=== PATIENT | female | born 1930 | race African-American/Black ===

== ENCOUNTER 2016-09-23 12:24 | Emergency (ER) | payer OTHER ==
[2016-09-23 12:37] VITALS: BP 133/59; PULSE 71; TEMP 97.7; BMI 30.8
--- NOTE | 2016-09-23 13:09 | PDOC ---
History of Present Illness - General Chief Complaint: Pain Stated Complaint: LEG PAIN FOR 9 MONTHS Time Seen by Provider: 09/23/16 12:47 History Source: Patient Exam Limitations: No Limitations - History of Present Illness Initial Comments: 09/23/16 13:03 86 yr female history of DM, COPD, CHF c/o chronic left leg pain for 9 months the past 2 months having burning, pain to the lower zamora. Past History - Past Medical History Allergies/Adverse Reactions: Allergies Allergy/AdvReac Type Severity Reaction Status Date / Time cranberry Allergy Unknown Verified 09/23/16 12:37 grape Allergy Unknown Verified 09/23/16 12:37 raspberry Allergy Unknown Verified 09/23/16 12:37 strawberry Allergy Unknown Verified 09/23/16 12:37 furosemide [From Lasix] AdvReac Verified 09/23/16 12:37 corn Allergy Unknown Uncoded 09/23/16 12:37 NUTS Allergy Unknown Uncoded 09/23/16 12:37 POLLEN Allergy Unknown Uncoded 09/23/16 12:37 SHELLFISH Allergy Unknown Uncoded 09/23/16 12:37 TUNA Allergy Unknown Uncoded 09/23/16 12:37 Home Medications: Ambulatory Orders Atorvastatin Ca [Lipitor] 10 mg PO HS #30 tablet 09/16/14 Lisinopril [Prinivil] 5 mg PO DAILY #30 tablet 09/16/14 Metoprolol Tartrate [Lopressor -] 100 mg PO BID #60 tablet 09/16/14 Spironolactone [Aldactone -] 25 mg PO DAILY #30 tablet 09/16/14 Warfarin Na [Coumadin -] 7 mg PO DAILY@1800 #30 tablet 09/16/14 Ibuprofen [Motrin -] 600 mg PO TID #21 tablet 08/29/15 Gabapentin 300 mg PO TID #90 capsule 09/23/16 Anemia: No Asthma: No Cancer: Yes (breast lt) Cardiac Disorders: Yes (mi,) COPD: No CHF: Yes Diabetes: Yes (niddm) HTN: Yes Hypercholesterolemia: Yes - Surgical History Cholecystectomy: Yes Orthopedic Surgery: Yes (Total Rt knee Replacement 7 yrs ago) - Immunization History Immunization Up to Date: Yes - Psycho/Social/Smoking Cessation Hx Anxiety: No Suicidal Ideation: No Smoking Status: No Smoking History: Never smoked Have you smoked in the past 12 months: No Number of Cigarettes Smoked Daily: 0 Information on smoking cessation initiated: No Hx Alcohol Use: No Drug/Substance Use Hx: No Substance Use Type: None Hx Substance Use Treatment: No *Physical Exam - Vital Signs Last Vital Signs Temp Pulse Resp BP Pulse Ox 97.7 F 71 17 133/59 98 09/23/16 12:35 09/23/16 12:35 09/23/16 12:35 09/23/16 12:35 09/23/16 12:35 - Physical Exam General Appearance: Yes: Nourished, Appropriately Dressed HEENT: positive: EOMI, TD Neck: negative: Tender Respiratory/Chest: positive: Lungs Clear, Normal Breath Sounds Cardiovascular: positive: Regular Rhythm, Regular Rate Vascular Pulses: Dorsalis-Pedis (R): 2+, Doralis-Pedis (L): 2+ Musculoskeletal: positive: Normal Inspection Extremity: positive: Normal Capillary Refill, Normal Range of Motion, Other ( right zamora with intact skin, right foot with inflamation, no redness no warmth, bumpy rough skin , no open areas ). negative: Delayed Capillary Refill, Pedal Edema, Swelling, Calf Tenderness, Erythema Integumentary: positive: Normal Color, Dry, Warm Neurologic: positive: Fully Oriented, Alert, Normal Mood/Affect, Normal Response , Motor Strength 5/5 Medical Decision Making - Medical Decision Making 09/23/16 13:17 cc: chronic leg and foot pain worse the past month burning tingling pain to the right lower zamora and ankle. 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 pt states she has been using a cream for her skin that prescribed , not providing relief from the burning neuropathy. will prescribe gabapentin pt is to follow with vascular doctor as discussed with pt and her daughter. pt is ambulatory no acute distress. 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 Calles call to make appointment if symptoms do not improve follow with in 1-2 weeks for follow up take the medication as prescribed return to ER for any worsening symptoms
== END 2016-09-23 14:00 | disposition home or self-care (01) ==
LOC: JERFT 12:24
DX: E08.41 Diabetes mellitus due to underlying condition with diabetic mononeuropathy (principal); I50.9 Heart failure, unspecified; I10 Essential (primary) hypertension; E78.00 Pure hypercholesterolemia, unspecified; Z79.01 Long term (current) use of anticoagulants
CPT/HCPCS: 99281-25

== ENCOUNTER 2016-10-24 16:48 | Inpatient (IN) | payer OTHER ==
--- NOTE | 2016-10-24 17:25 | PDOC ---
History of Present Illness - General History Source: Patient Exam Limitations: No Limitations - History of Present Illness Initial Comments: 10/24/16 18:25 The patient is an 86 year old female with past medical history of hypertension, A-fib (on Warfarin), CHF, s/p cholecystectomy who presents to the ED with complaints of shortness of breath for the past three days. Her shortness of breath is accompanied by fever and chills. In addition to her symptoms, the patient states that at her last PCP visit, it was noted to have abnormal lab values and needed to have new lab work done. Lastly, she has also been complaining of chronic RUQ pain and relates it to gallstones. She denies any nausea, vomiting, diarrhea, chest pain, or urinary symptoms. <Danika Hernandez - Last Filed: 10/24/16 18:25> <Roberto Sheikh - Last Filed: 10/26/16 08:19> - General Chief Complaint: Shortness of Breath Stated Complaint: CHEST PAIN Past History <Danika Hernandez - Last Filed: 10/24/16 18:25> - Past Medical History Anemia: No Asthma: No Cancer: Yes (breast lt) Cardiac Disorders: Yes (mi,pulm.htn) COPD: No CHF: Yes Diabetes: Yes (niddm) HTN: Yes Hypercholesterolemia: Yes - Surgical History Cholecystectomy: Yes Orthopedic Surgery: Yes (Total Rt knee Replacement 7 yrs ago) - Immunization History Immunization Up to Date: Yes - Psycho/Social/Smoking Cessation Hx Anxiety: No Suicidal Ideation: No Smoking Status: No Smoking History: Never smoked Have you smoked in the past 12 months: No Number of Cigarettes Smoked Daily: 0 Information on smoking cessation initiated: No Hx Alcohol Use: No Drug/Substance Use Hx: No Substance Use Type: None Hx Substance Use Treatment: No <Roberto Sheikh - Last Filed: 10/26/16 08:19> - Past Medical History Allergies/Adverse Reactions: Allergies Allergy/AdvReac Type Severity Reaction Status Date / Time cranberry Allergy Unknown Verified 10/24/16 16:49 grape Allergy Unknown Verified 10/24/16 16:49 raspberry Allergy Unknown Verified 10/24/16 16:49 strawberry Allergy Unknown Verified 10/24/16 16:49 furosemide [From Lasix] AdvReac Verified 10/24/16 16:49 corn Allergy Unknown Uncoded 10/24/16 16:49 NUTS Allergy Unknown Uncoded 10/24/16 16:49 POLLEN Allergy Unknown Uncoded 10/24/16 16:49 SHELLFISH Allergy Unknown Uncoded 10/24/16 16:49 TUNA Allergy Unknown Uncoded 10/24/16 16:49 Home Medications: Ambulatory Orders Atorvastatin Ca [Lipitor] 10 mg PO HS #30 tablet 09/16/14 Lisinopril [Prinivil] 5 mg PO DAILY #30 tablet 09/16/14 Spironolactone [Aldactone -] 25 mg PO DAILY #30 tablet 09/16/14 Warfarin Na [Coumadin -] 7 mg PO DAILY@1800 #30 tablet 09/16/14 Ibuprofen [Motrin -] 600 mg PO TID #21 tablet 08/29/15 Gabapentin 300 mg PO TID #90 capsule 09/23/16 Amlodipine Besylate 5 mg PO DAILY 10/25/16 Metformin HCl 500 mg PO DAILY 10/25/16 Metoprolol Tartrate [Lopressor -] 100 mg PO BID 10/25/16 Multivit-Min/FA/Lycopen/Lutein [Centrum Silver Tablet] 1 each PO 10/25/16 Sildenafil Citrate [Sildenafil] 10 mg PO TID 10/25/16 Torsemide [Demadex] 40 mg PO ACDIN 10/25/16 Torsemide [Demadex] 60 mg PO AM 10/25/16 Review of Systems - Review of Systems Able to Perform ROS?: Yes Comments:: 10/24/16 18:25 GENERAL/CONSTITUTIONAL: No fever or chills. No weakness. HEAD, EYES, EARS, NOSE AND THROAT: No change in vision. No ear pain or discharge. No sore throat. CARDIOVASCULAR: No chest pain or shortness of breath. RESPIRATORY: Present: SOB, cough No wheezing, or hemoptysis. GASTROINTESTINAL: Present: RUQ pain No nausea, vomiting, diarrhea or constipation. GENITOURINARY: No dysuria, frequency, or change in urination. MUSCULOSKELETAL: No joint or muscle swelling or pain. No neck or back pain. SKIN: No rash NEUROLOGIC: No headache, vertigo, loss of consciousness, or change in strength/ sensation. ENDOCRINE: No increased thirst. No abnormal weight change. HEMATOLOGIC/LYMPHATIC: No anemia, easy bleeding, or history of blood clots. ALLERGIC/IMMUNOLOGIC: No hives or skin allergy. All Other Systems: Reviewed and Negative <Danika Hernandez - Last Filed: 10/24/16 18:25> *Physical Exam - Vital Signs Last Vital Signs Temp Pulse Resp BP Pulse Ox 98.2 F 73 18 144/67 95 10/24/16 16:50 10/24/16 16:50 10/24/16 16:50 10/24/16 16:50 10/24/16 16:50 - Physical Exam Comments: 10/24/16 18:27 GENERAL: Awake, alert, and fully oriented, in no acute distress HEAD: No signs of trauma EYES: PERRLA, EOMI, sclera anicteric, conjunctiva clear ENT: Auricles normal inspection, hearing grossly normal, nares patent, oropharynx clear without exudates. Moist mucosa NECK: Positive JVD,Normal ROM, supple, no lymphadenopathy, or masses LUNGS: Fine crackles bilaterally. No wheezes. HEART: Regular rate and rhythm, normal S1 and S2, no murmurs, rubs or gallops ABDOMEN: Soft, nontender, normoactive bowel sounds. No guarding, no rebound. No masses EXTREMITIES: Normal range of motion, mild bilateral edema at the ankles. No clubbing or cyanosis. No cords, erythema, or tenderness NEUROLOGICAL: Cranial nerves II through XII grossly intact. Normal speech, normal gait SKIN: Warm, Dry, normal turgor, no rashes or lesions noted. <Danika Hernandez - Last Filed: 10/24/16 18:25> - Vital Signs Last Vital Signs Temp Pulse Resp BP Pulse Ox 98.2 F 73 18 144/67 95 10/24/16 16:50 10/24/16 16:50 10/24/16 16:50 10/24/16 16:50 10/24/16 16:50 <Roberto Sheikh - Last Filed: 10/26/16 08:19> ED Treatment Course - LABORATORY CBC & Chemistry Diagram: 10/26/16 06:00 10/25/16 05:35 <Roberto Sheikh - Last Filed: 10/26/16 08:19> Medical Decision Making - Medical Decision Making 10/24/16 18:32 Patient had a negative reaction - hypersomnolence/lethargy- difficult to arrouse after Gabapentin last admission <Roberto Sheikh - Last Filed: 10/26/16 08:19> *DC/Admit/Observation/Transfer - Attestations Scribe Attestion: 10/24/16 18:29 Documentation prepared by Danika Hernandez, acting as medical laboratory manager for Roberto Sheikh DO. <Danika Hernandez - Last Filed: 10/24/16 18:25> - Attestations Physician Attestion: 10/24/16 17:25 I, Dr. Roberto Sheikh, attest that this document has been prepared under my direction and personally reviewed by me in its entirety. I further attest, that it accurately reflects all work, treatment, procedures and medical decision -making performed by me. <Roberto Sheikh - Last Filed: 10/26/16 08:19> Diagnosis at time of Disposition: CHF (congestive heart failure) Qualifiers: Congestive heart failure type: diastolic Congestive heart failure chronicity: acute on chronic Qualified Code(s): I50.33 - Acute on chronic diastolic ( congestive) heart failure - Discharge Dispostion Condition at time of disposition: Unchanged/Unknown - Referrals
[2016-10-24 19:41] LABS: BASOPHIL 0.4 % (0-2.0); EOSINOPHIL 1.7 % (0-4.5); MCH 29.9 pg (25.7-33.7); MEAN CELL VOLUME 90.5 fl (80-96); MEAN PLT VOLUME 10.1 fl (7.5-11.1); NEUTROPHILS 58.5 % (42.8-82.8); PLATELET COUNT 122 K/MM3 (134-434); RDW 14.7 % (11.6-15.6); WHITE BLOOD COUNT 6.1 K/mm3 (4.0-10.0)
[2016-10-24 20:06] LABS: INR 2.25 (0.82-1.09); PROTHROMBIN TIME (PATIENT) 25.2 SEC (9.98-11.88)
[2016-10-24 20:12] LABS: ALBUMIN 3.5 g/dl (3.4-5.0); ANION GAP 8 (8-16); BILIRUBIN,TOTAL 1.4 mg/dL (0.2-1.0); CO2 32 mmol/L (21-32); GLUCOSE,RANDOM 107 mg/dL (74-106); SGOT/AST 18 U/L (15-37); SGPT/ALT 21 U/L (12-78); TOT PROT 8.4 g/dl (6.4-8.2)
[2016-10-24 20:15] LABS: ALK PHOS 54 U/L (45-117); CPK 150 IU/L (26-192); TROPONIN I < 0.02 ng/ml (0.00-0.05)
--- NOTE | 2016-10-24 20:35 | PDOC ---
*Physical Exam - Vital Signs Last Vital Signs Temp Pulse Resp BP Pulse Ox 98.2 F 73 18 144/67 95 10/24/16 16:50 10/24/16 16:50 10/24/16 16:50 10/24/16 16:50 10/24/16 16:50 ED Treatment Course - LABORATORY CBC & Chemistry Diagram: 10/24/16 19:30 10/24/16 19:30 - ADDITIONAL ORDERS Additional order review: Laboratory Results 10/24/16 10/24/16 10/24/16 19:30 19:30 19:30 INR 2.25 H Sodium 139 Potassium 3.8 Chloride 99 Carbon Dioxide 32 Anion Gap 8 BUN 31 H D Creatinine 2.0 H D Creat Clearance w eGFR 23.74 Random Glucose 107 H Calcium 9.0 Total Bilirubin 1.4 H D AST 18 D ALT 21 D Alkaline Phosphatase 54 Creatine Kinase 150 Troponin I < 0.02 B-Natriuretic Peptide 2765.47 H Total Protein 8.4 H D Albumin 3.5 Lipase 132 10/24/16 19:30 RBC 3.86 MCV 90.5 MCHC 33.0 RDW 14.7 MPV 10.1 Neutrophils % 58.5 Lymphocytes % 27.5 D Monocytes % 11.9 H Eosinophils % 1.7 D Basophils % 0.4 *DC/Admit/Observation/Transfer Diagnosis at time of Disposition: CHF (congestive heart failure) - Discharge Dispostion Condition at time of disposition: Stable Admit: Yes - Referrals Referrals: Julio Cesar Ma MD [Primary Care Provider] - - Patient Instructions - Post Discharge Activity
--- NOTE | 2016-10-24 21:09 | HP ---
CHIEF COMPLAINT: SOB PCP: Dr. Ma Investigative Assistant: Dr Laurita Erazo ([facility]) HISTORY OF PRESENT ILLNESS: This is a 86 y/o woman with a past medical history of CHF, Afib, HTN, Pulmonary Hypertension, HLD, DM. Who reports SOB x 2 days. Patient reports having a productive cough with yellow phlegm, and was wheezing. Patient also reports having midsternal CP several days ago, then returned last night sharp, nagging in quality radiating across her L-breast. Patient denies dizziness, CP, AP, N/V/ D, constipation, dysuria ER course was notable for: (1) Chest Xray- image vascular congestion (2) BNP 2765 (3) HEMANT: BUN 31, Cr 2.0 Recent Travel: None PAST MEDICAL HISTORY: Congestive Heart Failure Atrial Fibrillation Pulmonary Hypertension Hypertension Hyperlipidemia Non-Insulin Dependent Diabetes Mellitus L- Breast Ca (s/p Chemo, remission) Arthritis PAST SURGICAL HISTORY: Mastectomy-(L- Lumpectomy) Hysterectomy Cholecystectomy Right Total Knee Replacement Tubal Ligation Childbirth Social History: Smoking: Never Alcohol: No Drugs: No Family History: Allergies cranberry Allergy (Unknown, Verified 10/24/16 16:49) grape Allergy (Unknown, Verified 10/24/16 16:49) raspberry Allergy (Unknown, Verified 10/24/16 16:49) strawberry Allergy (Unknown, Verified 10/24/16 16:49) furosemide [From Lasix] Adverse Reaction (Verified 10/24/16 16:49) dizziness corn Allergy (Unknown, Uncoded 10/24/16 16:49) NUTS Allergy (Unknown, Uncoded 10/24/16 16:49) POLLEN Allergy (Unknown, Uncoded 10/24/16 16:49) SHELLFISH Allergy (Unknown, Uncoded 10/24/16 16:49) TUNA Allergy (Unknown, Uncoded 10/24/16 16:49) HOME MEDICATIONS: Home Medications Medication Instructions Recorded Atorvastatin Ca [Lipitor] 10 mg PO HS #30 tablet 09/16/14 Lisinopril [Prinivil] 5 mg PO DAILY #30 tablet 09/16/14 Metoprolol Tartrate [Lopressor -] 100 mg PO BID #60 tablet 09/16/14 Spironolactone [Aldactone -] 25 mg PO DAILY #30 tablet 09/16/14 Warfarin Na [Coumadin -] 7 mg PO DAILY@1800 #30 tablet 09/16/14 Ibuprofen [Motrin -] 600 mg PO TID #21 tablet 08/29/15 Gabapentin 300 mg PO TID #90 capsule 09/23/16 REVIEW OF SYSTEMS CONSTITUTIONAL: Absent: fever, chills, diaphoresis, generalized weakness, malaise, loss of appetite, weight change HEENT: Absent: rhinorrhea, nasal congestion, throat pain, throat swelling, difficulty swallowing, mouth swelling, ear pain, eye pain, visual changes CARDIOVASCULAR: chest pain, peripheral edema Absent: syncope, palpitations, irregular heart rate, lightheadedness RESPIRATORY: cough, shortness of breath, dyspnea with exertion, wheezing Absent: orthopnea, stridor, hemoptysis GASTROINTESTINAL: Absent: abdominal pain, abdominal distension, nausea, vomiting, diarrhea, constipation, melena, hematochezia GENITOURINARY: Absent: dysuria, frequency, urgency, hesitancy, hematuria, flank pain, genital pain MUSCULOSKELETAL: Absent: myalgia, arthralgia, joint swelling, back pain, neck pain SKIN: Absent: rash, itching, pallor HEMATOLOGIC/IMMUNOLOGIC: Absent: easy bleeding, easy bruising, lymphadenopathy, frequent infections ENDOCRINE: Absent: unexplained weight gain, unexplained weight loss, heat intolerance, cold intolerance NEUROLOGIC: Absent: headache, focal weakness or paresthesias, dizziness, unsteady gait, seizure, mental status changes, bladder or bowel incontinence PSYCHIATRIC: Absent: anxiety, depression, suicidal or homicidal ideation, hallucinations. PHYSICAL EXAMINATION Vital Signs - 24 hr 10/24/16 16:50 Temperature 98.2 F Pulse Rate 73 Respiratory 18 Rate Blood Pressure 144/67 O2 Sat by Pulse 95 Oximetry (%) GENERAL: Awake, alert, and fully oriented, in no acute distress. HEAD: Normal with no signs of trauma. EYES: Pupils equal, round and reactive to light, extraocular movements intact, sclera anicteric, conjunctiva clear. No lid lag. EARS, NOSE, THROAT: Ears normal, nares patent, oropharynx clear without exudates. Moist mucous membranes. NECK: Normal range of motion, supple without lymphadenopathy, JVD, or masses. LUNGS: Diminished to bases, breath sounds equal. No wheezes, and no crackles. No accessory muscle use. HEART: Regular rate and rhythm, normal S1 and S2 without murmur, rub or gallop. ABDOMEN: Soft, nontender, not distended, normoactive bowel sounds, no guarding, no rebound, no masses. No hepatomegaly or splenomegaly. MUSCULOSKELETAL: Normal range of motion at all joints. No bony deformities or tenderness. No CVA tenderness. UPPER EXTREMITIES: 2+ pulses, warm, well-perfused. No cyanosis. No clubbing. No peripheral edema. LOWER EXTREMITIES:+2 pitting L > R peripheral edema. 2+ pulses, warm, well- perfused. No calf tenderness. NEUROLOGICAL: Cranial nerves II-XII intact. Normal speech. Gait not observed. PSYCHIATRIC: Cooperative. Good eye contact. Appropriate mood and affect. SKIN: Warm, dry, normal turgor, no rashes or lesions noted, normal capillary refill. Laboratory Results - last 24 hr 10/24/16 10/24/16 10/24/16 19:30 19:30 19:30 WBC 6.1 RBC 3.86 Hgb 11.5 Hct 35.0 MCV 90.5 MCH 29.9 MCHC 33.0 RDW 14.7 Plt Count 122 L MPV 10.1 Neutrophils % 58.5 Lymphocytes % 27.5 D Monocytes % 11.9 H Eosinophils % 1.7 D Basophils % 0.4 INR 2.25 H Sodium 139 Potassium 3.8 Chloride 99 Carbon Dioxide 32 Anion Gap 8 BUN 31 H D Creatinine 2.0 H D Creat Clearance w eGFR 23.74 Random Glucose 107 H Calcium 9.0 Total Bilirubin 1.4 H D AST 18 D ALT 21 D Alkaline Phosphatase 54 Creatine Kinase 150 Creatine Kinase Index 0.6 CK-MB (CK-2) < 1.000 Troponin I < 0.02 B-Natriuretic Peptide Total Protein 8.4 H D Albumin 3.5 Lipase 132 10/24/16 19:30 WBC RBC Hgb Hct MCV MCH MCHC RDW Plt Count MPV Neutrophils % Lymphocytes % Monocytes % Eosinophils % Basophils % INR Sodium Potassium Chloride Carbon Dioxide Anion Gap BUN Creatinine Creat Clearance w eGFR Random Glucose Calcium Total Bilirubin AST ALT Alkaline Phosphatase Creatine Kinase Creatine Kinase Index CK-MB (CK-2) Troponin I B-Natriuretic Peptide 2765.47 H Total Protein Albumin Lipase ASSESSMENT/PLAN: This is a 86 y/o woman with a PMHx of: Pulmonary HTN, HTN, Afib (on Coumadin), CHF, HLD, COPD, CAD, DM. Admitted for Telemetry for CHF Exacerbation for further evaluation of their emergent condition. Problem List - Problem (1) CHF exacerbation Assessment/Plan: - Likely secondary to LVSF - Continue cardiac monitoring - Chest Xray reviewed - BNP 2700, slightly improved compared to prior visit - Appreciate Cardiology Consult - Torsemide given tonight - Strict INOs - Daily weights - O2 - Continue home meds - Monitor renal function Code(s): I50.9 - HEART FAILURE, UNSPECIFIED (2) HEMANT (acute kidney injury) Assessment/Plan: - Likely secondary to HF vs Medication - Baseline Cr 1.1 - Code(s): N17.9 - ACUTE KIDNEY FAILURE, UNSPECIFIED (3) Moderate to severe pulmonary hypertension Code(s): I27.2 - OTHER SECONDARY PULMONARY HYPERTENSION (4) Lower extremity edema Code(s): R60.0 - LOCALIZED EDEMA (5) Atrial fibrillation Assessment/Plan: - EKG reviewed- NSR - Continue cardiac monitoring - [id number] Score 6 - Continue Coumadin - Series INRs Code(s): I48.91 - UNSPECIFIED ATRIAL FIBRILLATION (6) Diabetes Assessment/Plan: - Controlled - BGMs - ISS - Hold Metformin 2/2 Renal Insufficiency - Monitor renal function - HgbA1c in am Code(s): E11.9 - TYPE 2 DIABETES MELLITUS WITHOUT COMPLICATIONS (7) HTN (hypertension) Assessment/Plan: - Controlled - Monitor BP - Continue home meds with parameters Code(s): I10 - ESSENTIAL (PRIMARY) HYPERTENSION (8) Hyperlipidemia Assessment/Plan: - Lipid Panel in am - Continue home med - Monitor LFTs Code(s): E78.5 - HYPERLIPIDEMIA, UNSPECIFIED (9) DVT prophylaxis Assessment/Plan: - OOB - SCDs - Continue Coumadin Code(s): LLW9881 - Visit type - Emergency Visit Emergency Visit: Yes ED Registration Date: 10/24/16 Care time: The patient presented to the Emergency Department on the above date and was hospitalized for further evaluation of their emergent condition. - New Patient This patient is new to me today: Yes Date on this admission: 10/24/16 - Critical Care Critical Care patient: No
[2016-10-24] MEDS ORDERED: WARFARIN NA 5 MG TABLET (UD) PO ONE (23:13)
[2016-10-24] MEDS ORDERED: TORSEMIDE 20 MG TABLET (FP) PO ONE (23:25)
[2016-10-24] MEDS: ATORVASTATIN CA 10 MG TABLET (FP) PO SCH (23:50)
[2016-10-25 01:15] LABS: CPK 147 IU/L (26-192); TROPONIN I < 0.02 ng/ml (0.00-0.05)
[2016-10-25 02:25] VITALS: BMI 31.5
[2016-10-25] MEDS: INSULIN SLIDING SCALE (NOVOLOG) 1 VIAL SQ SCH ×4 (06:07→21:33)
[2016-10-25 07:20] LABS: BASOPHIL 0.5 % (0-2.0); EOSINOPHIL 2.4 % (0-4.5); MCH 29.6 pg (25.7-33.7); MCHC 32.6 g/dl (32.0-36.0); MEAN CELL VOLUME 90.7 fl (80-96); MEAN PLT VOLUME 10.2 fl (7.5-11.1); NEUTROPHILS 54.6 % (42.8-82.8); PLATELET COUNT 105 K/MM3 (134-434); RDW 14.6 % (11.6-15.6); WHITE BLOOD COUNT 5.8 K/mm3 (4.0-10.0)
[2016-10-25 07:29] LABS: ANION GAP 6 (8-16); CALCIUM 8.9 mg/dL (8.5-10.1); CO2 33 mmol/L (21-32); GLUCOSE,RANDOM 104 mg/dL (74-106); MAGNESIUM 2.6 mg/dL (1.8-2.4)
[2016-10-25 07:34] LABS: INR 2.37 (0.82-1.09); PROTHROMBIN TIME (PATIENT) 26.5 SEC (9.98-11.88)
[2016-10-25 07:35] LABS: CHOLESTEROL 169 mg/dL (50-200); CREATININE 1.6 mg/dL (0.55-1.02); LDL CHOLESTEROL (ONLY SJRH) 85 mg/dL (5-100); PHOSPHOROUS 3.7 mg/dL (2.5-4.9)
[2016-10-25 08:12] LABS: CPK 127 IU/L (26-192)
[2016-10-25 08:13] LABS: TROPONIN I < 0.02 ng/ml (0.00-0.05)
[2016-10-25] MEDS: CHOLECALCIFEROL (VITAMIN D3) 1,000 UNIT TABLET (FP) PO SCH (09:29)
[2016-10-25] MEDS: METOPROLOL TARTRATE 50 MG TABLET (FP) PO SCH ×2 (09:29→09:56)
[2016-10-25] MEDS: MULTIVITAMINS (DAILY MVI) TABLET (FP) PO SCH (09:29)
[2016-10-25] MEDS: amLODIPine BESYLATE 5 MG TABLET (FP) PO SCH (09:30)
[2016-10-25] MEDS ORDERED: METOPROLOL TARTRATE 50 MG TABLET (FP) PO ONE (10:00)
--- NOTE | 2016-10-25 10:38 | CON.CARD ---
Consult Consult Specialty:: Cardiology Referred by:: Dr. Mccann Reason for Consultation:: Cardiac evaluation - History of Present Illness Chief Complaint: Productive cough and shortness of breath History of Present Illness: Patient is an 86 year old female with underlying history of hypertension, hypercholesterolemia, type 2 diabetes mellitus, non-obstructive CAD, paroxysmal atrial fibrillation [id number] score of 7 on Warfarin with therapeutic INR who presents with productive cough with yellow sputum and shortness of breath. She denies chest pain or palpitations at this time. She denies fever or chills today, but states feverish recently. She denies paroxysmal nocturnal dyspnea or orthopnea. She denies headache or lightheadedness. Cardiology consultation was called for further evaluation. She has had syncope in the past. 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 She is on home O2 intermittently. 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 Cardio/Vascular: Yes: CAD (non-obstructive CAD), HTN, Hyperlipdemia, Pulmonary Hypertension Endocrine: Yes: Diabetes Mellitus Additional Medical History: Hyperlipidemia, recent onset afib - Past Surgical History Past Surgical History: Yes: Cholecystectomy, Hysterectomy, Joint Replacement ( right knee), Mastectomy (left lumpectomy), Tubal Ligation - Alcohol/Substance Use Hx Alcohol Use: No History of Substance Use: reports: None - Smoking History Smoking history: Never smoked Have you smoked in the past 12 months: No Aproximately how many cigarettes per day: 0 - Social History ADL: Independent Home Medications - Allergies Allergies/Adverse Reactions: Allergies Allergy/AdvReac Type Severity Reaction Status Date / Time cranberry Allergy Unknown Verified 10/24/16 16:49 grape Allergy Unknown Verified 10/24/16 16:49 raspberry Allergy Unknown Verified 10/24/16 16:49 strawberry Allergy Unknown Verified 10/24/16 16:49 furosemide [From Lasix] AdvReac Verified 10/24/16 16:49 corn Allergy Unknown Uncoded 10/24/16 16:49 NUTS Allergy Unknown Uncoded 10/24/16 16:49 POLLEN Allergy Unknown Uncoded 10/24/16 16:49 SHELLFISH Allergy Unknown Uncoded 10/24/16 16:49 TUNA Allergy Unknown Uncoded 10/24/16 16:49 - Home Medications Home Medications: Ambulatory Orders Atorvastatin Ca [Lipitor] 10 mg PO HS #30 tablet 09/16/14 Lisinopril [Prinivil] 5 mg PO DAILY #30 tablet 09/16/14 Spironolactone [Aldactone -] 25 mg PO DAILY #30 tablet 09/16/14 Warfarin Na [Coumadin -] 7 mg PO DAILY@1800 #30 tablet 09/16/14 Ibuprofen [Motrin -] 600 mg PO TID #21 tablet 08/29/15 Gabapentin 300 mg PO TID #90 capsule 09/23/16 Amlodipine Besylate 5 mg PO DAILY 10/25/16 Metformin HCl 500 mg PO DAILY 10/25/16 Metoprolol Tartrate [Lopressor -] 100 mg PO BID 10/25/16 Multivit-Min/FA/Lycopen/Lutein [Centrum Silver Tablet] 1 each PO 10/25/16 Sildenafil Citrate [Sildenafil] 10 mg PO TID 10/25/16 Torsemide [Demadex] 40 mg PO ACDIN 10/25/16 Torsemide [Demadex] 60 mg PO AM 10/25/16 Family Disease History - Family Disease History Family Disease History: Other: Daughter (HTN) Review of Systems - Review of Systems Cardiovascular: reports: Shortness of Breath. denies: Chest Pain, Palpitations Respiratory: reports: Cough, SOB. denies: Hemoptysis, Orthopnea, PND Gastrointestinal: denies: Abdominal Pain, Constipation, Diarrhea, Melena, Nausea , Rectal Bleeding, Vomiting Neurological: reports: Syncope. denies: Dizziness, Headache, Seizure, Weakness Vital Signs: Vital Signs Temperature 98.0 F 10/25/16 05:42 Pulse Rate 57 L 10/25/16 02:00 Respiratory Rate 20 10/25/16 05:42 Blood Pressure 127/72 10/25/16 05:42 O2 Sat by Pulse Oximetry (%) 95 10/25/16 00:51 Neck: Yes: Supple Respiratory: Yes: Diminished Gastrointestinal: Yes: Normal Bowel Sounds, Soft. No: Tenderness Cardiovascular: Yes: Regular Rate and Rhythm JVD: No Carotid Bruit: No PMI: Non-Displaced Heart Sounds: Yes: S1, S2. No: Gallop Edema: No - Other Data Labs, Other Data: CBC, BMP 10/25/16 05:35 10/25/16 05:35 INR, PTT INR 2.37 (0.82-1.09) H 10/25/16 05:35 Troponin, BNP 10/25/16 10/25/16 00:01 05:35 Troponin I < 0.02 < 0.02 Laboratory Results - last 24 hr 10/24/16 10/24/16 10/24/16 19:30 19:30 19:30 WBC 6.1 RBC 3.86 Hgb 11.5 Hct 35.0 MCV 90.5 MCH 29.9 MCHC 33.0 RDW 14.7 Plt Count 122 L MPV 10.1 Neutrophils % 58.5 Lymphocytes % 27.5 D Monocytes % 11.9 H Eosinophils % 1.7 D Basophils % 0.4 INR 2.25 H Sodium 139 Potassium 3.8 Chloride 99 Carbon Dioxide 32 Anion Gap 8 BUN 31 H D Creatinine 2.0 H D Creat Clearance w eGFR 23.74 POC Glucometer Random Glucose 107 H Hemoglobin A1c % Calcium 9.0 Phosphorus Magnesium Total Bilirubin 1.4 H D AST 18 D ALT 21 D Alkaline Phosphatase 54 Creatine Kinase 150 Creatine Kinase Index 0.6 CK-MB (CK-2) < 1.000 Troponin I < 0.02 B-Natriuretic Peptide Total Protein 8.4 H D Albumin 3.5 Triglycerides Cholesterol Total LDL Cholesterol HDL Cholesterol Lipase 132 10/24/16 10/24/16 10/25/16 19:30 21:27 00:01 WBC RBC Hgb Hct MCV MCH MCHC RDW Plt Count MPV Neutrophils % Lymphocytes % Monocytes % Eosinophils % Basophils % INR Sodium Potassium Chloride Carbon Dioxide Anion Gap BUN Creatinine Creat Clearance w eGFR POC Glucometer [id number] Random Glucose Hemoglobin A1c % Calcium Phosphorus Magnesium Total Bilirubin AST ALT Alkaline Phosphatase Creatine Kinase 147 Creatine Kinase Index CK-MB (CK-2) Troponin I < 0.02 B-Natriuretic Peptide 2765.47 H Total Protein Albumin Triglycerides Cholesterol Total LDL Cholesterol HDL Cholesterol Lipase 10/25/16 10/25/16 10/25/16 05:35 05:35 05:35 WBC 5.8 RBC 3.56 L Hgb 10.5 L Hct 32.3 L MCV 90.7 MCH 29.6 MCHC 32.6 RDW 14.6 Plt Count 105 L MPV 10.2 Neutrophils % 54.6 Lymphocytes % 29.6 Monocytes % 12.9 H Eosinophils % 2.4 Basophils % 0.5 INR 2.37 H Sodium 141 Potassium 3.6 Chloride 102 Carbon Dioxide 33 H Anion Gap 6 L BUN 27 H Creatinine 1.6 H Creat Clearance w eGFR POC Glucometer Random Glucose 104 Hemoglobin A1c % Calcium 8.9 Phosphorus 3.7 D Magnesium 2.6 H Total Bilirubin AST ALT Alkaline Phosphatase Creatine Kinase Creatine Kinase Index CK-MB (CK-2) Troponin I B-Natriuretic Peptide Total Protein Albumin Triglycerides 46 Cholesterol 169 D Total LDL Cholesterol 85 HDL Cholesterol 73 H D Lipase 10/25/16 10/25/16 10/25/16 05:35 05:35 05:50 WBC RBC Hgb Hct MCV MCH MCHC RDW Plt Count MPV Neutrophils % Lymphocytes % Monocytes % Eosinophils % Basophils % INR Sodium Potassium Chloride Carbon Dioxide Anion Gap BUN Creatinine Creat Clearance w eGFR POC Glucometer 106 Random Glucose Hemoglobin A1c % 6.6 H D Calcium Phosphorus Magnesium Total Bilirubin AST ALT Alkaline Phosphatase Creatine Kinase 127 Creatine Kinase Index CK-MB (CK-2) Troponin I < 0.02 B-Natriuretic Peptide Total Protein Albumin Triglycerides Cholesterol Total LDL Cholesterol HDL Cholesterol Lipase Sinus rhythm with no ST-T abnormality Imaging - Results Chest X-ray: Report Reviewed (Cardiomegaly, mild interstital marking) EKG: Report Reviewed Problem List - Problems (1) HEMANT (acute kidney injury) Code(s): N17.9 - ACUTE KIDNEY FAILURE, UNSPECIFIED (2) CHF (congestive heart failure) Code(s): I50.9 - HEART FAILURE, UNSPECIFIED Qualifiers: Congestive heart failure type: diastolic Congestive heart failure chronicity: acute on chronic Qualified Code(s): I50.33 - Acute on chronic diastolic (congestive) heart failure (3) Atrial fibrillation Code(s): I48.91 - UNSPECIFIED ATRIAL FIBRILLATION Qualifiers: Atrial fibrillation type: paroxysmal Qualified Code(s): I48.0 - Paroxysmal atrial fibrillation (4) Diabetes Code(s): E11.9 - TYPE 2 DIABETES MELLITUS WITHOUT COMPLICATIONS Qualifiers: Diabetes mellitus type: type 2 Diabetes mellitus complication status: without complication Diabetes mellitus terminal operator insulin use: without chcf use Qualified Code(s): E11.9 - Type 2 diabetes mellitus without complications (5) HTN (hypertension) Code(s): I10 - ESSENTIAL (PRIMARY) HYPERTENSION Qualifiers: Hypertension type: essential hypertension Qualified Code(s): I10 - Essential (primary) hypertension (6) Hyperlipidemia Code(s): E78.5 - HYPERLIPIDEMIA, UNSPECIFIED Qualifiers: Hyperlipidemia type: pure hypercholesterolemia Qualified Code(s): E78.00 - Pure hypercholesterolemia, unspecified; E78.0 - Pure hypercholesterolemia (7) Moderate to severe pulmonary hypertension Code(s): I27.2 - OTHER SECONDARY PULMONARY HYPERTENSION (8) Syncopal episodes Code(s): R55 - SYNCOPE AND COLLAPSE Qualifiers: Syncope type: unspecified Qualified Code(s): R55 - Syncope and collapse (9) CAD (coronary artery disease) Code(s): I25.10 - ATHSCL HEART DISEASE OF [place] CORONARY ARTERY W/O ANG PCTRS Assessment/Plan 1. Productive cough and shortness of breath suggests acute on chronic LV diastolic failure in the presence of severe pulmonary hypertension 2. Paroxysmal atrial fibrillation currently in sinus rhythm, [id number] score of 7 on Warfarin 3. Hypertension 4. Hypercholesterolemia 5. Type 2 diabetes mellitus 6. History of syncope 7. Non-obstructive CAD 8. History of breast CA s/p lumpectomy PLAN: 1. Continue Warfarin as per INR (keep btw 2-3) 2. Continue Lopressor as tolerated 3. Continue Norvasc. Consider ACEI or ARB if renal function improves. Spironolactone is also being held, but to be restarted when feasible 4. Patient was on Sildenafil for pulmonary hypertension 5. Torsemide is being held due to renal insufficiency. Restart once renal function improves 6. Obtain records from [facility] Further plans are to follow Dimitri Palm MD
--- NOTE | 2016-10-25 12:23 | PN ---
Progress Note (short form) - Note Progress Note: PULMONARY CONSULTATION DICTATED 10/25/16 IMP DECOMPENSATED CHF PULMONARY HTN ON HOME O2 URI AFIB HTN DM H/O BREAST CA S/P LEFT MASTECTOMY,RT/CHEMO OSAS NOT ON CPAP HEMANT PLAN DIURETICS O2 AC DAILY WTS MONITOR LYTES ,RRENAL FUNCTION CPAP TITRATION OUTPATIENT DR CARR Problem List - Problems (1) HEMANT (acute kidney injury) Code(s): N17.9 - ACUTE KIDNEY FAILURE, UNSPECIFIED (2) CHF (congestive heart failure) Code(s): I50.9 - HEART FAILURE, UNSPECIFIED Qualifiers: Congestive heart failure type: diastolic Congestive heart failure chronicity: acute on chronic Qualified Code(s): I50.33 - Acute on chronic diastolic (congestive) heart failure (3) CHF exacerbation Code(s): I50.9 - HEART FAILURE, UNSPECIFIED (4) Atrial fibrillation Code(s): I48.91 - UNSPECIFIED ATRIAL FIBRILLATION Qualifiers: Atrial fibrillation type: paroxysmal Qualified Code(s): I48.0 - Paroxysmal atrial fibrillation (5) Diabetes Code(s): E11.9 - TYPE 2 DIABETES MELLITUS WITHOUT COMPLICATIONS Qualifiers: Diabetes mellitus type: type 2 Diabetes mellitus complication status: without complication Diabetes mellitus terminal make up operator insulin use: without terminal make up operator use Qualified Code(s): E11.9 - Type 2 diabetes mellitus without complications (6) HTN (hypertension) Code(s): I10 - ESSENTIAL (PRIMARY) HYPERTENSION Qualifiers: Hypertension type: essential hypertension Qualified Code(s): I10 - Essential (primary) hypertension (7) Hyperlipidemia Code(s): E78.5 - HYPERLIPIDEMIA, UNSPECIFIED Qualifiers: Hyperlipidemia type: pure hypercholesterolemia Qualified Code(s): E78.00 - Pure hypercholesterolemia, unspecified; E78.0 - Pure hypercholesterolemia (8) Lower extremity edema Code(s): R60.0 - LOCALIZED EDEMA (9) Moderate to severe pulmonary hypertension Code(s): I27.2 - OTHER SECONDARY PULMONARY HYPERTENSION (10) Nephrolithiasis Code(s): N20.0 - CALCULUS OF KIDNEY (11) Sleep apnea, obstructive Code(s): G47.33 - OBSTRUCTIVE SLEEP APNEA (ADULT) (PEDIATRIC)
--- NOTE | 2016-10-25 13:06 | EKG ---
Test Reason : Blood Pressure : / mmHG Vent. Rate : 073 BPM Atrial Rate : 073 BPM P-R Int : 178 ms QRS Dur : 084 ms QT Int : 424 ms P-R-T Axes : 065 037 046 degrees QTc Int : 467 ms NORMAL SINUS RHYTHM NONSPECIFIC T WAVE ABNORMALITY WHEN COMPARED WITH ECG OF 13-SEP-2014 09:18, SINUS RHYTHM HAS REPLACED ATRIAL FIBRILLATION REPEAT EKG IF CLINICALLY INDICATED Confirmed by RENETTA FAUST MD ([id number]) on 10/25/2016 1:06:05 PM Referred By: Confirmed By:RENETTA FAUST MD
--- NOTE | 2016-10-25 13:31 | CONS ---
PULMONARY CONSULTATION DATE OF CONSULTATION: 10/25/2016 REQUESTING PHYSICIAN: Anamaria Colon MD HISTORY OF PRESENT ILLNESS: The patient is an 86-year-old black female with a past medical history of CHF; pulmonary hypertension on home O2; atrial fibrillation; hypertension; obstructive sleep apnea; hyperlipidemia; diabetes; history of breast CA status post chemotherapy and RT, currently in remission; atrial fibrillation; arthritis; history of right total knee replacement; admitted to [facility] with complaint of increasing shortness of breath and dyspnea on exertion, increasing severity over 2 days. Patient also states that for a couple days prior to admission, she felt like she had a fever with productive cough, yellow sputum. She also had some wheezing. She denied any complaints of nausea, vomiting, or diaphoresis. She also complains of mid-sternal chest discomfort. She presented to the emergency room with the above. In the ER, she was treated with diuretics with good clinical response and transferred out to the medical floor for further management. The patient states she is a nonsmoker. There is no history of occupational exposure to chemicals or fumes. She states that she sleeps on 3 pillows and develops moderate dyspnea with minimal exertion. She denies any recent travel. There is no history of DVT or PE in the past. PAST MEDICAL HISTORY: Again includes CHF; atrial fibrillation; pulmonary hypertension; hypertension; hyperlipidemia; diabetes; past history of left breast CA status post left mastectomy, status post chemotherapy, and RT; arthritis. CURRENT MEDICATIONS: Include Coumadin, Lopressor, Norvasc, Lipitor, NovoLog, vitamin C, and vitamin D3. REVIEW OF SYSTEMS: Positive for orthopnea. Positive dyspnea. Positive cough. Positive chest discomfort. No nausea. No vomiting. Questionable fever. No chills. No hemoptysis. No abdominal pain. Positive lower extremity edema. PHYSICAL EXAMINATION: General: The patient is a well-developed, well-nourished female, awake, alert, currently in no acute distress. Vital Signs: She is currently afebrile. Blood pressure is 127/72. Respiratory rate is 20. O2 saturation is 95% on room air. HEENT: Normocephalic, atraumatic. Neck: Supple. Heart: Irregular with normal S1, S2. Chest: A few bibasilar crackles. Abdomen: Soft. Bowel sounds positive. Extremities: There is trace lower extremity ankle edema. LABORATORY DATA: BUN 27, creatinine 1.6. BNP is 2765. INR is 2.37. WBC is 5.8, hemoglobin 10.5, hematocrit 32.3, with a platelet count of 105,000. Chest x-ray reveals cardiomegaly. No evidence of acute infiltrates or effusions. IMPRESSION: 1. Cough, dyspnea, most likely mild decompensated congestive heart failure. 2. Likely viral upper respiratory tract infection. 3. Severe pulmonary hypertension. 4. Atrial fibrillation. 5. [id number] diabetes mellitus. 6. Hypertension. 7. History of left breast cancer status post mastectomy, status post chemotherapy, radiation therapy, currently in remission. 8. Obstructive sleep apnea. PLAN: Continue diuretics, supplemental O2, daily weights. Monitor INR. Also, the patient would be a good candidate for outpatient pulmonary rehabilitation, pulmonary function tests as outpatient. Further cardiac workup as per Cardiology. NILES CARR M.D. [id number]
--- NOTE | 2016-10-25 13:50 | PN ---
Teaching Attending Note Name of Resident: Patty Walters ATTENDING PHYSICIAN STATEMENT I saw and evaluated the patient. I reviewed the resident's note and discussed the case with the resident. I agree with the resident's findings and plan as documented. SUBJECTIVE:states breathing has significantly improved. claims medication compliance with no recent adjustment to medications and claims she cooks all her own food and no change in diet. states that 6 days ago had subjective fevers and productive cough of yellow sputum which has resolved 1-2 days ago. states she took an OTC medication (tea?) for her symptoms. denies CP, fever, chills, orthopnea no melena or BRBPR OBJECTIVE: Last Vital Signs Temp Pulse Resp BP Pulse Ox 98.6 F 56 L 20 120/58 95 10/25/16 12:26 10/25/16 12:26 10/25/16 12:26 10/25/16 12:26 10/25/16 12:26 General NAD CV S1 S2 irregular Lungs CTA B/L no wheezing/rales/rhonchi Extremities no pedal edema ASSESSMENT AND PLAN: 86yo F wtih PMH afib, CHF, pulmonary HTN, DM presented to the ER with SOB for several days 1. Acute on chronic systolic CHF- clinically euvolemic. mild congestion seen on CXR however pt remains euvolemic at this time. received torsemide IV in the ER. echo pending. will f/u and place back on home medications. may be induced from recent viral infection which has seem to have resolved. no longer has subjective fevers or productive cough. evaluated by cardio who agrees. he has placed call with private auto locator to inform of inpatient status 2. HEMANT- likely pre-renal. improving. cont to monitor 3. afib- rate controlled. on coumadin. cont home management 4. normocytic anemia- no signs of bleeding. check iron studies. repeat to ensure stable 5. d/c planning pending results of echo. PT eval
--- NOTE | 2016-10-25 16:36 | PN ---
Physical Exam: SUBJECTIVE: Patient seen and examined at bedside. States that she is currently not feeling SOB. Attempts made to get pt's files from [place]- pt does not want to sign medical release form. OBJECTIVE: Vital Signs Period Temp Pulse Resp BP Sys/Morales Pulse Ox Last 24 Hr 97.6 F-98.6 F 56-68 18-20 120-133/58-72 94-95 GENERAL: The patient is awake, alert, and fully oriented, in no acute distress. HEAD: Normal with no signs of trauma. EYES: PERRL, extraocular movements intact, sclera anicteric, conjunctiva clear. No ptosis. ENT: Ears normal, nares patent, oropharynx clear without exudates, moist mucous membranes. NECK: Trachea midline, full range of motion, supple. LUNGS: Breath sounds equal, clear to auscultation bilaterally, no wheezes, no crackles, no accessory muscle use. HEART: Regular rate and rhythm, S1, S2 without murmur, rub or gallop. ABDOMEN: Soft, mildly tender, nondistended, normoactive bowel sounds, no guarding, no rebound, no hepatosplenomegaly, no masses. EXTREMITIES: 2+ posterior tibial pulses, warm, well-perfused, 1+ pitting edema bilaterally- upper portion of shins. NEUROLOGICAL: Cranial nerves II through XII grossly intact. Laboratory Results - last 24 hr 10/24/16 10/25/16 10/25/16 21:27 00:01 05:35 WBC 5.8 RBC 3.56 L Hgb 10.5 L Hct 32.3 L MCV 90.7 MCH 29.6 MCHC 32.6 RDW 14.6 Plt Count 105 L MPV 10.2 Neutrophils % 54.6 Lymphocytes % 29.6 Monocytes % 12.9 H Eosinophils % 2.4 Basophils % 0.5 INR Sodium Potassium Chloride Carbon Dioxide Anion Gap BUN Creatinine POC Glucometer 128.21566 Random Glucose Hemoglobin A1c % Calcium Phosphorus Magnesium Creatine Kinase 147 Troponin I < 0.02 Triglycerides Cholesterol Total LDL Cholesterol HDL Cholesterol 10/25/16 10/25/16 10/25/16 05:35 05:35 05:35 WBC RBC Hgb Hct MCV MCH MCHC RDW Plt Count MPV Neutrophils % Lymphocytes % Monocytes % Eosinophils % Basophils % INR 2.37 H Sodium 141 Potassium 3.6 Chloride 102 Carbon Dioxide 33 H Anion Gap 6 L BUN 27 H Creatinine 1.6 H POC Glucometer Random Glucose 104 Hemoglobin A1c % 6.6 H D Calcium 8.9 Phosphorus 3.7 D Magnesium 2.6 H Creatine Kinase Troponin I Triglycerides 46 Cholesterol 169 D Total LDL Cholesterol 85 HDL Cholesterol 73 H D 10/25/16 10/25/16 05:35 05:50 WBC RBC Hgb Hct MCV MCH MCHC RDW Plt Count MPV Neutrophils % Lymphocytes % Monocytes % Eosinophils % Basophils % INR Sodium Potassium Chloride Carbon Dioxide Anion Gap BUN Creatinine POC Glucometer 106 Random Glucose Hemoglobin A1c % Calcium Phosphorus Magnesium Creatine Kinase 127 Troponin I < 0.02 Triglycerides Cholesterol Total LDL Cholesterol HDL Cholesterol Active Medications Generic Name Dose Route Start Last Admin Trade Name Freq PRN Reason Stop Dose Admin Amlodipine Besylate 5 mg 10/25/16 10:00 10/25/16 09:30 Norvasc - PO 5 mg DAILY [facility] Administration Atorvastatin Calcium 10 mg 10/24/16 22:00 10/24/16 23:50 Lipitor - PO 10 mg HS [facility] Administration Cholecalciferol 1,000 unit 10/25/16 10:00 10/25/16 09:29 Vitamin D3 - PO 1,000 unit DAILY [facility] Administration Insulin Aspart 1 vial 10/25/16 07:00 10/25/16 12:10 Novolog Vial Sliding Scale - SQ Not Given ACHS [facility] Protocol Metoprolol Tartrate 100 mg 10/25/16 10:00 10/25/16 09:56 Lopressor - PO Not Given DAILY [facility] Metoprolol Tartrate 50 mg 10/25/16 22:00 Lopressor - PO HS [facility] Multivitamins/Minerals/Vitamin C 1 tab 10/25/16 10:00 10/25/16 09:29 Tab-A-Vit - PO 1 tab DAILY [facility] Administration Warfarin Sodium 7.5 mg 10/25/16 18:00 Coumadin - PO Q2D@1800 [facility] Warfarin Sodium 5 mg 10/26/16 18:00 Coumadin - PO Q2D@1800 [facility] ASSESSMENT/PLAN: 86 y/o F with PMH CHF, afib, breast CA, HTN, pulm HTN, HLD, DM, SOB x 3 days. Pt admitted for acute CHF exacerbation. # CHF exacerbation -secondary to LV systolic dysfunction -CXR: mild congestion noted -BNP 2700 -Received 2 doses of Torsemide IV 40mg in ED -F/u ECHO, if WNL can d/c tomorrow -F/u records from [facility] #HEMANT -Baseline Cr: 1.1 -BUN/Cr 27/1.6 today -Most likely secondary to CHF, inability to perfuse kidneys appropriately -Will f/u BMP tomorrow #Afib -[id number]: 6 -On home coumadin levels, 7.5 mg PO q2days, 5mg PO q2days -F/u INR #Anemia -H&H 10.5/32.3 -Will f/u CBC tomorrow -No signs of active bleeding -F/u iron panel tomorrow # Pulmonary HTN -need to determine etiology, if 1' or 2' -Pt on sildenafil, but not offered by hospital pharmacy F/E/N -Sodium controlled diet -Strict I's and O's Dispo -Home after seen by PT, and pending ECHO report Visit type - Emergency Visit Emergency Visit: No - New Patient This patient is new to me today: Yes Date on this admission: 10/25/16 - Critical Care Critical Care patient: No
[2016-10-25] MEDS ORDERED: INSULIN (NOVOLOG) ASPART 100 UNITS/ML 10ML VIAL ONE (17:31)
[2016-10-25] MEDS ORDERED: METOPROLOL TARTRATE 50 MG TABLET (FP) PO SCH ×2 (18:00→22:00)
[2016-10-25] MEDS ORDERED: WARFARIN NA 7.5 MG TABLET (FP) PO SCH (18:00)
[2016-10-25] MEDS: ATORVASTATIN CA 10 MG TABLET (FP) PO SCH (21:32)
[2016-10-25] MEDS ORDERED: TORSEMIDE 20 MG TABLET (FP) PO ONE (23:25)
[2016-10-26] MEDS: INSULIN SLIDING SCALE (NOVOLOG) 1 VIAL SQ SCH ×3 (07:26→17:09)
[2016-10-26 07:31] LABS: MCH 29.7 pg (25.7-33.7); MCHC 32.6 g/dl (32.0-36.0); MEAN PLT VOLUME 9.8 fl (7.5-11.1); PLATELET COUNT 121 K/MM3 (134-434); RDW 14.5 % (11.6-15.6); WHITE BLOOD COUNT 6.4 K/mm3 (4.0-10.0)
[2016-10-26 08:10] LABS: INR 2.31 (0.82-1.09); PROTHROMBIN TIME (PATIENT) 25.8 SEC (9.98-11.88)
[2016-10-26 08:13] LABS: ANION GAP 10 (8-16); CALCIUM 8.9 mg/dL (8.5-10.1); CO2 30 mmol/L (21-32); GLUCOSE,RANDOM 106 mg/dL (74-106)
[2016-10-26 08:14] LABS: CREATININE 1.6 mg/dL (0.55-1.02)
[2016-10-26] MEDS: SILDENAFIL CITRATE 20 MG TAB PO SCH ×2 (10:12→10:13)
[2016-10-26] MEDS: amLODIPine BESYLATE 5 MG TABLET (FP) PO SCH (10:13)
[2016-10-26] MEDS: MULTIVITAMINS (DAILY MVI) TABLET (FP) PO SCH (10:13)
[2016-10-26] MEDS: METOPROLOL TARTRATE 50 MG TABLET (FP) PO SCH (10:13)
[2016-10-26] MEDS: CHOLECALCIFEROL (VITAMIN D3) 1,000 UNIT TABLET (FP) PO SCH (10:13)
[2016-10-26 10:17] VITALS: TEMP 98.1
--- NOTE | 2016-10-26 11:57 | PN ---
Teaching Attending Note Name of Resident: Patty Walters ATTENDING PHYSICIAN STATEMENT I saw and evaluated the patient. I reviewed the resident's note and discussed the case with the resident. I agree with the resident's findings and plan as documented. SUBJECTIVE:asymptomatic. denies SOB, cough, orthopnea or cp. pt seen ambulating the vargas without difficulty OBJECTIVE: Last Vital Signs Temp Pulse Resp BP Pulse Ox 98.1 F 62 20 111/43 100 10/26/16 09:00 10/26/16 09:00 10/26/16 09:00 10/26/16 09:00 10/25/16 20:26 Intake & Output 10/23/16 10/24/16 10/25/16 10/26/16 23:59 23:59 23:59 23:59 Intake Total 300 Balance 300 Weight 167 lb 165 lb 12.8 oz General NAD CV S1 S2 irregular Lungs CTA B/L no wheezing/rales/rhonchi Extremities no pedal edema ASSESSMENT AND PLAN: 86yo F wtih PMH afib, CHF, pulmonary HTN, DM presented to the ER with SOB for several days 1. Acute on chronic systolic CHF- clinically euvolemic. appears improved. awaiting echo results. will need to compare with old echo report. awaiting information to be sent from [place]. private office assistance notified by cardiology of hospitalization. on home medications. 2. HEMANT- likely pre-renal. improving. cont to monitor 3. afib- rate controlled. on coumadin. cont home management 4. normocytic anemia- no signs of bleeding. Hgb stable. iron studies pending 5. d/c planning pending results of echo.
--- NOTE | 2016-10-26 12:02 | PN ---
Progress Note, Physician History of Present Illness: Dyspnea and cough resolved. - Current Medication List Current Medications: Active Medications Amlodipine Besylate (Norvasc -) 5 mg PO DAILY [facility] Last Admin: 10/26/16 10:13 Dose: 5 mg Atorvastatin Calcium (Lipitor -) 10 mg PO HS [facility] Last Admin: 10/25/16 21:32 Dose: 10 mg Cholecalciferol (Vitamin D3 -) 1,000 unit PO DAILY [facility] Last Admin: 10/26/16 10:13 Dose: 1,000 unit Insulin Aspart (Novolog Vial Sliding Scale -) 1 vial SQ ACHS [facility] PRN Reason: Protocol Last Admin: 10/26/16 11:41 Dose: Not Given Metoprolol Tartrate (Lopressor -) 100 mg PO DAILY [facility] Last Admin: 10/26/16 10:13 Dose: 100 mg Metoprolol Tartrate (Lopressor -) 50 mg PO HS [facility] Last Admin: 10/25/16 21:32 Dose: 50 mg Multivitamins/Minerals/Vitamin C (Tab-A-Vit -) 1 tab PO DAILY [facility] Last Admin: 10/26/16 10:13 Dose: 1 tab Sildenafil Citrate (Revatio -) 20 mg PO DAILY [facility] Last Admin: 10/26/16 10:13 Dose: Not Given Warfarin Sodium (Coumadin -) 7.5 mg PO Q2D@1800 [facility] Last Admin: 10/25/16 17:34 Dose: 7.5 mg Warfarin Sodium (Coumadin -) 5 mg PO Q2D@1800 [facility] - Objective Vital Signs: Vital Signs Temperature 98.1 F 10/26/16 09:00 Pulse Rate 62 10/26/16 09:00 Respiratory Rate 20 10/26/16 09:00 Blood Pressure 111/43 10/26/16 09:00 O2 Sat by Pulse Oximetry (%) 100 10/25/16 20:26 Constitutional: Yes: No Distress, Calm Neck: Yes: Supple Cardiovascular: Yes: Regular Rate and Rhythm Respiratory: Yes: Regular, Diminished Gastrointestinal: Yes: Normal Bowel Sounds, Soft Edema: No Labs: CBC, BMP 10/26/16 06:00 10/26/16 05:35 INR, PTT INR 2.31 (0.82-1.09) H 10/26/16 07:00 - ....Imaging EKG: Report Reviewed (Tele: SR, PAC, PVC) Problem List - Problems (1) HEMANT (acute kidney injury) Code(s): N17.9 - ACUTE KIDNEY FAILURE, UNSPECIFIED (2) CAD (coronary artery disease) Code(s): I25.10 - ATHSCL HEART DISEASE OF [place] CORONARY ARTERY W/O ANG PCTRS Qualifiers: Coronary Disease-Associated Artery/Lesion type: [place] artery [place] vs. 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 hypertension Code(s): I27.2 - OTHER SECONDARY PULMONARY HYPERTENSION (6) Acute on chronic diastolic (congestive) heart failure Code(s): I50.33 - ACUTE ON CHRONIC DIASTOLIC (CONGESTIVE) HEART FAILURE (7) Sleep apnea, obstructive Code(s): G47.33 - OBSTRUCTIVE SLEEP APNEA (ADULT) (PEDIATRIC) (8) Hyperlipidemia Code(s): E78.5 - HYPERLIPIDEMIA, UNSPECIFIED Qualifiers: Hyperlipidemia type: pure hypercholesterolemia Qualified Code(s): E78.00 - Pure hypercholesterolemia, unspecified; E78.0 - Pure hypercholesterolemia Assessment/Plan 10/26/2016 Echo: Normal LV size and fxn, mild BSH, mild MV prolapse, mild MR, mild-mod TR, RVSP 47 mmHg, mild LAE 1. Productive cough and shortness of breath referable to acute on chronic LV diastolic failure in the presence of severe pulmonary hypertension improved 2. Paroxysmal atrial fibrillation currently in sinus rhythm, [id number] score of 7 on Warfarin 3. Hypertension 4. Hypercholesterolemia 5. Type 2 diabetes mellitus 6. History of syncope 7. Non-obstructive CAD 8. History of breast CA s/p lumpectomy 9. Acute on CKD improving PLAN: 1. Continue Warfarin as per INR (keep btw 2-3) 2. Continue Lopressor 100/50 qd as tolerated 3. Continue Norvasc 5 qd and Lipitor 10 qhs. Resume lisinopril 5 qd and spironolactone 25 qd once renal function stable 4. Patient was on Sildenafil 10 tid for pulmonary hypertension 5. Torsemide is being held due to renal insufficiency. Restart once renal function improves 6. Obtain records from [facility] 7. Ambulate patient and if asymptomatic, may be discharged home and follow up with Dr. Erazo at [facility] as outpatient.
[2016-10-26 14:02] VITALS: BP 114/64; PULSE 58
--- NOTE | 2016-10-26 14:14 | PN ---
Progress Note (short form) - Note Progress Note: PULMONARY AWAKE/ALERT WANTS TO GO HOME VSS/ ANICTERIC CHEST DISTANT BUT CLEAR RSR BS+ SOFT MINIMAL LOWER EXT EDEMA LABS/MEDS/NOTES/IMAGING REVIEWED IMP DECOMPENSATED CHF PULMONARY HTN ON HOME O2 URI AFIB HTN DM H/O BREAST CA S/P LEFT MASTECTOMY,RT/CHEMO OSAS NOT ON CPAP HEMANT PLAN DIURETICS O2 AC DAILY WTS MONITOR LYTES ,RRENAL FUNCTION CPAP TITRATION OUTPATIENT DISCHARGE PLANNING Dmitry KELLEY MD
[2016-10-26] MEDS ORDERED: WARFARIN NA 5 MG TABLET (UD) PO SCH (18:00)
--- NOTE | 2016-10-26 19:27 | DS ---
Physical Exam: SUBJECTIVE: Patient seen and examined at bedside today. Pt no longer feeling SOB. Denies chest pain, lower extremity pain. OBJECTIVE: Vital Signs Period Temp Pulse Resp BP Sys/Morales Pulse Ox Last 24 Hr 97.4 F-98.1 F 58-79 20-20 111-141/43-64 100-100 PHYSICAL EXAM GENERAL: The patient is awake, alert, and fully oriented, in no acute distress. HEAD: Normal with no signs of trauma. EYES: PERRL, extraocular movements intact, sclera anicteric, conjunctiva clear. ENT: Ears normal, nares patent, oropharynx clear without exudates, moist mucous membranes. NECK: Trachea midline, supple. LUNGS: Breath sounds equal, clear to auscultation bilaterally, no wheezes, no crackles, no accessory muscle use. HEART: Regular rate and rhythm, S1, S2 without murmur, rub or gallop. ABDOMEN: Soft, nontender, nondistended, normoactive bowel sounds, no guarding, no rebound, no hepatosplenomegaly, no masses. EXTREMITIES: 2+ posterior tibial pulses, warm, well-perfused, no edema. NEUROLOGICAL: Cranial nerves II through XII grossly intact. LABS 10/24/16 10/24/16 10/24/16 19:30 19:30 19:30 WBC 6.1 RBC 3.86 Hgb 11.5 Hct 35.0 MCV 90.5 MCH 29.9 MCHC 33.0 RDW 14.7 Plt Count 122 L INR 2.25 H Sodium 139 Potassium 3.8 Chloride 99 Carbon Dioxide 32 BUN 31 H D Creatinine 2.0 H D Creat Clearance w eGFR 23.74 Random Glucose 107 H Hemoglobin A1c % Magnesium Total Bilirubin 1.4 H D AST 18 D ALT 21 D Creatine Kinase 150 Troponin I < 0.02 B-Natriuretic Peptide Total Protein 8.4 H D Triglycerides Cholesterol Total LDL Cholesterol HDL Cholesterol Lipase 132 10/24/16 10/25/16 10/25/16 19:30 00:01 05:35 WBC 5.8 RBC 3.56 L Hgb 10.5 L Hct 32.3 L MCV 90.7 MCH 29.6 MCHC 32.6 RDW 14.6 Plt Count 105 L INR Sodium Potassium Chloride Carbon Dioxide BUN Creatinine Creat Clearance w eGFR Random Glucose Hemoglobin A1c % Magnesium Total Bilirubin AST ALT Creatine Kinase 147 Troponin I < 0.02 B-Natriuretic Peptide 2765.47 H Total Protein Triglycerides Cholesterol Total LDL Cholesterol HDL Cholesterol Lipase 10/25/16 10/25/16 10/25/16 05:35 05:35 05:35 WBC RBC Hgb Hct MCV MCH MCHC RDW Plt Count INR 2.37 H Sodium 141 Potassium 3.6 Chloride 102 Carbon Dioxide 33 H BUN 27 H Creatinine 1.6 H Creat Clearance w eGFR Random Glucose 104 Hemoglobin A1c % 6.6 H D Magnesium 2.6 H Total Bilirubin AST ALT Creatine Kinase Troponin I B-Natriuretic Peptide Total Protein Triglycerides 46 Cholesterol 169 D Total LDL Cholesterol 85 HDL Cholesterol 73 H D Lipase 10/25/16 05:35 WBC RBC Hgb Hct MCV MCH MCHC RDW Plt Count INR Sodium Potassium Chloride Carbon Dioxide BUN Creatinine Creat Clearance w eGFR Random Glucose Hemoglobin A1c % Magnesium Total Bilirubin AST ALT Creatine Kinase 127 Troponin I < 0.02 B-Natriuretic Peptide Total Protein Triglycerides Cholesterol Total LDL Cholesterol HDL Cholesterol Lipase Microbiology 10/24/16 19:30 Blood - Peripheral Venous Blood Culture - Preliminary NO GROWTH OBTAINED AFTER 24 HOURS, INCUBATION TO CONTINUE FOR 4 DAYS. 10/24/16 19:30 Blood - Peripheral Venous Blood Culture - Preliminary NO GROWTH OBTAINED AFTER 24 HOURS, INCUBATION TO CONTINUE FOR 4 DAYS. Imaging 10/24/16: CXR: moderate cardiomegaly, mild congestion 10/26/16: ECHO: LV wall motion normal, AV leaflets are calcified and noncoronary cusp motion is restricted, aortic root sclerosis and calcification HOSPITAL COURSE: Date of Admission:10/24/16 Date of Discharge: 10/26/16 Admit diagnosis: CHF exacerbation secondary to viral URI Pre-admission course This is a 86 y/o woman with a past medical history of CHF, Afib, HTN, Pulmonary Hypertension, HLD, DM. Who reports SOB x 2 days. Patient reports having a productive cough with yellow phlegm, and was wheezing. Patient also reports having midsternal CP several days ago, then returned last night sharp, nagging in quality radiating across her L-breast. Patient denies dizziness, CP, AP, N/V/ D, constipation, dysuria ER course was notable for: (1) Chest Xray- image vascular congestion (2) BNP 2765 (3) HEMANT: BUN 31, Cr 2.0 Hospital course Pt received 2 doses of Torsemide IV 40mg in ED to manage her CHF exacerbation, which was noted on CXR as mild congestion. Pt also had ECHO done that showed no significant changes from past ECHO done 4 months prior, at [facility]. During hospitalization, pt also had HEMANT, most likely secondary to CHF. However, upon d/c, pt's BUN/Cr trended down. She was also maintained on her home coumadin levels and her INR remained in therapeutic range. Minutes to complete discharge: 32 Discharge Summary Reason For Visit: CONGESTIVE HEART FAILURE Condition: Stable - Instructions Diet, Activity, Other Instructions: You were recently in the hospital because your CHF worsened and you were short of breath. You had an ECHO done at the hospital that did not show significant changes from your past test. You may resume activity as tolerated. Please continue your home medications, and please continue to have your INR checked frequently since you are on a blood thinner, coumadin. We would like you to follow-up with your primary care doctor, Dr. Erazo at [facility] within 1 week of discharge. We would also like you to follow-up with a diet technician registered, Dr. Ma within a week. If you develop shortness of breath, chest pain, or any new symptoms, please go to the hospital. We hope you feel better soon! Referrals: Julio Cesar Ma MD [Primary Care Provider] - Disposition: HOME - Home Medications Comprehensive Discharge Medication List: Ambulatory Orders Atorvastatin Ca [Lipitor] 10 mg PO HS #30 tablet 09/16/14 Lisinopril [Prinivil] 5 mg PO DAILY #30 tablet 09/16/14 Spironolactone [Aldactone -] 25 mg PO DAILY #30 tablet 09/16/14 Warfarin Na [Coumadin -] 7 mg PO DAILY@1800 #30 tablet 09/16/14 Ibuprofen [Motrin -] 600 mg PO TID #21 tablet 08/29/15 Gabapentin 300 mg PO TID #90 capsule 09/23/16 Amlodipine Besylate 5 mg PO DAILY 10/25/16 Metformin HCl 500 mg PO DAILY 10/25/16 Metoprolol Tartrate [Lopressor -] 100 mg PO BID 10/25/16 Multivit-Min/FA/Lycopen/Lutein [Centrum Silver Tablet] 1 each PO 10/25/16 Sildenafil Citrate [Sildenafil] 10 mg PO TID 10/25/16 Torsemide [Demadex -] 40 mg PO ACDIN 10/25/16 Torsemide [Demadex -] 60 mg PO AM 10/25/16 This patient is new to me today: No Emergency Visit: No Critical Care patient: No - Discharge Referral Referred to [facility] No
[2016-10-27 06:18] LABS: SERUM IRON 50 ug/dL (27-139); TOTAL IRON BINDING CAPACITY 243 ug/dL (250-450); UIBC 193 ug/dL (118-369)
== END 2016-10-26 18:48 | disposition home or self-care (01) | DRG 292 ==
LOC: JER 16:48 → JERBED 20:35 → J4W 23:24
PROVIDERS: ADMIT Internal Medicine; ATTEND Internal Medicine
DX: I11.0 Hypertensive heart disease with heart failure (principal); N17.9 Acute kidney failure, unspecified; I50.33 Acute on chronic diastolic (congestive) heart failure; I48.91 Unspecified atrial fibrillation; Z79.01 Long term (current) use of anticoagulants; Z85.3 Personal history of malignant neoplasm of breast; I25.2 Old myocardial infarction; I27.2 Other secondary pulmonary hypertension; E11.9 Type 2 diabetes mellitus without complications; E78.00 Pure hypercholesterolemia, unspecified; Z96.651 Presence of right artificial knee joint; Z90.12 Acquired absence of left breast and nipple; Z79.84 Long term (current) use of oral hypoglycemic drugs; I25.10 Atherosclerotic heart disease of native coronary artery without angina pectoris; G47.33 Obstructive sleep apnea (adult) (pediatric); J06.9 Acute upper respiratory infection, unspecified; D64.9 Anemia, unspecified
CPT/HCPCS: 36415; 71010-TC; 80048; 80053; 80061; 82553; 83036; 83540; 83550; 83690; 83721; 83735; 83880; 84100; 84484; 85025; 85027; 85610; 87040; 93005; 93010; 93306-TC; 97116-GP; 97161-GP; 99285-25

== ENCOUNTER 2016-11-10 17:15 | Inpatient (IN) | payer OTHER ==
[2016-11-10 17:34] VITALS: BMI 31.4
--- NOTE | 2016-11-10 17:56 | PDOC ---
History of Present Illness - General Chief Complaint: Pain, Acute Stated Complaint: STOMACH PAIN Time Seen by Provider: 11/10/16 17:49 - History of Present Illness Initial Comments: 11/10/16 18:12 Ms. Ruiz is an 86 year old female with a significant past medical history of HTN, CHF, afib on warfarin, and cholecystectomy who presents to the emergency department with abdominal pain that she reports started in her stomach before moving to her back and now residing in her chest. She says that she feels like she has "pepper inside" with a burning sensation. Endorses recent constipation. The patient denies shortness of breath, headache and dizziness. Denies fever, chills, nausea, vomit, and diarrhea. Denies dysuria, frequency, urgency and hematuria. Allergies: Lasix Past surgical history: cholecystectomy, hysterectomy, knee replacement, lumpectomy Social history: denies PMD - Anil Past History - Past Medical History Allergies/Adverse Reactions: Allergies Allergy/AdvReac Type Severity Reaction Status Date / Time cranberry Allergy Unknown Verified 11/10/16 17:31 grape Allergy Unknown Verified 11/10/16 17:31 raspberry Allergy Unknown Verified 11/10/16 17:31 strawberry Allergy Unknown Verified 11/10/16 17:31 furosemide [From Lasix] AdvReac Verified 11/10/16 17:31 corn Allergy Unknown Uncoded 11/10/16 17:31 NUTS Allergy Unknown Uncoded 11/10/16 17:31 POLLEN Allergy Unknown Uncoded 11/10/16 17:31 SHELLFISH Allergy Unknown Uncoded 11/10/16 17:31 TUNA Allergy Unknown Uncoded 11/10/16 17:31 Home Medications: Ambulatory Orders Atorvastatin Ca [Lipitor] 10 mg PO HS #30 tablet 09/16/14 Spironolactone [Aldactone -] 25 mg PO DAILY #30 tablet 09/16/14 Amlodipine Besylate 5 mg PO DAILY 10/25/16 Metformin HCl 500 mg PO DAILY 10/25/16 Metoprolol Tartrate [Lopressor -] 150 mg PO BID 10/25/16 Multivit-Min/FA/Lycopen/Lutein [Centrum Silver Tablet] 1 each PO DAILY 10/25/16 Sildenafil Citrate [Sildenafil] 10 mg PO TID 10/25/16 Torsemide [Demadex -] 40 mg PO ACDIN 10/25/16 Torsemide [Demadex -] 60 mg PO AM 10/25/16 Warfarin Na [Coumadin -] 7.5 mg PO DAILY@1800 11/10/16 Warfarin Na [Coumadin] 5 mg PO ASDIR 11/10/16 Anemia: No Asthma: No Cancer: Yes (breast lt) Cardiac Disorders: Yes (mi,pulm.htn) COPD: No CHF: Yes Diabetes: Yes (niddm) HTN: Yes Hypercholesterolemia: Yes - Surgical History Cholecystectomy: Yes Orthopedic Surgery: Yes (Total Rt knee Replacement 7 yrs ago) - Immunization History Immunization Up to Date: Yes - Psycho/Social/Smoking Cessation Hx Anxiety: No Suicidal Ideation: No Smoking Status: No Smoking History: Never smoked Have you smoked in the past 12 months: No Number of Cigarettes Smoked Daily: 0 Hx Alcohol Use: No Drug/Substance Use Hx: No Substance Use Type: None Hx Substance Use Treatment: No Review of Systems - Review of Systems Comments:: 11/10/16 18:12 GENERAL/CONSTITUTIONAL: No fever or chills. No weakness. HEAD, EYES, EARS, NOSE AND THROAT: No change in vision. No ear pain or discharge. No sore throat. CARDIOVASCULAR: +Midline chest pain. No shortness of breath RESPIRATORY: No cough, wheezing, or hemoptysis. GASTROINTESTINAL: +Recent constipation. No nausea, vomiting, or diarrhea. GENITOURINARY: No dysuria, frequency, or change in urination. MUSCULOSKELETAL: No joint or muscle swelling or pain. No neck or back pain. SKIN: No rash NEUROLOGIC: No headache, vertigo, loss of consciousness, or change in strength/ sensation. ENDOCRINE: No increased thirst. No abnormal weight change HEMATOLOGIC/LYMPHATIC: No anemia, easy bleeding, or history of blood clots. ALLERGIC/IMMUNOLOGIC: No hives or skin allergy. *Physical Exam - Vital Signs Last Vital Signs Temp Pulse Resp BP Pulse Ox 98 F 62 17 131/54 97 11/10/16 17:31 11/10/16 17:31 11/10/16 17:31 11/10/16 17:31 11/10/16 17:31 - Physical Exam Comments: 11/10/16 18:12 GENERAL: Awake, alert, and fully oriented, in no acute distress HEAD: No signs of trauma, normocephalic, atraumatic EYES: PERRLA, EOMI, sclera anicteric, conjunctiva clear ENT: Auricles normal inspection, hearing grossly normal, nares patent, oropharynx clear without exudates. Moist mucosa NECK: Normal ROM, supple, no lymphadenopathy, JVD, or masses LUNGS: No distress, speaks full sentences, clear to auscultation bilaterally HEART: Regular rate and rhythm, normal S1 and S2, no murmurs, rubs or gallops, peripheral pulses normal and equal bilaterally. ABDOMEN: +Midline upper abdominal tenderness to palpation. Soft, normoactive bowel sounds. No guarding, no rebound. EXTREMITIES: Normal inspection, Normal range of motion, no edema. No clubbing or cyanosis. NEUROLOGICAL: Cranial nerves II through XII grossly intact. Normal speech, normal gait, no focal sensorimotor deficits SKIN: Warm, Dry, normal turgor, no rashes or lesions noted. ED Treatment Course - LABORATORY CBC & Chemistry Diagram: 11/11/16 06:00 11/11/16 06:00 Medical Decision Making - Medical Decision Making 11/10/16 18:56 Ms. Ruiz presents with new onset chest pain with upper abdominal midline pain. Workup begun for cardiac causes. 11/10/16 19:08 Patient signed out to Dr. Franco for follow-up care. *DC/Admit/Observation/Transfer Diagnosis at time of Disposition: CHF (congestive heart failure) - Discharge Dispostion Condition at time of disposition: Guarded
[2016-11-10 18:41] LABS: URINE APPEARANCE CLEAR; URINE BILIRUBIN NEGATIVE (NEGATIVE); URINE BLOOD NEGATIVE (NEGATIVE); URINE COLOR STRAW; URINE GLUCOSE (UA) NEGATIVE (NEGATIVE); URINE KETONE NEGATIVE (NEGATIVE); URINE LEUK ESTERASE NEGATIVE (NEGATIVE); URINE NITRITE NEGATIVE (NEGATIVE); URINE PROTEIN NEGATIVE (NEGATIVE); URINE UROBILINOGEN NEGATIVE mg/dL (0.2-1.0)
[2016-11-10 18:43] LABS: BASOPHIL 0.5 % (0-2.0); EOSINOPHIL 1.5 % (0-4.5); MCH 29.9 pg (25.7-33.7); MCHC 33.1 g/dl (32.0-36.0); MEAN CELL VOLUME 90.3 fl (80-96); MEAN PLT VOLUME 9.7 fl (7.5-11.1); PLATELET COUNT 157 K/MM3 (134-434); RDW 14.7 % (11.6-15.6)
[2016-11-10 19:17] LABS: INR 3.97 (0.82-1.09); PROTHROMBIN TIME (PATIENT) 44.9 SEC (9.98-11.88)
[2016-11-10 19:20] LABS: ACTIVATED PTT 47.6 SECONDS (26.9-34.4)
[2016-11-10] MEDS ORDERED: FAMOTIDINE 20 MG/50 ML IVPB 50 ML IVPB ONE ×2 (19:44→19:46)
--- NOTE | 2016-11-10 19:58 | PDOC ---
Attending Attestation - Resident Resident Name: [email or web address]io - ED Attending Attestation I have performed the following: I have examined & evaluated the patient, The case was reviewed & discussed with the resident, I agree w/resident's findings & plan, Exceptions are as noted - HPI HPI: 11/10/16 19:52 86y/o F with extensive cardiac history p/w epigastric pain radiating to chest, associated with exertion and SOB/worsening orthopnea. Feels sxs similar to past chest pain and CHF exacerbations. no other GI complaints. - Physicial Exam PE: 11/10/16 19:53 VSS bibasilar crackles abd benign + lower extr edema b/l - Medical Decision Making 11/10/16 19:53 86y/o F with extensive cardiac hx p/w worsening congestion/SOB and epigastric/ chest pain concerning for recurrence of cardiac illness/CHF. labs ekg, cxr diuresis admission Heart Score/ECG Review #1 General ECG Interpretation: Sinus Rhythm, Normal Rate, Normal Intervals (LVH), No acute ischemic changes
[2016-11-10 20:00] LABS: ALBUMIN 3.7 g/dl (3.4-5.0); ANION GAP 8 (8-16); BILIRUBIN,TOTAL 0.6 mg/dL (0.2-1.0); CALCIUM 9.5 mg/dL (8.5-10.1); CO2 32 mmol/L (21-32); CREATININE 1.9 mg/dL (0.55-1.02); GLUCOSE,RANDOM 109 mg/dL (74-106); SGOT/AST 23 U/L (15-37); SGPT/ALT 20 U/L (12-78); TOT PROT 8.7 g/dl (6.4-8.2)
[2016-11-10 20:03] LABS: ALK PHOS 56 U/L (45-117); CPK 188 IU/L (26-192); TROPONIN I < 0.02 ng/ml (0.00-0.05)
[2016-11-10] MEDS ORDERED: MAG HYDROX/AL HYDROX/SIMETH 30 ML UNIT-DOSE CUP PO ONE (21:29)
[2016-11-10] MEDS ORDERED: LIDOCAINE VISCOUS 2% ORAL/TOP 20 ML UNIT-DOSE CUP MM ONE (21:29)
--- NOTE | 2016-11-10 21:55 | PDOC ---
*Physical Exam - Vital Signs Last Vital Signs Temp Pulse Resp BP Pulse Ox 98 F 78 20 140/66 96 11/10/16 17:31 11/10/16 21:11 11/10/16 21:11 11/10/16 21:11 11/10/16 21:11 - Physical Exam Comments: 11/10/16 22:18 General Appearance: Nourished. No Apparent Distress HEENT: No Pharyngeal Erythema, Tonsillar Exudate, Tonsillar Erythema Respiratory/Chest: Lungs Clear, Normal Breath Sounds. No Crackles, Rales, Rhonchi, Wheezing Cardiovascular: Regular Rhythm, Regular Rate. No Murmur, Gallop/S3, Gallop/S4 Gastrointestinal/Abdominal: Normal Bowel Sounds, Soft, Epigastric tenderness to palpation on exam. No Guarding, Rebound Extremity: Normal Capillary Refill Integumentary: Normal Color, Dry, Warm Neurologic: Fully Oriented, Alert, Normal Mood/Affect, Normal Response Heart Score/ECG Review #1 ECG reviewed & interpreted by me at: 22:24 General ECG Interpretation: Sinus Rhythm, Normal Rate (72), Normal Intervals, No acute ischemic changes Compared to previous ECG there are: No significant change (10/24/16) ED Treatment Course - LABORATORY CBC & Chemistry Diagram: 11/10/16 18:24 11/10/16 19:11 - ADDITIONAL ORDERS Additional order review: Laboratory Results 11/10/16 11/10/16 11/10/16 19:14 19:11 18:31 WBC RBC Hgb Hct MCV MCH MCHC RDW Plt Count MPV Neutrophils % Lymphocytes % Monocytes % Eosinophils % Basophils % INR 3.97 H D PTT (Actin FS) 47.6 H D Sodium 137 Potassium 3.8 Chloride 97 L Carbon Dioxide 32 Anion Gap 8 BUN 36 H Creatinine 1.9 H Creat Clearance w eGFR 25.18 Random Glucose 109 H Lactic Acid Calcium 9.5 Total Bilirubin 0.6 D AST 23 D ALT 20 Alkaline Phosphatase 56 Creatine Kinase 188 Creatine Kinase Index 0.7 CK-MB (CK-2) 1.413 Troponin I < 0.02 B-Natriuretic Peptide 890.10 H Total Protein 8.7 H Albumin 3.7 Lipase 210 Urine Color Urine Appearance Urine pH Urine Protein Urine Glucose (UA) Urine Ketones Urine Blood Urine Nitrite Urine Bilirubin Urine Urobilinogen Ur Leukocyte Esterase 11/10/16 11/10/16 11/10/16 18:24 18:24 18:24 WBC 9.0 D RBC 4.17 Hgb 12.5 D Hct 37.7 MCV 90.3 MCH 29.9 MCHC 33.1 RDW 14.7 Plt Count 157 D MPV 9.7 Neutrophils % 58.0 Lymphocytes % 26.2 Monocytes % 13.8 H Eosinophils % 1.5 Basophils % 0.5 INR PTT (Actin FS) Sodium Cancelled Potassium Cancelled Chloride Cancelled Carbon Dioxide Cancelled Anion Gap Cancelled BUN Cancelled Creatinine Cancelled Creat Clearance w eGFR Cancelled Random Glucose Cancelled Lactic Acid 1.4 Calcium Cancelled Total Bilirubin Cancelled AST Cancelled ALT Cancelled Alkaline Phosphatase Cancelled Creatine Kinase Cancelled Creatine Kinase Index CK-MB (CK-2) Troponin I Cancelled B-Natriuretic Peptide Total Protein Cancelled Albumin Cancelled Lipase Cancelled Urine Color Urine Appearance Urine pH Urine Protein Urine Glucose (UA) Urine Ketones Urine Blood Urine Nitrite Urine Bilirubin Urine Urobilinogen Ur Leukocyte Esterase 11/10/16 18:23 WBC RBC Hgb Hct MCV MCH MCHC RDW Plt Count MPV Neutrophils % Lymphocytes % Monocytes % Eosinophils % Basophils % INR PTT (Actin FS) Sodium Potassium Chloride Carbon Dioxide Anion Gap BUN Creatinine Creat Clearance w eGFR Random Glucose Lactic Acid Calcium Total Bilirubin AST ALT Alkaline Phosphatase Creatine Kinase Creatine Kinase Index CK-MB (CK-2) Troponin I B-Natriuretic Peptide Total Protein Albumin Lipase Urine Color Straw Urine Appearance Clear Urine pH 7.0 Urine Protein Negative Urine Glucose (UA) Negative Urine Ketones Negative Urine Blood Negative Urine Nitrite Negative Urine Bilirubin Negative Urine Urobilinogen Negative Ur Leukocyte Esterase Negative 11/10/16 18:24 RBC 4.17 MCV 90.3 MCHC 33.1 RDW 14.7 MPV 9.7 Neutrophils % 58.0 Lymphocytes % 26.2 Monocytes % 13.8 H Eosinophils % 1.5 Basophils % 0.5 - Medications Given in the ED: ED Medications Discontinued Medications Generic Name Dose Route Start Last Admin Trade Name Freq PRN Reason Stop Dose Admin Famotidine/Sodium Chloride 50 mls @ 100 mls/hr 11/10/16 19:44 11/10/16 19:51 Pepcid 20 Mg Premixed Ivpb - IVPB 11/10/16 20:13 100 mls/hr ONCE ONE Administration Progress Note - Progress Note Progress Note: Received sign out from Dr. Fink. Patient is a 86 year old female with a history of HTN, CHF, afib on warfarin, and cholecystectomy who presents to the emergency department with severe burning epigastric abdominal pain with radiation to her back and now located in her chest. CBC and UA are unremarkable. Pending CMP, troponin, BNP. Likely admission for observation given her significant cardiac history of CHF and a recent admission for CHF exacerbation in 10/2016 Medical Decision Making - Medical Decision Making 11/10/16 22:19 Patient is a 86 year old female with a history of HTN, CHF, afib on warfarin, and cholecystectomy who presents to the emergency department with severe burning epigastric abdominal pain with radiation to her back and now located in her chest. CMP is notable for a mild elevation in CR to 1.9 as well as a BNP to 890. Negative Troponin. We will contact Dr. Ma regarding admission. We discussed the results with the patient and the plan for admission and she voiced understanding and is agreeable with the plan. 11/10/16 21:53 Discussed the Case with Dr. Holloway who is covering for Dr. Ma and requested that we admit through the hospitalist service. 11/10/16 21:54 Discussed the Case with the Hospitalist service who agreed to accept the patient for observation under. Dr. Parada. *DC/Admit/Observation/Transfer Diagnosis at time of Disposition: CHF (congestive heart failure) Qualifiers: Congestive heart failure type: unspecified congestive heart failure type Congestive heart failure chronicity: unspecified congestive heart failure chronicity Qualified Code(s): I50.9 - Heart failure, unspecified - Discharge Dispostion Condition at time of disposition: Guarded Admit: Yes - Referrals Referrals: Julio Cesar Ma MD [Primary Care Provider] -
[2016-11-10] MEDS ORDERED: ONDANSETRON 4 MG/2 ML VIAL IVPB PRN (22:30)
[2016-11-10] MEDS ORDERED: MAG HYDROX/AL HYDROX/SIMETH 30 ML UNIT-DOSE CUP ONE (23:15)
--- NOTE | 2016-11-10 23:25 | HP ---
CHIEF COMPLAINT: Abdominal pain PCP: Dr Ma HISTORY OF PRESENT ILLNESS: 86 year old F with pmh of HTN, CHF, afib on warfarin, and cholecystectomy presented to the ED with abdominal pain x 4 days. Patient states her pain is a burning, 10/10 pain that radiates to her chest and back. Patient states it is constant and worse while laying flat. Patient endorses mild nausea, recent constipation. Denies any constant nsaid usage. Patient has hx of GERD. Per patient, she has a hx of a prior endoscopy, which showed mild ulceration. Patient denies any fever, chills, SOB, RIVERA, Dizziness, Vomiting, diarrhea, dysuria, hematuria. ER course was notable for: (1) INR-3.97 (2) BUN-36, Cr-1.6, BNP-890 (3) CXR- appears unremarkable Recent Travel: denies PAST MEDICAL HISTORY: as per hpi PAST SURGICAL HISTORY: cholecystecomy, hysterectomy, knee replacement, and lumpectomy Social History: Smoking: denies Alcohol: denies Drugs: denies Family History: Allergies cranberry Allergy (Unknown, Verified 11/10/16 17:31) grape Allergy (Unknown, Verified 11/10/16 17:31) raspberry Allergy (Unknown, Verified 11/10/16 17:31) strawberry Allergy (Unknown, Verified 11/10/16 17:31) furosemide [From Lasix] Adverse Reaction (Verified 11/10/16 17:31) dizziness corn Allergy (Unknown, Uncoded 11/10/16 17:31) NUTS Allergy (Unknown, Uncoded 11/10/16 17:31) POLLEN Allergy (Unknown, Uncoded 11/10/16 17:31) SHELLFISH Allergy (Unknown, Uncoded 11/10/16 17:31) TUNA Allergy (Unknown, Uncoded 11/10/16 17:31) HOME MEDICATIONS: Home Medications Medication Instructions Recorded Atorvastatin Ca [Lipitor] 10 mg PO HS #30 tablet 09/16/14 Spironolactone [Aldactone -] 25 mg PO DAILY #30 tablet 09/16/14 Amlodipine Besylate 5 mg PO DAILY 10/25/16 Metformin HCl 500 mg PO DAILY 10/25/16 Metoprolol Tartrate [Lopressor -] 150 mg PO BID 10/25/16 Multivit-Min/FA/Lycopen/Lutein 1 each PO DAILY 10/25/16 [Centrum Silver Tablet] Sildenafil Citrate [Sildenafil] 10 mg PO TID 10/25/16 Torsemide [Demadex -] 40 mg PO ACDIN 10/25/16 Torsemide [Demadex -] 60 mg PO AM 10/25/16 Warfarin Na [Coumadin -] 7.5 mg PO DAILY@1800 11/10/16 Warfarin Na [Coumadin] 5 mg PO ASDIR 11/10/16 REVIEW OF SYSTEMS CONSTITUTIONAL: Absent: fever, chills, diaphoresis, generalized weakness, malaise, loss of appetite, weight change HEENT: Absent: rhinorrhea, nasal congestion, throat pain, throat swelling, difficulty swallowing, mouth swelling, ear pain, eye pain, visual changes CARDIOVASCULAR: Absent: chest pain, syncope, palpitations, irregular heart rate, lightheadedness , peripheral edema RESPIRATORY: Absent: cough, shortness of breath, dyspnea with exertion, orthopnea, wheezing, stridor, hemoptysis GASTROINTESTINAL: Absent: abdominal pain, abdominal distension, nausea, vomiting, diarrhea, constipation, melena, hematochezia GENITOURINARY: Absent: dysuria, frequency, urgency, hesitancy, hematuria, flank pain, genital pain MUSCULOSKELETAL: Absent: myalgia, arthralgia, joint swelling, back pain, neck pain SKIN: Absent: rash, itching, pallor HEMATOLOGIC/IMMUNOLOGIC: Absent: easy bleeding, easy bruising, lymphadenopathy, frequent infections ENDOCRINE: Absent: unexplained weight gain, unexplained weight loss, heat intolerance, cold intolerance NEUROLOGIC: Absent: headache, focal weakness or paresthesias, dizziness, unsteady gait, seizure, mental status changes, bladder or bowel incontinence PSYCHIATRIC: Absent: anxiety, depression, suicidal or homicidal ideation, hallucinations. PHYSICAL EXAMINATION GENERAL: Awake, alert, and fully oriented, in no acute distress. HEAD: Normal with no signs of trauma. EYES: Extraocular movements intact, sclera anicteric, conjunctiva clear. No lid lag. EARS, NOSE, THROAT: Ears normal, nares patent, oropharynx clear without exudates. Moist mucous membranes. NECK: Normal range of motion, supple without lymphadenopathy, JVD, or masses. LUNGS: Poor air exchange, Breath sounds equal, clear to auscultation bilaterally. No wheezes, and no crackles. No accessory muscle use. HEART: Irregular rate and rhythm, normal S1 and S2 without murmur, rub or gallop. ABDOMEN: Soft, + tenderness to epigastrum, not distended, normoactive bowel sounds, no guarding, no rebound, no masses. No hepatomegaly or splenomegaly. MUSCULOSKELETAL: Normal range of motion at all joints. No bony deformities or tenderness. No CVA tenderness. UPPER EXTREMITIES: 2+ pulses, warm, well-perfused. No cyanosis. No clubbing. No peripheral edema. LOWER EXTREMITIES: 2+ pulses, warm, well-perfused. No calf tenderness. No peripheral edema. NEUROLOGICAL: Cranial nerves II-XII intact. Normal speech. Normal gait. PSYCHIATRIC: Cooperative. Good eye contact. Appropriate mood and affect. SKIN: Warm, dry, normal turgor, no rashes or lesions noted, normal capillary refill. ASSESSMENT/PLAN: #Epigastric pain 2/2 GERD vs. Acute Gastritis -IV protonix -Mylanta prn -IVF @ 75 cc/hr -Trops negative x1, Trend troponins x2 #Supratheraputic INR, patient with A fib -Hold Coumadin -Repeat INR in the AM -Once INR <3, restart coumadin #HEMANT -Gentle hydration IVF @ 75 cc/hr #CHF -Continue home medications #DM -BGM achs -ISS achs -Hold home medications #HTN -Continue home meds #HLD -Continue lipitor 10 mg po hs #Pulmonary HTN -Continue sildenafil #FEN/GI -IVF @ 75 cc/hr -wnl -sodium/diabetic diet #PPX -DVT- Supratheraputic INR -GI- IV protonix 40 mg daily #Dispo: -Admit to tele-obs Visit type - Emergency Visit Emergency Visit: Yes ED Registration Date: 11/10/16 Care time: The patient presented to the Emergency Department on the above date and was hospitalized for further evaluation of their emergent condition. - New Patient This patient is new to me today: Yes Date on this admission: 11/11/16 - Critical Care Critical Care patient: No
--- NOTE | 2016-11-11 01:27 | PN ---
Teaching Attending Note Name of Resident: Jean Claude Tesfaye ATTENDING PHYSICIAN STATEMENT I saw and evaluated the patient. I reviewed the resident's note and discussed the case with the resident. I agree with the resident's findings and plan as documented. SUBJECTIVE: 86 year old female brought by family due to 4 day history of epigastric abdominal pain associated with nausea. Pain is 2/10 and progressed to 7/10 over the course of time . It radiated to the back. She admits having severe acid reflux PMH CHF, Afib, HTN, Pulmonary Hypertension, HLD, DM OBJECTIVE: Vital Signs Temperature 99 F 11/11/16 00:44 Pulse Rate 86 11/11/16 00:44 Respiratory Rate 20 11/11/16 00:57 Blood Pressure 148/79 11/11/16 00:44 O2 Sat by Pulse Oximetry (%) 96 11/11/16 00:57 General Appearance: Nourished. No Apparent Distress HEENT: No Pharyngeal Erythema, Tonsillar Exudate, Tonsillar Erythema Respiratory/Chest: Lungs Clear, Normal Breath Sounds. No Crackles, Rales, Rhonchi, Wheezing Cardiovascular: Regular Rhythm, Regular Rate. No Murmur, Gallop/S3, Gallop/S4 Gastrointestinal/Abdominal: Normal Bowel Sounds, Soft, Epigastric tenderness to palpation on exam. No Guarding, Rebound Extremity: Normal Capillary Refill Integumentary: Normal Color, Dry, Warm Neurologic: Fully Oriented, Alert, Normal Mood/Affect, Normal Response CBC, BMP 11/10/16 18:24 INR, PTT INR 3.97 (0.82-1.09) H D 11/10/16 18:31 ECG reviewed & interpreted General ECG Interpretation: Sinus Rhythm, Normal Rate (72), Normal Intervals, No acute ischemic changes ASSESSMENT AND PLAN: 1. Epigastric pain - likely secondary to acute gastritis. Considering cardiac risk factors can not exclude cardiogenic cause - PPI - Mylanta prn -GERD diet - IVF .- troponin x 3 2. Elevated INR - history of A Fib / rate controlled - hold coumadin - repeat INR - reinstate coumadin when INR is less then 3 3. HTN - controlled 4. DM - stable observation
[2016-11-11] MEDS ORDERED: MAG HYDROX/AL HYDROX/SIMETH 30 ML UNIT-DOSE CUP PO PRN (03:16)
[2016-11-11] MEDS: SODIUM CHLORIDE 1,000 ML IV SCH (06:57)
[2016-11-11] MEDS ORDERED: TORSEMIDE 20 MG TABLET (FP) PO SCH ×2 (07:00→16:30)
[2016-11-11 07:58] LABS: BASOPHIL 0.5 % (0-2.0); EOSINOPHIL 1.5 % (0-4.5); MCH 29.8 pg (25.7-33.7); MEAN CELL VOLUME 90.3 fl (80-96); MEAN PLT VOLUME 9.8 fl (7.5-11.1); PLATELET COUNT 135 K/MM3 (134-434); RDW 14.7 % (11.6-15.6); WHITE BLOOD COUNT 7.6 K/mm3 (4.0-10.0)
[2016-11-11 08:19] LABS: INR 3.28 (0.82-1.09)
[2016-11-11 08:23] LABS: ALBUMIN 3.5 g/dl (3.4-5.0); ALK PHOS 52 U/L (45-117); ANION GAP 11 (8-16); BILIRUBIN,TOTAL 0.7 mg/dL (0.2-1.0); CALCIUM 9.3 mg/dL (8.5-10.1); CO2 29 mmol/L (21-32); CREATININE 1.8 mg/dL (0.55-1.02); GLUCOSE,RANDOM 123 mg/dL (74-106); MAGNESIUM 2.9 mg/dL (1.8-2.4); SGOT/AST 24 U/L (15-37); SGPT/ALT 18 U/L (12-78); TOT PROT 8.2 g/dl (6.4-8.2)
[2016-11-11] MEDS ORDERED: PT OWN MED DRAWER 7, Y5N ONE ×2 (08:40→14:04)
[2016-11-11] MEDS: SILDENAFIL CITRATE 20 MG TAB PO SCH ×4 (08:42→22:39)
--- NOTE | 2016-11-11 09:01 | EKG ---
Test Reason : Blood Pressure : / mmHG Vent. Rate : 072 BPM Atrial Rate : 072 BPM P-R Int : 190 ms QRS Dur : 090 ms QT Int : 402 ms P-R-T Axes : 075 031 055 degrees QTc Int : 440 ms NORMAL SINUS RHYTHM MODERATE VOLTAGE CRITERIA FOR LVH, MAY BE NORMAL VARIANT WHEN COMPARED WITH ECG OF 24-OCT-2016 17:01, NO SIGNIFICANT CHANGE WAS FOUND Confirmed by CHANTELLE ALTAMIRANO MD ([id number]) on 11/11/2016 9:00:39 AM Referred By: Confirmed By:CHANTELLE ALTAMIRANO MD
[2016-11-11 09:30] LABS: TROPONIN I < 0.02 ng/ml (0.00-0.05)
[2016-11-11] MEDS ORDERED: SODIUM CHLORIDE 100 ML IVPB ONE (09:54)
[2016-11-11] MEDS ORDERED: PANTOPRAZOLE SODIUM 40 MG VIAL ONE (09:54)
--- NOTE | 2016-11-11 09:57 | PN ---
Physical Exam: SUBJECTIVE: Patient seen and examined at the bedside. States she feels week and short of breath. Denies any other discomfort. States she has a rash under her right breast that extends to her back since Monday. OBJECTIVE: Has scattered small intact blisters under right breast that extends to the right side of her back ID consult for possible shingles Low grade fever HEMANT > hold toresemide Magnesium 2.9 Trops negative x 2, trend one more INR 3.28, continue to hold Coumadin Vital Signs Period Temp Pulse Resp BP Sys/Morales Pulse Ox Last 24 Hr 99 F-99.5 F 71-86 20-20 126-148/60-79 96 GENERAL: The patient is awake, alert, and fully oriented, in no acute distress. HEAD: Normal with no signs of trauma. EYES: PERRL, extraocular movements intact, sclera anicteric, conjunctiva clear. No ptosis. ENT: Ears normal, nares patent, oropharynx clear without exudates, moist mucous membranes. NECK: Trachea midline, full range of motion, supple. ABDOMEN: Soft, nontender, nondistended, normoactive bowel sounds, no guarding, no rebound, no hepatosplenomegaly, no masses. EXTREMITIES: trace edema bilateral lower extremities NEUROLOGICAL: Cranial nerves II through XII grossly intact. Normal speech, gait not observed. PSYCH: Normal mood, normal affect. SKIN: scattered small intact blisters under right breast that extends to the right side of her back Laboratory Results - last 24 hr 11/11/16 11/11/16 11/11/16 06:00 06:00 06:00 WBC 7.6 RBC 3.90 Hgb 11.6 Hct 35.2 MCV 90.3 MCH 29.8 MCHC 33.0 RDW 14.7 Plt Count 135 MPV 9.8 Neutrophils % 68.0 Lymphocytes % 17.5 D Monocytes % 12.5 H Eosinophils % 1.5 Basophils % 0.5 INR 3.28 H Sodium 139 Potassium 3.6 Chloride 99 Carbon Dioxide 29 Anion Gap 11 BUN 33 H Creatinine 1.8 H Creat Clearance w eGFR 26.81 Random Glucose 123 H Calcium 9.3 Phosphorus 3.0 Magnesium 2.9 H Total Bilirubin 0.7 AST 24 ALT 18 Alkaline Phosphatase 52 Troponin I < 0.02 Total Protein 8.2 Albumin 3.5 11/11/16 06:00 WBC RBC Hgb Hct MCV MCH MCHC RDW Plt Count MPV Neutrophils % Lymphocytes % Monocytes % Eosinophils % Basophils % INR Sodium Potassium Chloride Carbon Dioxide Anion Gap BUN Creatinine Creat Clearance w eGFR Random Glucose Calcium Phosphorus Magnesium Total Bilirubin AST ALT Alkaline Phosphatase Troponin I Cancelled Total Protein Albumin Active Medications Generic Name Dose Route Start Last Admin Trade Name Freq PRN Reason Stop Dose Admin Al Hydroxide/Mg Hydroxide 30 ml 11/11/16 03:16 11/11/16 04:10 Mylanta Oral Suspension - PO 30 ml Q6H PRN Administration DYSPEPSIA Amlodipine Besylate 5 mg 11/11/16 10:00 Norvasc - PO DAILY SAIDA Atorvastatin Calcium 10 mg 11/11/16 22:00 Lipitor - PO HS SAIDA Pantoprazole Sodium 40 mg/ 100 mls @ 200 mls/hr 11/11/16 10:00 Sodium Chloride IVPB DAILY SAIDA Sodium Chloride 1,000 mls @ 75 mls/hr 11/11/16 01:15 11/11/16 06:57 Normal Saline - IV 75 mls/hr ASDIR SAIDA Administration Metoprolol Tartrate 150 mg 11/11/16 10:00 Lopressor - PO BID SAIDA Ondansetron HCl 4 mg 11/10/16 22:30 Zofran Injection IVPB Q6H PRN NAUSEA Sildenafil Citrate 10 mg 11/11/16 06:00 11/11/16 08:42 Revatio - PO Not Given TID SAIDA Spironolactone 25 mg 11/11/16 10:00 Aldactone - PO DAILY SAIDA Torsemide 60 mg 11/11/16 07:00 11/11/16 06:58 Demadex - PO 60 mg AM SAIDA Administration Torsemide 40 mg 11/11/16 16:30 Demadex - PO ACDIN [facility] ASSESSMENT/PLAN: Patient is an 86 year old female with a significant past medial history of HTN, CHF, afib on warfarin, GERD and cholecystectomy. She presented to the ED on 11/10 with abdominal pain x 4 days. Patient states her pain is a burning, 10/10 pain that radiates to her chest and back. Patient states it is constant and worse while laying flat. Patient endorses mild nausea, recent constipation. Per patient, she has a hx of a prior endoscopy, which showed mild ulceration. Patient denies any fever, chills, chest pain, vomiting, diarrhea, dysuria or hematuria. GI: Abdominal Pain/Epigastric pain/GERD vs. gastritis - improving A/P: On IV protonix, mylanta PRN IVF @ 75cc/hr, Troponins negative x 3 Cardiology: Supratheraputic INR, patient with A fib A/P: INR 3.28, continue to hold Coumadin Repeat INR in the AM Once INR <3, restart Coumadin CHF - chronic Hold diuretics secondary to HEMANT Continue home cardiac medications Hypertension - chronic A/P: Continue home meds of Metoprolol 150mg BID ID: Shingles - acute A/P: One dermatone, starts under right breasts and extends to right back Started on Valtrex by ID She is having pain in this area, started on Oxycodone, Tylenol and Neurontin Monitor for improvement of shingles Contact precautions Renal: HEMANT A/P: Likely secondary to acute vomiting On IVF @ 75 cc/hr hold diuretics F.E.N. Fluids: NS @ 75cc/hr Electrolytes: Monitor BMP Nutrition: tolerating low sodium diet Disposition: Full Code. Monitor on tele. Visit type - Emergency Visit Emergency Visit: Yes ED Registration Date: 11/10/16 Care time: The patient presented to the Emergency Department on the above date and was hospitalized for further evaluation of their emergent condition. - New Patient This patient is new to me today: Yes Date on this admission: 11/11/16 - Critical Care Critical Care patient: No - Discharge Referral Referred to [facility] Med P.C.: No
[2016-11-11] MEDS: amLODIPine BESYLATE 5 MG TABLET (FP) PO SCH (10:00)
[2016-11-11] MEDS: PANTOPRAZOLE SODIUM 40 MG in SODIUM CHLORIDE 100 ML IVPB SCH (10:00)
[2016-11-11] MEDS ORDERED: PANTOPRAZOLE 40 MG TABLET (FP) PO SCH (10:00)
[2016-11-11] MEDS: METOPROLOL TARTRATE 50 MG TABLET (FP) PO SCH ×2 (10:00→22:27)
[2016-11-11] MEDS: SPIRONOLACTONE 25 MG TABLET (FP) PO SCH (10:01)
--- NOTE | 2016-11-11 10:54 | PN ---
Progress Note (short form) - Note Progress Note: ID consult dictated imp/reccd herpes zoster- one dermatome started on Monday would treat with valtrex adjusted for renal insufficiency she is in considerable pain would start neurontin and analgesics as well Problem List - Problems (1) Zoster Code(s): B02.9 - ZOSTER WITHOUT COMPLICATIONS (2) HEMANT (acute kidney injury) Code(s): N17.9 - ACUTE KIDNEY FAILURE, UNSPECIFIED
[2016-11-11] MEDS ORDERED: valACYclovir HCL 1000 MG TABLET PO SCH (11:00)
--- NOTE | 2016-11-11 13:39 | CONS ---
DATE OF CONSULTATION: 11/11/2016 INFECTIOUS DISEASE CONSULTATION REQUESTING PHYSICIAN: Hospitalist service. HISTORY OF PRESENT ILLNESS: This is an 86-year-old woman who was recently in the hospital from October 24 to the for shortness of breath. She was felt to have worsening of her congestive heart failure and she was discharged home. She is now readmitted on November 10 with complaints of abdominal pain. I am asked to see her because she is noted to have a rash that extends from her mid sternum on the right, goes underneath her breast and radiates to her back again ending at the midline. She reports that she noted the rash on Monday and it has persisted since then. She describes a pain that starts in her mid sternum and radiates around the same side as the rash. She does not recall having had chicken pox as a child. She denies fever or chills. She has no nausea or vomiting. PAST MEDICAL HISTORY: Is notable for history of hypertension, congestive heart failure, atrial fibrillation. PAST SURGICAL HISTORY: Notable for a cholecystectomy, hysterectomy, right knee replacement and lumpectomy. She has a history of breast cancer diagnosed 20 years ago and that has been treated. ALLERGIES: FUROSEMIDE, SHELLFISH, NUTS AND MULTIPLE FOODS. MEDICATIONS: At home include atorvastatin, spironolactone, amlodipine, metformin, metoprolol, multivitamin, , torsemide, warfarin. SOCIAL HISTORY: There is no history of any cigarette or substance use. 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 REVIEW OF SYSTEMS: She notes this pain that radiates from her side and this rash that she has had for a week. She notes that she only has shortness of breath with exertion. She has had a rare cough that is notable for yellow sputum. PHYSICAL EXAMINATION: Vital Signs: Current temperature 99.1, T-max 99.5, pules 75, blood pressure 147/83, respiratory rate 20, weight 164 pounds. HEENT: Normocephalic. Eyes are anicteric. Neck: Supple. Lungs: Clear to auscultation. Heart: Regular rate and rhythm. Abdomen: Soft, nontender. Extremities: Without edema. Skin: She has a vesicular rash radiating of her right breast from the midline to the back to the midline as well. This has been persistent apparently since Monday. She has no other evidence of rash on her kin. She has no sores in her mouth and no trouble swallowing. LABORATORY DATA: Notable for a white count of 7.6, hemoglobin 11.6, platelets 155. INR is 3.2, BUN 33, creatinine 1.8. Chest x-ray done on admission shows no evidence of active pulmonary disease. IMPRESSION AND RECOMMENDATIONS: In summary this is an 86-year-old woman with herpes zoster of 1 dermatome. This started on Monday. I would treat her with oral Valtrex suggested for renal insufficiency. She is in considerable pain. Would start Neurontin and analgesics as well. Further recommendations to follow. PIEDAD COTE M.D. [id number]
[2016-11-11] MEDS: oxyCODONE HCL 5 MG TABLET PO PRN (14:39)
[2016-11-11] MEDS: INSULIN SLIDING SCALE (NOVOLOG) 1 VIAL SQ SCH ×2 (17:45→22:26)
[2016-11-11] MEDS: ATORVASTATIN CA 10 MG TABLET (FP) PO SCH (22:27)
[2016-11-11] MEDS: GABAPENTIN 100 MG CAPSULE (FP) PO SCH (22:27)
[2016-11-11] MEDS: valACYclovir HCL 500 MG TABLET (FP) PO SCH (22:39)
[2016-11-12] MEDS: ACETAMINOPHEN 325 MG TABLET (FP) PO PRN ×2 (01:14→19:41)
[2016-11-12] MEDS: SODIUM CHLORIDE 1,000 ML IV SCH ×3 (01:15→21:21)
[2016-11-12] MEDS: SILDENAFIL CITRATE 20 MG TAB PO SCH ×3 (06:30→21:18)
[2016-11-12] MEDS: oxyCODONE HCL 5 MG TABLET PO PRN (06:30)
[2016-11-12] MEDS: INSULIN SLIDING SCALE (NOVOLOG) 1 VIAL SQ SCH ×3 (06:30→16:30)
[2016-11-12 07:54] LABS: INR 2.1 (0.82-1.09); PROTHROMBIN TIME (PATIENT) 23.5 SEC (9.98-11.88)
[2016-11-12 07:55] LABS: BASOPHIL 0.4 % (0-2.0); EOSINOPHIL 2.2 % (0-4.5); MCH 29.7 pg (25.7-33.7); MCHC 32.9 g/dl (32.0-36.0); MEAN CELL VOLUME 90.4 fl (80-96); MEAN PLT VOLUME 9.6 fl (7.5-11.1); NEUTROPHILS 65.1 % (42.8-82.8); PLATELET COUNT 110 K/MM3 (134-434); RDW 14.6 % (11.6-15.6); WHITE BLOOD COUNT 6.5 K/mm3 (4.0-10.0)
[2016-11-12 08:10] LABS: ALBUMIN 3.1 g/dl (3.4-5.0); ALK PHOS 51 U/L (45-117); ANION GAP 7 (8-16); BILIRUBIN,TOTAL 0.8 mg/dL (0.2-1.0); CALCIUM 8.4 mg/dL (8.5-10.1); CO2 29 mmol/L (21-32); CREATININE 1.6 mg/dL (0.55-1.02); GLUCOSE,RANDOM 108 mg/dL (74-106); SGOT/AST 21 U/L (15-37); SGPT/ALT 17 U/L (12-78); TOT PROT 7.6 g/dl (6.4-8.2)
[2016-11-12] MEDS ORDERED: PANTOPRAZOLE SODIUM 40 MG VIAL ONE (09:09)
[2016-11-12] MEDS ORDERED: SODIUM CHLORIDE 100 ML IVPB ONE (09:10)
[2016-11-12] MEDS: valACYclovir HCL 500 MG TABLET (FP) PO SCH ×2 (10:25→21:17)
[2016-11-12] MEDS: PANTOPRAZOLE SODIUM 40 MG in SODIUM CHLORIDE 100 ML IVPB SCH (10:25)
[2016-11-12] MEDS: METOPROLOL TARTRATE 50 MG TABLET (FP) PO SCH ×2 (10:25→21:18)
[2016-11-12] MEDS: GABAPENTIN 100 MG CAPSULE (FP) PO SCH ×2 (10:26→21:18)
[2016-11-12] MEDS: amLODIPine BESYLATE 5 MG TABLET (FP) PO SCH (10:26)
[2016-11-12] MEDS: SPIRONOLACTONE 25 MG TABLET (FP) PO SCH (10:26)
[2016-11-12 12:03] LABS: CPK 231 IU/L (26-192)
[2016-11-12 12:04] LABS: TROPONIN I < 0.02 ng/ml (0.00-0.05)
--- NOTE | 2016-11-12 12:42 | PN ---
Progress Note (short form) - Note Progress Note: Chief Complaint: Events noted, notes reviewed, reporting abdominal discomfort with radiation to the back (acute shingles), patient denies any chest pain or dyspnea History of Present Illness: Seen and examined on telemetry. Full consult dictated - Current Medication List Current Medications Acetaminophen (Tylenol -) 650 mg PO Q6H PRN PRN Reason: FEVER OR PAIN Last Admin: 11/12/16 01:14 Dose: 650 mg Al Hydroxide/Mg Hydroxide (Mylanta Oral Suspension -) 30 ml PO Q6H PRN PRN Reason: DYSPEPSIA Last Admin: 11/11/16 04:10 Dose: 30 ml Amlodipine Besylate (Norvasc -) 5 mg PO DAILY [facility] Last Admin: 11/12/16 10:26 Dose: 5 mg Atorvastatin Calcium (Lipitor -) 10 mg PO HS [facility] Last Admin: 11/11/16 22:27 Dose: 10 mg Gabapentin (Neurontin -) 100 mg PO BID [facility] Last Admin: 11/12/16 10:26 Dose: 100 mg Pantoprazole Sodium 40 mg/ (Sodium Chloride) 100 mls @ 200 mls/hr IVPB DAILY [facility] Last Admin: 11/12/16 10:25 Dose: 200 mls/hr Sodium Chloride (Normal Saline -) 1,000 mls @ 75 mls/hr IV ASDIR [facility] Last Admin: 11/12/16 10:26 Dose: 75 mls/hr Insulin Aspart (Novolog Vial Sliding Scale -) 1 vial SQ ACHS [facility] PRN Reason: Protocol Last Admin: 11/12/16 11:29 Dose: Not Given Metoprolol Tartrate (Lopressor -) 150 mg PO BID [facility] Last Admin: 11/12/16 10:25 Dose: 150 mg Ondansetron HCl (Zofran Injection) 4 mg IVPB Q6H PRN PRN Reason: NAUSEA Oxycodone HCl (Roxicodone -) 5 mg PO Q6H PRN PRN Reason: PAIN Last Admin: 11/12/16 06:30 Dose: 5 mg Sildenafil Citrate (Revatio -) 10 mg PO TID [facility] Last Admin: 11/12/16 06:30 Dose: 10 mg Spironolactone (Aldactone -) 25 mg PO DAILY [facility] Last Admin: 11/12/16 10:26 Dose: 25 mg Valacyclovir HCl (Valtrex -) 1,000 mg PO BID [facility] Last Admin: 11/12/16 10:25 Dose: 1,000 mg Review of Systems Constitutional: denies Chills or Fever Respiratory: denies Cough or Dyspnea Cardiovascular: As noted above Gastrointestinal: denies Nausea, Vomiting, Diarrhea or Constipation Genitourinary: No Symptoms Reported Musculoskeletal: No Symptoms Reported - Objective Vital Signs: Last Vital Signs Temp Pulse Resp BP Pulse Ox 98.9 F 73 20 134/63 96 11/12/16 10:00 11/12/16 10:00 11/12/16 10:00 11/12/16 10:00 11/12/16 09:00 Intake & Output 11/09/16 11/10/16 11/11/16 11/12/16 23:59 23:59 23:59 23:59 Intake Total 1525 1000 Balance 1525 1000 Weight 166 lb 164 lb 3.2 oz 163 lb 6.4 oz Constitutional: No Distress, Calm Neck: Supple Negative JVD No bruit Respiratory: Clear to A&P Bilaterally Cardiovascular: S1 S2 Regular Rate and Rhythm Gastrointestinal: Soft Benign Normal Bowel Sounds Ext: No Edema Labs: Troponin, BNP 11/11/16 11/11/16 11/12/16 11:45 14:45 06:00 Troponin I < 0.02 < 0.02 < 0.02 CBC, BMP 11/12/16 06:00 11/12/16 06:00 Assessment/Plan ASSESSMENT: 1. 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 Diastolic LV dysfunction with chronic class I-II NYHA classification congestive heart failure, compensated/euvolemic 4. Paroxysmal atrial fibrillation [id number] score of 9 on Coumadin therapy 5. Severe pulmonary HTN 6. HTN 7. NIDDM 8. Hypercholesterolemia 9. CKD PLAN: 1. Continue Lopressor 2. Continue Norvasc 3. Ideally should be on ACEI or ARBS unless it is absolutely contraindicated 4. Continue A/C with Coumadin maintaining INR 2-3 5. Continue Sildenafil Citrate (Revatio) for the above noted pulmonary HTN 6. Continue Aldactone 7. Continue Lipitor Adityat Jakob Rose
--- NOTE | 2016-11-12 15:30 | CONS ---
DATE OF CONSULTATION: 11/12/2016 REQUESTING PHYSICIAN: Hospitalist. CHIEF COMPLAINT: Abdominal discomfort, cardiovascular evaluation. HISTORY OF PRESENT ILLNESS: An 86-year-old female of [place] descent of ancestry with known history of coronary artery disease, non-obstructive coronary artery disease on coronary angiography, angina pectoris, diastolic left ventricular dysfunction, with class I to II [place] Heart Association classification left ventricular failure, paroxysmal atrial fibrillation on chronic anticoagulation therapy with Coumadin, hypertensive cardiovascular disease, diabetes mellitus, hypercholesterolemia, chronic kidney disease, who was recently admitted to [facility] October 2016 with increasing dyspnea and cough productive of sputum at which point patient was noted to have evidence of acute exacerbation of the above-noted diastolic left ventricular dysfunction. Patient subsequently was discharged home to present to [facility] emergency room with abdominal discomfort and subsequently she was noted to have a rash consistent with shingles herpes zoster infection. Patient currently is complaining of discomfort at the site of the rash. Patient reported dyspnea with [id number] physical exertion. Patient denies any orthopnea or paroxysmal nocturnal dyspnea. Patient reports intermittent bilateral lower extremity edema that worsens in the latter part of the day. Patient denies any palpitations, dizziness, lightheadedness or syncope. Patient in addition has history of advanced pulmonary hypertension for which she is currently sildenafil therapy. PAST MEDICAL HISTORY: Coronary artery disease, non-obstructive coronary artery disease on prior coronary angiography, angina pectoris, diastolic left ventricular dysfunction with chronic class I to II [place] Heart Association classification left ventricular failure, paroxysmal atrial fibrillation post cardioversion, CHADS VASc score of 9 on Coumadin therapy, advanced pulmonary hypertension on sildenafil therapy, hypertensive cardiovascular disease, diabetes mellitus, hypercholesterolemia, chronic kidney disease, cholecystectomy, hysterectomy, right knee replacement surgery. SOCIAL HISTORY: Nonsmoker. FAMILY HISTORY: Positive coronary artery disease. ALLERGIES: Multiple including CRANBERRY, GRAPE, RASBERRIES, STRAWBERRIES, CORN, NUTS, POLLEN, SHELLFISH, TUNA and patient reports intolerance to LASIK therapy administration. MEDICATIONS: Medical therapy currently includes: 1. Acetaminophen 650 mg every 6 hours as needed. 2. Norvasc 5 mg once a day. 4. Lipitor 10 mg once a day. 5. Neurontin 100 mcg twice a day initiated during the current hospitalization. 6. Protonix 40 mg IV once a day. 7. Lopressor 150 mg twice a day. 8. Zofran 4 mg every 6 hours as needed. 9. Roxicodone 5 mg every 6 hours as needed. 10. Sildenafil 10 mg 3 times a day. 11. Spironolactone 25 mg once a day. 12. Valtrex 1000 mg twice a day. REVIEW OF SYSTEMS: Head and Neck: Denies headache, photophobia, blurring of vision. Respiratory: No cough or sputum production. Cardiovascular: As noted above. Gastrointestinal: Abdominal discomfort as noted above. Denies nausea, vomiting, diarrhea. Genitourinary: No symptoms reported. PHYSICAL EXAMINATION: Vital Signs: Blood pressure is 134/63 mmHg, pulse rate is 73 beats per minute. Head and Neck: Pupils equal, reactive to light and accommodation. Extraocular muscles are intact. Anicteric sclera. Negative JVD. No bruit appreciated. Chest: Clear to auscultation and percussion. Cardiovascular: S1, S2 regular. No murmurs appreciated. Abdomen: Soft, benign, normoactive bowel sound. Extremity: No edema. EKG revealed sinus rhythm with nonspecific T wave abnormality. Troponin I levels were noted. CBC revealed white blood cell count 6.5, hemoglobin 11.7, platelet count 110. Basic metabolic profile revealed sodium 140, potassium 3.7, BUN 25, creatinine 1.6, glucose 108. ASSESSMENT: 1. Acute shingles herpes zoster infection with persistent discomfort. 2. Non-obstructive coronary artery disease, angina pectoris, stable. 3. Diastolic left ventricular dysfunction with chronic class I to II [place] Heart Association classification congestive heart failure compensated/euvolemic. 4. Paroxysmal atrial fibrillation CHADS VASc score of 9 on Coumadin therapy. 5. Severe pulmonary hypertension. 6. Hypertensive cardiovascular disease. 7. [id number] diabetes mellitus. 8. Hypercholesterolemia. 9. Chronic kidney disease. RECOMMENDATIONS: 1. Continuation of Lopressor. 2. Continuation of Norvasc. 3. Ideally, patient should be on MARY JANE inhibitor or angiotensin receptor skye therapy unless it is absolutely contraindicated. 4. Continue anticoagulation therapy with Coumadin maintaining INR 2-3. 5. Continue sildenafil for the above-noted pulmonary hypertension. 6. Continue Aldactone. 7. Continue Lipitor. Thank you for the kind referral. RIVAS HI M.D. [id number]
--- NOTE | 2016-11-12 15:59 | PN ---
Physical Exam: SUBJECTIVE: Patient seen and examined. Denies any further abdominal pain, nausea or vomiting. Pain improving with the oxycodone OBJECTIVE: Singles under right breast that extends to the right side of her back - improving HEMANT > hold toresemide Trops negative Will restart Coumadin Vital Signs Period Temp Pulse Resp BP Sys/Morales Pulse Ox Last 24 Hr 98.7 F-100.3 F 64-79 18-20 119-144/63-84 94-96 GENERAL: The patient is awake, alert, and fully oriented, in no acute distress. HEAD: Normal with no signs of trauma. EYES: PERRL, extraocular movements intact, sclera anicteric, conjunctiva clear. No ptosis. ENT: Ears normal, nares patent, oropharynx clear without exudates, moist mucous membranes. NECK: Trachea midline, full range of motion, supple. ABDOMEN: Soft, nontender, nondistended, normoactive bowel sounds, no guarding, no rebound, no hepatosplenomegaly, no masses. EXTREMITIES: trace edema bilateral lower extremities NEUROLOGICAL: Cranial nerves II through XII grossly intact. Normal speech, gait not observed. PSYCH: Normal mood, normal affect. SKIN: scattered small intact blisters under right breast that extends to the right side of her back Laboratory Results - last 24 hr 11/11/16 11/11/16 11/11/16 14:45 18:14 22:25 WBC RBC Hgb Hct MCV MCH MCHC RDW Plt Count MPV Neutrophils % Lymphocytes % Monocytes % Eosinophils % Basophils % INR Sodium Potassium Chloride Carbon Dioxide Anion Gap BUN Creatinine Creat Clearance w eGFR POC Glucometer [phone] Random Glucose Calcium Total Bilirubin AST ALT Alkaline Phosphatase Creatine Kinase Creatine Kinase Index CK-MB (CK-2) Troponin I < 0.02 Total Protein Albumin 11/12/16 11/12/16 11/12/16 06:00 06:00 06:00 WBC 6.5 RBC 3.94 Hgb 11.7 Hct 35.6 MCV 90.4 MCH 29.7 MCHC 32.9 RDW 14.6 Plt Count 110 L MPV 9.6 Neutrophils % 65.1 Lymphocytes % 16.6 Monocytes % 15.7 H Eosinophils % 2.2 Basophils % 0.4 INR 2.10 H D Sodium 140 Potassium 3.7 Chloride 104 Carbon Dioxide 29 Anion Gap 7 L BUN 25 H D Creatinine 1.6 H Creat Clearance w eGFR 30.71 POC Glucometer Random Glucose 108 H Calcium 8.4 L Total Bilirubin 0.8 AST 21 ALT 17 Alkaline Phosphatase 51 Creatine Kinase 231 H Creatine Kinase Index 0.7 CK-MB (CK-2) 1.7 Troponin I < 0.02 Total Protein 7.6 Albumin 3.1 L 11/12/16 11/12/16 06:29 11:25 WBC RBC Hgb Hct MCV MCH MCHC RDW Plt Count MPV Neutrophils % Lymphocytes % Monocytes % Eosinophils % Basophils % INR Sodium Potassium Chloride Carbon Dioxide Anion Gap BUN Creatinine Creat Clearance w eGFR POC Glucometer 111 119 Random Glucose Calcium Total Bilirubin AST ALT Alkaline Phosphatase Creatine Kinase Creatine Kinase Index CK-MB (CK-2) Troponin I Total Protein Albumin Active Medications Generic Name Dose Route Start Last Admin Trade Name Freq PRN Reason Stop Dose Admin Acetaminophen 650 mg 11/11/16 13:58 11/12/16 01:14 Tylenol - PO 650 mg Q6H PRN Administration FEVER OR PAIN Al Hydroxide/Mg Hydroxide 30 ml 11/11/16 03:16 11/11/16 04:10 Mylanta Oral Suspension - PO 30 ml Q6H PRN Administration DYSPEPSIA Amlodipine Besylate 5 mg 11/11/16 10:00 11/12/16 10:26 Norvasc - PO 5 mg DAILY [facility] Administration Atorvastatin Calcium 10 mg 11/11/16 22:00 11/11/16 22:27 Lipitor - PO 10 mg HS [facility] Administration Gabapentin 100 mg 11/11/16 22:00 11/12/16 10:26 Neurontin - PO 100 mg BID [facility] Administration Pantoprazole Sodium 40 mg/ 100 mls @ 200 mls/hr 11/11/16 10:00 11/12/16 10:25 Sodium Chloride IVPB 200 mls/hr DAILY [facility] Administration Sodium Chloride 1,000 mls @ 75 mls/hr 11/11/16 01:15 11/12/16 10:26 Normal Saline - IV 75 mls/hr ASDIR [facility] Administration Insulin Aspart 1 vial 11/11/16 16:30 11/12/16 11:29 Novolog Vial Sliding Scale - SQ Not Given ACHS [facility] Protocol Metoprolol Tartrate 150 mg 11/11/16 10:00 11/12/16 10:25 Lopressor - PO 150 mg BID [facility] Administration Ondansetron HCl 4 mg 11/10/16 22:30 Zofran Injection IVPB Q6H PRN NAUSEA Oxycodone HCl 5 mg 11/11/16 13:58 11/12/16 06:30 Roxicodone - PO 5 mg Q6H PRN Administration PAIN Sildenafil Citrate 10 mg 11/11/16 06:00 11/12/16 14:10 Revatio - PO 10 mg TID [facility] Administration Spironolactone 25 mg 11/11/16 10:00 11/12/16 10:26 Aldactone - PO 25 mg DAILY [facility] Administration Valacyclovir HCl 1,000 mg 11/11/16 11:03 11/12/16 10:25 Valtrex - PO 1,000 mg BID [facility] Administration ASSESSMENT/PLAN: Patient is an 86 year old female with a significant past medial history of HTN, CHF, afib on warfarin, GERD and cholecystectomy. She presented to the ED on 11/10 with abdominal pain x 4 days. Patient states her pain is a burning, 10/10 pain that radiates to her chest and back. Patient states it is constant and worse while laying flat. Patient endorses mild nausea, recent constipation. Per patient, she has a hx of a prior endoscopy, which showed mild ulceration. Patient denies any fever, chills, chest pain, vomiting, diarrhea, dysuria or hematuria. GI: Abdominal Pain/Epigastric pain/GERD vs. gastritis - resolved A/P: On protonix, mylanta PRN IVF @ 75cc/hr, Troponins negative x 3 Cardiology: Supratheraputic INR, patient with A fib - resolved A/P: INR 2.10 continue Coumadin Repeat INR in the AM CHF - chronic Hold diuretics secondary to HEMANT - improving Continue home cardiac medications Hypertension - chronic A/P: Continue home meds of Metoprolol 150mg BID ID: Shingles - improving A/P: One dermatone, starts under right breasts and extends to right back Started on Valtrex by ID., renal dosed She is having pain in this area, started on Oxycodone, Tylenol and Neurontin Monitor for improvement of shingles Contact precautions Renal: HEMANT - improving A/P: On IVF @ 75 cc/hr hold diuretics F.E.N. Fluids: NS @ 75cc/hr Electrolytes: Monitor BMP Nutrition: tolerating low sodium diet Disposition: Full Code. Monitor on tele. Visit type - Emergency Visit Emergency Visit: Yes ED Registration Date: 11/10/16 Care time: The patient presented to the Emergency Department on the above date and was hospitalized for further evaluation of their emergent condition. - New Patient This patient is new to me today: No - Critical Care Critical Care patient: No - Discharge Referral Referred to [facility] Med P.C.: No
[2016-11-12] MEDS ORDERED: PIPERACILLIN/TAZOB 2.25 GM 2.25 GM in DEXTROSE 5%-WATER - 50 ML IVPB ONE (17:11)
[2016-11-12] MEDS ORDERED: PIPERACILLIN/TAZOBACTAM 2.25 GM VIAL IVPB ONE (17:51)
[2016-11-12] MEDS ORDERED: DEXTROSE 5%-WATER - 50 ML IVPB ONE (17:51)
[2016-11-12] MEDS: WARFARIN NA 5 MG TABLET (UD) PO SCH (17:57)
--- NOTE | 2016-11-12 18:15 | PN ---
Progress Note, Physician History of Present Illness: C/O burning pain R chest and back - Current Medication List Current Medications: Active Medications Acetaminophen (Tylenol -) 650 mg PO Q6H PRN PRN Reason: FEVER OR PAIN Last Admin: 11/12/16 01:14 Dose: 650 mg Al Hydroxide/Mg Hydroxide (Mylanta Oral Suspension -) 30 ml PO Q6H PRN PRN Reason: DYSPEPSIA Last Admin: 11/11/16 04:10 Dose: 30 ml Amlodipine Besylate (Norvasc -) 5 mg PO DAILY [facility] Last Admin: 11/12/16 10:26 Dose: 5 mg Atorvastatin Calcium (Lipitor -) 10 mg PO HS [facility] Last Admin: 11/11/16 22:27 Dose: 10 mg Gabapentin (Neurontin -) 100 mg PO BID [facility] Last Admin: 11/12/16 10:26 Dose: 100 mg Sodium Chloride (Normal Saline -) 1,000 mls @ 75 mls/hr IV ASDIR [facility] Last Admin: 11/12/16 10:26 Dose: 75 mls/hr Insulin Aspart (Novolog Vial Sliding Scale -) 1 vial SQ ACHS [facility] PRN Reason: Protocol Last Admin: 11/12/16 11:29 Dose: Not Given Metoprolol Tartrate (Lopressor -) 150 mg PO BID [facility] Last Admin: 11/12/16 10:25 Dose: 150 mg Ondansetron HCl (Zofran Injection) 4 mg IVPB Q6H PRN PRN Reason: NAUSEA Oxycodone HCl (Roxicodone -) 5 mg PO Q6H PRN PRN Reason: PAIN Last Admin: 11/12/16 06:30 Dose: 5 mg Pantoprazole Sodium (Protonix -) 40 mg PO DAILY [facility] Sildenafil Citrate (Revatio -) 10 mg PO TID [facility] Last Admin: 11/12/16 14:10 Dose: 10 mg Spironolactone (Aldactone -) 25 mg PO DAILY [facility] Last Admin: 11/12/16 10:26 Dose: 25 mg Valacyclovir HCl (Valtrex -) 1,000 mg PO BID [facility] Last Admin: 11/12/16 10:25 Dose: 1,000 mg Warfarin Sodium (Coumadin -) 5 mg PO DAILY@1800 [facility] Last Admin: 11/12/16 17:57 Dose: 5 mg - Objective Vital Signs: Vital Signs Temperature 98.7 F 11/12/16 14:00 Pulse Rate 74 11/12/16 14:00 Respiratory Rate 18 11/12/16 14:00 Blood Pressure 122/63 11/12/16 14:00 O2 Sat by Pulse Oximetry (%) 96 11/12/16 09:00 Constitutional: Yes: No Distress Eyes: Yes: Conjunctiva Clear Cardiovascular: Yes: Regular Rate and Rhythm, S1, S2 Respiratory: Yes: CTA Bilaterally Gastrointestinal: Yes: Normal Bowel Sounds, Soft. No: Tenderness Edema: No Integumentary: Yes: Other (+ vesicular rash R posterior thorax/ beneath R breast ) Labs: CBC, BMP 11/12/16 06:00 11/12/16 06:00 INR, PTT INR 2.10 (0.82-1.09) H D 11/12/16 06:00 Assessment/Plan VZV R thorax Azotemia Continue valtrex, adjusted for azotemia Analgesics
[2016-11-12] MEDS ORDERED: PT OWN MED DRAWER 7, Y5N ONE ×2 (21:07→21:50)
[2016-11-12] MEDS: ATORVASTATIN CA 10 MG TABLET (FP) PO SCH (21:22)
[2016-11-13] MEDS: INSULIN SLIDING SCALE (NOVOLOG) 1 VIAL SQ SCH ×4 (05:45→16:39)
[2016-11-13] MEDS: SODIUM CHLORIDE 1,000 ML IV SCH ×2 (06:29→10:12)
[2016-11-13] MEDS: SILDENAFIL CITRATE 20 MG TAB PO SCH ×3 (06:35→21:49)
[2016-11-13] MEDS: ACETAMINOPHEN 325 MG TABLET (FP) PO PRN ×2 (06:40→17:01)
[2016-11-13 07:58] LABS: BASOPHIL 0.3 % (0-2.0); MCH 29.7 pg (25.7-33.7); MCHC 32.8 g/dl (32.0-36.0); MEAN CELL VOLUME 90.4 fl (80-96); MEAN PLT VOLUME 9.7 fl (7.5-11.1); NEUTROPHILS 71.8 % (42.8-82.8); PLATELET COUNT 93 K/MM3 (134-434); RDW 14.5 % (11.6-15.6)
[2016-11-13 08:08] LABS: INR 1.64 (0.82-1.09); PROTHROMBIN TIME (PATIENT) 18.2 SEC (9.98-11.88)
[2016-11-13 08:27] LABS: ALBUMIN 2.8 g/dl (3.4-5.0); ANION GAP 10 (8-16); BILIRUBIN,TOTAL 0.8 mg/dL (0.2-1.0); CALCIUM 8.1 mg/dL (8.5-10.1); CO2 24 mmol/L (21-32); CREATININE 1.4 mg/dL (0.55-1.02); GLUCOSE,RANDOM 106 mg/dL (74-106); SGOT/AST 25 U/L (15-37); SGPT/ALT 22 U/L (12-78); TOT PROT 7.3 g/dl (6.4-8.2)
[2016-11-13 08:28] LABS: ALK PHOS 48 U/L (45-117)
[2016-11-13] MEDS: GABAPENTIN 100 MG CAPSULE (FP) PO SCH ×2 (10:07→21:49)
[2016-11-13] MEDS: METOPROLOL TARTRATE 50 MG TABLET (FP) PO SCH ×2 (10:07→21:48)
[2016-11-13] MEDS: PANTOPRAZOLE 40 MG TABLET (FP) PO SCH (10:07)
[2016-11-13] MEDS: amLODIPine BESYLATE 5 MG TABLET (FP) PO SCH (10:07)
[2016-11-13] MEDS: SPIRONOLACTONE 25 MG TABLET (FP) PO SCH (10:07)
[2016-11-13] MEDS ORDERED: PT OWN MED DRAWER 7, Y5N ONE (10:09)
[2016-11-13] MEDS: valACYclovir HCL 500 MG TABLET (FP) PO SCH ×2 (10:53→21:49)
--- NOTE | 2016-11-13 11:16 | PN ---
Progress Note (short form) - Note Progress Note: Chief Complaint: Events noted, notes reviewed, reports persistent (dermatomal discomfort) abdominal discomfort with radiation to the back severity of which varies, patient denies any chest pain or dyspnea History of Present Illness: Seen and examined on telemetry. Events noted, notes reviewed, reports persistent (dermatomal discomfort) abdominal discomfort with radiation to the back severity of which varies, patient denies any chest pain or dyspnea - Current Medication List Current Medications Acetaminophen (Tylenol -) 650 mg PO Q6H PRN PRN Reason: FEVER OR PAIN Last Admin: 11/13/16 06:40 Dose: 650 mg Al Hydroxide/Mg Hydroxide (Mylanta Oral Suspension -) 30 ml PO Q6H PRN PRN Reason: DYSPEPSIA Last Admin: 11/11/16 04:10 Dose: 30 ml Amlodipine Besylate (Norvasc -) 5 mg PO DAILY [facility] Last Admin: 11/13/16 10:07 Dose: 5 mg Atorvastatin Calcium (Lipitor -) 10 mg PO HS [facility] Last Admin: 11/12/16 21:22 Dose: 10 mg Gabapentin (Neurontin -) 100 mg PO BID [facility] Last Admin: 11/13/16 10:07 Dose: 100 mg Sodium Chloride (Normal Saline -) 1,000 mls @ 75 mls/hr IV ASDIR [facility] Last Admin: 11/13/16 10:12 Dose: 75 mls/hr Insulin Aspart (Novolog Vial Sliding Scale -) 1 vial SQ ACHS [facility] PRN Reason: Protocol Last Admin: 11/13/16 07:04 Dose: Not Given Metoprolol Tartrate (Lopressor -) 150 mg PO BID [facility] Last Admin: 11/13/16 10:07 Dose: 150 mg Ondansetron HCl (Zofran Injection) 4 mg IVPB Q6H PRN PRN Reason: NAUSEA Oxycodone HCl (Roxicodone -) 5 mg PO Q6H PRN PRN Reason: PAIN Last Admin: 11/12/16 06:30 Dose: 5 mg Pantoprazole Sodium (Protonix -) 40 mg PO DAILY [facility] Last Admin: 11/13/16 10:07 Dose: 40 mg Sildenafil Citrate (Revatio -) 10 mg PO TID [facility] Last Admin: 11/13/16 06:35 Dose: 10 mg Spironolactone (Aldactone -) 25 mg PO DAILY [facility] Last Admin: 11/13/16 10:07 Dose: 25 mg Valacyclovir HCl (Valtrex -) 1,000 mg PO BID [facility] Last Admin: 11/13/16 10:53 Dose: 1,000 mg Warfarin Sodium (Coumadin -) 5 mg PO DAILY@1800 [facility] Last Admin: 11/12/16 17:57 Dose: 5 mg Review of Systems Constitutional: denies Chills or Fever Respiratory: denies Cough or Dyspnea Cardiovascular: As noted above Gastrointestinal: denies Nausea, Vomiting, Diarrhea or Constipation Genitourinary: No Symptoms Reported Musculoskeletal: No Symptoms Reported - Objective Vital Signs: Last Vital Signs Temp Pulse Resp BP Pulse Ox 98.3 F 60 18 130/89 97 11/13/16 10:00 11/13/16 10:00 11/13/16 10:00 11/13/16 10:00 11/13/16 09:00 Intake & Output 11/10/16 11/11/16 11/12/16 11/13/16 23:59 23:59 23:59 23:59 Intake Total 1525 2450 300 Balance 1525 2450 300 Weight 166 lb 164 lb 3.2 oz 163 lb 6.4 oz 165 lb 3.2 oz Constitutional: No Distress, Calm Neck: Supple Negative JVD No bruit Respiratory: Clear to A&P Bilaterally Cardiovascular: S1 S2 Regular Rate and Rhythm Gastrointestinal: Soft Benign Normal Bowel Sounds Ext: No Edema Labs: CBC, BMP 11/13/16 06:00 11/13/16 06:00 INR, PTT INR 1.64 (0.82-1.09) H 11/13/16 06:00 Assessment/Plan ASSESSMENT: 1. 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 Diastolic LV dysfunction with chronic class I-II NYHA classification congestive heart failure, compensated/euvolemic 4. Paroxysmal atrial fibrillation [id number] score of 9 on Coumadin therapy 5. Severe pulmonary HTN 6. HTN 7. NIDDM 8. Hypercholesterolemia 9. CKD PLAN: 1. Continue Lopressor 2. Continue Norvasc 3. As outlined ideally should be on ACEI or ARBS unless it is absolutely contraindicated 4. Continue A/C with Coumadin maintaining INR 2-3 5. Continue Sildenafil Citrate (Revatio) for the above noted pulmonary HTN 6. Continue Aldactone 7. Continue Lipitor Saulat Jakob M.D.
--- NOTE | 2016-11-13 13:35 | PN ---
Progress Note, Physician History of Present Illness: Spiked high grade temp yesterday evening 103 Complains of burning R back and chest pain (VZV) No c/o chills Denies cough/ sputum No N/V/D No dysuria - Current Medication List Current Medications: Active Medications Acetaminophen (Tylenol -) 650 mg PO Q6H PRN PRN Reason: FEVER OR PAIN Last Admin: 11/13/16 06:40 Dose: 650 mg Al Hydroxide/Mg Hydroxide (Mylanta Oral Suspension -) 30 ml PO Q6H PRN PRN Reason: DYSPEPSIA Last Admin: 11/11/16 04:10 Dose: 30 ml Amlodipine Besylate (Norvasc -) 5 mg PO DAILY [facility] Last Admin: 11/13/16 10:07 Dose: 5 mg Atorvastatin Calcium (Lipitor -) 10 mg PO HS [facility] Last Admin: 11/12/16 21:22 Dose: 10 mg Gabapentin (Neurontin -) 100 mg PO BID [facility] Last Admin: 11/13/16 10:07 Dose: 100 mg Sodium Chloride (Normal Saline -) 1,000 mls @ 75 mls/hr IV ASDIR [facility] Last Admin: 11/13/16 10:12 Dose: 75 mls/hr Insulin Aspart (Novolog Vial Sliding Scale -) 1 vial SQ ACHS [facility] PRN Reason: Protocol Last Admin: 11/13/16 12:22 Dose: Not Given Metoprolol Tartrate (Lopressor -) 150 mg PO BID [facility] Last Admin: 11/13/16 10:07 Dose: 150 mg Ondansetron HCl (Zofran Injection) 4 mg IVPB Q6H PRN PRN Reason: NAUSEA Oxycodone HCl (Roxicodone -) 5 mg PO Q6H PRN PRN Reason: PAIN Last Admin: 11/12/16 06:30 Dose: 5 mg Pantoprazole Sodium (Protonix -) 40 mg PO DAILY [facility] Last Admin: 11/13/16 10:07 Dose: 40 mg Sildenafil Citrate (Revatio -) 10 mg PO TID [facility] Last Admin: 11/13/16 06:35 Dose: 10 mg Spironolactone (Aldactone -) 25 mg PO DAILY [facility] Last Admin: 11/13/16 10:07 Dose: 25 mg Valacyclovir HCl (Valtrex -) 1,000 mg PO BID [facility] Last Admin: 11/13/16 10:53 Dose: 1,000 mg Warfarin Sodium (Coumadin -) 5 mg PO DAILY@1800 [facility] Last Admin: 11/12/16 17:57 Dose: 5 mg - Objective Vital Signs: Vital Signs Temperature 98.3 F 11/13/16 10:00 Pulse Rate 60 11/13/16 10:00 Respiratory Rate 18 11/13/16 10:00 Blood Pressure 130/89 11/13/16 10:00 O2 Sat by Pulse Oximetry (%) 97 11/13/16 09:00 Constitutional: Yes: No Distress Eyes: Yes: Conjunctiva Clear Cardiovascular: Yes: Regular Rate and Rhythm, S1 Respiratory: Yes: Other (+crepitations at bases bilaterally) Gastrointestinal: Yes: Normal Bowel Sounds, Soft. No: Tenderness Extremities: Yes: Other (no phlebitis) Edema: No Integumentary: Yes: Other (+ vesicular rash, R chest and back) Labs: CBC, BMP 11/13/16 06:00 11/13/16 06:00 INR, PTT INR 1.64 (0.82-1.09) H 11/13/16 06:00 Assessment/Plan VZV R thorax Fever ? source ? infectious ? atelectasis secondary to pain Azotemia Continue valtrex, adjusted for azotemia Reculture CXR Empiric ceftriaxone Analgesics
[2016-11-13] MEDS ORDERED: DEXTROSE 5%-WATER 100 ML IVPB ONE (15:33)
[2016-11-13] MEDS: CEFTRIAXONE 2 GM in DEXTROSE 5%-WATER 100 ML IVPB SCH (15:35)
--- NOTE | 2016-11-13 16:55 | PN ---
Physical Exam: SUBJECTIVE: Patient seen and examined at the bedside. She states she has home oxygen and uses it prn. She denies any chest pain or shortness of breath on exam. Verbalizes pain where shingles is located. OBJECTIVE: fevers 103F yesterday Given 1 time dose of Zosyn for fever yesterday, now on Ceftriaxone as per ID Blood cultures ordered ID aware Vital Signs Period Temp Pulse Resp BP Sys/Morales Pulse Ox Last 24 Hr 97.8 F-103.3 F 59-86 18-20 130-172/70-89 90-97 GENERAL: The patient is awake, alert, and fully oriented, in no acute distress. HEAD: Normal with no signs of trauma. EYES: PERRL, extraocular movements intact, sclera anicteric, conjunctiva clear. No ptosis. ENT: Ears normal, nares patent, oropharynx clear without exudates, moist mucous membranes. NECK: Trachea midline, full range of motion, supple. ABDOMEN: Soft, nontender, nondistended, normoactive bowel sounds, no guarding, no rebound, no hepatosplenomegaly, no masses. EXTREMITIES: trace edema bilateral lower extremities NEUROLOGICAL: Cranial nerves II through XII grossly intact. Normal speech, gait not observed. PSYCH: Normal mood, normal affect. SKIN: scattered small intact blisters under sternum > under right breast that extends to the right side of her back Laboratory Results - last 24 hr 11/12/16 11/13/16 11/13/16 21:15 06:00 06:00 WBC 7.0 RBC 3.95 Hgb 11.7 Hct 35.7 MCV 90.4 MCH 29.7 MCHC 32.8 RDW 14.5 Plt Count 93 L MPV 9.7 Neutrophils % 71.8 Lymphocytes % 14.8 Monocytes % 11.1 H Eosinophils % 2.0 Basophils % 0.3 INR 1.64 H Sodium Potassium Chloride Carbon Dioxide Anion Gap BUN Creatinine Creat Clearance w eGFR POC Glucometer 141 Random Glucose Calcium Total Bilirubin AST ALT Alkaline Phosphatase Total Protein Albumin 11/13/16 11/13/16 11/13/16 06:00 06:37 16:23 WBC RBC Hgb Hct MCV MCH MCHC RDW Plt Count MPV Neutrophils % Lymphocytes % Monocytes % Eosinophils % Basophils % INR Sodium 140 Potassium 3.9 Chloride 106 Carbon Dioxide 24 Anion Gap 10 BUN 22 H Creatinine 1.4 H Creat Clearance w eGFR 35.82 POC Glucometer 124 123 Random Glucose 106 Calcium 8.1 L Total Bilirubin 0.8 AST 25 ALT 22 D Alkaline Phosphatase 48 Total Protein 7.3 Albumin 2.8 L Active Medications Generic Name Dose Route Start Last Admin Trade Name Freq PRN Reason Stop Dose Admin Acetaminophen 650 mg 11/11/16 13:58 11/13/16 06:40 Tylenol - PO 650 mg Q6H PRN Administration FEVER OR PAIN Al Hydroxide/Mg Hydroxide 30 ml 11/11/16 03:16 11/11/16 04:10 Mylanta Oral Suspension - PO 30 ml Q6H PRN Administration DYSPEPSIA Amlodipine Besylate 5 mg 11/11/16 10:00 11/13/16 10:07 Norvasc - PO 5 mg DAILY SAIDA Administration Atorvastatin Calcium 10 mg 11/11/16 22:00 11/12/16 21:22 Lipitor - PO 10 mg HS SAIDA Administration Gabapentin 100 mg 11/11/16 22:00 11/13/16 10:07 Neurontin - PO 100 mg BID SAIDA Administration Sodium Chloride 1,000 mls @ 75 mls/hr 11/11/16 01:15 11/13/16 10:12 Normal Saline - IV 75 mls/hr ASDIR SAIDA Administration Ceftriaxone Sodium 2 gm/ 100 mls @ 200 mls/hr 11/13/16 13:45 11/13/16 15:35 Dextrose IVPB 200 mls/hr DAILY SAIDA Administration Insulin Aspart 1 vial 11/11/16 16:30 11/13/16 16:39 Novolog Vial Sliding Scale - SQ Not Given ACHS [facility] Protocol Metoprolol Tartrate 150 mg 11/11/16 10:00 11/13/16 10:07 Lopressor - PO 150 mg BID SAIDA Administration Ondansetron HCl 4 mg 11/10/16 22:30 Zofran Injection IVPB Q6H PRN NAUSEA Oxycodone HCl 5 mg 11/11/16 13:58 11/12/16 06:30 Roxicodone - PO 5 mg Q6H PRN Administration PAIN Pantoprazole Sodium 40 mg 11/13/16 10:00 11/13/16 10:07 Protonix - PO 40 mg DAILY SAIDA Administration Sildenafil Citrate 10 mg 11/11/16 06:00 11/13/16 14:03 Revatio - PO 10 mg TID SAIDA Administration Spironolactone 25 mg 11/11/16 10:00 11/13/16 10:07 Aldactone - PO 25 mg DAILY SAIDA Administration Valacyclovir HCl 1,000 mg 11/11/16 11:03 11/13/16 10:53 Valtrex - PO 1,000 mg BID SAIDA Administration Warfarin Sodium 5 mg 11/12/16 18:00 11/12/16 17:57 Coumadin - PO 5 mg DAILY@1800 SAIDA Administration ASSESSMENT/PLAN: Patient is an 86 year old female with a significant past medial history of HTN, CHF, afib on warfarin, GERD and cholecystectomy. She presented to the ED on 11/10 with chest pain, abdominal pain x 4 days. Patient states her abdominal pain is a burning, 10/10 pain that radiates from epigastric area to her right side of her back. Patient states that the pain is constant and worse while laying flat. Patient endorses mild nausea, recent constipation. Per patient, she has a hx of a prior endoscopy, which showed mild ulceration. Patient denies any fever, chills, chest pain, vomiting, diarrhea, dysuria or hematuria. GI: Abdominal Pain/Epigastric pain/GERD vs. gastritis - resolved A/P: On protonix, mylanta PRN No nausea, no vomiting, abdomen soft, non distended + bowel sounds IVF @ 75cc/hr, Troponins negative x 3 ID: Shingles - acute A/P: Incidental findings of shingles on area where she reported pain One dermatone, starts under sternum>right breasts and extends to right back Started on Valtrex by ID., renal dosed She continues to have pain in this area, started on Oxycodone, Tylenol and Neurontin Monitor for improvement of shingles Contact precautions Fever of Unknown origin - acute A/P: Had high grade temp yesterday of 103F She denied chills Blood cultures ordered, urine ordered Given one time dose of Zosyn ID started her on Ceftriaxone today Awaiting cultures, monitor fur further fevers Her WBC remained wnl Chest xray unchanged Abdomen CT for acute fever/rule out abscess HIV panel ordered Lactic acid ordered Cardiology: Supratheraputic INR, patient with A fib A/P: INR 1.69 continue Coumadin 5mg Repeat INR in the AM Chest Pain - now resolved Troponins negative x 3 EKG 11/10/2016 NSR, unchanged since EKG of 10/2016 Chest pain/burning pain likely secondary to shingles (below sternum > under right breasts and extends to right back) CHF - chronic Hold diuretics secondary to HEMANT - improving Continue home cardiac medications Cardiology following Hypertension - chronic A/P: Continue home meds of Metoprolol 150mg BID Renal: HEMANT - improving, baseline creatine 1.1, now at 1.4 A/P: On IVF @ 75 cc/hr hold diuretics F.E.N. Fluids: NS @ 75cc/hr Electrolytes: Monitor BMP Nutrition: tolerating low sodium diet Disposition: Full Code. Monitor on tele. Visit type - Emergency Visit Emergency Visit: Yes ED Registration Date: 11/10/16 Care time: The patient presented to the Emergency Department on the above date and was hospitalized for further evaluation of their emergent condition. - New Patient This patient is new to me today: No - Critical Care Critical Care patient: No - Discharge Referral Referred to [facility] Med P.C.: No
[2016-11-13] MEDS: WARFARIN NA 5 MG TABLET (UD) PO SCH (17:01)
[2016-11-13] MEDS: ATORVASTATIN CA 10 MG TABLET (FP) PO SCH (21:48)
[2016-11-14] MEDS: SODIUM CHLORIDE 1,000 ML IV SCH ×2 (01:30→16:53)
[2016-11-14] MEDS: ACETAMINOPHEN 325 MG TABLET (FP) PO PRN ×2 (02:01→17:31)
[2016-11-14] MEDS: SILDENAFIL CITRATE 20 MG TAB PO SCH ×3 (06:14→22:06)
[2016-11-14 07:13] LABS: BASOPHIL 0.2 % (0-2.0); EOSINOPHIL 0.9 % (0-4.5); MCH 29.5 pg (25.7-33.7); MCHC 32.6 g/dl (32.0-36.0); MEAN CELL VOLUME 90.2 fl (80-96); MEAN PLT VOLUME 10.1 fl (7.5-11.1); NEUTROPHILS 57.1 % (42.8-82.8); PLATELET COUNT 87 K/MM3 (134-434); RDW 14.7 % (11.6-15.6)
[2016-11-14 07:34] LABS: INR 1.61 (0.82-1.09); PROTHROMBIN TIME (PATIENT) 17.9 SEC (9.98-11.88)
[2016-11-14 07:36] LABS: ALBUMIN 2.8 g/dl (3.4-5.0); ANION GAP 10 (8-16); BILIRUBIN,TOTAL 0.6 mg/dL (0.2-1.0); CALCIUM 7.9 mg/dL (8.5-10.1); CO2 22 mmol/L (21-32); GLUCOSE,RANDOM 113 mg/dL (74-106); SGOT/AST 29 U/L (15-37); SGPT/ALT 26 U/L (12-78)
[2016-11-14 07:38] LABS: ALK PHOS 44 U/L (45-117); CREATININE 1.4 mg/dL (0.55-1.02); TOT PROT 6.8 g/dl (6.4-8.2)
[2016-11-14] MEDS ORDERED: DEXTROSE 5%-WATER 100 ML IVPB ONE (09:22)
[2016-11-14] MEDS ORDERED: PT OWN MED DRAWER 7, Y5N ONE (09:22)
[2016-11-14] MEDS: CEFTRIAXONE 2 GM in DEXTROSE 5%-WATER 100 ML IVPB SCH (09:23)
[2016-11-14] MEDS: SPIRONOLACTONE 25 MG TABLET (FP) PO SCH (09:24)
[2016-11-14] MEDS: METOPROLOL TARTRATE 50 MG TABLET (FP) PO SCH ×2 (09:24→22:07)
[2016-11-14] MEDS: amLODIPine BESYLATE 5 MG TABLET (FP) PO SCH (09:24)
[2016-11-14] MEDS: valACYclovir HCL 500 MG TABLET (FP) PO SCH ×2 (09:24→22:07)
[2016-11-14] MEDS: GABAPENTIN 100 MG CAPSULE (FP) PO SCH ×2 (09:24→22:07)
[2016-11-14] MEDS: PANTOPRAZOLE 40 MG TABLET (FP) PO SCH (09:26)
--- NOTE | 2016-11-14 10:05 | PN ---
Progress Note (short form) - Note Progress Note: feels a bit better today weak not eating much oob in chair Vital Signs Period Temp Pulse Resp BP Sys/Morales Pulse Ox Last 24 Hr 97.8 F-102.5 F 68-77 18-18 121-155/57-83 98 no oral lesions cor rrr lungs clear abd soft,nt ext no edema lesions on chest unchanged- remains dermatomal, no new lesions noted CBC, BMP 11/14/16 05:35 11/14/16 05:35 Microbiology 11/12/16 18:30 Blood - Peripheral Venous Blood Culture - Preliminary NO GROWTH OBTAINED AFTER 24 HOURS, INCUBATION TO CONTINUE FOR 4 DAYS. 11/12/16 17:45 Blood - Peripheral Venous Blood Culture - Preliminary NO GROWTH OBTAINED AFTER 24 HOURS, INCUBATION TO CONTINUE FOR [address] scan abd/pelvis- small right effusion with atelectasis, nephrollithiasis a/p fevers zoster (dermatomal) continue valtrex, day #3 continue rocephin, f/u cultures-urine culture is pending Problem List - Problems (1) Zoster Code(s): B02.9 - ZOSTER WITHOUT COMPLICATIONS (2) HEMANT (acute kidney injury) Code(s): N17.9 - ACUTE KIDNEY FAILURE, UNSPECIFIED
--- NOTE | 2016-11-14 10:10 | PN ---
Physical Exam: SUBJECTIVE: Patient seen and examined. She denies any shortness of breath, chest pain or discomfort. States she feels better today, some weakness. Does not want to participate in physical therapy. OBJECTIVE: Abd Ct scan w/o contrast reviewed, possible small pericardial effusion seen on ct scan - echo ordered Tmax 102.5 GENERAL: The patient is awake, alert, and fully oriented, in no acute distress. HEAD: Normal with no signs of trauma. EYES: PERRL, extraocular movements intact, sclera anicteric, conjunctiva clear. No ptosis. ENT: Ears normal, nares patent, oropharynx clear without exudates, moist mucous membranes. NECK: Trachea midline, full range of motion, supple. LUNGS: right lung diminished at the base, left lung clear, tolerating room air, 2 liter of nasal cannula prn, home oxygen dependent ABDOMEN: Soft, nontender, nondistended, normoactive bowel sounds, no guarding, no rebound, no hepatosplenomegaly, no masses. EXTREMITIES: trace edema bilateral lower extremities NEUROLOGICAL: Cranial nerves II through XII grossly intact. Normal speech, gait not observed. PSYCH: Normal mood, normal affect. SKIN: scattered small intact blisters under sternum > under right breast that extends to the right side of her back Active Medications Generic Name Dose Route Start Last Admin Trade Name Freq PRN Reason Stop Dose Admin Acetaminophen 650 mg 11/11/16 13:58 11/14/16 02:01 Tylenol - PO 650 mg Q6H PRN Administration FEVER OR PAIN Al Hydroxide/Mg Hydroxide 30 ml 11/11/16 03:16 11/11/16 04:10 Mylanta Oral Suspension - PO 30 ml Q6H PRN Administration DYSPEPSIA Amlodipine Besylate 5 mg 11/11/16 10:00 11/14/16 09:24 Norvasc - PO 5 mg DAILY SAIDA Administration Atorvastatin Calcium 10 mg 11/11/16 22:00 11/13/16 21:48 Lipitor - PO 10 mg HS SAIDA Administration Gabapentin 100 mg 11/11/16 22:00 11/14/16 09:24 Neurontin - PO 100 mg BID SAIDA Administration Sodium Chloride 1,000 mls @ 75 mls/hr 11/11/16 01:15 11/14/16 01:30 Normal Saline - IV 75 mls/hr ASDIR SAIDA Administration Ceftriaxone Sodium 2 gm/ 100 mls @ 200 mls/hr 11/13/16 13:45 11/14/16 09:23 Dextrose IVPB 200 mls/hr DAILY SAIDA Administration Metoprolol Tartrate 150 mg 11/11/16 10:00 11/14/16 09:24 Lopressor - PO 150 mg BID SAIDA Administration Ondansetron HCl 4 mg 11/10/16 22:30 Zofran Injection IVPB Q6H PRN NAUSEA Oxycodone HCl 5 mg 11/11/16 13:58 11/12/16 06:30 Roxicodone - PO 5 mg Q6H PRN Administration PAIN Pantoprazole Sodium 40 mg 11/13/16 10:00 11/14/16 09:26 Protonix - PO 40 mg DAILY SAIDA Administration Sildenafil Citrate 10 mg 11/11/16 06:00 11/14/16 06:14 Revatio - PO Not Given TID SAIDA Spironolactone 25 mg 11/11/16 10:00 11/14/16 09:24 Aldactone - PO 25 mg DAILY SAIDA Administration Valacyclovir HCl 1,000 mg 11/11/16 11:03 11/14/16 09:24 Valtrex - PO 1,000 mg BID SAIDA Administration Warfarin Sodium 5 mg 11/12/16 18:00 11/13/16 17:01 Coumadin - PO 5 mg DAILY@1800 SAIDA Administration ASSESSMENT/PLAN: Patient is an 86 year old female with a significant past medial history of HTN, CHF, afib on warfarin, GERD and cholecystectomy. She presented to the ED on 11/10 with chest pain, abdominal pain x 4 days. Patient states her abdominal pain is a burning, 10/10 pain that radiates from epigastric area to her right side of her back. Patient states that the pain is constant and worse while laying flat. Patient endorses mild nausea, recent constipation. Per patient, she has a hx of a prior endoscopy, which showed mild ulceration. Patient denies any fever, chills, chest pain, vomiting, diarrhea, dysuria or hematuria. Imaging: CT scan of abdomen/pelvis w/o contrast 11/14: (1) no drainable collection or free fluid identified (2) apparent circumferential rectosigmoid wall thickening likely due to underdistention (3) cluster of calculi lower in pole of left kidney - slightly increased, no hydro. (4) small right lung pleural and trace left pleural with bi-basilar subsegmental atelectesis (5) small volume of pericardial fluid may be psysiologic or small pericardial effusion GI: Abdominal Pain/Epigastric pain/GERD vs. gastritis - resolved A/P: On protonix, mylanta PRN No nausea, no vomiting, abdomen soft, non distended + bowel sounds IVF @ 75cc/hr, Troponins negative x [address] scan reviewed ID: Shingles - acute A/P: Incidental findings of shingles on area where she reported pain One dermatone, starts under sternum>right breasts and extends to right back Started on Valtrex on 11/11 by ID., renal dosed She continues to have pain in this area, started on Oxycodone, Tylenol and Neurontin Monitor for improvement of shingles Contact precautions Fever of Unknown origin - acute A/P: Tmax 102.5 Blood cultures ngtd, urine culture pending ID started her on Ceftriaxone (day 2) Awaiting cultures, monitor fur further fevers, lactic acid pending Her WBC remains wnl chest xray unchanged Abdomen CT scan noted above HIV panel ordered Lactic acid ordered Cardiology: Supratheraputic INR, patient with A fib A/P: INR 1.61 goal between 2-3 Increase Coumadin to 7mg Repeat INR in the AM Chest Pain - now resolved Troponins negative x 3 EKG 11/10/2016 NSR, unchanged since EKG of 10/2016 Chest pain/burning pain likely secondary to shingles (below sternum > under right breasts and extends to right back) CHF - chronic Hold diuretics secondary to HEMANT - improving Continue home cardiac medications Cardiology following Hypertension - chronic A/P: Continue home meds of Metoprolol 150mg BID *Echo ordered for possible pericardial fluid or small pericardial effusion seen on abdomen CT Renal: HEMANT - improving, baseline creatine 1.1, now at 1.4 A/P: On IVF @ 75 cc/hr hold diuretics F.E.N. Fluids: NS @ 75cc/hr Electrolytes: Monitor BMP Nutrition: tolerating low sodium diet Disposition: Full Code. Monitor on tele. Visit type - Emergency Visit Emergency Visit: Yes ED Registration Date: 11/14/16 Care time: The patient presented to the Emergency Department on the above date and was hospitalized for further evaluation of their emergent condition. - New Patient This patient is new to me today: No - Critical Care Critical Care patient: No - Discharge Referral Referred to [facility] Med P.C.: No
[2016-11-14] MEDS ORDERED: WARFARIN NA 5 MG TABLET (UD) PO SCH (10:29)
--- NOTE | 2016-11-14 10:38 | PN ---
Progress Note, Physician Chief Complaint: Events noted Complains of right side torso (dermatomal) pain History of Present Illness: Patient was seen and examined. Awake and alert. Chart was reviewed Denies chest pain, shortness of breath or palpitations febrile - Current Medication List Current Medications: Active Medications Acetaminophen (Tylenol -) 650 mg PO Q6H PRN PRN Reason: FEVER OR PAIN Last Admin: 11/14/16 02:01 Dose: 650 mg Al Hydroxide/Mg Hydroxide (Mylanta Oral Suspension -) 30 ml PO Q6H PRN PRN Reason: DYSPEPSIA Last Admin: 11/11/16 04:10 Dose: 30 ml Amlodipine Besylate (Norvasc -) 5 mg PO DAILY [facility] Last Admin: 11/14/16 09:24 Dose: 5 mg Atorvastatin Calcium (Lipitor -) 10 mg PO HS [facility] Last Admin: 11/13/16 21:48 Dose: 10 mg Gabapentin (Neurontin -) 100 mg PO BID [facility] Last Admin: 11/14/16 09:24 Dose: 100 mg Sodium Chloride (Normal Saline -) 1,000 mls @ 75 mls/hr IV ASDIR [facility] Last Admin: 11/14/16 01:30 Dose: 75 mls/hr Ceftriaxone Sodium 2 gm/ (Dextrose) 100 mls @ 200 mls/hr IVPB DAILY [facility] Last Admin: 11/14/16 09:23 Dose: 200 mls/hr Metoprolol Tartrate (Lopressor -) 150 mg PO BID [facility] Last Admin: 11/14/16 09:24 Dose: 150 mg Ondansetron HCl (Zofran Injection) 4 mg IVPB Q6H PRN PRN Reason: NAUSEA Oxycodone HCl (Roxicodone -) 5 mg PO Q6H PRN PRN Reason: PAIN Last Admin: 11/12/16 06:30 Dose: 5 mg Pantoprazole Sodium (Protonix -) 40 mg PO DAILY [facility] Last Admin: 11/14/16 09:26 Dose: 40 mg Sildenafil Citrate (Revatio -) 10 mg PO TID [facility] Last Admin: 11/14/16 06:14 Dose: Not Given Spironolactone (Aldactone -) 25 mg PO DAILY [facility] Last Admin: 11/14/16 09:24 Dose: 25 mg Valacyclovir HCl (Valtrex -) 1,000 mg PO BID [facility] Last Admin: 11/14/16 09:24 Dose: 1,000 mg Warfarin Sodium (Coumadin -) 7 mg PO DAILY@1800 [facility] - Objective Vital Signs: Vital Signs Temperature 101.5 F H 11/14/16 10:00 Pulse Rate 69 11/14/16 10:00 Respiratory Rate 18 11/14/16 10:00 Blood Pressure 152/76 11/14/16 10:00 O2 Sat by Pulse Oximetry (%) 99 11/14/16 09:00 Neck: Yes: Supple Cardiovascular: Yes: Regular Rate and Rhythm, S1, S2. No: Murmur Respiratory: Yes: CTA Bilaterally Gastrointestinal: Yes: Normal Bowel Sounds, Soft. No: Tenderness Edema: No Additional Findings/Remarks: Review of Systems Constitutional: denies Chills or Fever Respiratory: denies Cough or Dyspnea Cardiovascular: As noted above Gastrointestinal: denies Nausea, Vomiting, Diarrhea or Constipation Genitourinary: No Symptoms Reported Musculoskeletal: No Symptoms Reported Labs: INR, PTT INR 1.61 (0.82-1.09) H 11/14/16 05:35 Assessment/Plan 1. Acute shingles/herpes zoster infection with persistent pain 2. CAD non obstructive disease, angina pectoris 3. Diastolic LV dysfunction with chronic class I-II NYHA classification congestive heart failure, compensated 4. Paroxysmal atrial fibrillation [id number] score of 9 on Coumadin therapy 5. Severe pulmonary HTN 6. HTN 7. NIDDM 8. Hypercholesterolemia 9. CKD PLAN: 1. Continue Lopressor and Norvasc 2. As outlined ideally should be on ACEI or ARBS unless it is absolutely contraindicated 3. Continue A/C with Coumadin maintaining INR 2-3 4. Continue Sildenafil Citrate (Revatio) for the above noted pulmonary HTN 5. Continue Aldactone as tolerated 6. Continue Lipitor 7. Continue Valacyclovir and empiric antibiotic coverage Further plans are to follow Dimitri Palm MD
[2016-11-14] MEDS ORDERED: WARFARIN NA 2 MG TABLET (UD) ONE (17:25)
[2016-11-14] MEDS ORDERED: WARFARIN NA 5 MG TABLET (UD) ONE (17:25)
[2016-11-14] MEDS ORDERED: WARFARIN NA 5 MG, WARFARIN NA 2 MG PO SCH (18:00)
[2016-11-14] MEDS: ATORVASTATIN CA 10 MG TABLET (FP) PO SCH (22:08)
[2016-11-15] MEDS: SODIUM CHLORIDE 1,000 ML IV SCH ×4 (01:30→23:30)
[2016-11-15] MEDS: SILDENAFIL CITRATE 20 MG TAB PO SCH ×3 (06:15→21:55)
--- NOTE | 2016-11-15 07:56 | PN ---
Progress Note (short form) - Note Progress Note: Chief Complaint: Events noted, notes reviewed, reports persistent (dermatomal discomfort) abdominal discomfort with radiation to the back severity of which varies, patient denies any chest pain or dyspnea History of Present Illness: Seen and examined on telemetry. Events noted, notes reviewed, reports persistent (dermatomal discomfort) abdominal discomfort with radiation to the back severity of which varies, patient denies any chest pain or dyspnea - Current Medication List Current Medications Acetaminophen (Tylenol -) 650 mg PO Q6H PRN PRN Reason: FEVER OR PAIN Last Admin: 11/13/16 06:40 Dose: 650 mg Al Hydroxide/Mg Hydroxide (Mylanta Oral Suspension -) 30 ml PO Q6H PRN PRN Reason: DYSPEPSIA Last Admin: 11/11/16 04:10 Dose: 30 ml Amlodipine Besylate (Norvasc -) 5 mg PO DAILY [facility] Last Admin: 11/13/16 10:07 Dose: 5 mg Atorvastatin Calcium (Lipitor -) 10 mg PO HS [facility] Last Admin: 11/12/16 21:22 Dose: 10 mg Gabapentin (Neurontin -) 100 mg PO BID [facility] Last Admin: 11/13/16 10:07 Dose: 100 mg Sodium Chloride (Normal Saline -) 1,000 mls @ 75 mls/hr IV ASDIR [facility] Last Admin: 11/13/16 10:12 Dose: 75 mls/hr Insulin Aspart (Novolog Vial Sliding Scale -) 1 vial SQ ACHS [facility] PRN Reason: Protocol Last Admin: 11/13/16 07:04 Dose: Not Given Metoprolol Tartrate (Lopressor -) 150 mg PO BID [facility] Last Admin: 11/13/16 10:07 Dose: 150 mg Ondansetron HCl (Zofran Injection) 4 mg IVPB Q6H PRN PRN Reason: NAUSEA Oxycodone HCl (Roxicodone -) 5 mg PO Q6H PRN PRN Reason: PAIN Last Admin: 11/12/16 06:30 Dose: 5 mg Pantoprazole Sodium (Protonix -) 40 mg PO DAILY [facility] Last Admin: 11/13/16 10:07 Dose: 40 mg Sildenafil Citrate (Revatio -) 10 mg PO TID [facility] Last Admin: 11/13/16 06:35 Dose: 10 mg Spironolactone (Aldactone -) 25 mg PO DAILY [facility] Last Admin: 11/13/16 10:07 Dose: 25 mg Valacyclovir HCl (Valtrex -) 1,000 mg PO BID [facility] Last Admin: 11/13/16 10:53 Dose: 1,000 mg Warfarin Sodium (Coumadin -) 5 mg PO DAILY@1800 [facility] Last Admin: 11/12/16 17:57 Dose: 5 mg Review of Systems Constitutional: denies Chills or Fever Respiratory: denies Cough or Dyspnea Cardiovascular: As noted above Gastrointestinal: denies Nausea, Vomiting, Diarrhea or Constipation Genitourinary: No Symptoms Reported Musculoskeletal: No Symptoms Reported - Objective Vital Signs: Last Vital Signs Temp Pulse Resp BP Pulse Ox 98.3 F 60 18 130/89 97 11/13/16 10:00 11/13/16 10:00 11/13/16 10:00 11/13/16 10:00 11/13/16 09:00 Intake & Output 11/10/16 11/11/16 11/12/16 11/13/16 23:59 23:59 23:59 23:59 Intake Total 1525 2450 300 Balance 1525 2450 300 Weight 166 lb 164 lb 3.2 oz 163 lb 6.4 oz 165 lb 3.2 oz Constitutional: No Distress, Calm Neck: Supple Negative JVD No bruit Respiratory: Clear to A&P Bilaterally Cardiovascular: S1 S2 Regular Rate and Rhythm Gastrointestinal: Soft Benign Normal Bowel Sounds Ext: No Edema Labs: CBC, BMP 11/13/16 06:00 11/13/16 06:00 INR, PTT INR 1.64 (0.82-1.09) H 11/13/16 06:00 Assessment/Plan ASSESSMENT: 1. 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 Diastolic LV dysfunction with chronic class I-II NYHA classification congestive heart failure, compensated/euvolemic 4. Paroxysmal atrial fibrillation [id number] score of 9 on Coumadin therapy 5. Severe pulmonary HTN 6. HTN 7. NIDDM 8. Hypercholesterolemia 9. CKD PLAN: 1. Continue Lopressor 2. Continue Norvasc 3. As outlined ideally should be on ACEI or ARBS unless it is absolutely contraindicated 4. Continue A/C with Coumadin maintaining INR 2-3 5. Continue Sildenafil Citrate (Revatio) for the above noted pulmonary HTN 6. Continue Aldactone 7. Continue Lipitor Saulat Jakob M.D.
--- NOTE | 2016-11-15 08:34 | PN ---
Physical Exam: SUBJECTIVE: Patient seen and examined at bedside. Feels fatigued. Has had headache x 3 days ("my whole head"), 09/12, comes and goes. Denies neck pain. Denies photophobia, visual changes. Denies neck pain or stiffness. OBJECTIVE: Vital Signs Period Temp Pulse Resp BP Sys/Morales Pulse Ox Last 24 Hr 98.9 F-101.5 F 65-76 18-20 111-157/56-76 96-99 GENERAL: The patient is awake, alert, and fully oriented, in no acute distress. HEAD: Normal with no signs of trauma. NECK: Trachea midline, full range of motion, supple. Full ROM, no tenderness. No meningeal signs. LUNGS: Breath sounds equal, clear to auscultation bilaterally, no wheezes, no crackles, no accessory muscle use. HEART: Regular rate and rhythm, S1, S2 without murmur, rub or gallop. ABDOMEN: Soft, nontender, nondistended, normoactive bowel sounds, no guarding, no rebound, no hepatosplenomegaly, no masses. EXTREMITIES: 2+ pulses, warm, well-perfused, trace bilateral lower extremity edema. NEUROLOGICAL: Cranial nerves II through XII grossly intact. Normal speech, gait not observed. Laboratory Results - last 24 hr 11/14/16 10:40 Lactic Acid 1.3 CBCD WBC 8.0 K/mm3 (4.0-10.0) 11/15/16 07:00 RBC 3.56 M/mm3 (3.60-5.2) L 11/15/16 07:00 Hgb 10.6 GM/dL (10.7-15.3) L 11/15/16 07:00 Hct 32.2 % (32.4-45.2) L 11/15/16 07:00 MCV 90.5 fl (80-96) 11/15/16 07:00 MCHC 33.0 g/dl (32.0-36.0) 11/15/16 07:00 RDW 14.6 % (11.6-15.6) 11/15/16 07:00 Plt Count 82 K/MM3 (134-434) L 11/15/16 07:00 MPV 9.7 fl (7.5-11.1) 11/15/16 07:00 CMP Sodium 140 mmol/L (136-145) 11/15/16 07:00 Potassium 4.1 mmol/L (3.5-5.1) 11/15/16 07:00 Chloride 108 mmol/L (98-107) H 11/15/16 07:00 Carbon Dioxide 22 mmol/L (21-32) 11/15/16 07:00 Anion Gap 10 (8-16) 11/15/16 07:00 BUN 15 mg/dL (7-18) D 11/15/16 07:00 Creatinine 1.2 mg/dL (0.55-1.02) H 11/15/16 07:00 Creat Clearance w eGFR 42.80 (>60) 11/15/16 07:00 Calcium 8.3 mg/dL (8.5-10.1) L 11/15/16 07:00 Total Bilirubin 0.7 mg/dL (0.2-1.0) 11/15/16 07:00 AST 30 U/L (15-37) 11/15/16 07:00 ALT 28 U/L (12-78) 11/15/16 07:00 Alkaline Phosphatase 47 U/L (45-117) 11/15/16 07:00 Total Protein 6.9 g/dl (6.4-8.2) 11/15/16 07:00 Albumin 2.8 g/dl (3.4-5.0) L 11/15/16 07:00 Active Medications Generic Name Dose Route Start Last Admin Trade Name Freq PRN Reason Stop Dose Admin Acetaminophen 650 mg 11/11/16 13:58 11/14/16 17:31 Tylenol - PO 650 mg Q6H PRN Administration FEVER OR PAIN Al Hydroxide/Mg Hydroxide 30 ml 11/11/16 03:16 11/11/16 04:10 Mylanta Oral Suspension - PO 30 ml Q6H PRN Administration DYSPEPSIA Amlodipine Besylate 5 mg 11/11/16 10:00 11/14/16 09:24 Norvasc - PO 5 mg DAILY SAIDA Administration Atorvastatin Calcium 10 mg 11/11/16 22:00 11/14/16 22:08 Lipitor - PO 10 mg HS SAIDA Administration Gabapentin 100 mg 11/11/16 22:00 11/14/16 22:07 Neurontin - PO 100 mg BID SAIDA Administration Sodium Chloride 1,000 mls @ 75 mls/hr 11/11/16 01:15 11/15/16 06:19 Normal Saline - IV 75 mls/hr ASDIR SAIDA Administration Ceftriaxone Sodium 2 gm/ 100 mls @ 200 mls/hr 11/13/16 13:45 11/14/16 09:23 Dextrose IVPB 200 mls/hr DAILY SAIDA Administration Metoprolol Tartrate 150 mg 11/11/16 10:00 11/14/16 22:07 Lopressor - PO 150 mg BID SAIDA Administration Ondansetron HCl 4 mg 11/10/16 22:30 Zofran Injection IVPB Q6H PRN NAUSEA Oxycodone HCl 5 mg 11/11/16 13:58 11/12/16 06:30 Roxicodone - PO 5 mg Q6H PRN Administration PAIN Pantoprazole Sodium 40 mg 11/13/16 10:00 11/14/16 09:26 Protonix - PO 40 mg DAILY SAIDA Administration Sildenafil Citrate 10 mg 11/11/16 06:00 11/15/16 06:15 Revatio - PO 10 mg TID SAIDA Administration Spironolactone 25 mg 11/11/16 10:00 11/14/16 09:24 Aldactone - PO 25 mg DAILY SAIDA Administration Valacyclovir HCl 1,000 mg 11/11/16 11:03 11/14/16 22:07 Valtrex - PO 1,000 mg BID SAIDA Administration Warfarin Sodium 5 mg/ Warfarin 7 mg 11/14/16 18:00 11/14/16 17:29 Sodium 2 mg PO 7 mg DAILY@1800 SAIDA Administration ASSESSMENT & PLAN 86 year-old female with a PMH significant for HTN, diastolic HF, and afib on coumadin. Admitted for herpes zoster with persistent fever. Acute shingles/herpes zoster with persistent fever --Tm 101.4, no leukocytosis; intermittent headache x 3 days --no meningeal signs, nothing to suggest encephalitis --cultures negative so far, serial CXRs unremarkable, stop ceftriaxone (x 3 doses) --switch to IV Acyclovir and continue IV fluids --f/u esr and crp --stop gabapentin as possible contributing to fever --discussed with Dr. Berg Thrombocytopenia --likely secondary to infection --has not been on heparin Paroxysmal Atrial fibrillation --presently in sinus rhythm --rate controlled, continue metoprolol, amlodipine --INR was supratherapeutic on admission 3.97, now subtherapeutic 1.59 --dose coumdadin 7.5mg tonight Coronary artery disease Hypertension --continue metoprolol, aldactone Diastolic heart failure --10/26/16 Echo: LV normal; RV normal; LAE; mild MR; mild to moderate --diuretics presently on hold because of HEMANT Pericardial effusion ruled out --11/14/16 Echo: negative for pericardial or pleural effusions Hyperlipidemia --continue Lipitor Severe pulmonary HTN --continue sildenafil HEMANT --Cr 1.9 on admission, 1.2 today; baseline 0.9 --hold diuretics, ACEI/ARB, nephrotoxic agents Fluids: NS @ 75mL/hr while on acyclovir; very close monitoring for signs of CHF Electrolytes: replete as indicated Nutrition: low sodium DVT prophylaxis: continue coumadin to goal INR 2-3 PT eval Daily PT Dispo: continues to require inpatient care. Visit type - Emergency Visit Emergency Visit: Yes ED Registration Date: 11/14/16 Care time: The patient presented to the Emergency Department on the above date and was hospitalized for further evaluation of their emergent condition. - New Patient This patient is new to me today: Yes Date on this admission: 11/15/16 - Critical Care Critical Care patient: No
[2016-11-15 08:40] LABS: BASOPHIL 0.3 % (0-2.0); EOSINOPHIL 1.1 % (0-4.5); MCH 29.8 pg (25.7-33.7); MEAN CELL VOLUME 90.5 fl (80-96); MEAN PLT VOLUME 9.7 fl (7.5-11.1); NEUTROPHILS 57.9 % (42.8-82.8); PLATELET COUNT 82 K/MM3 (134-434); RDW 14.6 % (11.6-15.6)
[2016-11-15 09:11] LABS: ALBUMIN 2.8 g/dl (3.4-5.0); ANION GAP 10 (8-16); CALCIUM 8.3 mg/dL (8.5-10.1); CO2 22 mmol/L (21-32); GLUCOSE,RANDOM 96 mg/dL (74-106); SGPT/ALT 28 U/L (12-78)
[2016-11-15 09:14] LABS: ALK PHOS 47 U/L (45-117); BILIRUBIN,TOTAL 0.7 mg/dL (0.2-1.0); CREATININE 1.2 mg/dL (0.55-1.02); SGOT/AST 30 U/L (15-37); TOT PROT 6.9 g/dl (6.4-8.2)
[2016-11-15] MEDS ORDERED: PT OWN MED DRAWER 7, Y5N ONE (09:34)
[2016-11-15] MEDS: ACETAMINOPHEN 325 MG TABLET (FP) PO PRN (10:05)
[2016-11-15] MEDS: PANTOPRAZOLE 40 MG TABLET (FP) PO SCH (10:05)
[2016-11-15] MEDS: METOPROLOL TARTRATE 50 MG TABLET (FP) PO SCH ×2 (10:05→21:54)
[2016-11-15] MEDS: valACYclovir HCL 500 MG TABLET (FP) PO SCH ×2 (10:05→21:56)
[2016-11-15] MEDS: GABAPENTIN 100 MG CAPSULE (FP) PO SCH (10:06)
[2016-11-15] MEDS: amLODIPine BESYLATE 5 MG TABLET (FP) PO SCH (10:06)
[2016-11-15] MEDS: SPIRONOLACTONE 25 MG TABLET (FP) PO SCH (10:06)
[2016-11-15 10:16] LABS: INR 1.59 (0.82-1.09); PROTHROMBIN TIME (PATIENT) 17.6 SEC (9.98-11.88)
--- NOTE | 2016-11-15 10:44 | PN ---
Progress Note (short form) - Note Progress Note: Chief Complaint: Events noted, notes reviewed, continues to report report persistent (dermatomal discomfort) abdominal discomfort with radiation to the back severity of which varies, patient denies any chest pain or dyspnea History of Present Illness: Seen and examined on telemetry. Events noted, notes reviewed, continues to report persistent (dermatomal discomfort) abdominal discomfort with radiation to the back severity of which varies, patient denies any chest pain or dyspnea - Current Medication List Current Medications Acetaminophen (Tylenol -) 650 mg PO Q6H PRN PRN Reason: FEVER OR PAIN Last Admin: 11/15/16 10:05 Dose: 650 mg Al Hydroxide/Mg Hydroxide (Mylanta Oral Suspension -) 30 ml PO Q6H PRN PRN Reason: DYSPEPSIA Last Admin: 11/11/16 04:10 Dose: 30 ml Amlodipine Besylate (Norvasc -) 5 mg PO DAILY [facility] Last Admin: 11/15/16 10:06 Dose: 5 mg Atorvastatin Calcium (Lipitor -) 10 mg PO HS [facility] Last Admin: 11/14/16 22:08 Dose: 10 mg Gabapentin (Neurontin -) 100 mg PO BID [facility] Last Admin: 11/15/16 10:06 Dose: 100 mg Sodium Chloride (Normal Saline -) 1,000 mls @ 75 mls/hr IV ASDIR [facility] Last Admin: 11/15/16 06:19 Dose: 75 mls/hr Ceftriaxone Sodium 2 gm/ (Dextrose) 100 mls @ 200 mls/hr IVPB DAILY [facility] Last Admin: 11/14/16 09:23 Dose: 200 mls/hr Metoprolol Tartrate (Lopressor -) 150 mg PO BID [facility] Last Admin: 11/15/16 10:05 Dose: 150 mg Ondansetron HCl (Zofran Injection) 4 mg IVPB Q6H PRN PRN Reason: NAUSEA Oxycodone HCl (Roxicodone -) 5 mg PO Q6H PRN PRN Reason: PAIN Last Admin: 11/12/16 06:30 Dose: 5 mg Pantoprazole Sodium (Protonix -) 40 mg PO DAILY [facility] Last Admin: 11/15/16 10:05 Dose: 40 mg Sildenafil Citrate (Revatio -) 10 mg PO TID [facility] Last Admin: 11/15/16 06:15 Dose: 10 mg Spironolactone (Aldactone -) 25 mg PO DAILY [facility] Last Admin: 11/15/16 10:06 Dose: 25 mg Valacyclovir HCl (Valtrex -) 1,000 mg PO BID [facility] Last Admin: 11/15/16 10:05 Dose: 1,000 mg Warfarin Sodium 5 mg/ Warfarin (Sodium 2 mg) 7 mg PO DAILY@1800 [facility] Last Admin: 11/14/16 17:29 Dose: 7 mg Review of Systems Constitutional: denies Chills or Fever Respiratory: denies Cough or Dyspnea Cardiovascular: As noted above Gastrointestinal: denies Nausea, Vomiting, Diarrhea or Constipation Genitourinary: No Symptoms Reported Musculoskeletal: No Symptoms Reported - Objective Vital Signs: Last Vital Signs Temp Pulse Resp BP Pulse Ox 99.7 F H 76 20 143/68 96 11/15/16 05:25 11/15/16 05:25 11/15/16 05:25 11/15/16 05:25 11/14/16 21:00 Intake & Output 11/12/16 11/13/16 11/14/16 11/15/16 23:59 23:59 23:59 23:59 Intake Total 2450 2125 2390 1020 Balance 2450 2125 2390 1020 Weight 163 lb 6.4 oz 165 lb 3.2 oz 170 lb 170 lb 0.1 oz Constitutional: No Distress, Calm Neck: Supple Negative JVD No bruit Respiratory: Clear to A&P Bilaterally Cardiovascular: S1 S2 Regular Rate and Rhythm Gastrointestinal: Soft Benign Normal Bowel Sounds Ext: No Edema Labs: CBC, BMP 11/15/16 07:00 11/15/16 07:00 Assessment/Plan ASSESSMENT: 1. 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 Diastolic LV dysfunction with chronic class I-II NYHA classification congestive heart failure, compensated/euvolemic 4. Paroxysmal atrial fibrillation [id number] score of 9 on Coumadin therapy, currently in sinus rhythm 5. Severe pulmonary HTN 6. HTN 7. NIDDM 8. Hypercholesterolemia 9. CKD PLAN: 1. Continue Lopressor 2. Continue Norvasc 3. As outlined ideally should be on ACEI or ARBS unless it is absolutely contraindicated 4. Continue A/C with Coumadin maintaining INR 2-3 5. Continue Sildenafil Citrate (Revatio) for the above noted pulmonary HTN 6. Continue Aldactone 7. Continue Lipitor 8. Pain management as per the primary team Fiona Robert M.D.
[2016-11-15] MEDS ORDERED: DEXTROSE 5%-WATER 100 ML IVPB ONE (11:07)
[2016-11-15] MEDS: CEFTRIAXONE 2 GM in DEXTROSE 5%-WATER 100 ML IVPB SCH (11:08)
[2016-11-15] MEDS ORDERED: WARFARIN NA 5 MG TABLET (UD) PO SCH (11:22)
[2016-11-15] MEDS ORDERED: ENOXAPARIN NA (PORCINE) 80 MG/0.8 ML DISP.SYRIN SQ SCH (11:30)
[2016-11-15] MEDS ORDERED: HEPARIN NA (PORCINE) 5,000 UNITS/ML 1ML VIAL IVPUSH PRN ×4 (12:03→22:37)
[2016-11-15] MEDS ORDERED: SODIUM CHLORIDE 1,000 ML IV SCH (12:15)
[2016-11-15 12:37] LABS: HIV 1 & 2 AB NEGATIVE; HIV 1 AGp24 NEGATIVE
--- NOTE | 2016-11-15 13:29 | PN ---
Progress Note (short form) - Note Progress Note: feels a bit better today alert complains of less flank (dermatomal) pain alert no oral lesions ready to eat lunch notes intermittent headaches with fever no nausea or vomiting Vital Signs Period Temp Pulse Resp BP Sys/Morales Pulse Ox Last 24 Hr 98.9 F-101.7 F 65-76 18-20 111-157/56-72 96-97 neck supple no oral lesions cor rrr lungs clear abd soft,nt ext no edema lesions on chest unchanged- remains dermatomal, no new lesions noted CBC, BMP 11/15/16 07:00 11/15/16 07:00 ct scan abd/pelvis- small right effusion with atelectasis, nephrollithiasis cxray no infiltrate Microbiology 11/13/16 18:49 Urine - Urine Clean Catch Urine Culture - Final NO GROWTH OBTAINED 11/12/16 18:30 Blood - Peripheral Venous Blood Culture - Preliminary NO GROWTH OBTAINED AFTER 48 HOURS, INCUBATION TO CONTINUE FOR 3 DAYS. 11/12/16 17:45 Blood - Peripheral Venous Blood Culture - Preliminary NO GROWTH OBTAINED AFTER 48 HOURS, INCUBATION TO CONTINUE FOR 3 DAYS. a/p fevers-?drug fevers, nothing to suggest encephalitis, meningitis- she is alert and laughing with me! will d/c neurontin- new drug, and switch valtrex to acyclovir can d/c rocephin as cultures are negative check esr/crp zoster (dermatomal)-switch to acyclovir hemant resolving- continue IVF while on acyclovir thrombocytopenia- will monitor d/w hospitalist Problem List - Problems (1) Zoster Code(s): B02.9 - ZOSTER WITHOUT COMPLICATIONS (2) HEMANT (acute kidney injury) Code(s): N17.9 - ACUTE KIDNEY FAILURE, UNSPECIFIED
[2016-11-15] MEDS ORDERED: GABAPENTIN 100 MG CAPSULE (FP) PO SCH (14:00)
[2016-11-15] MEDS: HEPARIN INFUSION - 500 ML IVPB SCH ×2 (16:45→23:11)
[2016-11-15] MEDS: ACYCLOVIR INJECTION 500 MG in DEXTROSE 5%-WATER - 100 ML IVPB SCH ×2 (16:48→17:39)
[2016-11-15] MEDS: ATORVASTATIN CA 10 MG TABLET (FP) PO SCH (21:55)
[2016-11-16] MEDS: ACETAMINOPHEN 325 MG TABLET (FP) PO PRN (00:58)
[2016-11-16 02:03] LABS: URINE APPEARANCE CLEAR; URINE BILIRUBIN NEGATIVE (NEGATIVE); URINE BLOOD 1+ (NEGATIVE); URINE COLOR STRAW; URINE GLUCOSE (UA) 1+ (NEGATIVE); URINE KETONE NEGATIVE (NEGATIVE); URINE LEUK ESTERASE NEGATIVE (NEGATIVE); URINE NITRITE NEGATIVE (NEGATIVE); URINE PROTEIN NEGATIVE (NEGATIVE); URINE UROBILINOGEN NEGATIVE mg/dL (0.2-1.0)
[2016-11-16 02:07] LABS: URINE HYALINE CAST 1 /lpf; URINE MUCUS RARE; URINE RBC 2 /hpf (0-3); URINE WBC 1 /hpf (3-5)
[2016-11-16] MEDS: SILDENAFIL CITRATE 20 MG TAB PO SCH ×3 (06:08→22:34)
[2016-11-16 07:36] LABS: BASOPHIL 0.7 % (0-2.0); EOSINOPHIL 2.6 % (0-4.5); MCH 29.8 pg (25.7-33.7); MCHC 33.2 g/dl (32.0-36.0); MEAN CELL VOLUME 89.8 fl (80-96); MEAN PLT VOLUME 10.8 fl (7.5-11.1); NEUTROPHILS 60.1 % (42.8-82.8); PLATELET COUNT 93 K/MM3 (134-434); RDW 14.5 % (11.6-15.6); WHITE BLOOD COUNT 10.4 K/mm3 (4.0-10.0)
[2016-11-16 07:45] LABS: INR 1.69 (0.82-1.09); PROTHROMBIN TIME (PATIENT) 18.8 SEC (9.98-11.88)
[2016-11-16 08:21] LABS: ALBUMIN 2.7 g/dl (3.4-5.0); ALK PHOS 46 U/L (45-117); ANION GAP 11 (8-16); BILIRUBIN,TOTAL 0.6 mg/dL (0.2-1.0); C-REACTIVE PROTEIN 8.7 MG/DL (0.00-0.3); CALCIUM 8.4 mg/dL (8.5-10.1); CO2 21 mmol/L (21-32); CREATININE 1.2 mg/dL (0.55-1.02); GLUCOSE,RANDOM 115 mg/dL (74-106); MAGNESIUM 2.4 mg/dL (1.8-2.4); PHOSPHOROUS 2.5 mg/dL (2.5-4.9); SGOT/AST 26 U/L (15-37); SGPT/ALT 26 U/L (12-78); TOT PROT 7.5 g/dl (6.4-8.2)
[2016-11-16] MEDS ORDERED: PT OWN MED DRAWER 7, Y5N ONE ×3 (09:44→22:28)
[2016-11-16] MEDS: METOPROLOL TARTRATE 50 MG TABLET (FP) PO SCH ×2 (09:50→22:34)
[2016-11-16] MEDS: amLODIPine BESYLATE 5 MG TABLET (FP) PO SCH (09:50)
[2016-11-16] MEDS: ACYCLOVIR INJECTION 500 MG in DEXTROSE 5%-WATER - 100 ML IVPB SCH ×2 (09:50→22:34)
[2016-11-16] MEDS: SPIRONOLACTONE 25 MG TABLET (FP) PO SCH (09:50)
[2016-11-16] MEDS: PANTOPRAZOLE 40 MG TABLET (FP) PO SCH (09:50)
[2016-11-16] MEDS ORDERED: amLODIPine BESYLATE 10 MG TABLET (FP) PO SCH (10:12)
--- NOTE | 2016-11-16 10:32 | PN ---
Physical Exam: SUBJECTIVE: Patient seen and examined at bedside. Has had bloody nasal discharge overnight. OBJECTIVE: Vital Signs Period Temp Pulse Resp BP Sys/Morales Pulse Ox Last 24 Hr 98.6 F-100.2 F 65-84 20-20 130-160/53-87 97-98 GENERAL: The patient is awake, alert, and fully oriented, in no acute distress. HEAD: Normal with no signs of trauma. NECK: Trachea midline, full range of motion, supple. Full ROM, no tenderness. No meningeal signs. LUNGS: Breath sounds equal, clear to auscultation bilaterally, no wheezes, no crackles, no accessory muscle use. HEART: Regular rate and rhythm, S1, S2 without murmur, rub or gallop. ABDOMEN: Fluid-filled blisters from mid-sternal area, under right breast and around right flank to posterior midline EXTREMITIES: 2+ pulses, warm, well-perfused, trace bilateral lower extremity edema. NEUROLOGICAL: Cranial nerves II through XII grossly intact. Normal speech, gait not observed. Laboratory Results - last 24 hr 11/15/16 11/15/16 11/15/16 07:00 22:05 23:30 WBC RBC Hgb Hct MCV MCH MCHC RDW Plt Count MPV Neutrophils % Lymphocytes % Monocytes % Eosinophils % Basophils % INR 1.59 H PTT (Actin FS) 45.1 H Sodium Potassium Chloride Carbon Dioxide Anion Gap BUN Creatinine Creat Clearance w eGFR Random Glucose Calcium Phosphorus Magnesium Total Bilirubin AST ALT Alkaline Phosphatase C-Reactive Protein Total Protein Albumin Urine Color Straw Urine Appearance Clear Urine pH 5.0 D Ur Specific [place] 1.020 Urine Protein Negative Urine Glucose (UA) 1+ H Urine Ketones Negative Urine Blood 1+ H Urine Nitrite Negative Urine Bilirubin Negative Urine Urobilinogen Negative Urine RBC 2 Urine WBC 1 Ur Epithelial Cells Rare Hyaline Casts 1 Urine Mucus Rare 11/16/16 11/16/16 11/16/16 05:35 05:35 05:35 WBC 10.4 H RBC 3.56 L Hgb 10.6 L Hct 31.9 L MCV 89.8 MCH 29.8 MCHC 33.2 RDW 14.5 Plt Count 93 L MPV 10.8 D Neutrophils % 60.1 Lymphocytes % 25.1 Monocytes % 11.5 H Eosinophils % 2.6 D Basophils % 0.7 INR 1.69 H PTT (Actin FS) Sodium 140 Potassium 3.9 Chloride 108 H Carbon Dioxide 21 Anion Gap 11 BUN 12 Creatinine 1.2 H Creat Clearance w eGFR 42.80 Random Glucose 115 H Calcium 8.4 L Phosphorus 2.5 Magnesium 2.4 Total Bilirubin 0.6 AST 26 ALT 26 Alkaline Phosphatase 46 C-Reactive Protein 8.7 H Total Protein 7.5 Albumin 2.7 L Urine Color Urine Appearance Urine pH Ur Specific [place] Urine Protein Urine Glucose (UA) Urine Ketones Urine Blood Urine Nitrite Urine Bilirubin Urine Urobilinogen Urine RBC Urine WBC Ur Epithelial Cells Hyaline Casts Urine Mucus 11/16/16 05:35 WBC RBC Hgb Hct MCV MCH MCHC RDW Plt Count MPV Neutrophils % Lymphocytes % Monocytes % Eosinophils % Basophils % INR PTT (Actin FS) 113.5 H D Sodium Potassium Chloride Carbon Dioxide Anion Gap BUN Creatinine Creat Clearance w eGFR Random Glucose Calcium Phosphorus Magnesium Total Bilirubin AST ALT Alkaline Phosphatase C-Reactive Protein Total Protein Albumin Urine Color Urine Appearance Urine pH Ur Specific [place] Urine Protein Urine Glucose (UA) Urine Ketones Urine Blood Urine Nitrite Urine Bilirubin Urine Urobilinogen Urine RBC Urine WBC Ur Epithelial Cells Hyaline Casts Urine Mucus Active Medications Generic Name Dose Route Start Last Admin Trade Name Freq PRN Reason Stop Dose Admin Acetaminophen 650 mg 11/11/16 13:58 11/16/16 00:58 Tylenol - PO 650 mg Q6H PRN Administration FEVER OR PAIN Al Hydroxide/Mg Hydroxide 30 ml 11/11/16 03:16 11/11/16 04:10 Mylanta Oral Suspension - PO 30 ml Q6H PRN Administration DYSPEPSIA Amlodipine Besylate 5 mg 11/11/16 10:00 11/16/16 09:50 Norvasc - PO 5 mg DAILY SAIDA Administration Atorvastatin Calcium 10 mg 11/11/16 22:00 11/15/16 21:55 Lipitor - PO 10 mg HS SAIDA Administration Acyclovir 500 mg/ Dextrose 110 mls @ 100 mls/hr 11/15/16 18:00 11/16/16 09:50 IVPB 100 mls/hr BID SAIDA Administration Sodium Chloride 1,000 mls @ 75 mls/hr 11/15/16 14:02 11/15/16 23:30 Normal Saline - IV 11/16/16 12:08 75 mls/hr ASDIR SAIDA Administration Metoprolol Tartrate 150 mg 11/11/16 10:00 11/16/16 09:50 Lopressor - PO 150 mg BID SAIDA Administration Ondansetron HCl 4 mg 11/10/16 22:30 Zofran Injection IVPB Q6H PRN NAUSEA Oxycodone HCl 5 mg 11/11/16 13:58 11/12/16 06:30 Roxicodone - PO 5 mg Q6H PRN Administration PAIN Pantoprazole Sodium 40 mg 11/13/16 10:00 11/16/16 09:50 Protonix - PO 40 mg DAILY SAIDA Administration Sildenafil Citrate 10 mg 11/11/16 06:00 11/16/16 06:08 Revatio - PO 10 mg TID SAIDA Administration Spironolactone 25 mg 11/11/16 10:00 11/16/16 09:50 Aldactone - PO 25 mg DAILY SAIDA Administration ASSESSMENT & PLAN 86 year-old female with a PMH significant for HTN, diastolic HF, and afib on coumadin. Admitted for herpes zoster with persistent fever. Acute shingles/herpes zoster with persistent fever --Tm 100.2, no leukocytosis; intermittent headache --no meningeal signs, nothing to suggest encephalitis --cultures negative so far, serial CXRs unremarkable, d/c'd ceftriaxone 11/15 (x 3 doses) --continue IV Acyclovir (day #2) and continue IV fluids --esr pending; crp 8.7 --d/c'd gabapentin on 11/15 as possibly contributing to fever --discussed with Dr. Berg Thrombocytopenia --likely secondary to infection --starting to trend up Paroxysmal Atrial fibrillation --presently in sinus rhythm --rate controlled, continue metoprolol, amlodipine --INR was supratherapeutic on admission 3.97, now subtherapeutic 1.69 --dose coumdadin 7.5 mg tonight Coronary artery disease Hypertension --BP has been mildly elevated, but off home torsemisde due to HEMANT --continue metoprolol, aldactone; increase amlodipine to 10mg Diastolic heart failure --10/26/16 Echo: LV normal; RV normal; LAE; mild MR; mild to moderate --diuretics presently on hold because of HEMANT Pericardial effusion ruled out --11/14/16 Echo: negative for pericardial or pleural effusions Hyperlipidemia --continue Lipitor Severe pulmonary HTN --continue sildenafil HEMANT --Cr 1.9 on admission, 1.2 today; baseline 0.9 --home torsemide on hold; hold ACEI/ARB, nephrotoxic agents Fluids: NS @ 75mL/hr while on acyclovir Electrolytes: replete as indicated Nutrition: low sodium DVT prophylaxis: continue coumadin to goal INR 2-3 PT eval Daily PT Dispo: continues to require inpatient care. Visit type - Emergency Visit Emergency Visit: Yes ED Registration Date: 11/14/16 Care time: The patient presented to the Emergency Department on the above date and was hospitalized for further evaluation of their emergent condition. - New Patient This patient is new to me today: No - Critical Care Critical Care patient: No
[2016-11-16] MEDS ORDERED: amLODIPine BESYLATE 5 MG TABLET (FP) PO STA (11:06)
--- NOTE | 2016-11-16 14:37 | PN ---
Progress Note (short form) - Note Progress Note: feels a bit better today alert she had a nose bleed this am, now resolved dermatomal pain unchanged Vital Signs Period Temp Pulse Resp BP Sys/Morales Pulse Ox Last 24 Hr 97.6 F-100.2 F 67-84 20-22 130-160/53-87 95-98 cor-rrr lungs clear abd soft,nt ext no edema rash unchanged CBC, BMP 11/16/16 05:35 11/16/16 05:35 Microbiology 11/15/16 10:34 Blood - Peripheral Venous Blood Culture - Preliminary NO GROWTH OBTAINED AFTER 24 HOURS, INCUBATION TO CONTINUE FOR 4 DAYS. 11/15/16 09:25 Blood - Peripheral Venous Blood Culture - Preliminary NO GROWTH OBTAINED AFTER 24 HOURS, INCUBATION TO CONTINUE FOR 4 DAYS. 11/12/16 18:30 Blood - Peripheral Venous Blood Culture - Preliminary NO GROWTH OBTAINED AFTER 72 HOURS, INCUBATION TO CONTINUE FOR 2 DAYS. 11/12/16 17:45 Blood - Peripheral Venous Blood Culture - Preliminary NO GROWTH OBTAINED AFTER 72 HOURS, INCUBATION TO CONTINUE FOR 2 DAYS. 11/13/16 18:49 Urine - Urine Clean Catch Urine Culture - Final NO GROWTH OBTAINED a/p fevers-?drug fevers, nothing to suggest encephalitis, meningitis- fevers trending down off neurontins check esr/crp zoster (dermatomal)-switch to acyclovir HEMANT resolving- continue IVF while on acyclovir thrombocytopenia- improved Problem List - Problems (1) Zoster Code(s): B02.9 - ZOSTER WITHOUT COMPLICATIONS (2) HEMANT (acute kidney injury) Code(s): N17.9 - ACUTE KIDNEY FAILURE, UNSPECIFIED
--- NOTE | 2016-11-16 15:51 | CON.PULM ---
Consult Consult Specialty:: PULMONARY Referred by:: PMD Reason for Consultation:: PULMONARY HTN - History of Present Illness Chief Complaint: SOB/HERPETIC NEURALGIA History of Present Illness: 86 year old F with PMH of HTN, CHF, afib on warfarin, pulmonary htn followed by pulmonary htn specialist in [facility],on sildenafil,untreated osas, chronic O2 rx with noncompliance at times. Presented to the ED with abdominal pain x 4 days. Patient states her pain is a burning, 10/10 pain that radiates to her chest and back. Patient states she developed a rash on her right anterior chest wall and it was determined she had acute zoster. Her hospital course has been complicated by fevers. 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 No: Alzheimer's Cardio/Vascular: Yes: AFIB, CAD (non-obstructive CAD), CHF, HTN, Hyperlipdemia, Pulmonary Hypertension. No: Deep Vein Thrombosis, CT Pulmonary: Yes: COPD, O2 Dependent. No: Pulmonary Embolus Gastrointestinal: No: Ascites Hepatobiliary: No: Cirrhosis Renal/: No: Renal Failure Reproductive: Yes: Postmenopausal ...: No Heme/Onc: Yes: Anemia, Other (breast cancer) Infectious Disease: No: AIDS Psych: No: Addictions Musculoskeletal: No: Bursitis Rheumatology: No: Fibromyalgia ENT: No: Allergic Rhinitis Endocrine: Yes: Diabetes Mellitus. No: Radford's Disease Additional Medical History: Hyperlipidemia, recent onset afib - Past Surgical History Past Surgical History: Yes: Cholecystectomy, Hysterectomy, Joint Replacement ( right knee), Mastectomy (left lumpectomy), Tubal Ligation - Alcohol/Substance Use Hx Alcohol Use: No History of Substance Use: reports: None - Smoking History Smoking history: Never smoked Have you smoked in the past 12 months: No Aproximately how many cigarettes per day: 0 - Social History Usual Living Arrangement: With Child ADL: Independent Place of : Other History of Recent Travel: No Home Medications - Allergies Allergies/Adverse Reactions: Allergies Allergy/AdvReac Type Severity Reaction Status Date / Time cranberry Allergy Unknown Verified 11/10/16 17:31 grape Allergy Unknown Verified 11/10/16 17:31 raspberry Allergy Unknown Verified 11/10/16 17:31 strawberry Allergy Unknown Verified 11/10/16 17:31 furosemide [From Lasix] AdvReac Verified 11/10/16 17:31 corn Allergy Unknown Uncoded 11/10/16 17:31 NUTS Allergy Unknown Uncoded 11/10/16 17:31 POLLEN Allergy Unknown Uncoded 11/10/16 17:31 SHELLFISH Allergy Unknown Uncoded 11/10/16 17:31 TUNA Allergy Unknown Uncoded 11/10/16 17:31 - Home Medications Home Medications: Ambulatory Orders Atorvastatin Ca [Lipitor] 10 mg PO HS #30 tablet 09/16/14 Spironolactone [Aldactone -] 25 mg PO DAILY #30 tablet 09/16/14 Amlodipine Besylate 5 mg PO DAILY 10/25/16 Metformin HCl 500 mg PO DAILY 10/25/16 Metoprolol Tartrate [Lopressor -] 150 mg PO BID 10/25/16 Multivit-Min/FA/Lycopen/Lutein [Centrum Silver Tablet] 1 each PO DAILY 10/25/16 Sildenafil Citrate [Sildenafil] 10 mg PO TID 10/25/16 Torsemide [Demadex -] 40 mg PO ACDIN 10/25/16 Torsemide [Demadex -] 60 mg PO AM 10/25/16 Warfarin Na [Coumadin -] 7.5 mg PO DAILY@1800 11/10/16 Warfarin Na [Coumadin] 5 mg PO ASDIR 11/10/16 Family Disease History - Family Disease History Family History: Unremarkable Family Disease History: Other: Daughter (HTN) Review of Systems - Review of Systems Constitutional: reports: Fever, Night Sweats Eyes: denies: Blind Spots HENT: denies: Difficult Swallowing Neck: denies: Decreased ROM Cardiovascular: reports: Chest Pain, Shortness of Breath, Other (right anterior chest wall pain) Respiratory: reports: Exercise Intolerance, SOB, SOB on Exertion. denies: Hemoptysis, Wheezing Gastrointestinal: reports: Abdominal Pain Genitourinary: reports: No Symptoms Breasts: reports: No Symptoms Reported Hematology/Lymphatic: reports: No Symptoms Psychiatric: reports: No Symptoms Physical Exam Vital Sings: Vital Signs Temperature 99.8 F H 11/16/16 14:00 Pulse Rate 86 11/16/16 14:00 Respiratory Rate 22 11/16/16 10:00 Blood Pressure 122/57 11/16/16 14:00 O2 Sat by Pulse Oximetry (%) 95 11/16/16 09:00 Constitutional: Yes: Anxious Eyes: Yes: EOM Intact HENT: Yes: Normocephalic Neck: Yes: Trachea Midline Cardiovascular: Yes: Pulse Irregular, S1, S2 Respiratory: Yes: Diminished Gastrointestinal: Yes: Normal Bowel Sounds, Soft Edema: No Integumentary: Yes: Other (h zoster lesions right anterior chest wall) Labs: CBC, BMP 11/16/16 05:35 11/16/16 05:35 Imaging - Results Chest X-ray: Image Reviewed Cat Scan: Report Reviewed Assessment/Plan CONTINUE TO TREAT FOR ZOSTER AND HERPETIC NEURALGIA FEVER ETIOLOGY? CRP 8/ESR 76 AGREE WITH HEPARIN UNTIL INR IS THERAPEUTIC DIURETICS/O2/SILDENAFIL TO CONTINUE CHECK DAILY WEIGHT ID FOLLOW UP Dmitry KELLEY MD
[2016-11-16] MEDS ORDERED: WARFARIN NA 7.5 MG TABLET (FP) PO SCH (18:00)
--- NOTE | 2016-11-16 18:00 | PN ---
Progress Note, Physician History of Present Illness: Zoster improving, low grade fevers, remains in SR. Epistaxis in context of supratherapeutic PTT. - Current Medication List Current Medications: Active Medications Acetaminophen (Tylenol -) 650 mg PO Q6H PRN PRN Reason: FEVER OR PAIN Last Admin: 11/16/16 00:58 Dose: 650 mg Al Hydroxide/Mg Hydroxide (Mylanta Oral Suspension -) 30 ml PO Q6H PRN PRN Reason: DYSPEPSIA Last Admin: 11/11/16 04:10 Dose: 30 ml Amlodipine Besylate (Norvasc -) 10 mg PO DAILY [facility] Atorvastatin Calcium (Lipitor -) 10 mg PO HS [facility] Last Admin: 11/15/16 21:55 Dose: 10 mg Acyclovir 500 mg/ Dextrose 110 mls @ 100 mls/hr IVPB BID [facility] Last Admin: 11/16/16 09:50 Dose: 100 mls/hr Metoprolol Tartrate (Lopressor -) 150 mg PO BID [facility] Last Admin: 11/16/16 09:50 Dose: 150 mg Ondansetron HCl (Zofran Injection) 4 mg IVPB Q6H PRN PRN Reason: NAUSEA Oxycodone HCl (Roxicodone -) 5 mg PO Q6H PRN PRN Reason: PAIN Last Admin: 11/12/16 06:30 Dose: 5 mg Pantoprazole Sodium (Protonix -) 40 mg PO DAILY [facility] Last Admin: 11/16/16 09:50 Dose: 40 mg Sildenafil Citrate (Revatio -) 10 mg PO TID [facility] Last Admin: 11/16/16 13:38 Dose: 10 mg Spironolactone (Aldactone -) 25 mg PO DAILY [facility] Last Admin: 11/16/16 09:50 Dose: 25 mg Warfarin Sodium (Coumadin -) 7.5 mg PO DAILY@1800 [facility] Last Admin: 11/16/16 17:56 Dose: 7.5 mg - Objective Vital Signs: Vital Signs Temperature 99.8 F H 11/16/16 14:00 Pulse Rate 86 11/16/16 14:00 Respiratory Rate 22 11/16/16 10:00 Blood Pressure 122/57 11/16/16 14:00 O2 Sat by Pulse Oximetry (%) 95 11/16/16 09:00 Constitutional: Yes: No Distress, Calm Neck: Yes: Supple Cardiovascular: Yes: Regular Rate and Rhythm Respiratory: Yes: Regular, Diminished Gastrointestinal: Yes: Normal Bowel Sounds, Soft Edema: No Labs: CBC, BMP 11/16/16 05:35 11/16/16 05:35 INR, PTT INR 1.69 (0.82-1.09) H 11/16/16 05:35 Assessment/Plan 1. 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 Diastolic LV dysfunction with chronic class I-II NYHA classification congestive heart failure, compensated/euvolemic 4. Paroxysmal atrial fibrillation [id number] score of 9 on Coumadin therapy, currently in sinus rhythm 5. Severe pulmonary HTN 6. HTN 7. NIDDM 8. Hypercholesterolemia 9. CKD PLAN: 1. Continue Lopressor 150 bid 2. Continue Norvasc 10 qd 3. As outlined ideally should be on ACEI or ARBS unless it is absolutely contraindicated 4. Continue A/C with Coumadin maintaining INR 2-3, d/c heparin gtt 5. Continue Sildenafil Citrate (Revatio) for the above noted pulmonary HTN 6. Continue Aldactone 25 qd 7. Continue Lipitor 10 qhs 8. Pain management and antivirals as per the primary team 9. GI prophylaxis
[2016-11-16] MEDS: ATORVASTATIN CA 10 MG TABLET (FP) PO SCH (22:34)
[2016-11-17] MEDS: ACETAMINOPHEN 325 MG TABLET (FP) PO PRN (03:23)
[2016-11-17] MEDS: SILDENAFIL CITRATE 20 MG TAB PO SCH ×3 (05:32→21:58)
[2016-11-17] MEDS ORDERED: MAG HYDROX/AL HYDROX/SIMETH 30 ML UNIT-DOSE CUP PO PRN ×2 (07:52→12:08)
[2016-11-17] MEDS ORDERED: ONDANSETRON 4 MG/2 ML VIAL IVPB PRN ×2 (07:52→12:08)
[2016-11-17 08:19] LABS: ALBUMIN 2.4 g/dl (3.4-5.0); ALK PHOS 45 U/L (45-117); ANION GAP 6 (8-16); BILIRUBIN,TOTAL 0.8 mg/dL (0.2-1.0); CALCIUM 8.3 mg/dL (8.5-10.1); CO2 25 mmol/L (21-32); CREATININE 1.1 mg/dL (0.55-1.02); GLUCOSE,RANDOM 101 mg/dL (74-106); MAGNESIUM 2.3 mg/dL (1.8-2.4); PHOSPHOROUS 2.9 mg/dL (2.5-4.9); SGOT/AST 24 U/L (15-37); SGPT/ALT 27 U/L (12-78); TOT PROT 6.7 g/dl (6.4-8.2)
--- NOTE | 2016-11-17 08:47 | PN ---
Progress Note, Physician Chief Complaint: ID Acyclovir IV Complains of pain - Current Medication List Current Medications: Active Medications Acetaminophen (Tylenol -) 650 mg PO Q6H PRN PRN Reason: FEVER OR PAIN Last Admin: 11/17/16 03:23 Dose: 650 mg Al Hydroxide/Mg Hydroxide (Mylanta Oral Suspension -) 30 ml PO Q6H PRN PRN Reason: DYSPEPSIA Amlodipine Besylate (Norvasc -) 10 mg PO DAILY [facility] Atorvastatin Calcium (Lipitor -) 10 mg PO HS [facility] Acyclovir 500 mg/ Dextrose 110 mls @ 100 mls/hr IVPB BID [facility] Last Admin: 11/16/16 22:34 Dose: 100 mls/hr Metoprolol Tartrate (Lopressor -) 150 mg PO BID [facility] Ondansetron HCl (Zofran Injection) 4 mg IVPB Q6H PRN PRN Reason: NAUSEA Oxycodone HCl (Roxicodone -) 5 mg PO Q6H PRN PRN Reason: PAIN Last Admin: 11/12/16 06:30 Dose: 5 mg Pantoprazole Sodium (Protonix -) 40 mg PO DAILY [facility] Last Admin: 11/16/16 09:50 Dose: 40 mg Sildenafil Citrate (Revatio -) 10 mg PO TID [facility] Spironolactone (Aldactone -) 25 mg PO DAILY [facility] Warfarin Sodium (Coumadin -) 7.5 mg PO DAILY@1800 [facility] Last Admin: 11/16/16 17:56 Dose: 7.5 mg - Objective Vital Signs: Vital Signs Temperature 98.7 F 11/17/16 06:00 Pulse Rate 73 11/17/16 06:00 Respiratory Rate 19 11/17/16 06:00 Blood Pressure 138/58 11/17/16 06:00 O2 Sat by Pulse Oximetry (%) 95 11/17/16 06:00 Constitutional: Yes: Well Nourished, No Distress Neck: Yes: WNL, Supple Cardiovascular: Yes: Regular Rate and Rhythm, S1, S2. No: Murmur Respiratory: Yes: WNL, Regular, CTA Bilaterally Gastrointestinal: Yes: WNL, Normal Bowel Sounds, Soft. No: Tenderness, Tenderness, Epigastrium Edema: No Labs: CBC, BMP 11/17/16 05:35 INR, PTT INR 1.69 (0.82-1.09) H 11/16/16 05:35 Assessment/Plan Microbiology 11/13/16 18:49 Urine - Urine Clean Catch Urine Culture - Final NO GROWTH OBTAINED 11/15/16 10:34 Blood - Peripheral Venous Blood Culture - Preliminary NO GROWTH OBTAINED AFTER 24 HOURS, INCUBATION TO CONTINUE FOR 4 DAYS. 11/15/16 09:25 Blood - Peripheral Venous Blood Culture - Preliminary NO GROWTH OBTAINED AFTER 24 HOURS, INCUBATION TO CONTINUE FOR 4 DAYS. 11/12/16 18:30 Blood - Peripheral Venous Blood Culture - Preliminary NO GROWTH OBTAINED AFTER 96 HOURS, INCUBATION TO CONTINUE FOR 1 DAYS. 11/12/16 17:45 Blood - Peripheral Venous Blood Culture - Preliminary NO GROWTH OBTAINED AFTER 96 HOURS, INCUBATION TO CONTINUE FOR 1 DAYS. 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
[2016-11-17] MEDS ORDERED: SPIRONOLACTONE 25 MG TABLET (FP) PO SCH (10:00)
[2016-11-17] MEDS ORDERED: METOPROLOL TARTRATE 50 MG TABLET (FP) PO SCH (10:00)
--- NOTE | 2016-11-17 10:13 | PN ---
Progress Note, Physician Chief Complaint: Events noted Complains of right side torso (dermatomal) pain due to Herpes Zoster Currently isolated History of Present Illness: Patient was seen and examined. Awake and alert. Chart was reviewed Denies shortness of breath or palpitations Complains of right side pain and weakness - Current Medication List Current Medications: Active Medications Acetaminophen (Tylenol -) 650 mg PO Q6H PRN PRN Reason: FEVER OR PAIN Last Admin: 11/17/16 03:23 Dose: 650 mg Al Hydroxide/Mg Hydroxide (Mylanta Oral Suspension -) 30 ml PO Q6H PRN PRN Reason: DYSPEPSIA Amlodipine Besylate (Norvasc -) 10 mg PO DAILY [facility] Atorvastatin Calcium (Lipitor -) 10 mg PO HS [facility] Acyclovir 500 mg/ Dextrose 110 mls @ 100 mls/hr IVPB BID [facility] Last Admin: 11/16/16 22:34 Dose: 100 mls/hr Metoprolol Tartrate (Lopressor -) 150 mg PO BID [facility] Ondansetron HCl (Zofran Injection) 4 mg IVPB Q6H PRN PRN Reason: NAUSEA Oxycodone HCl (Roxicodone -) 5 mg PO Q6H PRN PRN Reason: PAIN Last Admin: 11/12/16 06:30 Dose: 5 mg Pantoprazole Sodium (Protonix -) 40 mg PO DAILY [facility] Last Admin: 11/16/16 09:50 Dose: 40 mg Sildenafil Citrate (Revatio -) 10 mg PO TID [facility] Spironolactone (Aldactone -) 25 mg PO DAILY [facility] Warfarin Sodium (Coumadin -) 7.5 mg PO DAILY@1800 [facility] Last Admin: 11/16/16 17:56 Dose: 7.5 mg - Objective Vital Signs: Vital Signs Temperature 98.7 F 11/17/16 06:00 Pulse Rate 73 11/17/16 06:00 Respiratory Rate 19 11/17/16 06:00 Blood Pressure 138/58 11/17/16 06:00 O2 Sat by Pulse Oximetry (%) 95 11/17/16 06:00 Neck: Yes: Supple Cardiovascular: Yes: Regular Rate and Rhythm, S1, S2 Respiratory: Yes: CTA Bilaterally Gastrointestinal: Yes: Normal Bowel Sounds, Soft. No: Tenderness Edema: No Additional Findings/Remarks: Review of Systems Constitutional: denies Chills or Fever Respiratory: denies Cough or Dyspnea Cardiovascular: As noted above Gastrointestinal: denies Nausea, Vomiting, Diarrhea or Constipation Genitourinary: No Symptoms Reported Musculoskeletal: No Symptoms Reported Labs: CBC, BMP 11/17/16 05:35 INR, PTT INR 1.69 (0.82-1.09) H 11/16/16 05:35 Assessment/Plan 1. Acute shingles/herpes zoster infection with persistent pain 2. CAD non obstructive disease, angina pectoris 3. Diastolic LV dysfunction with chronic class I-II NYHA classification congestive heart failure, compensated 4. Paroxysmal atrial fibrillation [id number] score of 9 on Coumadin therapy 5. Severe pulmonary HTN 6. HTN 7. NIDDM 8. Hypercholesterolemia 9. CKD PLAN: 1. Continue Lopressor and Norvasc 2. As outlined ideally should be on ACEI or ARBS unless it is absolutely contraindicated 3. Continue A/C with Coumadin maintaining INR 2-3 4. Continue Sildenafil Citrate (Revatio) for the above noted pulmonary HTN 5. Continue Aldactone as tolerated 6. Continue Lipitor 7. Continue acyclovir Further plans are to follow. May transfer to floor care Dimitri Palm MD
[2016-11-17] MEDS: oxyCODONE HCL 5 MG TABLET PO PRN (10:21)
[2016-11-17] MEDS: PANTOPRAZOLE 40 MG TABLET (FP) PO SCH (10:22)
[2016-11-17 10:48] LABS: BASOPHIL 0.7 % (0-2.0); EOSINOPHIL 2.6 % (0-4.5); MCH 29.4 pg (25.7-33.7); MCHC 32.7 g/dl (32.0-36.0); MEAN PLT VOLUME 10.2 fl (7.5-11.1); NEUTROPHILS 60.2 % (42.8-82.8); PLATELET COUNT 103 K/MM3 (134-434); RDW 14.8 % (11.6-15.6); WHITE BLOOD COUNT 7.2 K/mm3 (4.0-10.0)
[2016-11-17 11:02] LABS: INR 1.33 (0.82-1.09); PROTHROMBIN TIME (PATIENT) 14.7 SEC (9.98-11.88)
[2016-11-17] MEDS: ACYCLOVIR INJECTION 500 MG in DEXTROSE 5%-WATER - 100 ML IVPB SCH ×2 (11:48→21:59)
--- NOTE | 2016-11-17 12:25 | PN ---
Progress Note (short form) - Note Progress Note: Discomfort/pain in the distribution of Zoster. No SOB. Intake & Output 11/14/16 11/15/16 11/16/16 11/17/16 23:59 23:59 23:59 23:59 Intake Total 2389 1974 1795 81 Balance 2389 Weight 170 lb 170 lb 0.1 oz 172 lb 171 lb Last Vital Signs Temp Pulse Resp BP Pulse Ox 98.4 F 74 16 156/75 95 11/17/16 10:00 11/17/16 10:00 11/17/16 10:00 11/17/16 10:00 11/17/16 06:00 Active Medications Acetaminophen (Tylenol -) 650 mg PO Q6H PRN PRN Reason: FEVER OR PAIN Al Hydroxide/Mg Hydroxide (Mylanta Oral Suspension -) 30 ml PO Q6H PRN PRN Reason: DYSPEPSIA Amlodipine Besylate (Norvasc -) 10 mg PO DAILY [facility] Atorvastatin Calcium (Lipitor -) 10 mg PO HS [facility] Acyclovir 500 mg/ Dextrose 110 mls @ 100 mls/hr IVPB BID [facility] Metoprolol Tartrate (Lopressor -) 150 mg PO BID [facility] Ondansetron HCl (Zofran Injection) 4 mg IVPB Q6H PRN PRN Reason: NAUSEA Oxycodone HCl (Roxicodone -) 5 mg PO Q6H PRN PRN Reason: PAIN Pantoprazole Sodium (Protonix -) 40 mg PO DAILY [facility] Sildenafil Citrate (Revatio -) 10 mg PO TID [facility] Spironolactone (Aldactone -) 25 mg PO DAILY [facility] Warfarin Sodium (Coumadin -) 7.5 mg PO DAILY@1800 [place] Constitutional: Yes: NAD Eyes: Yes: EOM Intact HENT: Yes: Normocephalic Neck: Yes: Trachea Midline Cardiovascular: Yes: Pulse Irregular, S1, S2 Respiratory: Yes: Diminished Gastrointestinal: Yes: Normal Bowel Sounds, Soft Edema: No Integumentary: Yes: (+) zoster lesions right anterior chest wall Labs: Laboratory Results - last 24 hr 11/16/16 11/16/16 11/17/16 17:28 22:32 05:35 WBC 7.2 D RBC 3.34 L Hgb 9.8 L Hct 30.1 L MCV 90.0 MCH 29.4 MCHC 32.7 RDW 14.8 Plt Count 103 L MPV 10.2 Neutrophils % 60.2 Lymphocytes % 23.6 Monocytes % 12.9 H Eosinophils % 2.6 Basophils % 0.7 INR Sodium Potassium Chloride Carbon Dioxide Anion Gap BUN Creatinine Creat Clearance w eGFR POC Glucometer 134 125 Random Glucose Calcium Phosphorus Magnesium Total Bilirubin AST ALT Alkaline Phosphatase Total Protein Albumin 11/17/16 11/17/16 05:35 10:00 WBC RBC Hgb Hct MCV MCH MCHC RDW Plt Count MPV Neutrophils % Lymphocytes % Monocytes % Eosinophils % Basophils % INR 1.33 H Sodium 140 Potassium 3.9 Chloride 109 H Carbon Dioxide 25 Anion Gap 6 L BUN 10 Creatinine 1.1 H Creat Clearance w eGFR 47.32 POC Glucometer Random Glucose 101 Calcium 8.3 L Phosphorus 2.9 Magnesium 2.3 Total Bilirubin 0.8 D AST 24 ALT 27 Alkaline Phosphatase 45 Total Protein 6.7 Albumin 2.4 L Assessment/Plan Acute shingles/zoster RACW CAD Angina pectoris Diastolic LV dysfunction CHF by Hx Paroxysmal atrial fibrillation on Coumadin therapy Severe pulmonary HTN HTN NIDDM Hypercholesterolemia CKD Acyclovir as ordered Pain control O2 as needed only Revatio AC Dr Schulte
[2016-11-17] MEDS ORDERED: SILDENAFIL CITRATE 20 MG TAB PO SCH (14:00)
--- NOTE | 2016-11-17 17:10 | PN ---
Physical Exam: SUBJECTIVE: Patient seen and examined. OBJECTIVE: Vital Signs Period Temp Pulse Resp BP Sys/Morales Pulse Ox Last 24 Hr 97.5 F-99.5 F 72-80 16-20 124-156/54-82 95-97 GENERAL: The patient is awake, alert, and fully oriented, in no acute distress. HEAD: Normal with no signs of trauma. NECK: Trachea midline, full range of motion, supple. Full ROM, no tenderness. No meningeal signs. LUNGS: Breath sounds equal, clear to auscultation bilaterally, no wheezes, no crackles, no accessory muscle use. HEART: Regular rate and rhythm, S1, S2 without murmur, rub or gallop. ABDOMEN: Fluid-filled blisters from mid-sternal area, under right breast and around right flank to posterior midline EXTREMITIES: 2+ pulses, warm, well-perfused, trace bilateral lower extremity edema. NEUROLOGICAL: Cranial nerves II through XII grossly intact. Normal speech, gait not observed. Laboratory Results - last 24 hr 11/16/16 11/16/16 11/17/16 17:28 22:32 05:35 WBC 7.2 D RBC 3.34 L Hgb 9.8 L Hct 30.1 L MCV 90.0 MCH 29.4 MCHC 32.7 RDW 14.8 Plt Count 103 L MPV 10.2 Neutrophils % 60.2 Lymphocytes % 23.6 Monocytes % 12.9 H Eosinophils % 2.6 Basophils % 0.7 INR Sodium Potassium Chloride Carbon Dioxide Anion Gap BUN Creatinine Creat Clearance w eGFR POC Glucometer 134 125 Random Glucose Calcium Phosphorus Magnesium Total Bilirubin AST ALT Alkaline Phosphatase Total Protein Albumin 11/17/16 11/17/16 05:35 10:00 WBC RBC Hgb Hct MCV MCH MCHC RDW Plt Count MPV Neutrophils % Lymphocytes % Monocytes % Eosinophils % Basophils % INR 1.33 H Sodium 140 Potassium 3.9 Chloride 109 H Carbon Dioxide 25 Anion Gap 6 L BUN 10 Creatinine 1.1 H Creat Clearance w eGFR 47.32 POC Glucometer Random Glucose 101 Calcium 8.3 L Phosphorus 2.9 Magnesium 2.3 Total Bilirubin 0.8 D AST 24 ALT 27 Alkaline Phosphatase 45 Total Protein 6.7 Albumin 2.4 L Active Medications Generic Name Dose Route Start Last Admin Trade Name Freq PRN Reason Stop Dose Admin Acetaminophen 650 mg 11/17/16 12:08 Tylenol - PO Q6H PRN FEVER OR PAIN Al Hydroxide/Mg Hydroxide 30 ml 11/17/16 12:08 Mylanta Oral Suspension - PO Q6H PRN DYSPEPSIA Amlodipine Besylate 10 mg 11/18/16 10:00 Norvasc - PO DAILY [facility] Atorvastatin Calcium 10 mg 11/17/16 22:00 Lipitor - PO HS [facility] Acyclovir 500 mg/ Dextrose 110 mls @ 100 mls/hr 11/17/16 22:00 IVPB BID [facility] Metoprolol Tartrate 150 mg 11/17/16 22:00 Lopressor - PO BID [facility] Ondansetron HCl 4 mg 11/17/16 12:08 Zofran Injection IVPB Q6H PRN NAUSEA Oxycodone HCl 5 mg 11/17/16 12:08 Roxicodone - PO Q6H PRN PAIN Pantoprazole Sodium 40 mg 11/18/16 10:00 Protonix - PO DAILY [facility] Sildenafil Citrate 10 mg 11/17/16 14:00 11/17/16 13:31 Revatio - PO 10 mg TID [facility] Administration Spironolactone 25 mg 11/18/16 10:00 Aldactone - PO DAILY [facility] Warfarin Sodium 7.5 mg 11/17/16 18:00 Coumadin - PO DAILY@1800 [facility] ASSESSMENT/PLAN 86 year-old female with a PMH significant for HTN, diastolic HF, and afib on coumadin. Admitted for herpes zoster with persistent fever. Acute shingles/herpes zoster with persistent fever, improved --afebrile 24 hours; no leukocytosis --cultures negative; serial CXRs unremarkable, d/c'd ceftriaxone 12 (x 3 doses) --continue IV Acyclovir (day #3) and continue IV fluids Thrombocytopenia, improved --platelets trending up Paroxysmal Atrial fibrillation --presently in sinus rhythm --rate controlled, continue metoprolol, amlodipine --INR was supratherapeutic on admission 3.97 and has been steadily dropping despite increasing doses of coumadin; INR today 1.33 --start lovenox 80mg BID --increase dose coumdadin to 10mg tonight Coronary artery disease Hypertension --continue metoprolol, aldactone; increased amlodipine to 10mg Diastolic heart failure --10/26/16 Echo: LV normal; RV normal; LAE; mild MR; mild to moderate --continue to hold torsemide; monitor closely for s/s HF; f/u cxr in am Pericardial effusion ruled out --11/14/16 Echo: negative for pericardial or pleural effusions Hyperlipidemia --continue Lipitor Severe pulmonary HTN --continue sildenafil --dose coumadin HEMANT --Cr 1.9 on admission, 1.1 today --holding diuretics Fluids: NS @ 75mL/hr while on acyclovir Electrolytes: replete as indicated Nutrition: low sodium DVT prophylaxis: start treatment dose lovenox; continue to dose coumadin to goal INR 2-3 PT eval Daily PT Dispo: continues to require inpatient care. Daughter Gina Ruiz . Full code. Visit type - Emergency Visit Emergency Visit: Yes ED Registration Date: 11/14/16 Care time: The patient presented to the Emergency Department on the above date and was hospitalized for further evaluation of their emergent condition. - New Patient This patient is new to me today: No - Critical Care Critical Care patient: No
[2016-11-17] MEDS: WARFARIN NA 7.5 MG TABLET (FP) PO SCH (17:16)
[2016-11-17] MEDS: TORSEMIDE 20 MG TABLET (FP) PO ONE ×2 (17:16→17:26)
[2016-11-17] MEDS ORDERED: PT OWN MED DRAWER 7, Y5N ONE (20:55)
[2016-11-17] MEDS: METOPROLOL TARTRATE 50 MG TABLET (FP) PO SCH (21:45)
[2016-11-17] MEDS: ATORVASTATIN CA 10 MG TABLET (FP) PO SCH (21:46)
[2016-11-17] MEDS: ENOXAPARIN NA (PORCINE) 80 MG/0.8 ML DISP.SYRIN SQ SCH (21:46)
[2016-11-17] MEDS ORDERED: ATORVASTATIN CA 10 MG TABLET (FP) PO SCH (22:00)
[2016-11-18] MEDS ORDERED: PT OWN MED DRAWER 7, Y5N ONE ×3 (01:10→21:57)
[2016-11-18] MEDS: ACETAMINOPHEN 325 MG TABLET (FP) PO PRN ×2 (05:47→22:09)
[2016-11-18] MEDS: oxyCODONE HCL 5 MG TABLET PO PRN (05:47)
[2016-11-18] MEDS: SILDENAFIL CITRATE 20 MG TAB PO SCH ×3 (05:48→22:03)
[2016-11-18 08:44] LABS: BASOPHIL 0.6 % (0-2.0); EOSINOPHIL 1.7 % (0-4.5); MCH 29.7 pg (25.7-33.7); MCHC 33.1 g/dl (32.0-36.0); MEAN CELL VOLUME 89.6 fl (80-96); MEAN PLT VOLUME 9.5 fl (7.5-11.1); NEUTROPHILS 59.7 % (42.8-82.8); PLATELET COUNT 124 K/MM3 (134-434); RDW 14.7 % (11.6-15.6); WHITE BLOOD COUNT 7.4 K/mm3 (4.0-10.0)
[2016-11-18 08:58] LABS: INR 1.55 (0.82-1.09); PROTHROMBIN TIME (PATIENT) 17.2 SEC (9.98-11.88)
[2016-11-18 09:01] LABS: ALBUMIN 2.6 g/dl (3.4-5.0); ANION GAP 9 (8-16); CALCIUM 8.3 mg/dL (8.5-10.1); CO2 24 mmol/L (21-32); CREATININE 1.2 mg/dL (0.55-1.02); GLUCOSE,RANDOM 122 mg/dL (74-106); SGOT/AST 23 U/L (15-37); SGPT/ALT 28 U/L (12-78)
[2016-11-18 09:03] LABS: ALK PHOS 45 U/L (45-117); BILIRUBIN,TOTAL 0.8 mg/dL (0.2-1.0); TOT PROT 6.9 g/dl (6.4-8.2)
[2016-11-18] MEDS: ACYCLOVIR INJECTION 500 MG in DEXTROSE 5%-WATER - 100 ML IVPB SCH ×2 (09:51→22:07)
[2016-11-18] MEDS: PANTOPRAZOLE 40 MG TABLET (FP) PO SCH (09:52)
[2016-11-18] MEDS: SPIRONOLACTONE 25 MG TABLET (FP) PO SCH (09:52)
[2016-11-18] MEDS: ENOXAPARIN NA (PORCINE) 80 MG/0.8 ML DISP.SYRIN SQ SCH ×2 (09:52→22:07)
[2016-11-18] MEDS: amLODIPine BESYLATE 10 MG TABLET (FP) PO SCH (09:52)
[2016-11-18] MEDS: METOPROLOL TARTRATE 50 MG TABLET (FP) PO SCH ×2 (09:52→22:07)
--- NOTE | 2016-11-18 13:04 | PN ---
Progress Note, Physician History of Present Illness: Zoster improving, low grade fevers, remains in SR. - Current Medication List Current Medications: Active Medications Acetaminophen (Tylenol -) 650 mg PO Q6H PRN PRN Reason: FEVER OR PAIN Last Admin: 11/18/16 05:47 Dose: 650 mg Al Hydroxide/Mg Hydroxide (Mylanta Oral Suspension -) 30 ml PO Q6H PRN PRN Reason: DYSPEPSIA Amlodipine Besylate (Norvasc -) 10 mg PO DAILY [facility] Last Admin: 11/18/16 09:52 Dose: 10 mg Atorvastatin Calcium (Lipitor -) 10 mg PO HS [facility] Last Admin: 11/17/16 21:46 Dose: 10 mg Enoxaparin Sodium (Lovenox -) 80 mg SQ BID [facility] Last Admin: 11/18/16 09:52 Dose: 80 mg Acyclovir 500 mg/ Dextrose 110 mls @ 100 mls/hr IVPB BID [facility] Last Admin: 11/18/16 09:51 Dose: 100 mls/hr Metoprolol Tartrate (Lopressor -) 150 mg PO BID [facility] Last Admin: 11/18/16 09:52 Dose: 150 mg Ondansetron HCl (Zofran Injection) 4 mg IVPB Q6H PRN PRN Reason: NAUSEA Oxycodone HCl (Roxicodone -) 5 mg PO Q6H PRN PRN Reason: PAIN Last Admin: 11/18/16 05:47 Dose: 5 mg Pantoprazole Sodium (Protonix -) 40 mg PO DAILY [facility] Last Admin: 11/18/16 09:52 Dose: 40 mg Sildenafil Citrate (Revatio -) 10 mg PO TID [facility] Last Admin: 11/18/16 05:48 Dose: 10 mg Spironolactone (Aldactone -) 25 mg PO DAILY [facility] Last Admin: 11/18/16 09:52 Dose: 25 mg Warfarin Sodium (Coumadin -) 7.5 mg PO DAILY@1800 [facility] Last Admin: 11/17/16 17:16 Dose: 7.5 mg - Objective Vital Signs: Vital Signs Temperature 98.9 F 11/18/16 09:00 Pulse Rate 73 11/18/16 09:00 Respiratory Rate 20 11/18/16 09:00 Blood Pressure 151/82 11/18/16 09:00 O2 Sat by Pulse Oximetry (%) 96 11/18/16 09:00 Constitutional: Yes: No Distress, Calm Neck: Yes: Supple Cardiovascular: Yes: Regular Rate and Rhythm Respiratory: Yes: Regular Gastrointestinal: Yes: Normal Bowel Sounds, Soft Edema: No Labs: CBC, BMP 11/18/16 08:25 11/18/16 08:25 INR, PTT INR 1.55 (0.82-1.09) H 11/18/16 08:25 Assessment/Plan 1. 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 Diastolic LV dysfunction with chronic class I-II NYHA classification congestive heart failure, compensated/euvolemic 4. Paroxysmal atrial fibrillation [id number] score of 9 on Coumadin therapy with subtherapeutic INR, currently in sinus rhythm 5. Severe pulmonary HTN 6. HTN 7. NIDDM 8. Hypercholesterolemia 9. CKD PLAN: 1. Continue Lopressor 150 bid 2. Continue Norvasc 10 qd 3. As outlined ideally should be on ACEI or ARBS unless it is absolutely contraindicated 4. Continue A/C with Lovenox->Coumadin maintaining INR 2-3 5. Continue Sildenafil Citrate (Revatio) for the above noted pulmonary HTN 6. Continue Aldactone 25 qd 7. Continue Lipitor 10 qhs 8. Pain management and antivirals as per the primary team 9. GI prophylaxis
--- NOTE | 2016-11-18 13:14 | PN ---
Progress Note (short form) - Note Progress Note: PULMONARY VSS/AFEBRILE ANICTERIC DISTANT BUT CLEAR S1S2 OBESE SOFT NO EDEMA CRUSTED HERPETIC LESIONS RIGHT INFRA-MAMMARY LABS/NOTES/MEDS/CHART REVIEWED Acute shingles/zoster RACW CAD Angina pectoris Diastolic LV dysfunction CHF by Hx Paroxysmal atrial fibrillation on Coumadin therapy Severe pulmonary HTN HTN NIDDM Hypercholesterolemia CKD Acyclovir as ordered Pain control O2 as needed only Revatiangela KELLEY MD
--- NOTE | 2016-11-18 13:45 | PN ---
Progress Note (short form) - Note Progress Note: doing well on acyclovir still has pain Vital Signs Period Temp Pulse Resp BP Sys/Morales Pulse Ox Last 24 Hr 97.5 F-100.5 F 73-93 16-20 133-160/69-82 96-97 cor-rrr lungs clear abd soft,nt ext no edema rash is starting to crust CBC, BMP 11/18/16 08:25 11/18/16 08:25 Microbiology 11/15/16 10:34 Blood - Peripheral Venous Blood Culture - Preliminary NO GROWTH OBTAINED AFTER 72 HOURS, INCUBATION TO CONTINUE FOR 2 DAYS. 11/15/16 09:25 Blood - Peripheral Venous Blood Culture - Preliminary NO GROWTH OBTAINED AFTER 72 HOURS, INCUBATION TO CONTINUE FOR 2 DAYS. 11/12/16 18:30 Blood - Peripheral Venous Blood Culture - Final NO GROWTH AFTER 5 DAYS INCUBATION 11/12/16 17:45 Blood - Peripheral Venous Blood Culture - Final NO GROWTH AFTER 5 DAYS INCUBATION 11/15/16 23:00 Urine - Urine Clean Catch Urine Culture - Final NO GROWTH OBTAINED 11/13/16 18:49 Urine - Urine Clean Catch Urine Culture - Final NO GROWTH OBTAINED cxray no infiltrate Current Medications Acetaminophen (Tylenol -) 650 mg PO Q6H PRN PRN Reason: FEVER OR PAIN Last Admin: 11/18/16 05:47 Dose: 650 mg Al Hydroxide/Mg Hydroxide (Mylanta Oral Suspension -) 30 ml PO Q6H PRN PRN Reason: DYSPEPSIA Amlodipine Besylate (Norvasc -) 10 mg PO DAILY [facility] Last Admin: 11/18/16 09:52 Dose: 10 mg Atorvastatin Calcium (Lipitor -) 10 mg PO HS [facility] Last Admin: 11/17/16 21:46 Dose: 10 mg Enoxaparin Sodium (Lovenox -) 80 mg SQ BID [facility] Last Admin: 11/18/16 09:52 Dose: 80 mg Acyclovir 500 mg/ Dextrose 110 mls @ 100 mls/hr IVPB BID [facility] Last Admin: 11/18/16 09:51 Dose: 100 mls/hr Metoprolol Tartrate (Lopressor -) 150 mg PO BID [facility] Last Admin: 11/18/16 09:52 Dose: 150 mg Ondansetron HCl (Zofran Injection) 4 mg IVPB Q6H PRN PRN Reason: NAUSEA Oxycodone HCl (Roxicodone -) 5 mg PO Q6H PRN PRN Reason: PAIN Last Admin: 11/18/16 05:47 Dose: 5 mg Pantoprazole Sodium (Protonix -) 40 mg PO DAILY [facility] Last Admin: 11/18/16 09:52 Dose: 40 mg Sildenafil Citrate (Revatio -) 10 mg PO TID [facility] Last Admin: 11/18/16 05:48 Dose: 10 mg Spironolactone (Aldactone -) 25 mg PO DAILY [facility] Last Admin: 11/18/16 09:52 Dose: 25 mg Warfarin Sodium (Coumadin -) 7.5 mg PO DAILY@1800 [facility] Last Admin: 11/17/16 17:16 Dose: 7.5 mg a/p fevers-?drug fevers, nothing to suggest encephalitis, meningitis- fevers trending down off neurontin zoster (dermatomal)-day #7 antivirals, hopefully switch to po valtrex in am for another 72 hours analgesics for pain HEMANT resolving- continue IVF while on acyclovir thrombocytopenia- improved anticoagulation per primary service Problem List - Problems (1) Zoster Code(s): B02.9 - ZOSTER WITHOUT COMPLICATIONS (2) HEMANT (acute kidney injury) Code(s): N17.9 - ACUTE KIDNEY FAILURE, UNSPECIFIED
[2016-11-18] MEDS: WARFARIN NA 7.5 MG TABLET (FP) PO SCH (17:26)
--- NOTE | 2016-11-18 17:45 | PN ---
Progress Note (short form) - Note Progress Note: Subjective: The patient was seen and examined at the bedside, she has complaints of pain under her right breast that radiates around to her back, along the herpes dermatom Current Medications Generic Name Dose Route Start Last Admin Trade Name Freq PRN Reason Stop Dose Admin Acetaminophen 650 mg 11/17/16 12:08 11/18/16 05:47 Tylenol - PO 650 mg Q6H PRN Administration FEVER OR PAIN Al Hydroxide/Mg Hydroxide 30 ml 11/17/16 12:08 Mylanta Oral Suspension - PO Q6H PRN DYSPEPSIA Amlodipine Besylate 10 mg 11/18/16 10:00 11/18/16 09:52 Norvasc - PO 10 mg DAILY [facility] Administration Atorvastatin Calcium 10 mg 11/17/16 22:00 11/17/16 21:46 Lipitor - PO 10 mg HS [facility] Administration Enoxaparin Sodium 80 mg 11/17/16 22:00 11/18/16 09:52 Lovenox - SQ 80 mg BID [facility] Administration Acyclovir 500 mg/ Dextrose 110 mls @ 100 mls/hr 11/17/16 22:00 11/18/16 09:51 IVPB 100 mls/hr BID [facility] Administration Metoprolol Tartrate 150 mg 11/17/16 22:00 11/18/16 09:52 Lopressor - PO 150 mg BID [facility] Administration Ondansetron HCl 4 mg 11/17/16 12:08 Zofran Injection IVPB Q6H PRN NAUSEA Oxycodone HCl 5 mg 11/17/16 12:08 11/18/16 05:47 Roxicodone - PO 5 mg Q6H PRN Administration PAIN Pantoprazole Sodium 40 mg 11/18/16 10:00 11/18/16 09:52 Protonix - PO 40 mg DAILY [facility] Administration Sildenafil Citrate 10 mg 11/17/16 14:00 11/18/16 13:43 Revatio - PO 10 mg TID [facility] Administration Spironolactone 25 mg 11/18/16 10:00 11/18/16 09:52 Aldactone - PO 25 mg DAILY [facility] Administration Warfarin Sodium 7.5 mg 11/17/16 18:00 11/18/16 17:26 Coumadin - PO 7.5 mg DAILY@1800 [facility] Administration Objective: Vital Signs Period Temp Pulse Resp BP Sys/Morales Pulse Ox Last 24 Hr 97.5 F-100.5 F 69-93 20-20 133-160/69-82 96-97 Physical Exam: General: NAD, A&Ox3 Lungs: CTA bilaterally Heart: RRR, S1S2 Abd: Soft. Fluid filled blisters with some crusting under right breast around to back. Ext: Warm, well-perfused. Trace bilateral lower extremity edema CBCD WBC 7.4 K/mm3 (4.0-10.0) 11/18/16 08:25 RBC 3.29 M/mm3 (3.60-5.2) L 11/18/16 08:25 Hgb 9.8 GM/dL (10.7-15.3) L 11/18/16 08:25 Hct 29.5 % (32.4-45.2) L 11/18/16 08:25 MCV 89.6 fl (80-96) 11/18/16 08:25 MCHC 33.1 g/dl (32.0-36.0) 11/18/16 08:25 RDW 14.7 % (11.6-15.6) 11/18/16 08:25 Plt Count 124 K/MM3 (134-434) L D 11/18/16 08:25 MPV 9.5 fl (7.5-11.1) 11/18/16 08:25 CMP Sodium 141 mmol/L (136-145) 11/18/16 08:25 Potassium 4.3 mmol/L (3.5-5.1) 11/18/16 08:25 Chloride 108 mmol/L (98-107) H 11/18/16 08:25 Carbon Dioxide 24 mmol/L (21-32) 11/18/16 08:25 Anion Gap 9 (8-16) 11/18/16 08:25 BUN 12 mg/dL (7-18) 11/18/16 08:25 Creatinine 1.2 mg/dL (0.55-1.02) H 11/18/16 08:25 Creat Clearance w eGFR 42.80 (>60) 11/18/16 08:25 Random Glucose 122 mg/dL (74-106) H D 11/18/16 08:25 Calcium 8.3 mg/dL (8.5-10.1) L 11/18/16 08:25 Total Bilirubin 0.8 mg/dL (0.2-1.0) 11/18/16 08:25 AST 23 U/L (15-37) 11/18/16 08:25 ALT 28 U/L (12-78) 11/18/16 08:25 Alkaline Phosphatase 45 U/L (45-117) 11/18/16 08:25 Total Protein 6.9 g/dl (6.4-8.2) 11/18/16 08:25 Albumin 2.6 g/dl (3.4-5.0) L 11/18/16 08:25 CARDIAC ENZYMES Creatine Kinase 231 IU/L (26-192) H 11/12/16 06:00 Troponin I < 0.02 ng/ml (0.00-0.05) 11/12/16 06:00 Microbiology 11/15/16 10:34 Blood - Peripheral Venous Blood Culture - Preliminary NO GROWTH OBTAINED AFTER 72 HOURS, INCUBATION TO CONTINUE FOR 2 DAYS. 11/15/16 09:25 Blood - Peripheral Venous Blood Culture - Preliminary NO GROWTH OBTAINED AFTER 72 HOURS, INCUBATION TO CONTINUE FOR 2 DAYS. 11/12/16 18:30 Blood - Peripheral Venous Blood Culture - Final NO GROWTH AFTER 5 DAYS INCUBATION 11/12/16 17:45 Blood - Peripheral Venous Blood Culture - Final NO GROWTH AFTER 5 DAYS INCUBATION 11/15/16 23:00 Urine - Urine Clean Catch Urine Culture - Final NO GROWTH OBTAINED 11/13/16 18:49 Urine - Urine Clean Catch Urine Culture - Final NO GROWTH OBTAINED Assessment: This is an 86 year old female with PMHx of HTN, diastolic heart failure, paroxysmal a.fib (on Coumadin) who presented to the ED with abdominal pain x4 days and was found to have herpes zoster. Plan: 1) ID: Herpes Zoster with persistent fevers - Tmax 100.5 - WBC wnl - Continue Acyclovir (11/15- ), continue IV fluids - Chest x-ray with no evidence of pulmonary infiltrates - Appreciate ID consult 2) Cardiology: HTN - Continue Norvasc - Continue Lopressor - Should ideally be on ACEi/ARB, defer starting to cards Paroxysmal a.fib - Continue Lovenox bridge to Coumadin - Rate controlled Pulmonary HTN - Continue Sildenafil Hyperlipidemia - Continue Lipitor Diastolic hear failure - ECHO 10/26/16: LV normal; RV normal; LAE; mild MR; mild to moderate - Hold torsemide - Appreciate cardiology consult 3) : HEMANT - Stable, Cr 1.2 today - Continue IV fluids while on IV acylovir Visit type - Emergency Visit Emergency Visit: Yes ED Registration Date: 11/14/16 Care time: The patient presented to the Emergency Department on the above date and was hospitalized for further evaluation of their emergent condition. - New Patient This patient is new to me today: No - Critical Care Critical Care patient: No
[2016-11-18] MEDS: ATORVASTATIN CA 10 MG TABLET (FP) PO SCH (22:07)
[2016-11-19] MEDS: SILDENAFIL CITRATE 20 MG TAB PO SCH ×3 (06:43→22:51)
[2016-11-19] MEDS ORDERED: PT OWN MED DRAWER 7, Y5N ONE (10:11)
[2016-11-19] MEDS: METOPROLOL TARTRATE 50 MG TABLET (FP) PO SCH ×2 (10:17→22:49)
[2016-11-19] MEDS: SPIRONOLACTONE 25 MG TABLET (FP) PO SCH (10:18)
[2016-11-19] MEDS: PANTOPRAZOLE 40 MG TABLET (FP) PO SCH (10:18)
[2016-11-19] MEDS: amLODIPine BESYLATE 10 MG TABLET (FP) PO SCH (10:18)
[2016-11-19] MEDS: ENOXAPARIN NA (PORCINE) 80 MG/0.8 ML DISP.SYRIN SQ SCH ×2 (10:18→22:50)
--- NOTE | 2016-11-19 10:20 | PN ---
Progress Note (short form) - Note Progress Note: continues with pain fever to 102 last night- sweats no rigors or chills now notes she has been hiving diarrhea Vital Signs Period Temp Pulse Resp BP Sys/Morales Pulse Ox Last 24 Hr 97.5 F-102 F 62-88 18-20 124-150/56-75 96 cor-rrr llungs decreased bs at bases abd soft,nt ext no edema +zoster drying on back, still blisters on front CBC, BMP 11/18/16 08:25 11/18/16 08:25 a/p FUO fevers-?source stool cdiff blood cultures chest ct zoster (dermatomal)-day #7 antivirals, switch to po valtrex to complete 10 days HEMANT resolving- thrombocytopenia- resolved afib-anticoagulation per primary service d/w hospitalist Problem List - Problems (1) Zoster Code(s): B02.9 - ZOSTER WITHOUT COMPLICATIONS (2) HEMANT (acute kidney injury) Code(s): N17.9 - ACUTE KIDNEY FAILURE, UNSPECIFIED
[2016-11-19] MEDS ORDERED: valACYclovir HCL 1000 MG TABLET PO SCH (10:30)
[2016-11-19] MEDS: ACYCLOVIR INJECTION 500 MG in DEXTROSE 5%-WATER - 100 ML IVPB SCH (10:31)
[2016-11-19 11:07] LABS: MCH 29.9 pg (25.7-33.7); MCHC 33.2 g/dl (32.0-36.0); MEAN CELL VOLUME 89.9 fl (80-96); MEAN PLT VOLUME 9.3 fl (7.5-11.1); PLATELET COUNT 156 K/MM3 (134-434); RDW 14.4 % (11.6-15.6); WHITE BLOOD COUNT 8.4 K/mm3 (4.0-10.0)
[2016-11-19] MEDS ORDERED: valACYclovir HCL 500 MG TABLET (FP) PO SCH (11:20)
--- NOTE | 2016-11-19 11:21 | PN ---
Progress Note (short form) - Note Progress Note: Noted fever of 102 overnight, but afebrile since. Seen by ID. Some discomfort in the distribution of Zoster. No SOB. Intake & Output 11/16/16 11/17/16 11/18/16 11/19/16 23:59 23:59 23:59 23:59 Intake Total 1796 810 500 110 Balance 1796 810 500 110 Weight 172 lb 171 lb 173 lb 172 lb Last Vital Signs Temp Pulse Resp BP Pulse Ox 98.7 F 75 18 150/70 96 11/19/16 08:16 11/19/16 08:16 11/19/16 08:16 11/19/16 08:16 11/18/16 21:00 Active Medications Acetaminophen (Tylenol -) 650 mg PO Q6H PRN PRN Reason: FEVER OR PAIN Last Admin: 11/18/16 22:09 Dose: 650 mg Al Hydroxide/Mg Hydroxide (Mylanta Oral Suspension -) 30 ml PO Q6H PRN PRN Reason: DYSPEPSIA Amlodipine Besylate (Norvasc -) 10 mg PO DAILY [facility] Last Admin: 11/19/16 10:18 Dose: 10 mg Atorvastatin Calcium (Lipitor -) 10 mg PO HS [facility] Last Admin: 11/18/16 22:07 Dose: 10 mg Enoxaparin Sodium (Lovenox -) 80 mg SQ BID [facility] Last Admin: 11/19/16 10:18 Dose: 80 mg Gabapentin (Neurontin -) 100 mg PO TID [facility] Metoprolol Tartrate (Lopressor -) 150 mg PO BID [facility] Last Admin: 11/19/16 10:17 Dose: 150 mg Ondansetron HCl (Zofran Injection) 4 mg IVPB Q6H PRN PRN Reason: NAUSEA Oxycodone HCl (Roxicodone -) 5 mg PO Q6H PRN PRN Reason: PAIN Last Admin: 11/18/16 05:47 Dose: 5 mg Pantoprazole Sodium (Protonix -) 40 mg PO DAILY [facility] Last Admin: 11/19/16 10:18 Dose: 40 mg Sildenafil Citrate (Revatio -) 10 mg PO TID [facility] Last Admin: 11/19/16 06:43 Dose: 10 mg Spironolactone (Aldactone -) 25 mg PO DAILY [facility] Last Admin: 11/19/16 10:18 Dose: 25 mg Valacyclovir HCl (Valtrex -) 1,000 mg PO BID [facility] Warfarin Sodium (Coumadin -) 7.5 mg PO DAILY@1800 [facility] Last Admin: 11/18/16 17:26 Dose: 7.5 mg Constitutional: Yes: NAD Eyes: Yes: EOM Intact HENT: Yes: Normocephalic Neck: Yes: Trachea Midline Cardiovascular: Yes: Pulse Irregular, S1, S2 Respiratory: Yes: Diminished Gastrointestinal: Yes: Normal Bowel Sounds, Soft Edema: No Integumentary: Yes: (+) zoster lesions right anterior chest wall Labs: Laboratory Results - last 24 hr 11/19/16 10:45 WBC 8.4 RBC 3.55 L Hgb 10.6 L Hct 31.9 L MCV 89.9 MCH 29.9 MCHC 33.2 RDW 14.4 Plt Count 156 D MPV 9.3 Assessment/Plan Acute shingles/zoster RACW CAD Angina pectoris Diastolic LV dysfunction CHF by Hx Paroxysmal atrial fibrillation on Coumadin therapy Severe pulmonary HTN HTN NIDDM Hypercholesterolemia CKD Acyclovir as ordered Pain control O2 as needed Revatio AC Dr Schulte
[2016-11-19 11:29] LABS: INR 1.84 (0.82-1.09); PROTHROMBIN TIME (PATIENT) 20.5 SEC (9.98-11.88)
--- NOTE | 2016-11-19 12:00 | PN ---
Progress Note (short form) - Note Progress Note: Subjective: The patient was seen and examined at the bedside, she has complaints of pain to the site of her herpes zoster Tmax 102. Discussed with Dr. Berg, will order CT chest, blood cultures Patient reports diarrhea, f/u c.diff Current Medications Generic Name Dose Route Start Last Admin Trade Name Freq PRN Reason Stop Dose Admin Acetaminophen 650 mg 11/17/16 12:08 11/18/16 22:09 Tylenol - PO 650 mg Q6H PRN Administration FEVER OR PAIN Al Hydroxide/Mg Hydroxide 30 ml 11/17/16 12:08 Mylanta Oral Suspension - PO Q6H PRN DYSPEPSIA Amlodipine Besylate 10 mg 11/18/16 10:00 11/19/16 10:18 Norvasc - PO 10 mg DAILY [facility] Administration Atorvastatin Calcium 10 mg 11/17/16 22:00 11/18/16 22:07 Lipitor - PO 10 mg HS [facility] Administration Enoxaparin Sodium 80 mg 11/17/16 22:00 11/19/16 10:18 Lovenox - SQ 80 mg BID [facility] Administration Gabapentin 100 mg 11/19/16 14:00 Neurontin - PO TID [facility] Metoprolol Tartrate 150 mg 11/17/16 22:00 11/19/16 10:17 Lopressor - PO 150 mg BID [facility] Administration Ondansetron HCl 4 mg 11/17/16 12:08 Zofran Injection IVPB Q6H PRN NAUSEA Oxycodone HCl 5 mg 11/17/16 12:08 11/18/16 05:47 Roxicodone - PO 5 mg Q6H PRN Administration PAIN Pantoprazole Sodium 40 mg 11/18/16 10:00 11/19/16 10:18 Protonix - PO 40 mg DAILY [facility] Administration Sildenafil Citrate 10 mg 11/17/16 14:00 11/19/16 06:43 Revatio - PO 10 mg TID [facility] Administration Spironolactone 25 mg 11/18/16 10:00 11/19/16 10:18 Aldactone - PO 25 mg DAILY [facility] Administration Valacyclovir HCl 1,000 mg 11/19/16 11:20 Valtrex - PO BID [facility] Warfarin Sodium 7.5 mg 11/17/16 18:00 11/18/16 17:26 Coumadin - PO 7.5 mg DAILY@1800 [facility] Administration Objective: Vital Signs Period Temp Pulse Resp BP Sys/Morales Pulse Ox Last 24 Hr 97.5 F-102 F 62-88 18-20 124-150/56-75 96 Physical Exam: General: NAD, A&Ox3 Lungs: CTA bilaterally Heart: RRR, S1S2 Abd: Soft. Fluid filled blisters under right breast with some crusting around to back. Ext: Warm, well-perfused. Trace bilateral lower extremity edema CBCD WBC 8.4 K/mm3 (4.0-10.0) 11/19/16 10:45 RBC 3.55 M/mm3 (3.60-5.2) L 11/19/16 10:45 Hgb 10.6 GM/dL (10.7-15.3) L 11/19/16 10:45 Hct 31.9 % (32.4-45.2) L 11/19/16 10:45 MCV 89.9 fl (80-96) 11/19/16 10:45 MCHC 33.2 g/dl (32.0-36.0) 11/19/16 10:45 RDW 14.4 % (11.6-15.6) 11/19/16 10:45 Plt Count 156 K/MM3 (134-434) D 11/19/16 10:45 MPV 9.3 fl (7.5-11.1) 11/19/16 10:45 CMP Sodium 141 mmol/L (136-145) 11/18/16 08:25 Potassium 4.3 mmol/L (3.5-5.1) 11/18/16 08:25 Chloride 108 mmol/L (98-107) H 11/18/16 08:25 Carbon Dioxide 24 mmol/L (21-32) 11/18/16 08:25 Anion Gap 9 (8-16) 11/18/16 08:25 BUN 12 mg/dL (7-18) 11/18/16 08:25 Creatinine 1.2 mg/dL (0.55-1.02) H 11/18/16 08:25 Creat Clearance w eGFR 42.80 (>60) 11/18/16 08:25 Random Glucose 122 mg/dL (74-106) H D 11/18/16 08:25 Calcium 8.3 mg/dL (8.5-10.1) L 11/18/16 08:25 Total Bilirubin 0.8 mg/dL (0.2-1.0) 11/18/16 08:25 AST 23 U/L (15-37) 11/18/16 08:25 ALT 28 U/L (12-78) 11/18/16 08:25 Alkaline Phosphatase 45 U/L (45-117) 11/18/16 08:25 Total Protein 6.9 g/dl (6.4-8.2) 11/18/16 08:25 Albumin 2.6 g/dl (3.4-5.0) L 11/18/16 08:25 CARDIAC ENZYMES Creatine Kinase 231 IU/L (26-192) H 11/12/16 06:00 Troponin I < 0.02 ng/ml (0.00-0.05) 11/12/16 06:00 Microbiology 11/15/16 10:34 Blood - Peripheral Venous Blood Culture - Preliminary NO GROWTH OBTAINED AFTER 96 HOURS, INCUBATION TO CONTINUE FOR 1 DAYS. 11/15/16 09:25 Blood - Peripheral Venous Blood Culture - Preliminary NO GROWTH OBTAINED AFTER 96 HOURS, INCUBATION TO CONTINUE FOR 1 DAYS. 11/12/16 18:30 Blood - Peripheral Venous Blood Culture - Final NO GROWTH AFTER 5 DAYS INCUBATION 11/12/16 17:45 Blood - Peripheral Venous Blood Culture - Final NO GROWTH AFTER 5 DAYS INCUBATION 11/15/16 23:00 Urine - Urine Clean Catch Urine Culture - Final NO GROWTH OBTAINED 11/13/16 18:49 Urine - Urine Clean Catch Urine Culture - Final NO GROWTH OBTAINED Assessment: This is an 86 year old female with PMHx of HTN, diastolic heart failure, paroxysmal a.fib (on Coumadin) who presented to the ED with abdominal pain x4 days and was found to have herpes zoster. Plan: 1) ID: Herpes Zoster - Tmax 102 - WBC wnl - Discontinue Acyclovir (11/15-11/19), day 7 of antivirals today, switched to po valtrex today, will need total of 10 days of antivirals - Appreciate ID consult Persistent fevers - F/u CT chest Diarrhea - F/u c.diff 2) Cardiology: HTN - Continue Norvasc - Continue Lopressor - Should ideally be on ACEi/ARB, defer starting to cards Paroxysmal a.fib - Continue Lovenox bridge to Coumadin - INR 1.84 today - Rate controlled Pulmonary HTN - Continue Sildenafil Hyperlipidemia - Continue Lipitor Diastolic hear failure - ECHO 10/26/16: LV normal; RV normal; LAE; mild MR; mild to moderate - Hold torsemide - Appreciate cardiology consult 3) : HEMANT - Stable, Cr 1.2 today - Continue IV fluids while on IV acylovir 4) GI: Abd pain - Now with diarrhea - CTAP reviewed and discussed with Dr. Berg - Patient received 3 days of Ceftriaxone on admission - Will send stool studies - Continue to hold off on abx at this time. Will treat pending cultures 5) F/E/N: - Low sodium diet - Monitor electrolytes 6) Prophylaxis: - Lovenox bridge to coumadin - OOB ambulating 7) Dispo: - Requires continued inpatient care CODE STATUS: FULL CODE Visit type - Emergency Visit Emergency Visit: Yes ED Registration Date: 11/14/16 Care time: The patient presented to the Emergency Department on the above date and was hospitalized for further evaluation of their emergent condition. - New Patient This patient is new to me today: No - Critical Care Critical Care patient: No
[2016-11-19 12:06] LABS: ANION GAP 6 (8-16); CO2 27 mmol/L (21-32); CREATININE 1.3 mg/dL (0.55-1.02); GLUCOSE,RANDOM 109 mg/dL (74-106); SGOT/AST 27 U/L (15-37); SGPT/ALT 35 U/L (12-78)
[2016-11-19 12:08] LABS: ALK PHOS 56 U/L (45-117); BILIRUBIN,TOTAL 0.8 mg/dL (0.2-1.0); TOT PROT 8.1 g/dl (6.4-8.2)
[2016-11-19] MEDS ORDERED: SODIUM CHLORIDE 1,000 ML IV SCH (12:15)
[2016-11-19] MEDS: GABAPENTIN 100 MG CAPSULE (FP) PO SCH ×2 (13:16→22:50)
[2016-11-19] MEDS: valACYclovir HCL 500 MG TABLET (FP) PO SCH ×2 (13:58→22:52)
[2016-11-19] MEDS ORDERED: PIPERACILLIN/TAZOB 3.375 GM/50 ML PRE-DOCKED IVPB SCH (18:00)
[2016-11-19] MEDS ORDERED: PIPERACILLIN/TAZOBACTAM 3.375 GM VIAL IVPB ONE (18:13)
[2016-11-19] MEDS ORDERED: DEXTROSE 5%-WATER - 50 ML IVPB ONE (18:14)
[2016-11-19] MEDS: PIPERACILLIN/TAZOB 3.375 GM 3.375 GM in DEXTROSE 5%-WATER - 50 ML IVPB SCH (18:17)
[2016-11-19] MEDS: WARFARIN NA 7.5 MG TABLET (FP) PO SCH (18:17)
[2016-11-19] MEDS: ATORVASTATIN CA 10 MG TABLET (FP) PO SCH (22:50)
[2016-11-19] MEDS: oxyCODONE HCL 5 MG TABLET PO PRN (23:04)
[2016-11-20] MEDS ORDERED: PIPERACILLIN/TAZOBACTAM 3.375 GM VIAL IVPB ONE ×3 (01:10→17:38)
[2016-11-20] MEDS ORDERED: DEXTROSE 5%-WATER - 50 ML IVPB ONE ×3 (01:10→17:38)
[2016-11-20] MEDS: PIPERACILLIN/TAZOB 3.375 GM 3.375 GM in DEXTROSE 5%-WATER - 50 ML IVPB SCH ×3 (01:22→17:56)
[2016-11-20] MEDS: ACETAMINOPHEN 325 MG TABLET (FP) PO PRN ×2 (01:23→21:44)
[2016-11-20] MEDS: oxyCODONE HCL 5 MG TABLET PO PRN (06:14)
[2016-11-20] MEDS: GABAPENTIN 100 MG CAPSULE (FP) PO SCH ×3 (06:14→21:45)
[2016-11-20] MEDS: SILDENAFIL CITRATE 20 MG TAB PO SCH ×3 (06:15→22:35)
[2016-11-20] MEDS ORDERED: PT OWN MED DRAWER 7, Y5N ONE (10:38)
[2016-11-20] MEDS: amLODIPine BESYLATE 10 MG TABLET (FP) PO SCH (10:43)
[2016-11-20] MEDS: METOPROLOL TARTRATE 50 MG TABLET (FP) PO SCH ×2 (10:43→21:45)
[2016-11-20] MEDS: valACYclovir HCL 500 MG TABLET (FP) PO SCH ×2 (10:43→21:44)
[2016-11-20] MEDS: SPIRONOLACTONE 25 MG TABLET (FP) PO SCH (10:43)
[2016-11-20] MEDS: PANTOPRAZOLE 40 MG TABLET (FP) PO SCH (10:43)
[2016-11-20] MEDS: ENOXAPARIN NA (PORCINE) 80 MG/0.8 ML DISP.SYRIN SQ SCH ×2 (10:44→21:45)
--- NOTE | 2016-11-20 11:08 | PN ---
Progress Note (short form) - Note Progress Note: No fever since temperature spike the previous night. Still with discomfort in the distribution of Zoster. No SOB. CT : Lymphadenopathy on the right/effusions with associated atelectasis/right breast swelling Intake & Output 11/17/16 11/18/16 11/19/16 11/20/16 23:59 23:59 23:59 23:59 Intake Total 728 579 9498 1125 Balance 606 558 3268 1125 Weight 171 lb 173 lb 172 lb 172 lb 2 oz Last Vital Signs Temp Pulse Resp BP Pulse Ox 98.2 F 72 18 139/78 96 11/20/16 08:00 11/20/16 08:00 11/20/16 08:00 11/20/16 08:00 11/19/16 21:00 Active Medications Acetaminophen (Tylenol -) 650 mg PO Q6H PRN PRN Reason: FEVER OR PAIN Last Admin: 11/20/16 01:23 Dose: 650 mg Al Hydroxide/Mg Hydroxide (Mylanta Oral Suspension -) 30 ml PO Q6H PRN PRN Reason: DYSPEPSIA Amlodipine Besylate (Norvasc -) 10 mg PO DAILY [facility] Last Admin: 11/20/16 10:43 Dose: 10 mg Atorvastatin Calcium (Lipitor -) 10 mg PO HS [facility] Last Admin: 11/19/16 22:50 Dose: 10 mg Benzocaine/Menthol (Cepacol Lozenge -) 1 each MM Q2H PRN PRN Reason: COUGH Enoxaparin Sodium (Lovenox -) 80 mg SQ BID [facility] Last Admin: 11/20/16 10:44 Dose: 80 mg Gabapentin (Neurontin -) 100 mg PO TID [facility] Last Admin: 11/20/16 06:14 Dose: 100 mg Piperacillin Sod/Tazobactam (Sod 3.375 gm/ Dextrose) 50 mls @ 100 mls/hr IVPB Q8H-IV [facility] Metoprolol Tartrate (Lopressor -) 150 mg PO BID [facility] Last Admin: 11/20/16 10:43 Dose: 150 mg Ondansetron HCl (Zofran Injection) 4 mg IVPB Q6H PRN PRN Reason: NAUSEA Oxycodone HCl (Roxicodone -) 5 mg PO Q6H PRN PRN Reason: PAIN Last Admin: 11/20/16 06:14 Dose: 5 mg Pantoprazole Sodium (Protonix -) 40 mg PO DAILY [facility] Last Admin: 11/20/16 10:43 Dose: 40 mg Sildenafil Citrate (Revatio -) 10 mg PO TID [facility] Last Admin: 11/20/16 06:15 Dose: 10 mg Spironolactone (Aldactone -) 25 mg PO DAILY [facility] Last Admin: 11/20/16 10:43 Dose: 25 mg Valacyclovir HCl (Valtrex -) 1,000 mg PO BID [facility] Last Admin: 11/20/16 10:43 Dose: 1,000 mg Warfarin Sodium (Coumadin -) 7.5 mg PO DAILY@1800 [facility] Last Admin: 11/19/16 18:17 Dose: 7.5 mg Constitutional: Yes: NAD Eyes: Yes: EOM Intact HENT: Yes: Normocephalic Neck: Yes: Trachea Midline Cardiovascular: Yes: Pulse Irregular, S1, S2 Respiratory: Yes: Diminished Gastrointestinal: Yes: Normal Bowel Sounds, Soft Edema: No Integumentary: Yes: (+) zoster lesions right anterior chest wall Labs: Laboratory Results - last 24 hr 11/19/16 11/19/16 10:45 10:45 PT with INR 20.50 H INR 1.84 H Sodium 140 Potassium 3.9 Chloride 107 Carbon Dioxide 27 Anion Gap 6 L BUN 12 Creatinine 1.3 H Creat Clearance w eGFR 39.02 Random Glucose 109 H Calcium 9.0 Total Bilirubin 0.8 AST 27 ALT 35 D Alkaline Phosphatase 56 D Total Protein 8.1 Albumin 3.0 L Assessment/Plan Acute shingles/zoster RACW CAD Angina pectoris Diastolic LV dysfunction CHF by Hx Paroxysmal atrial fibrillation on Coumadin therapy Severe pulmonary HTN HTN NIDDM Hypercholesterolemia CKD Acyclovir as ordered Pain control O2 as needed Constanza Schulte
--- NOTE | 2016-11-20 11:29 | PN ---
Progress Note, Physician History of Present Illness: Zoster improving, afebrile, remains in SR. - Current Medication List Current Medications: Active Medications Acetaminophen (Tylenol -) 650 mg PO Q6H PRN PRN Reason: FEVER OR PAIN Last Admin: 11/20/16 01:23 Dose: 650 mg Al Hydroxide/Mg Hydroxide (Mylanta Oral Suspension -) 30 ml PO Q6H PRN PRN Reason: DYSPEPSIA Amlodipine Besylate (Norvasc -) 10 mg PO DAILY [facility] Last Admin: 11/20/16 10:43 Dose: 10 mg Atorvastatin Calcium (Lipitor -) 10 mg PO HS [facility] Last Admin: 11/19/16 22:50 Dose: 10 mg Benzocaine/Menthol (Cepacol Lozenge -) 1 each MM Q2H PRN PRN Reason: COUGH Enoxaparin Sodium (Lovenox -) 80 mg SQ BID [facility] Last Admin: 11/20/16 10:44 Dose: 80 mg Gabapentin (Neurontin -) 100 mg PO TID [facility] Last Admin: 11/20/16 06:14 Dose: 100 mg Piperacillin Sod/Tazobactam (Sod 3.375 gm/ Dextrose) 50 mls @ 100 mls/hr IVPB Q8H-IV [facility] Metoprolol Tartrate (Lopressor -) 150 mg PO BID [facility] Last Admin: 11/20/16 10:43 Dose: 150 mg Ondansetron HCl (Zofran Injection) 4 mg IVPB Q6H PRN PRN Reason: NAUSEA Oxycodone HCl (Roxicodone -) 5 mg PO Q6H PRN PRN Reason: PAIN Last Admin: 11/20/16 06:14 Dose: 5 mg Pantoprazole Sodium (Protonix -) 40 mg PO DAILY [facility] Last Admin: 11/20/16 10:43 Dose: 40 mg Sildenafil Citrate (Revatio -) 10 mg PO TID [facility] Last Admin: 11/20/16 06:15 Dose: 10 mg Spironolactone (Aldactone -) 25 mg PO DAILY [facility] Last Admin: 11/20/16 10:43 Dose: 25 mg Valacyclovir HCl (Valtrex -) 1,000 mg PO BID [facility] Last Admin: 11/20/16 10:43 Dose: 1,000 mg Warfarin Sodium (Coumadin -) 7.5 mg PO DAILY@1800 [facility] Last Admin: 11/19/16 18:17 Dose: 7.5 mg - Objective Vital Signs: Vital Signs Temperature 98.2 F 11/20/16 08:00 Pulse Rate 72 11/20/16 08:00 Respiratory Rate 18 11/20/16 08:00 Blood Pressure 139/78 11/20/16 08:00 O2 Sat by Pulse Oximetry (%) 96 11/19/16 21:00 Constitutional: Yes: No Distress, Calm HENT: Yes: Nasal Congestion Neck: Yes: Supple Cardiovascular: Yes: Regular Rate and Rhythm Respiratory: Yes: Regular, Diminished Gastrointestinal: Yes: Normal Bowel Sounds, Soft Edema: No Labs: CBC, BMP 11/19/16 10:45 11/19/16 10:45 INR, PTT INR 1.84 (0.82-1.09) H 11/19/16 10:45 - ....Imaging Cat Scan: Report Reviewed (Bilateral effusions and ATX R>L) Assessment/Plan 1. 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 Diastolic LV dysfunction with chronic class I-II NYHA classification congestive heart failure, compensated/euvolemic 4. Paroxysmal atrial fibrillation [id number] score of 9 on Coumadin therapy with subtherapeutic INR, currently in sinus rhythm 5. Severe pulmonary HTN 6. HTN 7. NIDDM 8. Hypercholesterolemia 9. CKD PLAN: 1. Continue Lopressor 150 bid 2. Continue Norvasc 10 qd 3. Recommend ACEI or ARBS once renal fxn stable 4. Continue A/C with Lovenox->Coumadin maintaining INR 2-3 5. Continue Sildenafil Citrate (Revatio) for the above noted pulmonary HTN 6. Continue Aldactone 25 qd 7. Continue Lipitor 10 qhs 8. Pain management and antivirals as per the primary team 9. GI prophylaxis
--- NOTE | 2016-11-20 13:13 | PN ---
Progress Note (short form) - Note Progress Note: continues with pain zosyn started yesterday for possible pneumonia Vital Signs Period Temp Pulse Resp BP Sys/Morales Pulse Ox Last 24 Hr 98.2 F-98.4 F 66-72 16-20 115-139/58-78 96 cor-rrr llungs decreased bs at bases abd soft,nt ext no edema zoster drying, some drainage from lesions on the abdomen CBC, BMP 11/19/16 10:45 11/19/16 10:45 Microbiology 11/19/16 10:50 Blood - Peripheral Venous Blood Culture - Preliminary NO GROWTH OBTAINED AFTER 24 HOURS, INCUBATION TO CONTINUE FOR 4 DAYS. 11/19/16 10:45 Blood - Peripheral Venous Blood Culture - Preliminary NO GROWTH OBTAINED AFTER 24 HOURS, INCUBATION TO CONTINUE FOR 4 DAYS. 11/15/16 10:34 Blood - Peripheral Venous Blood Culture - Final NO GROWTH AFTER 5 DAYS INCUBATION 11/15/16 09:25 Blood - Peripheral Venous Blood Culture - Final NO GROWTH AFTER 5 DAYS INCUBATION 11/12/16 18:30 Blood - Peripheral Venous Blood Culture - Final NO GROWTH AFTER 5 DAYS INCUBATION 11/12/16 17:45 Blood - Peripheral Venous Blood Culture - Final NO GROWTH AFTER 5 DAYS INCUBATION 11/15/16 23:00 Urine - Urine Clean Catch Urine Culture - Final NO GROWTH OBTAINED 11/13/16 18:49 Urine - Urine Clean Catch Urine Culture - Final NO GROWTH OBTAINED chest ct with bilateral effusions right greater then left, ?consolidation on Right a/p FUO fevers-?source- possible pneumonia?, will review ct scan stool cdiff blood cultures zosyn incentive spirometry zoster (dermatomal)-po valtrex, resume neurontin HEMANT resolving- thrombocytopenia- resolved afib-anticoagulation per primary service Problem List - Problems (1) Zoster Code(s): B02.9 - ZOSTER WITHOUT COMPLICATIONS (2) HEMANT (acute kidney injury) Code(s): N17.9 - ACUTE KIDNEY FAILURE, UNSPECIFIED
--- NOTE | 2016-11-20 14:18 | PN ---
Progress Note (short form) - Note Progress Note: Subjective: The patient was seen and examined at the bedside, she has complaints of pain to the site of her herpes zoster Afebrile overnight started on Zosyn yesterday for possible pneumonia Current Medications Generic Name Dose Route Start Last Admin Trade Name Freq PRN Reason Stop Dose Admin Acetaminophen 650 mg 11/17/16 12:08 11/20/16 01:23 Tylenol - PO 650 mg Q6H PRN Administration FEVER OR PAIN Al Hydroxide/Mg Hydroxide 30 ml 11/17/16 12:08 Mylanta Oral Suspension - PO Q6H PRN DYSPEPSIA Amlodipine Besylate 10 mg 11/18/16 10:00 11/20/16 10:43 Norvasc - PO 10 mg DAILY [facility] Administration Atorvastatin Calcium 10 mg 11/17/16 22:00 11/19/16 22:50 Lipitor - PO 10 mg HS [facility] Administration Benzocaine/Menthol 1 each 11/20/16 06:57 Cepacol Lozenge - MM Q2H PRN COUGH Enoxaparin Sodium 80 mg 11/17/16 22:00 11/20/16 10:44 Lovenox - SQ 80 mg BID [facility] Administration Gabapentin 100 mg 11/19/16 14:00 11/20/16 13:12 Neurontin - PO 100 mg TID [facility] Administration Piperacillin Sod/Tazobactam 50 mls @ 100 mls/hr 11/20/16 13:15 11/20/16 13:13 Sod 3.375 gm/ Dextrose IVPB 100 mls/hr Q8H-IV [facility] Administration Metoprolol Tartrate 150 mg 11/17/16 22:00 11/20/16 10:43 Lopressor - PO 150 mg BID [facility] Administration Ondansetron HCl 4 mg 11/17/16 12:08 Zofran Injection IVPB Q6H PRN NAUSEA Pantoprazole Sodium 40 mg 11/18/16 10:00 11/20/16 10:43 Protonix - PO 40 mg DAILY [facility] Administration Sildenafil Citrate 10 mg 11/17/16 14:00 11/20/16 13:12 Revatio - PO 10 mg TID [facility] Administration Spironolactone 25 mg 11/18/16 10:00 11/20/16 10:43 Aldactone - PO 25 mg DAILY [facility] Administration Valacyclovir HCl 1,000 mg 11/19/16 14:00 11/20/16 10:43 Valtrex - PO 1,000 mg BID [facility] Administration Warfarin Sodium 7.5 mg 11/17/16 18:00 11/19/16 18:17 Coumadin - PO 7.5 mg DAILY@1800 [facility] Administration Objective: Vital Signs Period Temp Pulse Resp BP Sys/Morales Pulse Ox Last 24 Hr 98 F-98.4 F 64-72 16-20 115-140/58-78 96-98 Physical Exam: General: NAD, A&Ox3 Lungs: CTA bilaterally Heart: RRR, S1S2 Abd: Soft. Fluid filled blisters under right breast with some crusting around to back. Ext: Warm, well-perfused. Trace bilateral lower extremity edema CBCD WBC 7.2 K/mm3 (4.0-10.0) 11/20/16 14:35 RBC 3.39 M/mm3 (3.60-5.2) L 11/20/16 14:35 Hgb 10.2 GM/dL (10.7-15.3) L 11/20/16 14:35 Hct 30.9 % (32.4-45.2) L 11/20/16 14:35 MCV 91.0 fl (80-96) 11/20/16 14:35 MCHC 32.9 g/dl (32.0-36.0) 11/20/16 14:35 RDW 15.4 % (11.6-15.6) 11/20/16 14:35 Plt Count 165 K/MM3 (134-434) 11/20/16 14:35 MPV 9.5 fl (7.5-11.1) 11/20/16 14:35 CMP Sodium 138 mmol/L (136-145) 11/20/16 14:35 Potassium 4.3 mmol/L (3.5-5.1) 11/20/16 14:35 Chloride 107 mmol/L (98-107) 11/20/16 14:35 Carbon Dioxide 26 mmol/L (21-32) 11/20/16 14:35 Anion Gap 5 (8-16) L 11/20/16 14:35 BUN 10 mg/dL (7-18) 11/20/16 14:35 Creatinine 1.3 mg/dL (0.55-1.02) H 11/20/16 14:35 Creat Clearance w eGFR 39.02 (>60) 11/20/16 14:35 Random Glucose 148 mg/dL (74-106) H D 11/20/16 14:35 Calcium 8.8 mg/dL (8.5-10.1) 11/20/16 14:35 Total Bilirubin 0.6 mg/dL (0.2-1.0) D 11/20/16 14:35 AST 31 U/L (15-37) 11/20/16 14:35 ALT 35 U/L (12-78) 11/20/16 14:35 Alkaline Phosphatase 54 U/L (45-117) 11/20/16 14:35 Total Protein 8.0 g/dl (6.4-8.2) 11/20/16 14:35 Albumin 2.9 g/dl (3.4-5.0) L 11/20/16 14:35 CARDIAC ENZYMES Creatine Kinase 231 IU/L (26-192) H 11/12/16 06:00 Troponin I < 0.02 ng/ml (0.00-0.05) 11/12/16 06:00 Microbiology 11/19/16 10:50 Blood - Peripheral Venous Blood Culture - Preliminary NO GROWTH OBTAINED AFTER 24 HOURS, INCUBATION TO CONTINUE FOR 4 DAYS. 11/19/16 10:45 Blood - Peripheral Venous Blood Culture - Preliminary NO GROWTH OBTAINED AFTER 24 HOURS, INCUBATION TO CONTINUE FOR 4 DAYS. 11/15/16 10:34 Blood - Peripheral Venous Blood Culture - Final NO GROWTH AFTER 5 DAYS INCUBATION 11/15/16 09:25 Blood - Peripheral Venous Blood Culture - Final NO GROWTH AFTER 5 DAYS INCUBATION 11/12/16 18:30 Blood - Peripheral Venous Blood Culture - Final NO GROWTH AFTER 5 DAYS INCUBATION 11/12/16 17:45 Blood - Peripheral Venous Blood Culture - Final NO GROWTH AFTER 5 DAYS INCUBATION 11/15/16 23:00 Urine - Urine Clean Catch Urine Culture - Final NO GROWTH OBTAINED 11/13/16 18:49 Urine - Urine Clean Catch Urine Culture - Final NO GROWTH OBTAINED Assessment: This is an 86 year old female with PMHx of HTN, diastolic heart failure, paroxysmal a.fib (on Coumadin) who presented to the ED with abdominal pain x4 days and was found to have herpes zoster. Plan: 1) ID: Herpes Zoster - Afebrile - WBC wnl - Discontinue Acyclovir (11/15-11/19), day 8 of antivirals today, switched to po valtrex yesterday, will need total of 10 days of antivirals - Appreciate ID consult Persistent fevers - Chest CT with mild to moderate mediastinal and right axillary lymphadenopathy. B/l pleural effusions and lower lobe consolidation/ atelectasis. Edematous changes within the visualized portions of the right breast - Started on Zosyn yesterday evening Diarrhea - F/u c.diff 2) Cardiology: HTN - Continue Norvasc - Continue Lopressor - Should ideally be on ACEi/ARB, defer starting to cards Paroxysmal a.fib - INR therapeutic today. Will continue Lovenox for 24 hours and f/u INR tomorrow. If still therapeutic, will d/c Lovenox - Rate controlled Pulmonary HTN - Continue Sildenafil Hyperlipidemia - Continue Lipitor Diastolic hear failure - ECHO 10/26/16: LV normal; RV normal; LAE; mild MR; mild to moderate - Hold torsemide - Appreciate cardiology consult 3) : HEMANT - Stable Cr 1.3 4) GI: Abd pain - Now with diarrhea - CTAP reviewed and discussed with Dr. Berg - Patient received 3 days of Ceftriaxone on admission - Stool studies pending - F/u c.diff (uncollected) 5) F/E/N: - Low sodium diet - Monitor electrolytes 6) Prophylaxis: - Lovenox bridge to coumadin - OOB ambulating 7) Dispo: - Requires continued inpatient care CODE STATUS: FULL CODE Visit type - Emergency Visit Emergency Visit: Yes ED Registration Date: 11/14/16 Care time: The patient presented to the Emergency Department on the above date and was hospitalized for further evaluation of their emergent condition. - New Patient This patient is new to me today: No - Critical Care Critical Care patient: No
[2016-11-20 15:10] LABS: BASOPHIL 0.6 % (0-2.0); EOSINOPHIL 2.7 % (0-4.5); MCH 29.9 pg (25.7-33.7); MCHC 32.9 g/dl (32.0-36.0); MEAN PLT VOLUME 9.5 fl (7.5-11.1); NEUTROPHILS 59.1 % (42.8-82.8); PLATELET COUNT 165 K/MM3 (134-434); RDW 15.4 % (11.6-15.6); WHITE BLOOD COUNT 7.2 K/mm3 (4.0-10.0)
[2016-11-20 15:23] LABS: INR 2.03 (0.82-1.09); PROTHROMBIN TIME (PATIENT) 22.7 SEC (9.98-11.88)
--- NOTE | 2016-11-20 15:26 | PN ---
Progress Note (short form) - Note Progress Note: Subjective: The patient was seen and examined at the bedside, she reports feeling better today Start on Zosyn yesterday for possible pneumonia Current Medications Generic Name Dose Route Start Last Admin Trade Name Freq PRN Reason Stop Dose Admin Acetaminophen 650 mg 11/17/16 12:08 11/20/16 01:23 Tylenol - PO 650 mg Q6H PRN Administration FEVER OR PAIN Al Hydroxide/Mg Hydroxide 30 ml 11/17/16 12:08 Mylanta Oral Suspension - PO Q6H PRN DYSPEPSIA Amlodipine Besylate 10 mg 11/18/16 10:00 11/20/16 10:43 Norvasc - PO 10 mg DAILY [facility] Administration Atorvastatin Calcium 10 mg 11/17/16 22:00 11/19/16 22:50 Lipitor - PO 10 mg HS [facility] Administration Benzocaine/Menthol 1 each 11/20/16 06:57 Cepacol Lozenge - MM Q2H PRN COUGH Enoxaparin Sodium 80 mg 11/17/16 22:00 11/20/16 10:44 Lovenox - SQ 80 mg BID [facility] Administration Gabapentin 100 mg 11/19/16 14:00 11/20/16 13:12 Neurontin - PO 100 mg TID [facility] Administration Piperacillin Sod/Tazobactam 50 mls @ 100 mls/hr 11/20/16 13:15 11/20/16 13:13 Sod 3.375 gm/ Dextrose IVPB 100 mls/hr Q8H-IV [facility] Administration Metoprolol Tartrate 150 mg 11/17/16 22:00 11/20/16 10:43 Lopressor - PO 150 mg BID [facility] Administration Ondansetron HCl 4 mg 11/17/16 12:08 Zofran Injection IVPB Q6H PRN NAUSEA Pantoprazole Sodium 40 mg 11/18/16 10:00 11/20/16 10:43 Protonix - PO 40 mg DAILY [facility] Administration Sildenafil Citrate 10 mg 11/17/16 14:00 11/20/16 13:12 Revatio - PO 10 mg TID [facility] Administration Spironolactone 25 mg 11/18/16 10:00 11/20/16 10:43 Aldactone - PO 25 mg DAILY [facility] Administration Valacyclovir HCl 1,000 mg 11/19/16 14:00 11/20/16 10:43 Valtrex - PO 1,000 mg BID [facility] Administration Warfarin Sodium 7.5 mg 11/17/16 18:00 11/19/16 18:17 Coumadin - PO 7.5 mg DAILY@1800 [facility] Administration Objective: Vital Signs Period Temp Pulse Resp BP Sys/Morales Pulse Ox Last 24 Hr 98 F-98.4 F 64-72 16-20 115-140/58-78 96-98 Physical Exam: General: NAD, A&Ox3 Lungs: CTA bilaterally Heart: RRR, S1S2 Abd: Soft. Fluid filled blisters with some crusting under right breast around to back. Ext: Warm, well-perfused. Trace bilateral lower extremity edema CBCD WBC 7.2 K/mm3 (4.0-10.0) 11/20/16 14:35 RBC 3.39 M/mm3 (3.60-5.2) L 11/20/16 14:35 Hgb 10.2 GM/dL (10.7-15.3) L 11/20/16 14:35 Hct 30.9 % (32.4-45.2) L 11/20/16 14:35 MCV 91.0 fl (80-96) 11/20/16 14:35 MCHC 32.9 g/dl (32.0-36.0) 11/20/16 14:35 RDW 15.4 % (11.6-15.6) 11/20/16 14:35 Plt Count 165 K/MM3 (134-434) 11/20/16 14:35 MPV 9.5 fl (7.5-11.1) 11/20/16 14:35 CMP Sodium 140 mmol/L (136-145) 11/19/16 10:45 Potassium 3.9 mmol/L (3.5-5.1) 11/19/16 10:45 Chloride 107 mmol/L (98-107) 11/19/16 10:45 Carbon Dioxide 27 mmol/L (21-32) 11/19/16 10:45 Anion Gap 6 (8-16) L 11/19/16 10:45 BUN 12 mg/dL (7-18) 11/19/16 10:45 Creatinine 1.3 mg/dL (0.55-1.02) H 11/19/16 10:45 Creat Clearance w eGFR 39.02 (>60) 11/19/16 10:45 Random Glucose 109 mg/dL (74-106) H 11/19/16 10:45 Calcium 9.0 mg/dL (8.5-10.1) 11/19/16 10:45 Total Bilirubin 0.8 mg/dL (0.2-1.0) 11/19/16 10:45 AST 27 U/L (15-37) 11/19/16 10:45 ALT 35 U/L (12-78) D 11/19/16 10:45 Alkaline Phosphatase 56 U/L (45-117) D 11/19/16 10:45 Total Protein 8.1 g/dl (6.4-8.2) 11/19/16 10:45 Albumin 3.0 g/dl (3.4-5.0) L 11/19/16 10:45 CARDIAC ENZYMES Creatine Kinase 231 IU/L (26-192) H 11/12/16 06:00 Troponin I < 0.02 ng/ml (0.00-0.05) 11/12/16 06:00 Microbiology 11/19/16 10:50 Blood - Peripheral Venous Blood Culture - Preliminary NO GROWTH OBTAINED AFTER 24 HOURS, INCUBATION TO CONTINUE FOR 4 DAYS. 11/19/16 10:45 Blood - Peripheral Venous Blood Culture - Preliminary NO GROWTH OBTAINED AFTER 24 HOURS, INCUBATION TO CONTINUE FOR 4 DAYS. 11/15/16 10:34 Blood - Peripheral Venous Blood Culture - Final NO GROWTH AFTER 5 DAYS INCUBATION 11/15/16 09:25 Blood - Peripheral Venous Blood Culture - Final NO GROWTH AFTER 5 DAYS INCUBATION 11/12/16 18:30 Blood - Peripheral Venous Blood Culture - Final NO GROWTH AFTER 5 DAYS INCUBATION 11/12/16 17:45 Blood - Peripheral Venous Blood Culture - Final NO GROWTH AFTER 5 DAYS INCUBATION 11/15/16 23:00 Urine - Urine Clean Catch Urine Culture - Final NO GROWTH OBTAINED 11/13/16 18:49 Urine - Urine Clean Catch Urine Culture - Final NO GROWTH OBTAINED Assessment: This is an 86 year old female with PMHx of HTN, diastolic heart failure, paroxysmal a.fib (on Coumadin) who presented to the ED with abdominal pain x4 days and was found to have herpes zoster. Plan: 1) ID: Herpes Zoster with persistent fevers - WBC wnl - Continue Acyclovir (11/15- ), continue IV fluids - Chest x-ray with no evidence of pulmonary infiltrates - Appreciate ID consult 2) Cardiology: HTN - Continue Norvasc - Continue Lopressor - Should ideally be on ACEi/ARB, defer starting to cards Paroxysmal a.fib - INR therapeutic today. Will continue Lovenox for 24 hours and d/c tomorrow if remains therapeutic - Rate controlled Pulmonary HTN - Continue Sildenafil Hyperlipidemia - Continue Lipitor Diastolic hear failure - ECHO 10/26/16: LV normal; RV normal; LAE; mild MR; mild to moderate - Hold torsemide - Appreciate cardiology consult 3) : HEMANT - Stable, Cr 1.2 today - Continue IV fluids while on IV acylovir
[2016-11-20 15:43] LABS: ALBUMIN 2.9 g/dl (3.4-5.0); ALK PHOS 54 U/L (45-117); ANION GAP 5 (8-16); BILIRUBIN,TOTAL 0.6 mg/dL (0.2-1.0); CALCIUM 8.8 mg/dL (8.5-10.1); CO2 26 mmol/L (21-32); CREATININE 1.3 mg/dL (0.55-1.02); GLUCOSE,RANDOM 148 mg/dL (74-106); SGOT/AST 31 U/L (15-37); SGPT/ALT 35 U/L (12-78)
[2016-11-20] MEDS: WARFARIN NA 7.5 MG TABLET (FP) PO SCH (17:55)
[2016-11-20] MEDS: BENZOCAINE/MENTH/CETYLPYRD CL 1 EACH LOZENGE MM PRN (21:45)
[2016-11-20] MEDS: ATORVASTATIN CA 10 MG TABLET (FP) PO SCH (21:45)
[2016-11-21] MEDS ORDERED: PIPERACILLIN/TAZOBACTAM 3.375 GM VIAL IVPB ONE ×3 (02:21→17:28)
[2016-11-21] MEDS ORDERED: DEXTROSE 5%-WATER - 50 ML IVPB ONE ×3 (02:21→17:28)
[2016-11-21] MEDS: PIPERACILLIN/TAZOB 3.375 GM 3.375 GM in DEXTROSE 5%-WATER - 50 ML IVPB SCH ×3 (02:36→17:33)
[2016-11-21] MEDS: GABAPENTIN 100 MG CAPSULE (FP) PO SCH ×3 (06:00→21:14)
[2016-11-21] MEDS: SILDENAFIL CITRATE 20 MG TAB PO SCH ×3 (06:00→21:13)
[2016-11-21] MEDS: ACETAMINOPHEN 325 MG TABLET (FP) PO PRN ×2 (06:04→21:15)
[2016-11-21 08:43] LABS: INR 2.17 (0.82-1.09); PROTHROMBIN TIME (PATIENT) 24.3 SEC (9.98-11.88)
[2016-11-21 08:53] LABS: MCH 29.9 pg (25.7-33.7); MEAN CELL VOLUME 90.8 fl (80-96); MEAN PLT VOLUME 9.7 fl (7.5-11.1); PLATELET COUNT 167 K/MM3 (134-434); RDW 14.8 % (11.6-15.6); WHITE BLOOD COUNT 7.1 K/mm3 (4.0-10.0)
[2016-11-21 09:20] LABS: ALBUMIN 2.7 g/dl (3.4-5.0); ALK PHOS 53 U/L (45-117); ANION GAP 9 (8-16); BILIRUBIN,TOTAL 0.8 mg/dL (0.2-1.0); CALCIUM 8.6 mg/dL (8.5-10.1); CO2 25 mmol/L (21-32); CREATININE 1.3 mg/dL (0.55-1.02); GLUCOSE,RANDOM 103 mg/dL (74-106); SGOT/AST 32 U/L (15-37); SGPT/ALT 37 U/L (12-78); TOT PROT 7.5 g/dl (6.4-8.2)
[2016-11-21] MEDS: amLODIPine BESYLATE 10 MG TABLET (FP) PO SCH (10:42)
[2016-11-21] MEDS ORDERED: PT OWN MED DRAWER 7, Y5N ONE ×2 (10:47→11:26)
[2016-11-21] MEDS: METOPROLOL TARTRATE 50 MG TABLET (FP) PO SCH ×2 (10:57→21:16)
[2016-11-21] MEDS: PANTOPRAZOLE 40 MG TABLET (FP) PO SCH (10:58)
[2016-11-21] MEDS: SPIRONOLACTONE 25 MG TABLET (FP) PO SCH (10:58)
--- NOTE | 2016-11-21 11:17 | PN ---
Progress Note, Physician History of Present Illness: Zoster improving, afebrile, remains in SR. - Current Medication List Current Medications: Active Medications Acetaminophen (Tylenol -) 650 mg PO Q6H PRN PRN Reason: FEVER OR PAIN Last Admin: 11/21/16 06:04 Dose: 650 mg Al Hydroxide/Mg Hydroxide (Mylanta Oral Suspension -) 30 ml PO Q6H PRN PRN Reason: DYSPEPSIA Amlodipine Besylate (Norvasc -) 10 mg PO DAILY [facility] Last Admin: 11/21/16 10:42 Dose: 10 mg Atorvastatin Calcium (Lipitor -) 10 mg PO HS [facility] Last Admin: 11/20/16 21:45 Dose: 10 mg Benzocaine/Menthol (Cepacol Lozenge -) 1 each MM Q2H PRN PRN Reason: COUGH Last Admin: 11/20/16 21:45 Dose: 1 each Gabapentin (Neurontin -) 100 mg PO TID [facility] Last Admin: 11/21/16 06:00 Dose: 100 mg Piperacillin Sod/Tazobactam (Sod 3.375 gm/ Dextrose) 50 mls @ 100 mls/hr IVPB Q8H-IV [facility] Last Admin: 11/21/16 10:42 Dose: 100 mls/hr Metoprolol Tartrate (Lopressor -) 150 mg PO BID [facility] Last Admin: 11/21/16 10:57 Dose: 150 mg Ondansetron HCl (Zofran Injection) 4 mg IVPB Q6H PRN PRN Reason: NAUSEA Pantoprazole Sodium (Protonix -) 40 mg PO DAILY [facility] Last Admin: 11/21/16 10:58 Dose: 40 mg Sildenafil Citrate (Revatio -) 10 mg PO TID [facility] Last Admin: 11/21/16 06:00 Dose: 10 mg Spironolactone (Aldactone -) 25 mg PO DAILY [facility] Last Admin: 11/21/16 10:58 Dose: 25 mg Valacyclovir HCl (Valtrex -) 1,000 mg PO BID [facility] Last Admin: 11/20/16 21:44 Dose: 1,000 mg Warfarin Sodium (Coumadin -) 7.5 mg PO DAILY@1800 [facility] Last Admin: 11/20/16 17:55 Dose: 7.5 mg - Objective Vital Signs: Vital Signs Temperature 98.2 F 11/21/16 09:00 Pulse Rate 78 11/21/16 09:00 Respiratory Rate 18 11/21/16 09:00 Blood Pressure 148/74 11/21/16 09:00 O2 Sat by Pulse Oximetry (%) 99 11/20/16 21:00 Constitutional: Yes: No Distress, Calm Neck: Yes: Supple Cardiovascular: Yes: Regular Rate and Rhythm Respiratory: Yes: Regular, Diminished Gastrointestinal: Yes: Normal Bowel Sounds, Soft Edema: Yes Edema: LLE: Trace, RLE: Trace Labs: CBC, BMP 11/21/16 08:00 11/21/16 08:00 INR, PTT INR 2.17 (0.82-1.09) H 11/21/16 08:00 Assessment/Plan 1. 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 Diastolic LV dysfunction with chronic class I-II NYHA classification congestive heart failure, compensated/euvolemic 4. Paroxysmal atrial fibrillation [id number] score of 9 on Coumadin therapy with therapeutic INR, currently in sinus rhythm 5. Severe pulmonary HTN 6. HTN 7. NIDDM 8. Hypercholesterolemia 9. CKD PLAN: 1. Continue Lopressor 150 bid, Norvasc 10 qd, Aldactone 25 qd and Lipitor 10 qhs 2. Start Diovan 80 qd as renal fxn stable 3. Continue Coumadin maintaining INR 2-3 4. Continue Sildenafil Citrate (Revatio) for the above noted pulmonary HTN 5. Continue abx course per ID 6. Pain management and antivirals as per the primary team 7. GI prophylaxis
[2016-11-21] MEDS: valACYclovir HCL 500 MG TABLET (FP) PO SCH ×2 (11:29→21:12)
--- NOTE | 2016-11-21 12:23 | PN ---
Progress Note (short form) - Note Progress Note: PULMONARY Pain improving. Denies shortness of breath, reports mild nonproductive cough. Last Vital Signs Temp Pulse Resp BP Pulse Ox 98.2 F 78 18 148/74 99 11/21/16 09:00 11/21/16 09:00 11/21/16 09:00 11/21/16 09:00 11/20/16 21:00 Gen: NAD in chair Heart: RRR Lung: decreased breath sounds at the bases Back: crusted lesions Abd: soft, nontender Ext: trace edema CBC, BMP 11/21/16 08:00 11/21/16 08:00 Active Medications Acetaminophen (Tylenol -) 650 mg PO Q6H PRN PRN Reason: FEVER OR PAIN Last Admin: 11/21/16 06:04 Dose: 650 mg Al Hydroxide/Mg Hydroxide (Mylanta Oral Suspension -) 30 ml PO Q6H PRN PRN Reason: DYSPEPSIA Amlodipine Besylate (Norvasc -) 10 mg PO DAILY [facility] Last Admin: 11/21/16 10:42 Dose: 10 mg Atorvastatin Calcium (Lipitor -) 10 mg PO HS [facility] Last Admin: 11/20/16 21:45 Dose: 10 mg Benzocaine/Menthol (Cepacol Lozenge -) 1 each MM Q2H PRN PRN Reason: COUGH Last Admin: 11/20/16 21:45 Dose: 1 each Gabapentin (Neurontin -) 100 mg PO TID [facility] Last Admin: 11/21/16 06:00 Dose: 100 mg Piperacillin Sod/Tazobactam (Sod 3.375 gm/ Dextrose) 50 mls @ 100 mls/hr IVPB Q8H-IV [facility] Last Admin: 11/21/16 10:42 Dose: 100 mls/hr Metoprolol Tartrate (Lopressor -) 150 mg PO BID [facility] Last Admin: 11/21/16 10:57 Dose: 150 mg Ondansetron HCl (Zofran Injection) 4 mg IVPB Q6H PRN PRN Reason: NAUSEA Pantoprazole Sodium (Protonix -) 40 mg PO DAILY [facility] Last Admin: 11/21/16 10:58 Dose: 40 mg Sildenafil Citrate (Revatio -) 10 mg PO TID [facility] Last Admin: 11/21/16 06:00 Dose: 10 mg Spironolactone (Aldactone -) 25 mg PO DAILY [facility] Last Admin: 11/21/16 10:58 Dose: 25 mg Valacyclovir HCl (Valtrex -) 1,000 mg PO BID [facility] Last Admin: 11/21/16 11:29 Dose: 1,000 mg Valsartan (Diovan -) 80 mg PO DAILY [facility] Warfarin Sodium (Coumadin -) 7.5 mg PO DAILY@1800 [facility] Last Admin: 11/20/16 17:55 Dose: 7.5 mg A/P Herpes Zoster CAD LV Diastolic Dysfunction Paroxysmal Atrial Fibrillation Pulmonary HTN HTN DM CKD Hypercholesterolemia - antibiotics per ID - do not suspect pneumonia at this time - rate controlled - continue anticoagulation - continue sildenafil - pain control with neurontin
[2016-11-21] MEDS: VALSARTAN 80 MG TABLET (UD) PO SCH (13:13)
--- NOTE | 2016-11-21 13:22 | PN ---
Progress Note (short form) - Note Progress Note: continues with some burning pain day #2 zosyn afebrile Vital Signs Period Temp Pulse Resp BP Sys/Morales Pulse Ox Last 24 Hr 97.9 F-98.9 F 64-78 18-20 138-148/69-76 99 cor-rrr llungs decreased bs at bases abd soft,nt ext no edema zoster - lesions drying CBC, BMP 11/21/16 08:00 11/21/16 08:00 a/p fevers resolved- Possible RLL pneumonia versus atelectasis with effusion afebrile on zosyn suggest switch to po ceftin in am for another 5 days zoster (dermatomal)-continue neurontin, can d/c valtrex in am HEMANT resolving- thrombocytopenia- resolved afib-anticoagulation per primary service abnl chest ct- will need f/u as outpt Problem List - Problems (1) Zoster Code(s): B02.9 - ZOSTER WITHOUT COMPLICATIONS (2) HEMANT (acute kidney injury) Code(s): N17.9 - ACUTE KIDNEY FAILURE, UNSPECIFIED
--- NOTE | 2016-11-21 15:57 | PN ---
Progress Note (short form) - Note Progress Note: Subjective: The patient was seen and examined at the bedside, she has complaints of pain to the site of her herpes zoster Remains afebrile Day #2 Zosyn Current Medications Generic Name Dose Route Start Last Admin Trade Name Freq PRN Reason Stop Dose Admin Acetaminophen 650 mg 11/17/16 12:08 11/21/16 06:04 Tylenol - PO 650 mg Q6H PRN Administration FEVER OR PAIN Al Hydroxide/Mg Hydroxide 30 ml 11/17/16 12:08 Mylanta Oral Suspension - PO Q6H PRN DYSPEPSIA Amlodipine Besylate 10 mg 11/18/16 10:00 11/21/16 10:42 Norvasc - PO 10 mg DAILY [facility] Administration Atorvastatin Calcium 10 mg 11/17/16 22:00 11/20/16 21:45 Lipitor - PO 10 mg HS [facility] Administration Benzocaine/Menthol 1 each 11/20/16 06:57 11/20/16 21:45 Cepacol Lozenge - MM 1 each Q2H PRN Administration COUGH Gabapentin 100 mg 11/19/16 14:00 11/21/16 14:20 Neurontin - PO 100 mg TID [facility] Administration Piperacillin Sod/Tazobactam 50 mls @ 100 mls/hr 11/20/16 13:15 11/21/16 10:42 Sod 3.375 gm/ Dextrose IVPB 100 mls/hr Q8H-IV [facility] Administration Metoprolol Tartrate 150 mg 11/17/16 22:00 11/21/16 10:57 Lopressor - PO 150 mg BID [facility] Administration Ondansetron HCl 4 mg 11/17/16 12:08 Zofran Injection IVPB Q6H PRN NAUSEA Pantoprazole Sodium 40 mg 11/18/16 10:00 11/21/16 10:58 Protonix - PO 40 mg DAILY [facility] Administration Sildenafil Citrate 10 mg 11/17/16 14:00 11/21/16 14:19 Revatio - PO 10 mg TID [facility] Administration Spironolactone 25 mg 11/18/16 10:00 11/21/16 10:58 Aldactone - PO 25 mg DAILY [facility] Administration Valacyclovir HCl 1,000 mg 11/19/16 14:00 11/21/16 11:29 Valtrex - PO 1,000 mg BID [facility] Administration Valsartan 80 mg 11/21/16 11:30 11/21/16 13:13 Diovan - PO 80 mg DAILY [facility] Administration Warfarin Sodium 7.5 mg 11/17/16 18:00 11/20/16 17:55 Coumadin - PO 7.5 mg DAILY@1800 [facility] Administration Objective: Vital Signs Period Temp Pulse Resp BP Sys/Morales Pulse Ox Last 24 Hr 97.9 F-98.9 F 69-78 18-20 138-148/70-76 95-99 Physical Exam: General: NAD, A&Ox3 Lungs: CTA bilaterally Heart: RRR, S1S2 Abd: Soft. Fluid filled blisters under right breast with some crusting around to back. Ext: Warm, well-perfused. Trace bilateral lower extremity edema CBCD WBC 7.1 K/mm3 (4.0-10.0) 11/21/16 08:00 RBC 3.21 M/mm3 (3.60-5.2) L 11/21/16 08:00 Hgb 9.6 GM/dL (10.7-15.3) L 11/21/16 08:00 Hct 29.1 % (32.4-45.2) L 11/21/16 08:00 MCV 90.8 fl (80-96) 11/21/16 08:00 MCHC 33.0 g/dl (32.0-36.0) 11/21/16 08:00 RDW 14.8 % (11.6-15.6) 11/21/16 08:00 Plt Count 167 K/MM3 (134-434) 11/21/16 08:00 MPV 9.7 fl (7.5-11.1) 11/21/16 08:00 CMP Sodium 141 mmol/L (136-145) 11/21/16 08:00 Potassium 4.3 mmol/L (3.5-5.1) 11/21/16 08:00 Chloride 107 mmol/L (98-107) 11/21/16 08:00 Carbon Dioxide 25 mmol/L (21-32) 11/21/16 08:00 Anion Gap 9 (8-16) 11/21/16 08:00 BUN 10 mg/dL (7-18) 11/21/16 08:00 Creatinine 1.3 mg/dL (0.55-1.02) H 11/21/16 08:00 Creat Clearance w eGFR 39.02 (>60) 11/21/16 08:00 Random Glucose 103 mg/dL (74-106) D 11/21/16 08:00 Calcium 8.6 mg/dL (8.5-10.1) 11/21/16 08:00 Total Bilirubin 0.8 mg/dL (0.2-1.0) D 11/21/16 08:00 AST 32 U/L (15-37) 11/21/16 08:00 ALT 37 U/L (12-78) 11/21/16 08:00 Alkaline Phosphatase 53 U/L (45-117) 11/21/16 08:00 Total Protein 7.5 g/dl (6.4-8.2) 11/21/16 08:00 Albumin 2.7 g/dl (3.4-5.0) L 11/21/16 08:00 CARDIAC ENZYMES Creatine Kinase 231 IU/L (26-192) H 11/12/16 06:00 Troponin I < 0.02 ng/ml (0.00-0.05) 11/12/16 06:00 Microbiology 11/19/16 13:33 Stool Gram Stain - Final 11/19/16 13:33 Stool Salmonella/Shigella Culture - Preliminary Yeast Like Organism 11/19/16 13:33 Stool Yersinia Culture - Preliminary NO ENTERIC PATHOGENS, 24 HOURS, ON PRIMARY PLATES 11/19/16 13:33 Stool Vibrio Culture - Final NO GROWTH OF VIBRIO SPECIES OBTAINED 11/19/16 13:33 Stool Escherichia coli 0157 Culture - Final NO GROWTH OF E COLI 0157 OBTAINED 11/21/16 09:55 Stool Clostridium difficile Antigen (SHARYN) - Final 11/21/16 09:55 Stool Clostridium difficile Toxin Assay - Final 11/19/16 10:50 Blood - Peripheral Venous Blood Culture - Preliminary NO GROWTH OBTAINED AFTER 48 HOURS, INCUBATION TO CONTINUE FOR 3 DAYS. 11/19/16 10:45 Blood - Peripheral Venous Blood Culture - Preliminary NO GROWTH OBTAINED AFTER 48 HOURS, INCUBATION TO CONTINUE FOR 3 DAYS. 11/15/16 10:34 Blood - Peripheral Venous Blood Culture - Final NO GROWTH AFTER 5 DAYS INCUBATION 11/15/16 09:25 Blood - Peripheral Venous Blood Culture - Final NO GROWTH AFTER 5 DAYS INCUBATION 11/12/16 18:30 Blood - Peripheral Venous Blood Culture - Final NO GROWTH AFTER 5 DAYS INCUBATION 11/12/16 17:45 Blood - Peripheral Venous Blood Culture - Final NO GROWTH AFTER 5 DAYS INCUBATION 11/15/16 23:00 Urine - Urine Clean Catch Urine Culture - Final NO GROWTH OBTAINED 11/13/16 18:49 Urine - Urine Clean Catch Urine Culture - Final NO GROWTH OBTAINED Assessment: This is an 86 year old female with PMHx of HTN, diastolic heart failure, paroxysmal a.fib (on Coumadin) who presented to the ED with abdominal pain x4 days and was found to have herpes zoster. Plan: 1) ID: Herpes Zoster - Afebrile - WBC wnl - Discontinue Acyclovir (11/15-11/19), day 9 of antivirals today, on po Valtrex, will need total of 10 days of antivirals - Appreciate ID consult Persistent fevers - Chest CT with mild to moderate mediastinal and right axillary lymphadenopathy. B/l pleural effusions and lower lobe consolidation/ atelectasis. Edematous changes within the visualized portions of the right breast - Continue Zosyn (11/19- ) 2) Cardiology: HTN - Continue Norvasc - Continue Lopressor - Should ideally be on ACEi/ARB, defer starting to cards Paroxysmal a.fib - INR therapeutic today, will discontinue Lovenox and continue current Coumadin dose - Rate controlled Pulmonary HTN - Continue Sildenafil Hyperlipidemia - Continue Lipitor Diastolic hear failure - ECHO 10/26/16: LV normal; RV normal; LAE; mild MR; mild to moderate - Hold torsemide - Appreciate cardiology consult 3) : HEMANT - Stable Cr 1.3 4) GI: Abd pain - Now with diarrhea - CTAP reviewed and discussed with Dr. Berg - Patient received 3 days of Ceftriaxone on admission - Stool studies pending - C.diff negative 5) F/E/N: - Low sodium diet - Monitor electrolytes 6) Prophylaxis: - Lovenox bridge to coumadin - OOB ambulating 7) Dispo: - Requires continued inpatient care - Outpatient follow-up with pcp for repeat CT scan chest to evaluate lymphadenopathy within 4-6 weeks CODE STATUS: FULL CODE Visit type - Emergency Visit Emergency Visit: Yes ED Registration Date: 11/14/16 Care time: The patient presented to the Emergency Department on the above date and was hospitalized for further evaluation of their emergent condition. - New Patient This patient is new to me today: No - Critical Care Critical Care patient: No
[2016-11-21] MEDS: WARFARIN NA 7.5 MG TABLET (FP) PO SCH (17:37)
[2016-11-21] MEDS: BENZOCAINE/MENTH/CETYLPYRD CL 1 EACH LOZENGE MM PRN (21:12)
[2016-11-21] MEDS: ATORVASTATIN CA 10 MG TABLET (FP) PO SCH (21:14)
[2016-11-22] MEDS ORDERED: DEXTROSE 5%-WATER - 50 ML IVPB ONE (00:27)
[2016-11-22] MEDS ORDERED: PIPERACILLIN/TAZOBACTAM 3.375 GM VIAL IVPB ONE (00:27)
[2016-11-22] MEDS: PIPERACILLIN/TAZOB 3.375 GM 3.375 GM in DEXTROSE 5%-WATER - 50 ML IVPB SCH ×2 (01:07→12:05)
[2016-11-22] MEDS: GABAPENTIN 100 MG CAPSULE (FP) PO SCH (05:47)
[2016-11-22] MEDS: ACETAMINOPHEN 325 MG TABLET (FP) PO PRN (05:47)
[2016-11-22] MEDS: SILDENAFIL CITRATE 20 MG TAB PO SCH (05:49)
[2016-11-22 08:34] LABS: MCH 30.5 pg (25.7-33.7); MCHC 33.6 g/dl (32.0-36.0); MEAN CELL VOLUME 90.8 fl (80-96); PLATELET COUNT 183 K/MM3 (134-434); RDW 14.9 % (11.6-15.6); WHITE BLOOD COUNT 7.6 K/mm3 (4.0-10.0)
[2016-11-22 08:40] LABS: ALBUMIN 2.7 g/dl (3.4-5.0); ALK PHOS 54 U/L (45-117); ANION GAP 10 (8-16); BILIRUBIN,TOTAL 0.6 mg/dL (0.2-1.0); CALCIUM 8.8 mg/dL (8.5-10.1); CO2 24 mmol/L (21-32); CREATININE 1.5 mg/dL (0.55-1.02); GLUCOSE,RANDOM 102 mg/dL (74-106); SGOT/AST 37 U/L (15-37); SGPT/ALT 44 U/L (12-78); TOT PROT 7.5 g/dl (6.4-8.2)
[2016-11-22 09:19] LABS: INR 2.27 (0.82-1.09); PROTHROMBIN TIME (PATIENT) 25.4 SEC (9.98-11.88)
[2016-11-22] MEDS ORDERED: PT OWN MED DRAWER 7, Y5N ONE (09:28)
[2016-11-22] MEDS: METOPROLOL TARTRATE 50 MG TABLET (FP) PO SCH (09:31)
[2016-11-22] MEDS: VALSARTAN 80 MG TABLET (UD) PO SCH (09:31)
[2016-11-22] MEDS: SPIRONOLACTONE 25 MG TABLET (FP) PO SCH (09:31)
[2016-11-22] MEDS: valACYclovir HCL 500 MG TABLET (FP) PO SCH (09:32)
[2016-11-22] MEDS: PANTOPRAZOLE 40 MG TABLET (FP) PO SCH (09:32)
[2016-11-22] MEDS: amLODIPine BESYLATE 10 MG TABLET (FP) PO SCH (09:32)
[2016-11-22 10:52] VITALS: TEMP 98.2
--- NOTE | 2016-11-22 11:18 | DS ---
Physical Examination Vital Signs: Vital Signs Temperature 98.2 F 11/22/16 10:00 Pulse Rate 75 11/22/16 10:00 Respiratory Rate 22 11/22/16 10:00 Blood Pressure 152/75 11/22/16 10:00 O2 Sat by Pulse Oximetry (%) 94 L 11/21/16 21:00 Labs: CBC, BMP 11/22/16 08:15 11/22/16 06:00 Discharge Summary Reason For Visit: CONGESTIVE HEART FAILURE Current Active Problems Zoster (Acute) CHF (congestive heart failure) (Chronic) Condition: Improved - Instructions Diet, Activity, Other Instructions: Please return to the ED with new, persistent, or worsening symptoms. Please follow-up with providers as indicated. Referrals: Julio Cesar Ma MD [Primary Care Provider] - (Please follow-up with your primary care provider within 2-3 days for outpatient monitoring and to have your creatinine rechecked. ) Oswaldo Pederson MD [Staff Physician] - 1 Week Disposition: VNS/HOME HEALTH CARE - Home Medications Comprehensive Discharge Medication List: Ambulatory Orders Atorvastatin Ca [Lipitor] 10 mg PO HS #30 tablet 09/16/14 Spironolactone [Aldactone -] 25 mg PO DAILY #30 tablet 09/16/14 Metoprolol Tartrate [Lopressor -] 150 mg PO BID 10/25/16 Multivit-Min/FA/Lycopen/Lutein [Centrum Silver Tablet] 1 each PO DAILY 10/25/16 Sildenafil Citrate [Sildenafil] 10 mg PO TID 10/25/16 Acetaminophen [Tylenol .Regular Strength -] 650 mg PO Q6H PRN #0 tablet Amlodipine Besylate [Norvasc -] 10 mg PO DAILY #30 tablet 11/22/16 Cefuroxime Axetil [Ceftin -] 500 mg PO Q12H #20 tablet 11/22/16 Gabapentin [Neurontin -] 100 mg PO TID #60 tab 11/22/16 Mag Hydrox/Al Hydrox/Simeth [Mylanta Oral Suspension -] 30 ml PO Q6H PRN #0 ml 11/22/16 Valsartan [Diovan] 80 mg PO DAILY #30 tablet 11/22/16 Warfarin Na [Coumadin -] 7.5 mg PO DAILY@1800 #30 tablet 11/22/16 - Discharge Referral Referred to [facility] No
--- NOTE | 2016-11-22 12:32 | PN ---
Progress Note (short form) - Note Progress Note: PULMONARY Pain improving. Denies shortness of breath, cough or wheezing. Last Vital Signs Temp Pulse Resp BP Pulse Ox 98.2 F 75 22 152/75 94 L 11/22/16 10:00 11/22/16 10:00 11/22/16 10:00 11/22/16 10:00 11/21/16 21:00 Gen: NAD in chair Heart: RRR Lung: decreased breath sounds at the bases Back: crusted lesions Abd: soft, nontender Ext: trace edema CBC, BMP 11/22/16 08:15 11/22/16 06:00 Active Medications Acetaminophen (Tylenol -) 650 mg PO Q6H PRN PRN Reason: FEVER OR PAIN Last Admin: 11/22/16 05:47 Dose: 650 mg Al Hydroxide/Mg Hydroxide (Mylanta Oral Suspension -) 30 ml PO Q6H PRN PRN Reason: DYSPEPSIA Amlodipine Besylate (Norvasc -) 10 mg PO DAILY [facility] Last Admin: 11/22/16 09:32 Dose: 10 mg Atorvastatin Calcium (Lipitor -) 10 mg PO HS [facility] Last Admin: 11/21/16 21:14 Dose: 10 mg Benzocaine/Menthol (Cepacol Lozenge -) 1 each MM Q2H PRN PRN Reason: COUGH Last Admin: 11/21/16 21:12 Dose: 1 each Gabapentin (Neurontin -) 100 mg PO TID [facility] Last Admin: 11/22/16 05:47 Dose: 100 mg Piperacillin Sod/Tazobactam (Sod 3.375 gm/ Dextrose) 50 mls @ 100 mls/hr IVPB Q8H-IV [facility] Last Admin: 11/22/16 12:05 Dose: 100 mls/hr Metoprolol Tartrate (Lopressor -) 150 mg PO BID [facility] Last Admin: 11/22/16 09:31 Dose: 150 mg Ondansetron HCl (Zofran Injection) 4 mg IVPB Q6H PRN PRN Reason: NAUSEA Pantoprazole Sodium (Protonix -) 40 mg PO DAILY [facility] Last Admin: 11/22/16 09:32 Dose: 40 mg Sildenafil Citrate (Revatio -) 10 mg PO TID [facility] Last Admin: 11/22/16 05:49 Dose: 10 mg Spironolactone (Aldactone -) 25 mg PO DAILY [facility] Last Admin: 11/22/16 09:31 Dose: 25 mg Valacyclovir HCl (Valtrex -) 1,000 mg PO BID [facility] Last Admin: 11/22/16 09:32 Dose: 1,000 mg Valsartan (Diovan -) 80 mg PO DAILY [facility] Last Admin: 11/22/16 09:31 Dose: 80 mg Warfarin Sodium (Coumadin -) 7.5 mg PO DAILY@1800 [facility] Last Admin: 11/21/16 17:37 Dose: 7.5 mg A/P Herpes Zoster CAD LV Diastolic Dysfunction Paroxysmal Atrial Fibrillation Pulmonary HTN HTN DM CKD Hypercholesterolemia - antibiotics per ID - do not suspect pneumonia at this time - rate controlled - continue anticoagulation - continue sildenafil - pain control with neurontin - d/c planning
[2016-11-22 15:24] VITALS: BP 149/63; PULSE 74
--- NOTE | 2016-11-22 16:15 | PN ---
Progress Note, Physician Chief Complaint: Feels better History of Present Illness: Patient was seen and examined. Awake and alert. Chart was reviewed Denies shortness of breath or palpitations - Current Medication List Current Medications: Active Medications Acetaminophen (Tylenol -) 650 mg PO Q6H PRN PRN Reason: FEVER OR PAIN Last Admin: 11/22/16 05:47 Dose: 650 mg Al Hydroxide/Mg Hydroxide (Mylanta Oral Suspension -) 30 ml PO Q6H PRN PRN Reason: DYSPEPSIA Amlodipine Besylate (Norvasc -) 10 mg PO DAILY [facility] Last Admin: 11/22/16 09:32 Dose: 10 mg Atorvastatin Calcium (Lipitor -) 10 mg PO HS [facility] Last Admin: 11/21/16 21:14 Dose: 10 mg Benzocaine/Menthol (Cepacol Lozenge -) 1 each MM Q2H PRN PRN Reason: COUGH Last Admin: 11/21/16 21:12 Dose: 1 each Gabapentin (Neurontin -) 100 mg PO TID [facility] Last Admin: 11/22/16 05:47 Dose: 100 mg Piperacillin Sod/Tazobactam (Sod 3.375 gm/ Dextrose) 50 mls @ 100 mls/hr IVPB Q8H-IV [facility] Last Admin: 11/22/16 12:05 Dose: 100 mls/hr Metoprolol Tartrate (Lopressor -) 150 mg PO BID [facility] Last Admin: 11/22/16 09:31 Dose: 150 mg Ondansetron HCl (Zofran Injection) 4 mg IVPB Q6H PRN PRN Reason: NAUSEA Pantoprazole Sodium (Protonix -) 40 mg PO DAILY [facility] Last Admin: 11/22/16 09:32 Dose: 40 mg Sildenafil Citrate (Revatio -) 10 mg PO TID [facility] Last Admin: 11/22/16 05:49 Dose: 10 mg Spironolactone (Aldactone -) 25 mg PO DAILY [facility] Last Admin: 11/22/16 09:31 Dose: 25 mg Valsartan (Diovan -) 80 mg PO DAILY [facility] Last Admin: 11/22/16 09:31 Dose: 80 mg Warfarin Sodium (Coumadin -) 7.5 mg PO DAILY@1800 [facility] Last Admin: 11/21/16 17:37 Dose: 7.5 mg - Objective Vital Signs: Vital Signs Temperature 98.2 F 11/22/16 14:00 Pulse Rate 74 11/22/16 14:00 Respiratory Rate 20 11/22/16 14:00 Blood Pressure 149/63 11/22/16 14:00 O2 Sat by Pulse Oximetry (%) 92 L 11/22/16 09:00 Neck: Yes: Supple Cardiovascular: Yes: Regular Rate and Rhythm, S1, S2 Respiratory: Yes: CTA Bilaterally Gastrointestinal: Yes: Normal Bowel Sounds, Soft. No: Tenderness Edema: No Labs: CBC, BMP 11/22/16 08:15 11/22/16 06:00 INR, PTT INR 2.27 (0.82-1.09) H 11/22/16 08:15 Assessment/Plan 1. Acute shingles/herpes zoster infection with persistent pain - improving 2. CAD non-obstructive disease, angina pectoris 3. Diastolic LV dysfunction with chronic class I-II NYHA classification congestive heart failure, compensated 4. Paroxysmal atrial fibrillation [id number] score of 9 on Coumadin therapy 5. Severe pulmonary HTN 6. HTN 7. NIDDM 8. Hypercholesterolemia 9. CKD PLAN: 1. Continue Lopressor and Norvasc 2. Continue Diovan 3. Continue A/C with Coumadin maintaining INR 2-3 4. Continue Sildenafil Citrate (Revatio) for the above noted pulmonary HTN 5. Continue Aldactone as tolerated 6. Continue Lipitor 7. Continue acyclovir Further plans are to follow. Discharge planning Dimitri Palm MD
== END 2016-11-22 16:58 | disposition home health service (06) | DRG 596 ==
LOC: JER 17:15 → JERBED 21:55 → J8W 11-11 00:24 → J2W 11-11 11:26 → J4W 11-11 20:12 → OBSVTOIN 11-14 08:48 → J6S 11-17 13:48
PROVIDERS: ADMIT Internal Medicine; ATTEND Registered Nurse
DX: B02.9 Zoster without complications (principal); N17.9 Acute kidney failure, unspecified; I13.0 Hypertensive heart and chronic kidney disease with heart failure and stage 1 through stage 4 chronic kidney disease, or unspecified chronic kidney disease; I50.32 Chronic diastolic (congestive) heart failure; J98.11 Atelectasis; I48.0 Paroxysmal atrial fibrillation; Z79.01 Long term (current) use of anticoagulants; Z91.018 Allergy to other foods; Z91.013 Allergy to seafood; I27.2 Other secondary pulmonary hypertension; E78.5 Hyperlipidemia, unspecified; K29.00 Acute gastritis without bleeding; I25.10 Atherosclerotic heart disease of native coronary artery without angina pectoris; E11.22 Type 2 diabetes mellitus with diabetic chronic kidney disease; N18.9 Chronic kidney disease, unspecified; D69.6 Thrombocytopenia, unspecified; R04.0 Epistaxis; G47.33 Obstructive sleep apnea (adult) (pediatric); Z99.81 Dependence on supplemental oxygen; R19.7 Diarrhea, unspecified; R59.0 Localized enlarged lymph nodes
CPT/HCPCS: 36415; 71010-TC; 71020-TC; 71250-TC; 74176-TC; 80053; 81003; 81015; 82553; 83605; 83690; 83735; 83880; 84100; 84484; 85025; 85027; 85610; 85651; 85730; 86140; 87040; 87045; 87046; 87086; 87177; 87205; 87209; 87324; 87389; 87449; 93005; 93010; 93306-TC; 94010; 97116-GP; 97161-GP; 99284-25; G0378; J1644; Q9967

== ENCOUNTER 2017-05-09 16:33 | Inpatient (IN) | payer OTHER ==
[2017-05-09 17:31] LABS: BASO % 0.9 % (0-2.0); HEMATOCRIT 31.7 % (32.4-45.2); HEMOGLOBIN 10.7 GM/dL (10.7-15.3); LYMPH % 14.4 % (8-40); MCH 31.3 pg (25.7-33.7); MCHC 33.6 g/dl (32.0-36.0); MEAN CELL VOLUME 93.3 fl (80-96); MEAN PLT VOLUME 10.6 fl (7.5-11.1); MONO % 12.9 % (3.8-10.2); NEUT % 71.8 % (42.8-82.8); PLATELET COUNT 103 K/MM3 (134-434); RDW 15.4 % (11.6-15.6); WHITE BLOOD COUNT 10.5 K/mm3 (4.0-10.0)
--- NOTE | 2017-05-09 18:06 | PDOC ---
History of Present Illness - General Chief Complaint: Weakness Stated Complaint: SICK Time Seen by Provider: 05/09/17 16:51 History Source: Patient, Other (daughter) Exam Limitations: No Limitations - History of Present Illness Initial Comments: 05/09/17 18:04 87-year-old female presents to the ED for evaluation of low oxygen sat noted in the urgent care clinic. Patient was referred to the urgent care clinic secondary to concern for influenza since patient was complaining of chills along with a mild dry cough for the past 2 days. Patient also told by the home care nurse that her INR was elevated to 5.5. Patient initially went to [facility] where they stated that they did not have the testing agent for the flu and referred her to an urgent care clinic which at that time she had an O2 sat of 88% and was again referred to be evaluated at an emergency dept. Patient states has had no , productive cough, hemoptysis, change in weight , chest pain, dizziness, change in appetite, nausea, or urinary complaints. Patient did have the influenza testing done at urgent care clinic which was negative. Pt states in on home oxygen (2lnc)and is awaiting a portable o2 tank since she becomes short of breath frequently without it. Timing/Duration: intermittent Severity: mild Associated Symptoms: reports: cough, fever/chills (chills) Past History - Travel Traveled outside of the country in the last 30 days: No - Past Medical History Allergies/Adverse Reactions: Allergies Allergy/AdvReac Type Severity Reaction Status Date / Time cranberry Allergy Unknown Verified 05/09/17 16:51 grape Allergy Unknown Verified 05/09/17 16:51 raspberry Allergy Unknown Verified 05/09/17 16:51 strawberry Allergy Unknown Verified 05/09/17 16:51 furosemide [From Lasix] AdvReac Verified 05/09/17 16:51 corn Allergy Unknown Uncoded 05/09/17 16:51 NUTS Allergy Unknown Uncoded 05/09/17 16:51 POLLEN Allergy Unknown Uncoded 05/09/17 16:51 SHELLFISH Allergy Unknown Uncoded 05/09/17 16:51 TUNA Allergy Unknown Uncoded 05/09/17 16:51 Home Medications: Ambulatory Orders Spironolactone [Aldactone -] 25 mg PO DAILY #30 tablet 09/16/14 Metoprolol Tartrate [Lopressor -] 25 mg PO BID 10/25/16 Sildenafil Citrate [Sildenafil] 10 mg PO TID 10/25/16 Acetaminophen [Tylenol .Regular Strength -] 650 mg PO Q6H PRN #0 tablet Amiodarone HCl 200 mg PO DAILY 05/09/17 Amlodipine Besylate [Norvasc -] 5 mg PO DAILY 05/09/17 Atorvastatin Ca [Lipitor] 10 mg PO HS 05/09/17 Metformin HCl 500 mg PO DAILY 05/09/17 Torsemide [Demadex -] 20 mg PO 5XD 05/09/17 Warfarin Na [Coumadin -] 5 mg PO DAILY@1800 05/09/17 Anemia: No Asthma: No Cancer: Yes (breast lt) Cardiac Disorders: Yes (mi,pulm.htn) COPD: No CHF: Yes Diabetes: Yes (niddm) HTN: Yes Hypercholesterolemia: Yes - Surgical History Cholecystectomy: Yes Orthopedic Surgery: Yes (Total Rt knee Replacement 7 yrs ago) - Immunization History Immunization Up to Date: Yes - Suicide/Smoking/Psychosocial Hx Smoking Status: No Smoking History: Never smoked Have you smoked in the past 12 months: No Number of Cigarettes Smoked Daily: 0 Hx Alcohol Use: No Drug/Substance Use Hx: No Substance Use Type: None Hx Substance Use Treatment: No Patient Lives Alone: No Lives with/in: daughter Review of Systems - Review of Systems Able to Perform ROS?: Yes Constitutional: No: Symptoms Reported HEENTM: No: Symptoms Reported Respiratory: No: Symptoms reported ABD/GI: No: Symptoms Reported Musculoskeletal: No: Symptoms Reported Integumentary: No: Symptoms Reported Neurological: No: Symptoms reported Hematologic/Lymphatic: No: Symptoms Reported *Physical Exam - Vital Signs Last Vital Signs Temp Pulse Resp BP Pulse Ox 98.4 F 58 L 16 126/62 97 05/09/17 16:35 05/09/17 16:35 05/09/17 16:40 05/09/17 16:35 05/09/17 17:23 - Physical Exam General Appearance: Yes: Nourished, Appropriately Dressed. No: Apparent Distress HEENT: positive: EOMI, TD. negative: Pale Conjunctivae Neck: positive: Supple Respiratory/Chest: positive: Lungs Clear, Normal Breath Sounds. negative: Respiratory Distress, Accessory Muscle Use Cardiovascular: positive: Regular Rhythm, Bradycardia. negative: Murmur Gastrointestinal/Abdominal: positive: Soft. negative: Tenderness Extremity: positive: Normal Capillary Refill, Pedal Edema (trace nonpitting) Integumentary: positive: Normal Color, Cyanotic, Moist. negative: Swelling Neurologic: positive: Normal Mood/Affect, Motor Strength 5/5 Heart Score/ECG Review - ECG Intrepretation Rhythm: Regular Rhythm (rate 85. No st elevation or depression) ED Treatment Course - LABORATORY CBC & Chemistry Diagram: 05/11/17 06:35 05/10/17 05:05 - RADIOLOGY Radiology Studies Ordered: Category Date Time Status CHEST X-RAY PORTABLE* [RAD] Stat Radiology 05/09/17 16:52 Ordered Medical Decision Making - Medical Decision Making 05/09/17 18:29 Patient for evaluation of low 02 saturation noted in urgent care clinic. Patient arrives with an O2 sat of 95% on room air. Patient is on home oxygen but is pending a portable oxygen tank stating when she goes on trips she often feels fatigued as if she requires oxygen. Pt also on coumadin for Afib. Pt was told by her home care nurse to go the ED and have inr checked and to be tested for influenza, which was - in the urgent care clinic. Pt arrives asymptomatic, lungs clear to auscultation, with a respiration rate of 20. Patient was ordered for chest x-ray, EKG, BNP secondary to CHF, lactic acid, blood culture coags and urinalysis. Patient also given 2 L of oxygen and is maintaining her oxygen saturation 100%. 05/09/17 18:30 Chest x-ray with mild diffuse pulmonary congestion (?chf) unchanged from previous x-ray done 6 months ago. 05/09/17 18:54 Laboratory Tests 11/15/16 11/16/16 05/09/17 07:00 05:35 17:00 WBC 10.5 H D Hgb 10.7 D Hct 31.7 L Plt Count 82 L 93 L 103 L D INR Sodium Potassium Chloride Anion Gap BUN Creatinine Lactic Acid AST ALT Troponin I B-Natriuretic Peptide 05/09/17 05/09/17 05/09/17 17:00 17:00 18:03 WBC Hgb Hct Plt Count INR Pending Sodium Pending Potassium Pending Chloride Pending Anion Gap Pending BUN Pending Creatinine Pending Lactic Acid 1.9 AST Pending ALT Pending Troponin I Pending B-Natriuretic Peptide Pending Endorsed to KAREEM aquino for reevaluation and f/u on labs/ ua. *DC/Admit/Observation/Transfer Diagnosis at time of Disposition: Syncopal episodes, Creatinine elevation, HEMANT (acute kidney injury), CHF exacerbation, Dyspnea on exertion - Discharge Dispostion Condition at time of disposition: Fair - Referrals - Patient Instructions - Post Discharge Activity
[2017-05-09 18:39] LABS: PROTHROMBIN TIME (PATIENT) 60.2 SEC (9.98-11.88)
[2017-05-09 18:57] LABS: ALBUMIN 3.6 g/dl (3.4-5.0); ALK PHOS 45 U/L (45-117); ANION GAP 8 (8-16); BILIRUBIN,TOTAL 1.8 mg/dL (0.2-1.0); BLOOD UREA NITROGEN 60 mg/dL (7-18); CALCIUM 8.4 mg/dL (8.5-10.1); CHLORIDE 98 mmol/L (98-107); CO2 31 mmol/L (21-32); CREATININE 3.5 mg/dL (0.55-1.02); GLUCOSE,RANDOM 156 mg/dL (74-106); POTASSIUM 3.9 mmol/L (3.5-5.1); SGOT/AST 24 U/L (15-37); SGPT/ALT 27 U/L (12-78); SODIUM 137 mmol/L (136-145); TOT PROT 7.9 g/dl (6.4-8.2)
[2017-05-09 18:58] LABS: INR 5.33 (0.82-1.09)
[2017-05-09 18:59] LABS: N-TERMINAL BNP 17080.15 pg/ml (5-450)
--- NOTE | 2017-05-09 19:49 | PDOC ---
ED Treatment Course - LABORATORY CBC & Chemistry Diagram: 05/09/17 17:00 05/09/17 17:00 - ADDITIONAL ORDERS Additional order review: Laboratory Results 05/09/17 05/09/17 05/09/17 18:03 17:00 17:00 PT with INR 60.20 H INR 5.33 H* D Sodium 137 Potassium 3.9 Chloride 98 Carbon Dioxide 31 Anion Gap 8 BUN 60 H Creatinine 3.5 H Creat Clearance w eGFR 12.41 Random Glucose 156 H Lactic Acid 1.9 Calcium 8.4 L Total Bilirubin 1.8 H D AST 24 ALT 27 Alkaline Phosphatase 45 Creatine Kinase 128 Troponin I 0.04 B-Natriuretic Peptide 84946.15 H Total Protein 7.9 Albumin 3.6 05/09/17 17:00 RBC 3.40 L MCV 93.3 MCHC 33.6 RDW 15.4 MPV 10.6 D Neutrophils % 71.8 D Lymphocytes % 14.4 D Monocytes % 12.9 H Eosinophils % 0.0 D Basophils % 0.9 Progress Note - Progress Note Progress Note: I have received report from CATHERINE Coelho regarding this patient. Pt's initial chief complaint: low O2 sat in urgent care Pt's work up completed prior to sign out: EKG, CXR, cbc Pt treatment given from prior staff: O2 via NC Pt plan to be completed: awaiting rest of labs and UA Dispo: Pending Medical Decision Making - Medical Decision Making A/P: 87 y/o afebrile female sent from urgent care clinic for low O2 sat of 88% on RA. The patient initially went to urgent care for c/o mild cough and chills x 2 days. She was negative for the flu in urgent care and she admits she feels well. Pt was also told by the home care nurse that her INR was elevated. Dr. Mak is aware of the patient and is fine with discharge to home if work up ok. CXR IMPRESSION: stable cardiac enlargement. Mild pulmonary vascular congestion with small pleural effusions. Correlate clinically for CHF exacerbation. The patient's BNP is > 17,000, which is high for her (no prior record of BNP > 5000) BUN/creatinine is 60/3.5 (highest prior creatinine is 2, but she normally ranges between 1.3-1.5) On the way back from the bathroom the patient became extremely fatigues and short of breath. After getting to the bed, she became unresponsive for a few minutes (while still breathing). Her daughter admits this happens frequently at home and they have been trying to get continuous home oxygen for the patient. Will admit for syncopal episode, CHF exacerbation and HEMANT. Spoke with Dr. Flores, rn lactation for Dr. Mak, and he states they admit to hospitalist. Microblogged hospitalist at 8:20pm. patient and daughter made aware of admission. Dr. Jaeger accepts admission. *DC/Admit/Observation/Transfer Diagnosis at time of Disposition: Creatinine elevation, HEMANT (acute kidney injury), Dyspnea on exertion Syncopal episodes Qualifiers: Syncope type: unspecified Qualified Code(s): R55 - Syncope and collapse CHF exacerbation Qualifiers: Heart failure type: unspecified Qualified Code(s): I50.9 - Heart failure, unspecified - Discharge Dispostion Condition at time of disposition: Fair Admit: Yes - Referrals Referrals: Julio Cesar Ma MD [Primary Care Provider] - - Patient Instructions - Post Discharge Activity
[2017-05-09 20:09] LABS: URINE APPEARANCE CLEAR; URINE BILIRUBIN NEGATIVE (NEGATIVE); URINE BLOOD 1+ (NEGATIVE); URINE COLOR LTYELLOW; URINE GLUCOSE (UA) NEGATIVE (NEGATIVE); URINE KETONE NEGATIVE (NEGATIVE); URINE NITRITE NEGATIVE (NEGATIVE); URINE PROTEIN NEGATIVE (NEGATIVE); URINE UROBILINOGEN NEGATIVE mg/dL (0.2-1.0)
[2017-05-09 20:30] LABS: URINE LEUK ESTERASE 2+ (NEGATIVE)
[2017-05-09 20:31] LABS: EPI CELLS RARE /HPF (FEW); URINE HYALINE CAST 1 /lpf
--- NOTE | 2017-05-09 20:53 | PN ---
Teaching Attending Note Name of Resident: Phill Tiwari ATTENDING PHYSICIAN STATEMENT I saw and evaluated the patient. I reviewed the resident's note and discussed the case with the resident. I agree with the resident's findings and plan as documented. SUBJECTIVE: 87 yo F with pmhx of A-fib (on Coumadin), CHF, hysterectomy, lumpectomy, knee replacement, GERD who was sent to ED from urgent care her 02 sat was noted to be low, she was also told by a home care nurse that her INR was increased to 5.5. She went to [facility] for eval. of possible flu, but was sent to urgent care for eval. At urgent care she was noted to have a 02 sat of 88%. OBJECTIVE: Physical: VS: Vital Signs Period Temp Pulse Resp BP Sys/Morales Pulse Ox Last 24 Hr 98.4 F 58-60 16-18 126-131/61-62 86-99 GEN: NAD, Resting in bed, AA)0X3 HEENT:NCAT, PERRL, Throat without erythema or exudates CARD: RRR S1, S2 RESP: CTAB ABD: BSX4, NTD to palpation EXT: +2 Pitting edema, Pulses intact CBCD WBC 10.5 K/mm3 (4.0-10.0) H D 05/09/17 17:00 RBC 3.40 M/mm3 (3.60-5.2) L 05/09/17 17:00 Hgb 10.7 GM/dL (10.7-15.3) D 05/09/17 17:00 Hct 31.7 % (32.4-45.2) L 05/09/17 17:00 MCV 93.3 fl (80-96) 05/09/17 17:00 MCHC 33.6 g/dl (32.0-36.0) 05/09/17 17:00 RDW 15.4 % (11.6-15.6) 05/09/17 17:00 Plt Count 103 K/MM3 (134-434) L D 05/09/17 17:00 MPV 10.6 fl (7.5-11.1) D 05/09/17 17:00 CMP Sodium 137 mmol/L (136-145) 05/09/17 17:00 Potassium 3.9 mmol/L (3.5-5.1) 05/09/17 17:00 Chloride 98 mmol/L (98-107) 05/09/17 17:00 Carbon Dioxide 31 mmol/L (21-32) 05/09/17 17:00 Anion Gap 8 (8-16) 05/09/17 17:00 BUN 60 mg/dL (7-18) H 05/09/17 17:00 Creatinine 3.5 mg/dL (0.55-1.02) H 05/09/17 17:00 Creat Clearance w eGFR 12.41 (>60) 05/09/17 17:00 Random Glucose 156 mg/dL (74-106) H 05/09/17 17:00 Calcium 8.4 mg/dL (8.5-10.1) L 05/09/17 17:00 Total Bilirubin 1.8 mg/dL (0.2-1.0) H D 05/09/17 17:00 AST 24 U/L (15-37) 05/09/17 17:00 ALT 27 U/L (12-78) 05/09/17 17:00 Alkaline Phosphatase 45 U/L (45-117) 05/09/17 17:00 Total Protein 7.9 g/dl (6.4-8.2) 05/09/17 17:00 Albumin 3.6 g/dl (3.4-5.0) 05/09/17 17:00 CARDIAC ENZYMES Creatine Kinase 128 IU/L (26-192) 05/09/17 17:00 Troponin I 0.04 ng/ml (0.00-0.05) 05/09/17 17:00 Ambulatory Orders Atorvastatin Ca [Lipitor] 10 mg PO HS #30 tablet 09/16/14 Spironolactone [Aldactone -] 25 mg PO DAILY #30 tablet 09/16/14 Metoprolol Tartrate [Lopressor -] 150 mg PO BID 10/25/16 Multivit-Min/FA/Lycopen/Lutein [Centrum Silver Tablet] 1 each PO DAILY 10/25/16 Sildenafil Citrate [Sildenafil] 10 mg PO TID 10/25/16 Acetaminophen [Tylenol .Regular Strength -] 650 mg PO Q6H PRN #0 tablet Amlodipine Besylate [Norvasc -] 10 mg PO DAILY #30 tablet 11/22/16 Cefuroxime Axetil [Ceftin -] 500 mg PO Q12H #20 tablet 11/22/16 Gabapentin [Neurontin -] 100 mg PO TID #60 tab 11/22/16 Mag Hydrox/Al Hydrox/Simeth [Mylanta Oral Suspension -] 30 ml PO Q6H PRN #0 ml 11/22/16 Valsartan [Diovan] 80 mg PO DAILY #30 tablet 11/22/16 Warfarin Na [Coumadin -] 7.5 mg PO DAILY@1800 #30 tablet 11/22/16 CXR- Small effusions, mild congestion EKG: A-flutter 4:1 rate 85 ECHO: 11/20- Mild-Mod TR ASSESSMENT AND PLAN: 87 f with pmhx of a-fib, pulm. htn, diastolic LV dysfuction, CKD, NIDDM, CAD non -obstructing dz, HLD who presents with chills and shortness of breath. 1.) Acute Hypoxic Repsiratory Failure - ABG - CXR- Mild congestion/effusions - 02 2.) Acute on Chronic Diastolic Congestive Heart Failure - Torsemide - Strict I/O - Daily Weight - ECHO - NA/Fluid Restrict - EKG/Trop - Cardio Consult 3.) Pulm. HTN - C/W Sildenafil 4.)Afib - Rate Controlled - Hold Coumadin due to Supratheraputic INR - INR goal 2-3 5.) Supratheraputic INR - Hold Coumadin - Check PT/INR in am 6.) NIDDM - FS - RAISS 7.) HEMANT On CKD - Base Cr 1.3 - U Lytes - Renal Us - Ua, Ucx - Nephro consult 8.) HLD - Statin 9.) Normocytic Anemia - B12/ Folate - Fe Studies 10.) Dvt ppx - Supratheraputic INR Place in Med-Tele
[2017-05-09 22:06] LABS: ALLENS TEST POSITIVE; ARTERIAL BLD GAS O2 SATURATION 97.2 % (90-98.9); ARTERIAL BLOOD GAS BASE EXCESS 9.2 meq/l (-2-2); ARTERIAL BLOOD GAS PCO2 46.8 mmHg (35-45); ARTERIAL BLOOD GAS PO2 87.9 mmHg (68-100); ARTERIAL BLOOD GAS pH 7.47 (7.35-7.45)
--- NOTE | 2017-05-10 00:07 | HP ---
CHIEF COMPLAINT: hypoxia PCP: HISTORY OF PRESENT ILLNESS: The patient is an 87 yo f w/ PMH TX, Pulm HTN, CHF, DM, Afib who was sent to the ER from an urgent care clinic for hypoxia. The patient had been c/o cough , fever and chills for the past few days. She went to the [facility] ER, where she was D/C home. The patient went to an urgent care center when her symptoms did not get any better. In the Urgent care, she was found to have a saturation of 88 % and EMS was called. Flu swab at the urgent care clinic was negative. Patient did receive the flu shot this year. The patient is on 2L supplemental O2 at home which she has not been using recently because she felt sick. Patient denies CP, SOB, nausea, vomiting or dysuria. While in the ED, the patient had an episode of dizziness and syncope while returning from the bathroom. Pt was found to be hypoxic at this time. ER course was notable for: (1) WBC 10.5, Creatinine 3.5 (baseline 1.3) (2) INR 5.35, BNP 82700 (3) CXR showing mild pleural effusions Recent Travel: none PAST MEDICAL HISTORY: Breast CA TX Pulmonary HTN CHF DM HLD Afib HTN PAST SURGICAL HISTORY: Cholecystectomy TKR rt knee Hysterectomy Social History: Smoking: denies Alcohol: denies Drugs: denies Family History: non-contributory Allergies cranberry Allergy (Unknown, Verified 05/09/17 16:51) grape Allergy (Unknown, Verified 05/09/17 16:51) raspberry Allergy (Unknown, Verified 05/09/17 16:51) strawberry Allergy (Unknown, Verified 05/09/17 16:51) furosemide [From Lasix] Adverse Reaction (Verified 05/09/17 16:51) dizziness corn Allergy (Unknown, Uncoded 05/09/17 16:51) NUTS Allergy (Unknown, Uncoded 05/09/17 16:51) POLLEN Allergy (Unknown, Uncoded 05/09/17 16:51) SHELLFISH Allergy (Unknown, Uncoded 05/09/17 16:51) TUNA Allergy (Unknown, Uncoded 05/09/17 16:51) HOME MEDICATIONS: Home Medications Medication Instructions Recorded Spironolactone [Aldactone -] 25 mg PO DAILY #30 tablet 09/16/14 Metoprolol Tartrate [Lopressor -] 25 mg PO BID 10/25/16 Sildenafil Citrate [Sildenafil] 10 mg PO TID 10/25/16 Acetaminophen [Tylenol .Regular 650 mg PO Q6H PRN #0 tablet 11/22/16 Strength -] Amiodarone HCl 200 mg PO DAILY 05/09/17 Amlodipine Besylate [Norvasc -] 5 mg PO DAILY 05/09/17 Atorvastatin Ca [Lipitor] 10 mg PO HS 05/09/17 Metformin HCl 500 mg PO DAILY 05/09/17 Torsemide [Demadex -] 20 mg PO 5XD 05/09/17 Warfarin Na [Coumadin -] 5 mg PO DAILY@1800 05/09/17 REVIEW OF SYSTEMS CONSTITUTIONAL: Absent: diaphoresis, generalized weakness, malaise, loss of appetite, weight change HEENT: Absent: rhinorrhea, nasal congestion, throat pain, throat swelling, difficulty swallowing, mouth swelling, ear pain, eye pain, visual changes CARDIOVASCULAR: Absent: chest pain, syncope, palpitations, irregular heart rate, peripheral edema RESPIRATORY: Absent: shortness of breath, dyspnea with exertion, orthopnea, wheezing, stridor , hemoptysis GASTROINTESTINAL: Absent: abdominal pain, abdominal distension, nausea, vomiting, diarrhea, constipation, melena, hematochezia GENITOURINARY: Absent: dysuria, frequency, urgency, hesitancy, hematuria, flank pain, genital pain MUSCULOSKELETAL: Absent: myalgia, arthralgia, joint swelling, back pain, neck pain SKIN: Absent: rash, itching, pallor HEMATOLOGIC/IMMUNOLOGIC: Absent: easy bleeding, easy bruising, lymphadenopathy, frequent infections ENDOCRINE: Absent: unexplained weight gain, unexplained weight loss, heat intolerance, cold intolerance NEUROLOGIC: Absent: headache, focal weakness or paresthesias, dizziness, unsteady gait, seizure, mental status changes, bladder or bowel incontinence PSYCHIATRIC: Absent: anxiety, depression, suicidal or homicidal ideation, hallucinations. PHYSICAL EXAMINATION Vital Signs - 24 hr 05/09/17 05/09/17 05/09/17 16:35 16:40 17:23 Temperature 98.4 F Pulse Rate 58 L Pulse Rate [ Apical] Respiratory 16 16 Rate Blood Pressure 126/62 Blood Pressure [Right Arm] O2 Sat by Pulse 86 L 99 97 Oximetry (%) 05/09/17 20:33 Temperature Pulse Rate Pulse Rate [ 60 Apical] Respiratory 18 Rate Blood Pressure Blood Pressure 131/61 [Right Arm] O2 Sat by Pulse 98 Oximetry (%) GENERAL: Awake, alert, and fully oriented, in no acute distress. HEAD: Normal with no signs of trauma. EYES: Pupils equal, round and reactive to light, extraocular movements intact, sclera anicteric, conjunctiva clear. No lid lag. EARS, NOSE, THROAT: Moist mucous membranes. NECK: Normal range of motion, supple without lymphadenopathy, JVD, or masses. LUNGS: Breath sounds equal, clear to auscultation bilaterally. No wheezes, and no crackles. No accessory muscle use. HEART: Regular rate and rhythm, normal S1 and S2 without murmur, rub or gallop. Prominent S2 heart sound heard. ABDOMEN: Soft, nontender, not distended, normoactive bowel sounds, no guarding, no rebound, no masses. No hepatomegaly or splenomegaly. LOWER EXTREMITIES: 2+ pulses, warm, well-perfused. No calf tenderness. No peripheral edema. NEUROLOGICAL: Cranial nerves II-X intact. Normal speech. PSYCHIATRIC: Cooperative. Good eye contact. Appropriate mood and affect. SKIN: Warm, dry, normal turgor, no rashes or lesions noted, normal capillary refill. Laboratory Results - last 24 hr 05/09/17 05/09/17 05/09/17 17:00 17:00 17:00 WBC 10.5 H D RBC 3.40 L Hgb 10.7 D Hct 31.7 L MCV 93.3 MCH 31.3 MCHC 33.6 RDW 15.4 Plt Count 103 L D MPV 10.6 D Neutrophils % 71.8 D Lymphocytes % 14.4 D Monocytes % 12.9 H Eosinophils % 0.0 D Basophils % 0.9 PT with INR INR Anticoagulation Therapy Puncture Site ABG pH ABG pCO2 at Pt Temp ABG pO2 at Pt Temp ABG HCO3 ABG O2 Sat (Measured) ABG O2 Content ABG Base Excess Shashank Test O2 Delivery Device Oxygen Flow Rate Vent Mode Vent Rate Mechanical Rate PEEP Pressure Support Vent Sodium 137 Potassium 3.9 Chloride 98 Carbon Dioxide 31 Anion Gap 8 BUN 60 H Creatinine 3.5 H Creat Clearance w eGFR 12.41 POC Glucometer Random Glucose 156 H Lactic Acid 1.9 Calcium 8.4 L Total Bilirubin 1.8 H D AST 24 ALT 27 Alkaline Phosphatase 45 Creatine Kinase 128 Troponin I 0.04 B-Natriuretic Peptide 71104.15 H Total Protein 7.9 Albumin 3.6 Urine Color Urine Appearance Urine pH Ur Specific [place] Urine Protein Urine Glucose (UA) Urine Ketones Urine Blood Urine Nitrite Urine Bilirubin Urine Urobilinogen Ur Leukocyte Esterase Urine WBC (Auto) Urine RBC (Auto) Ur Epithelial Cells Hyaline Casts Ur Random Sodium Ur Random Potassium Ur Random Chloride 05/09/17 05/09/17 05/09/17 18:03 19:45 19:47 WBC RBC Hgb Hct MCV MCH MCHC RDW Plt Count MPV Neutrophils % Lymphocytes % Monocytes % Eosinophils % Basophils % PT with INR 60.20 H INR 5.33 H* D Anticoagulation Therapy Puncture Site ABG pH ABG pCO2 at Pt Temp ABG pO2 at Pt Temp ABG HCO3 ABG O2 Sat (Measured) ABG O2 Content ABG Base Excess Shashank Test O2 Delivery Device Oxygen Flow Rate Vent Mode Vent Rate Mechanical Rate PEEP Pressure Support Vent Sodium Potassium Chloride Carbon Dioxide Anion Gap BUN Creatinine Creat Clearance w eGFR POC Glucometer 167.33894 Random Glucose Lactic Acid Calcium Total Bilirubin AST ALT Alkaline Phosphatase Creatine Kinase Troponin I B-Natriuretic Peptide Total Protein Albumin Urine Color Ltyellow Urine Appearance Clear Urine pH 5.0 Ur Specific [place] 1.010 Urine Protein Negative Urine Glucose (UA) Negative Urine Ketones Negative Urine Blood 1+ H Urine Nitrite Negative Urine Bilirubin Negative Urine Urobilinogen Negative Ur Leukocyte Esterase 2+ H Urine WBC (Auto) 5 Urine RBC (Auto) 1 Ur Epithelial Cells Rare Hyaline Casts 1 Ur Random Sodium Ur Random Potassium Ur Random Chloride 05/09/17 05/09/17 21:55 22:34 WBC RBC Hgb Hct MCV MCH MCHC RDW Plt Count MPV Neutrophils % Lymphocytes % Monocytes % Eosinophils % Basophils % PT with INR INR Anticoagulation Therapy No Result Required. Puncture Site Right radial ABG pH 7.47 H ABG pCO2 at Pt Temp 46.8 H ABG pO2 at Pt Temp 87.9 ABG HCO3 33.7 H ABG O2 Sat (Measured) 97.2 ABG O2 Content 14.2 L ABG Base Excess 9.2 H Shashank Test Positive O2 Delivery Device Nasal Oxygen Flow Rate 4l Vent Mode No Result Required. Vent Rate No Result Required. Mechanical Rate No Result Required. PEEP 0.0 Pressure Support Vent No Result Required. Sodium Potassium Chloride Carbon Dioxide Anion Gap BUN Creatinine Creat Clearance w eGFR POC Glucometer Random Glucose Lactic Acid Calcium Total Bilirubin AST ALT Alkaline Phosphatase Creatine Kinase Troponin I B-Natriuretic Peptide Total Protein Albumin Urine Color Urine Appearance Urine pH Ur Specific [place] Urine Protein Urine Glucose (UA) Urine Ketones Urine Blood Urine Nitrite Urine Bilirubin Urine Urobilinogen Ur Leukocyte Esterase Urine WBC (Auto) Urine RBC (Auto) Ur Epithelial Cells Hyaline Casts Ur Random Sodium 23 Ur Random Potassium 30.9 Ur Random Chloride 16 ASSESSMENT/PLAN: The patient is an 87 yo f w/ PMH Pulm onary HTN, HTN, Afib, DM who is being admitted for hypoxemia #Hypoxemia likely 2/2 Mild CHF exacerbation - Torsemide 60mg -resume home torsemide -resume home aldactone -RPT EKG in AM -RPT CXR in AM -PT eval for home O2 requirements -Cardiology consult -trend troponin -echo in AM #HEMANT -Cr. 3.5, baseline ~1.3 -Renal US -urine lytes -nephro consult #Supratheraputic INR -INR 5.35 -hold warfarin -hold other AC -monitor INR #DM -BGM ACHS -ISS ACHS #FEN -no fluids indicated -monitor lytes -diabetic diet #Prophy -SCDs #Dispo -admit to tele Visit type - Emergency Visit Emergency Visit: Yes ED Registration Date: 05/09/17 Care time: The patient presented to the Emergency Department on the above date and was hospitalized for further evaluation of their emergent condition. - New Patient This patient is new to me today: Yes Date on this admission: 05/10/17 - Critical Care Critical Care patient: No Hospitalist Screening - Colonoscopy Questionnaire Colonoscopy Questionnaire: Colonoscopy Questionnaire - Patient: 50 - 75 years old and never had a screening colonoscopy: Unknown History of colon or rectal polyps, or CA: Unknown History of IBD, Crohn's disease or UC: Unknown History of abdominal radiation therapy as a child: Unknown - Relative: 1 with colon or rectal CA, or polyps at age 60 or younger: Unknown Colon or rectal CA diagnosed at age 45 or younger: Unknown Multiple relatives with colon or rectal CA: Unknown - Outcome: Screening Result: Negative Screen
[2017-05-10 03:30] VITALS: BMI 28.3
[2017-05-10] MEDS ORDERED: SILDENAFIL CITRATE 20 MG TAB PO ONE (06:00)
[2017-05-10] MEDS: INSULIN SLIDING SCALE (NOVOLOG) 1 VIAL SQ SCH ×4 (06:22→21:39)
[2017-05-10] MEDS: TORSEMIDE 20 MG TABLET (FP) PO SCH ×3 (06:34→21:38)
[2017-05-10 06:58] LABS: BASO % 0.5 % (0-2.0); HEMATOCRIT 29.6 % (32.4-45.2); LYMPH % 15.6 % (8-40); MCH 31.4 pg (25.7-33.7); MCHC 33.9 g/dl (32.0-36.0); MEAN CELL VOLUME 92.8 fl (80-96); MONO % 13.7 % (3.8-10.2); NEUT % 70.2 % (42.8-82.8); PLATELET COUNT 81 K/MM3 (134-434); RBC 3.19 M/mm3 (3.60-5.2); RDW 14.7 % (11.6-15.6); WHITE BLOOD COUNT 10.2 K/mm3 (4.0-10.0)
[2017-05-10 07:24] LABS: ALBUMIN 3.2 g/dl (3.4-5.0); ANION GAP 6 (8-16); BLOOD UREA NITROGEN 56 mg/dL (7-18); CHLORIDE 99 mmol/L (98-107); CO2 33 mmol/L (21-32); GLUCOSE,RANDOM 123 mg/dL (74-106); MAGNESIUM 2.6 mg/dL (1.8-2.4); SODIUM 138 mmol/L (136-145)
[2017-05-10 07:27] LABS: ALK PHOS 42 U/L (45-117); BILIRUBIN,TOTAL 2.5 mg/dL (0.2-1.0); CREATININE 3.2 mg/dL (0.55-1.02); PHOSPHOROUS 2.7 mg/dL (2.5-4.9); SGOT/AST 21 U/L (15-37); SGPT/ALT 23 U/L (12-78); TOT PROT 7.1 g/dl (6.4-8.2)
[2017-05-10 07:43] LABS: INR 4.87 (0.82-1.09)
--- NOTE | 2017-05-10 08:52 | CON.CARD ---
Consult Consult Specialty:: Cardiology Referred by:: Hospitalist Medicine Reason for Consultation:: CHF - History of Present Illness Chief Complaint: Hypoxia History of Present Illness: 87 year old F with PMH of HTN, CHF, paroxysmal afib on warfarin, pulmonary htn followed by pulmonary htn specialist in [facility],on sildenafil, untreated osas, chronic O2 rx with noncompliance at times. Presented to the ED with cough, found to have acute on CKD, supratherapeutic INR, hypoxia saO2 88%. She denies shortness of breath, hemoptysis, change in weight, chest pain, dizziness, true syncope, palpitations, orthopnea, PND or LE edema. Patient did have the influenza testing done at urgent care clinic which was negative. 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 No: Alzheimer's Cardio/Vascular: Yes: AFIB, CAD (non-obstructive CAD), CHF, HTN, Hyperlipdemia, Pulmonary Hypertension. No: Deep Vein Thrombosis, [place] Pulmonary: Yes: COPD, O2 Dependent. No: Pulmonary Embolus Endocrine: Yes: Diabetes Mellitus. No: Hathaway's Disease Additional Medical History: Hyperlipidemia, recent onset afib - Past Surgical History Past Surgical History: Yes: Cholecystectomy, Hysterectomy, Joint Replacement ( right knee), Mastectomy (left lumpectomy), Tubal Ligation - Alcohol/Substance Use Hx Alcohol Use: No History of Substance Use: reports: None - Smoking History Smoking history: Never smoked Have you smoked in the past 12 months: No Aproximately how many cigarettes per day: 0 - Social History Usual Living Arrangement: With Child ADL: Independent History of Recent Travel: No Home Medications - Allergies Allergies/Adverse Reactions: Allergies Allergy/AdvReac Type Severity Reaction Status Date / Time cranberry Allergy Unknown Verified 05/09/17 16:51 grape Allergy Unknown Verified 05/09/17 16:51 raspberry Allergy Unknown Verified 05/09/17 16:51 strawberry Allergy Unknown Verified 05/09/17 16:51 furosemide [From Lasix] AdvReac Verified 05/09/17 16:51 corn Allergy Unknown Uncoded 05/09/17 16:51 NUTS Allergy Unknown Uncoded 05/09/17 16:51 POLLEN Allergy Unknown Uncoded 05/09/17 16:51 SHELLFISH Allergy Unknown Uncoded 03/06/18 16:51 TUNA Allergy Unknown Uncoded 05/09/17 16:51 - Home Medications Home Medications: Ambulatory Orders Spironolactone [Aldactone -] 25 mg PO DAILY #30 tablet 09/16/14 Metoprolol Tartrate [Lopressor -] 25 mg PO BID 10/25/16 Sildenafil Citrate [Sildenafil] 10 mg PO TID 10/25/16 Acetaminophen [Tylenol .Regular Strength -] 650 mg PO Q6H PRN #0 tablet Amiodarone HCl 200 mg PO DAILY 05/09/17 Amlodipine Besylate [Norvasc -] 5 mg PO DAILY 05/09/17 Atorvastatin Ca [Lipitor] 10 mg PO HS 05/09/17 Metformin HCl 500 mg PO DAILY 05/09/17 Torsemide [Demadex -] 20 mg PO 5XD 05/09/17 Warfarin Na [Coumadin -] 5 mg PO DAILY@1800 05/09/17 Family Disease History - Family Disease History Family Disease History: Other: Daughter (HTN) Vital Signs: Vital Signs Temperature 99.1 F 05/10/17 08:05 Pulse Rate 59 L 05/10/17 08:05 Respiratory Rate 18 05/10/17 08:05 Blood Pressure 124/58 05/10/17 08:05 O2 Sat by Pulse Oximetry (%) 96 05/10/17 01:00 Constitutional: Yes: No Distress, Calm, Thin Neck: Yes: Supple Respiratory: Yes: Regular, Diminished, On Nasal O2 Gastrointestinal: Yes: Normal Bowel Sounds, Soft, Distention Cardiovascular: Yes: Regular Rate and Rhythm JVD: No Carotid Bruit: No Heart Sounds: Yes: S1, S2 Murmur: Yes: Systolic Murmur, Grade 1 Edema: No - Other Data Labs, Other Data: CBC, BMP 05/10/17 05:05 05/10/17 05:05 INR, PTT INR 4.87 (0.82-1.09) H* 05/10/17 05:05 Troponin, BNP 05/09/17 05/09/17 05/10/17 17:00 23:25 05:05 Troponin I 0.04 0.07 H 0.06 H B-Natriuretic Peptide 57666.15 H 05/10/17 07:00 Troponin I Cancelled B-Natriuretic Peptide Troponin, BNP 05/09/17 05/09/17 05/10/17 17:00 23:25 05:05 Troponin I 0.04 0.07 H 0.06 H B-Natriuretic Peptide 24277.15 H 05/10/17 07:00 Troponin I Cancelled B-Natriuretic Peptide SB @ 55 Echo: Report Reviewed Ejection Fraction %: LVEF > or = 40 % Imaging - Results Chest X-ray: Report Reviewed (CHF and effusions) Ultrasound: Report Reviewed (Mild left hydronephrosis, possible left nephrolithiasis) Problem List - Problems (1) Subendocardial ischemia Code(s): I24.8 - OTHER FORMS OF ACUTE ISCHEMIC HEART DISEASE (2) Supratherapeutic INR Code(s): R79.1 - ABNORMAL COAGULATION PROFILE (3) Thrombocytopenia Code(s): D69.6 - THROMBOCYTOPENIA, UNSPECIFIED (4) Acute and chronic respiratory failure with hypoxia Code(s): J96.21 - ACUTE AND CHRONIC RESPIRATORY FAILURE WITH HYPOXIA (5) HEMANT (acute kidney injury) Code(s): N17.9 - ACUTE KIDNEY FAILURE, UNSPECIFIED (6) Acute on chronic diastolic (congestive) heart failure Code(s): I50.33 - ACUTE ON CHRONIC DIASTOLIC (CONGESTIVE) HEART FAILURE (7) Sleep apnea, obstructive Code(s): G47.33 - OBSTRUCTIVE SLEEP APNEA (ADULT) (PEDIATRIC) (8) Atrial fibrillation Code(s): I48.91 - UNSPECIFIED ATRIAL FIBRILLATION Qualifiers: Atrial fibrillation type: paroxysmal Qualified Code(s): I48.0 - Paroxysmal atrial fibrillation (9) HTN (hypertension) Code(s): I10 - ESSENTIAL (PRIMARY) HYPERTENSION Qualifiers: Hypertension type: essential hypertension Qualified Code(s): I10 - Essential (primary) hypertension (10) Hyperlipidemia Code(s): E78.5 - HYPERLIPIDEMIA, UNSPECIFIED Qualifiers: Hyperlipidemia type: pure hypercholesterolemia Qualified Code(s): E78.00 - Pure hypercholesterolemia, unspecified (11) Moderate to severe pulmonary hypertension Code(s): I27.2 - OTHER SECONDARY PULMONARY HYPERTENSION * DO NOT USE * Assessment/Plan 10/26/2016 Echo: Normal LV size and fxn, mild-mod TR, mild MR, pulm HTN RVSP 48 mmHg 1. Acute on chronic hypoxic respiratory failure referable to 2. Acute on chronic diastolic failure 3. CAD non-obstructive disease, angina pectoris 4. Paroxysmal atrial fibrillation [id number] score of 9 on Coumadin therapy with supratherapeutic INR 5. Severe pulmonary HTN 6. HTN 7. NIDDM 8. Hypercholesterolemia 9. Acute on CKD referable to #2 10. Demand ischemia 11. Thrombocytopenia PLAN: 1. Diuresis with monitor diuretic response, renal fxn and electrolytes 2. Hold Diovan and Aldactone pending renal recovery 3. Continue Lipitor 10 qhs, Lopressor 25 bid, amio 200 qd and Norvasc 5 qd 4. Hold A/C with Coumadin maintaining INR 2-3 5. Continue Sildenafil Citrate (Revatio) 10 tid for the above noted pulmonary HTN 6. F/u repeat echo results, trops have peaked, check TSH on amio 7. Renal consult pending 8. Thank you for consultative opportunity
[2017-05-10] MEDS: AMIODARONE HCL 200 MG TABLET (FP) PO SCH (09:41)
[2017-05-10] MEDS: METOPROLOL TARTRATE 25 MG TABLET (FP) PO SCH ×2 (09:42→21:39)
[2017-05-10] MEDS: amLODIPine BESYLATE 5 MG TABLET (FP) PO SCH (09:42)
[2017-05-10] MEDS ORDERED: SPIRONOLACTONE 25 MG TABLET (FP) PO SCH (10:00)
--- NOTE | 2017-05-10 10:22 | CONSULT ---
Consultation: REQUESTING PROVIDER: Dr. Tiwari CONSULT REQUEST: We have been asked to medically evaluate this patient for HEMANT. HISTORY OF PRESENT ILLNESS: Patient is an 87 year old female with a significant PMHx of CAD, HTN, HLD, Diastolic CHF, Paroxysmal Atrial fibrillation, severe pulmonary HTN, SORAIDA, NIDDMII who was brought over from an urgent care after being found hypoxic. Patient reports she has been feeling short of breath associated with subjective fevers( no record of temperature), chills, a productive cough with clear sputum for the past week and decided to go to [facility] ED but was discharged the same day. Patient continued to worsen and decided to go to an urgent care yesterday where she was found to have an 02 saturation of 88%. Upon arrival to the ED patient had a syncopal episode. When asking the patient what happened before during or after the syncopal episode, she states she is unable to recall. Patient however, does report that she is requiring more oxygen use and has been feeling more and more short of breath throughout the last few months. In the ED patient was found to have a Creatinine of 3.5 with baseline around 1.2. Patient denies any NSAID use. She reports drinking at least two bottles of water a day. She reports never being told she has any kidney problems in the past. Otherwise, patient denies any nausea, vomiting, abdominal pain, chest pain, palpitations, headaches, acute vision changes, dysuria, hematuria. PMHx: CAD, HTN, HLD, Diastolic CHF, Paroxysmal Atrial fibrillation, severe pulmonary HTN, SORAIDA, NIDDMII PSHx: Cholecystectomy, Right TKR, Hysterectomy Social: Denies alcohol, drugs, smoking. Family: Non-contributory Medications: Home Medication List Medication Instructions Recorded Confirmed Type Metoprolol Tartrate [Lopressor -] 25 mg PO BID 10/25/16 05/09/17 History Sildenafil Citrate [Sildenafil] 10 mg PO TID 10/25/16 05/09/17 History Amiodarone HCl 200 mg PO DAILY 05/09/17 05/09/17 History Amlodipine Besylate [Norvasc -] 5 mg PO DAILY 05/09/17 05/09/17 History Atorvastatin Ca [Lipitor] 10 mg PO HS 05/09/17 05/09/17 History Metformin HCl 500 mg PO DAILY 05/09/17 05/09/17 History Torsemide [Demadex -] 20 mg PO 5XD 05/09/17 05/09/17 History Warfarin Na [Coumadin -] 5 mg PO DAILY@1800 05/09/17 05/09/17 History Allergies: Lasix- Causes Dizziness REVIEW OF SYSTEMS: CONSTITUTIONAL: fever, chills, generalized weakness, malaise Absent: diaphoresis, loss of appetite, weight change HEENT: Absent: rhinorrhea, nasal congestion, throat pain, throat swelling, difficulty swallowing, mouth swelling, ear pain, eye pain, visual changes CARDIOVASCULAR: syncope, lightheadedness Absent: chest pain, palpitations, irregular heart rate, peripheral edema RESPIRATORY: cough, shortness of breath, dyspnea with exertion Absent: orthopnea, wheezing, stridor, hemoptysis GASTROINTESTINAL: Absent: abdominal pain, abdominal distension, nausea, vomiting, diarrhea, constipation, melena, hematochezia GENITOURINARY: Absent: dysuria, frequency, urgency, hesitancy, hematuria, flank pain, genital pain MUSCULOSKELETAL: Absent: myalgia, arthralgia, joint swelling, back pain, neck pain SKIN: Absent: rash, itching, pallor HEMATOLOGIC/IMMUNOLOGIC: Absent: easy bleeding, easy bruising, lymphadenopathy, frequent infections ENDOCRINE: Absent: unexplained weight gain, unexplained weight loss, heat intolerance, cold intolerance NEUROLOGIC: Absent: headache, focal weakness or paresthesias, dizziness, unsteady gait, seizure, mental status changes, bladder or bowel incontinence PSYCHIATRIC: Absent: anxiety, depression, suicidal or homicidal ideation, hallucinations. PHYSICAL EXAMINATION Vital Signs - 24 hr 05/10/17 05/10/17 05:48 08:05 Temperature 99.5 F 99.1 F Pulse Rate 58 L 59 L Pulse Rate [ Apical] Respiratory 20 18 Rate Blood Pressure 114/70 124/58 Blood Pressure [Right Arm] O2 Sat by Pulse Oximetry (%) GENERAL: Awake, alert, and fully oriented, in no acute distress. HEAD: Normal with no signs of trauma. EYES: Pupils equal, round and reactive to light, extraocular movements intact, sclera anicteric, conjunctiva clear. No lid lag. EARS, NOSE, THROAT: Oropharynx clear without exudates. Moist mucous membranes. NECK: Normal range of motion, supple without lymphadenopathy, JVD LUNGS: Decreased breath sounds throughout lung bases bilaterally HEART: Regular Rate and Rhythm with 1-2/6 systolic murmur ABDOMEN: Soft, nontender, not distended, normoactive bowel sounds, no guarding, no rebound, no masses. MUSCULOSKELETAL: No CVA tenderness. LOWER EXTREMITIES: No peripheral edema. NEUROLOGICAL: Normal Speech. No facial asymmetry PSYCHIATRIC: Cooperative. Good eye contact. Appropriate mood and affect. SKIN: Warm, dry, normal turgor CBC, BMP 05/10/17 05:05 05/10/17 05:05 Laboratory Tests 05/09/17 05/09/17 05/10/17 19:47 22:34 05:05 INR 4.87 H* Calcium Phosphorus Magnesium Total Bilirubin Albumin Urine Blood 1+ H Ur Leukocyte Esterase 2+ H Urine WBC (Auto) 5 Ur Epithelial Cells Rare Hyaline Casts 1 Ur Random Sodium 23 Ur Random Potassium 30.9 Ur Random Chloride 16 05/10/17 05:05 INR Calcium 8.0 L Phosphorus 2.7 Magnesium 2.6 H Total Bilirubin 2.5 H D Albumin 3.2 L Urine Blood Ur Leukocyte Esterase Urine WBC (Auto) Ur Epithelial Cells Hyaline Casts Ur Random Sodium Ur Random Potassium Ur Random Chloride Active Medications Generic Name Dose Route Start Last Admin Trade Name Freq PRN Reason Stop Dose Admin Acetaminophen 650 mg 05/10/17 10:20 Tylenol - PO Q6H PRN PAIN Amiodarone HCl 200 mg 05/10/17 10:00 05/10/17 09:41 Cordarone - PO 200 mg DAILY SAIDA Administration Amlodipine Besylate 5 mg 05/10/17 10:00 05/10/17 09:42 Norvasc - PO 5 mg DAILY SAIDA Administration Atorvastatin Calcium 10 mg 05/10/17 22:00 Lipitor - PO HS [facility] Insulin Aspart 1 vial 05/10/17 07:00 05/10/17 06:22 Novolog Vial Sliding Scale - SQ Not Given ACHS [facility] Protocol Metoprolol Tartrate 25 mg 05/10/17 10:00 05/10/17 09:42 Lopressor - PO 25 mg BID [facility] Administration Non-Formulary Medication 10 mg 05/10/17 06:00 Sildenafil Citrate [Sildenafil] PO TID [facility] Torsemide 60 mg 05/10/17 22:08 Demadex - PO 05/10/17 22:09 ONCE ONE Torsemide 20 mg 05/10/17 06:00 05/10/17 09:41 Demadex - PO 20 mg 5XD SAIDA Administration ASSESSMENT/PLAN: Patient is an 87 year old female who presented to the ED for hypoxia and was found to be in acute diastolic CHF with HEMANT. Patient admitted for further monitoring and management. HEMANT -Likely secondary to acute diastolic CHF with low cardiac output causing renal hypoperfusion and Sodium retention -Patient's creatinine has improved today from 3.5 to 3.2 -Patient is currently in fluid overload and requiring diuresis. Will hold off on fluids but encourage PO fluids if tolerated -Renal U/S reveals mild hydronephrosis. -Will need Urine electrolytes including urine creatinine to calculate FeNa -Will need urine proteins -No indication for emergent dialysis at this time -Continue to hold Diovan and Aldactone -Continue to renally dose medications -Avoid all nephrotoxic medications -Strict I&O's -Continue to monitor BMP daily Acute Diastolic CHF -Continue Diuresis with Torsemide, as per Cardiology -Strict I&O's Supratherapeutic INR -Hold coumadin and monitor, as per primary team NIDDMII -ISS -BGM HTN -Continue Amlodipine 5mg daily -Avoid hypotension as it can worsen HEMANT -Continue to monitor BP Dispo: We will continue to follow the patient. Thank you for this consultative opportunity. Gina Schultz [id number] Visit type - Emergency Visit Emergency Visit: Yes ED Registration Date: 05/09/17 Care time: The patient presented to the Emergency Department on the above date and was hospitalized for further evaluation of their emergent condition. - New Patient This patient is new to me today: Yes Date on this admission: 05/10/17 - Critical Care Critical Care patient: No
--- NOTE | 2017-05-10 10:23 | EKG ---
Test Reason : Blood Pressure : / mmHG Vent. Rate : 055 BPM Atrial Rate : 055 BPM P-R Int : 194 ms QRS Dur : 082 ms QT Int : 480 ms P-R-T Axes : 050 035 064 degrees QTc Int : 459 ms SINUS BRADYCARDIA OTHERWISE NORMAL ECG WHEN COMPARED WITH ECG OF 09-MAY-2017 17:21, SINUS RHYTHM HAS REPLACED ATRIAL FLUTTER Confirmed by SIVAN LUJAN, BENI ([id number]) on 05/10/2017 10:22:56 AM Referred By: Confirmed By:BENI FINNEGAN MD
[2017-05-10] MEDS: ACETAMINOPHEN 325 MG TABLET (FP) PO PRN (10:34)
--- NOTE | 2017-05-10 10:41 | CON.PULM ---
Consult Consult Specialty:: PULMONARY Referred by:: Dr. Jaeger Reason for Consultation:: hypoxia - History of Present Illness Chief Complaint: generalized weakness History of Present Illness: 87yo female with h/o HTN, paroxysmal atrial fibrillation, LV diastolic dysfunction, severe pulmonary HTN on sildenafil, SORAIDA, chronic hypoxic respiratory failure on home O2 who presented with a cough and hypoxia. Cough is nonproductive without wheezing. No chest pain or palpitations. She does report subjective fevers. No shortness of breath, leg swelling or orthopnea. Noted to have a syncopal episode in the ER. States that her legs have been weak and has been unable to walk like her baseline. 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 No: Alzheimer's Cardio/Vascular: Yes: AFIB, CAD (non-obstructive CAD), CHF, HTN, Hyperlipdemia, Pulmonary Hypertension. No: Deep Vein Thrombosis, [place] Pulmonary: Yes: COPD, O2 Dependent. No: Pulmonary Embolus Endocrine: Yes: Diabetes Mellitus. No: Carson's Disease Additional Medical History: Hyperlipidemia, recent onset afib - Past Surgical History Past Surgical History: Yes: Cholecystectomy, Hysterectomy, Joint Replacement ( right knee), Mastectomy (left lumpectomy), Tubal Ligation - Alcohol/Substance Use Hx Alcohol Use: No History of Substance Use: reports: None - Smoking History Smoking history: Never smoked Have you smoked in the past 12 months: No Aproximately how many cigarettes per day: 0 - Social History Usual Living Arrangement: With Child ADL: Independent History of Recent Travel: No Home Medications - Allergies Allergies/Adverse Reactions: Allergies Allergy/AdvReac Type Severity Reaction Status Date / Time cranberry Allergy Unknown Verified 05/09/17 16:51 grape Allergy Unknown Verified 05/09/17 16:51 raspberry Allergy Unknown Verified 05/09/17 16:51 strawberry Allergy Unknown Verified 05/09/17 16:51 furosemide [From Lasix] AdvReac Verified 05/09/17 16:51 corn Allergy Unknown Uncoded 05/09/17 16:51 NUTS Allergy Unknown Uncoded 05/09/17 16:51 POLLEN Allergy Unknown Uncoded 05/09/17 16:51 SHELLFISH Allergy Unknown Uncoded 05/09/17 16:51 TUNA Allergy Unknown Uncoded 05/09/17 16:51 - Home Medications Home Medications: Ambulatory Orders Spironolactone [Aldactone -] 25 mg PO DAILY #30 tablet 09/16/14 Metoprolol Tartrate [Lopressor -] 25 mg PO BID 10/25/16 Sildenafil Citrate [Sildenafil] 10 mg PO TID 10/25/16 Acetaminophen [Tylenol .Regular Strength -] 650 mg PO Q6H PRN #0 tablet Amiodarone HCl 200 mg PO DAILY 05/09/17 Amlodipine Besylate [Norvasc -] 5 mg PO DAILY 05/09/17 Atorvastatin Ca [Lipitor] 10 mg PO HS 05/09/17 Metformin HCl 500 mg PO DAILY 05/09/17 Torsemide [Demadex -] 20 mg PO 5XD 05/09/17 Warfarin Na [Coumadin -] 5 mg PO DAILY@1800 05/09/17 Family Disease History - Family Disease History Family Disease History: Other: Daughter (HTN) Review of Systems - Review of Systems Constitutional: reports: Fever, Weakness Eyes: denies: Recent Change in Vision HENT: denies: Nasal Congestion, Throat Pain Neck: denies: Stiffness, Tenderness Cardiovascular: denies: Chest Pain, Edema, Palpitations, Shortness of Breath Respiratory: reports: Cough. denies: Hemoptysis, Wheezing Gastrointestinal: denies: Abdominal Pain, Nausea, Vomiting Genitourinary: denies: Dysuria, Hematuria Neurological: denies: Dizziness, Headache Physical Exam Vital Sings: Vital Signs Temperature 99.1 F 05/10/17 08:05 Pulse Rate 59 L 05/10/17 08:05 Respiratory Rate 18 05/10/17 08:05 Blood Pressure 124/58 05/10/17 08:05 O2 Sat by Pulse Oximetry (%) 96 05/10/17 01:00 Constitutional: Yes: Calm Eyes: Yes: Conjunctiva Clear, EOM Intact HENT: Yes: Atraumatic, Normocephalic Neck: Yes: Supple, Trachea Midline Cardiovascular: Yes: Regular Rate and Rhythm Respiratory: Yes: Diminished (decreased breath sounds at the bases) ...Clubbing: No Gastrointestinal: Yes: Normal Bowel Sounds, Soft. No: Tenderness Edema: No Neurological: Yes: Alert, Oriented Labs: CBC, BMP 05/10/17 05:05 05/10/17 05:05 ABG Results ABG pH 7.47 (7.35-7.45) H 05/09/17 21:55 ABG pCO2 at Pt Temp 46.8 mmHg (35-45) H 05/09/17 21:55 ABG pO2 at Pt Temp 87.9 mmHg (68-100) 05/09/17 21:55 ABG HCO3 33.7 meq/L (22-26) H 05/09/17 21:55 ABG O2 Sat (Measured) 97.2 % (90-98.9) 05/09/17 21:55 ABG O2 Content 14.2 % vol (15-22) L 05/09/17 21:55 ABG Base Excess 9.2 meq/l (-2-2) H 05/09/17 21:55 Imaging - Results Chest X-ray: Report Reviewed, Image Reviewed (mild pulmonary vascular congestion ) Problem List - Problems (1) Acute and chronic respiratory failure with hypoxia Code(s): J96.21 - ACUTE AND CHRONIC RESPIRATORY FAILURE WITH HYPOXIA (2) Acute on chronic diastolic (congestive) heart failure Code(s): I50.33 - ACUTE ON CHRONIC DIASTOLIC (CONGESTIVE) HEART FAILURE (3) Atrial fibrillation Code(s): I48.91 - UNSPECIFIED ATRIAL FIBRILLATION Qualifiers: Atrial fibrillation type: paroxysmal Qualified Code(s): I48.0 - Paroxysmal atrial fibrillation (4) HTN (hypertension) Code(s): I10 - ESSENTIAL (PRIMARY) HYPERTENSION Qualifiers: Hypertension type: essential hypertension Qualified Code(s): I10 - Essential (primary) hypertension (5) Moderate to severe pulmonary hypertension Code(s): I27.2 - OTHER SECONDARY PULMONARY HYPERTENSION * DO NOT USE * (6) Acute on chronic renal failure Code(s): N17.9 - ACUTE KIDNEY FAILURE, UNSPECIFIED; N18.9 - CHRONIC KIDNEY DISEASE, UNSPECIFIED Assessment/Plan Acute on Chronic Hypoxic Respiratory Failure Acute on Chronic Diastolic Heart Failure Pulmonary HTN Atrial Fibrillation Supratherapeutic INR HTN DM - continue diuresis - monitor urine output, creatinine - daily weights, I/Os - monitor CXR with diruesis - continue sildenafil - inhaled bronchodilators as needed - o2 to keep SpO2 >90% - echocardiogram - anticoagulation with target INR 2-3 Thank you for this consult Cole Flores MD
--- NOTE | 2017-05-10 10:51 | EKG ---
Test Reason : Blood Pressure : / mmHG Vent. Rate : 055 BPM Atrial Rate : 227 BPM P-R Int : 000 ms QRS Dur : 086 ms QT Int : 472 ms P-R-T Axes : 065 043 063 degrees QTc Int : 451 ms POOR DATA QUALITY, INTERPRETATION MAY BE ADVERSELY AFFECTED ATRIAL FLUTTER WITH 4:1 A-V CONDUCTION ABNORMAL ECG WHEN COMPARED WITH ECG OF 10-NOV-2016 18:57, ATRIAL FLUTTER HAS REPLACED SINUS RHYTHM Confirmed by SIVAN LUJAN, BENI ([id number]) on 05/10/2017 10:51:32 AM Referred By: Confirmed By:BENI FINNEGAN MD
[2017-05-10] MEDS: SPIRONOLACTONE 25 MG TABLET (FP) PO SCH (13:46)
--- NOTE | 2017-05-10 15:31 | PN ---
Teaching Attending Note Name of Resident: Jordon Conde ATTENDING PHYSICIAN STATEMENT I saw and evaluated the patient. I reviewed the resident's note and discussed the case with the resident. I agree with the resident's findings and plan as documented. SUBJECTIVE: no fever or chills , has SOB but better than yesterday. no ABd pain. states that her out pt acevedo of torsemide was decreased from 3 tabs iBID to 3 tabs in am and 2 in PM 2 weeks ago OBJECTIVE: NAD CV: RRR, JVD Lungs: bibasilar crackles Legs : hyperpigmented skin, with trace pitting edema abd; soft, NT, ND , NL BS ASSESSMENT AND PLAN: 87 y/o lady with h/o Pulmonary HTN, Atrial Fibrillation, on coumadin HTN, DM d heart failure , and other medical problems who presented with worsening SOB , and she was found to have acute CHF exacerbation 1- Acute on chronic hypoxic resp failure 2/2 diastolic CHF: due to recent decrease in her out pt torsemide regimen ( from 60 BID to 60 in am and 40 in pm ) - place her back on her old home regimen 60 BID - weight and I&O -cont BB and spironolactone - echo pending - cont increased O2 needs 2- P a fib: hold coumadin due to coumadin coagulopathy repeat INR in am 3- HEMANT: due to prerenal etiology form heart failure . unfortunately , urine urea was not done , can't calculate FE Urea cr improved with diuresis cont to diurese renal US with mild L hydro, will check CT of abd /pevis to r/o obstruction , then if needed uro 4- demand ischemia , in setting of heart failure EKG reviewed. trop trended down monitor 5- dispo : HLOC PT lisette;l
--- NOTE | 2017-05-10 16:03 | PN ---
Teaching Attending Note Name of Resident: Gina Heller (Nephrology) ATTENDING PHYSICIAN STATEMENT I saw and evaluated the patient. I reviewed the resident's note and discussed the case with the resident. I agree with the resident's findings and plan as documented. SUBJECTIVE: This is a 87 year old woman with PMhx of CAD, HTN, HLD, Diastolic CHF, Paroxysmal Atrial fibrillation, severe pulmonary HTN, SORAIDA, NIDDMII who presented with hypoxia from urgent care and found to have Cr of 3.5. Pt reports that being told in the past that she has had some kidney dysfunction but nothing severe. Previous Cr from November was ~1.4. Denies any NSAID use, no contrast exposure. Pt is on Aldactone and ARB. Pt on high dose torsemide for CHF. Denies any sob, chest pain, abd pain, N/V/D, RIVERA, confusion or lethargy. PMHx: As above Allergies: as listed in medical record Family Hx: NC social Hx: No T/A/D ROS: As per HPI, all other pertinent ros negative. Home Medications Medication Instructions Recorded Spironolactone [Aldactone -] 25 mg PO DAILY #30 tablet 09/16/14 Metoprolol Tartrate [Lopressor -] 25 mg PO BID 10/25/16 Sildenafil Citrate [Sildenafil] 10 mg PO TID 10/25/16 Acetaminophen [Tylenol .Regular 650 mg PO Q6H PRN #0 tablet 11/22/16 Strength -] Amiodarone HCl 200 mg PO DAILY 05/09/17 Amlodipine Besylate [Norvasc -] 5 mg PO DAILY 05/09/17 Atorvastatin Ca [Lipitor] 10 mg PO HS 05/09/17 Metformin HCl 500 mg PO DAILY 05/09/17 Torsemide [Demadex -] 60mg BID 05/09/17 Warfarin Na [Coumadin -] 5 mg PO DAILY@1800 05/09/17 Vital Signs Temperature 98.4 F 05/10/17 13:55 Pulse Rate 56 L 05/10/17 13:55 Respiratory Rate 18 05/10/17 13:55 Blood Pressure 100/55 05/10/17 13:55 O2 Sat by Pulse Oximetry (%) 95 05/10/17 08:00 NAD awake and alert RRR DEC in lung bases soft NT/ND No LE edema no clubbing or cyanosis CBC, BMP 05/10/17 05:05 05/10/17 05:05 Current Medications Acetaminophen (Tylenol -) 650 mg PO Q6H PRN PRN Reason: PAIN Last Admin: 05/10/17 10:34 Dose: 650 mg Amiodarone HCl (Cordarone -) [address] [facility] Last Admin: 05/10/17 09:41 Dose: 200 mg Amlodipine Besylate (Norvasc -) [address] [facility] Last Admin: 05/10/17 09:42 Dose: 5 mg Atorvastatin Calcium (Lipitor -) [address] [facility] Insulin Aspart (Novolog Vial Sliding Scale -) 1 vial SQ ACHS [facility] PRN Reason: Protocol Last Admin: 05/10/17 12:24 Dose: Not Given Metoprolol Tartrate (Lopressor -) [address] [facility] Last Admin: 05/10/17 09:42 Dose: 25 mg Non-Formulary Medication (Sildenafil Citrate [Sildenafil]) [address] [facility] Spironolactone (Aldactone -) [address] [facility] Last Admin: 05/10/17 13:46 Dose: 25 mg Torsemide (Demadex -) [address] [facility] This is a 87 year old woman with PMhx of CAD, HTN, HLD, Diastolic CHF, Paroxysmal Atrial fibrillation, severe pulmonary HTN, SORAIDA, NIDDMII who presented with hypoxia from urgent care and found to have Cr of 3.5. #HEMANT on CKD Differential includes pre-renal injury from HF vs. obstruction vs. intrinsic kidney injury Check FeUrea, UPCR US showed mild hydro on one kidney, no source of obstruction noted on US if renal function does not get better may need CT of the Abd to ensure there is not a distal obstruction continue Demadex 60mg BID Trend daily BUN/Cr and electrolytes hold aldactone/ARB Thank you will follow Aldair Miles DO
--- NOTE | 2017-05-10 16:13 | PN ---
Physical Exam: SUBJECTIVE: Patient seen and examined at bedside. breathing is better , denies any chest pain , palpitation , sob , denies any fever, chills , N/V/D/C. OBJECTIVE: Vital Signs Period Temp Pulse Resp BP Sys/Morales Pulse Ox Last 24 Hr 98.4 F-99.5 F 56-60 14-20 100-131/55-70 86-99 GENERAL: AAOx3 in NAD HEAD: NC/AT EYES: EOMI, Conjunctiva clear, sclera anicteric ENT: moist mucous membrane NECK: Supple, +JVD LUNGS: B/L base crackles, no wheezing no accessory muscle use. HEART: RRR, NSR, normal s1, s2, 2/6 systolic murmur no/R/G ABDOMEN: Soft, ND, NT, +BS 4 Q, no CVA Tenderness LOWER EXTREMITIES: trace edema, +2DP pulse, right knee surgical scar. NEUROLOGICAL: No focal deficit. Normal speech. gait not observed. PSYCHIATRIC: Cooperative. Good eye contact. Appropriate mood and affect. SKIN: Warm, dry, Laboratory Results - last 24 hr 05/09/17 05/09/17 05/09/17 17:00 17:00 17:00 WBC 10.5 H D RBC 3.40 L Hgb 10.7 D Hct 31.7 L MCV 93.3 MCH 31.3 MCHC 33.6 RDW 15.4 Plt Count 103 L D MPV 10.6 D Neutrophils % 71.8 D Lymphocytes % 14.4 D Monocytes % 12.9 H Eosinophils % 0.0 D Basophils % 0.9 PT with INR INR Anticoagulation Therapy Puncture Site ABG pH ABG pCO2 at Pt Temp ABG pO2 at Pt Temp ABG HCO3 ABG O2 Sat (Measured) ABG O2 Content ABG Base Excess Shashank Test O2 Delivery Device Oxygen Flow Rate Vent Mode Vent Rate Mechanical Rate PEEP Pressure Support Vent Sodium 137 Potassium 3.9 Chloride 98 Carbon Dioxide 31 Anion Gap 8 BUN 60 H Creatinine 3.5 H Creat Clearance w eGFR 12.41 POC Glucometer Random Glucose 156 H Lactic Acid 1.9 Calcium 8.4 L Phosphorus Magnesium Total Bilirubin 1.8 H D AST 24 ALT 27 Alkaline Phosphatase 45 Creatine Kinase 128 Troponin I 0.04 B-Natriuretic Peptide 35917.15 H Total Protein 7.9 Albumin 3.6 Urine Color Urine Appearance Urine pH Ur Specific [place] Urine Protein Urine Glucose (UA) Urine Ketones Urine Blood Urine Nitrite Urine Bilirubin Urine Urobilinogen Ur Leukocyte Esterase Urine WBC (Auto) Urine RBC (Auto) Ur Epithelial Cells Hyaline Casts Ur Random Sodium Ur Random Potassium Ur Random Chloride 05/09/17 05/09/17 05/09/17 18:03 19:45 19:47 WBC RBC Hgb Hct MCV MCH MCHC RDW Plt Count MPV Neutrophils % Lymphocytes % Monocytes % Eosinophils % Basophils % PT with INR 60.20 H INR 5.33 H* D Anticoagulation Therapy Puncture Site ABG pH ABG pCO2 at Pt Temp ABG pO2 at Pt Temp ABG HCO3 ABG O2 Sat (Measured) ABG O2 Content ABG Base Excess Shashank Test O2 Delivery Device Oxygen Flow Rate Vent Mode Vent Rate Mechanical Rate PEEP Pressure Support Vent Sodium Potassium Chloride Carbon Dioxide Anion Gap BUN Creatinine Creat Clearance w eGFR POC Glucometer [id number] Random Glucose Lactic Acid Calcium Phosphorus Magnesium Total Bilirubin AST ALT Alkaline Phosphatase Creatine Kinase Troponin I B-Natriuretic Peptide Total Protein Albumin Urine Color Ltyellow Urine Appearance Clear Urine pH 5.0 Ur Specific [place] 1.010 Urine Protein Negative Urine Glucose (UA) Negative Urine Ketones Negative Urine Blood 1+ H Urine Nitrite Negative Urine Bilirubin Negative Urine Urobilinogen Negative Ur Leukocyte Esterase 2+ H Urine WBC (Auto) 5 Urine RBC (Auto) 1 Ur Epithelial Cells Rare Hyaline Casts 1 Ur Random Sodium Ur Random Potassium Ur Random Chloride 05/09/17 05/09/17 05/09/17 21:55 22:34 23:25 WBC RBC Hgb Hct MCV MCH MCHC RDW Plt Count MPV Neutrophils % Lymphocytes % Monocytes % Eosinophils % Basophils % PT with INR INR Anticoagulation Therapy No Result Required. Puncture Site Right radial ABG pH 7.47 H ABG pCO2 at Pt Temp 46.8 H ABG pO2 at Pt Temp 87.9 ABG HCO3 33.7 H ABG O2 Sat (Measured) 97.2 ABG O2 Content 14.2 L ABG Base Excess 9.2 H Shashank Test Positive O2 Delivery Device Nasal Oxygen Flow Rate 4l Vent Mode No Result Required. Vent Rate No Result Required. Mechanical Rate No Result Required. PEEP 0.0 Pressure Support Vent No Result Required. Sodium Potassium Chloride Carbon Dioxide Anion Gap BUN Creatinine Creat Clearance w eGFR POC Glucometer Random Glucose Lactic Acid Calcium Phosphorus Magnesium Total Bilirubin AST ALT Alkaline Phosphatase Creatine Kinase Troponin I 0.07 H B-Natriuretic Peptide Total Protein Albumin Urine Color Urine Appearance Urine pH Ur Specific [place] Urine Protein Urine Glucose (UA) Urine Ketones Urine Blood Urine Nitrite Urine Bilirubin Urine Urobilinogen Ur Leukocyte Esterase Urine WBC (Auto) Urine RBC (Auto) Ur Epithelial Cells Hyaline Casts Ur Random Sodium 23 Ur Random Potassium 30.9 Ur Random Chloride 16 05/10/17 05/10/17 05/10/17 05:05 05:05 05:05 WBC 10.2 H RBC 3.19 L Hgb 10.0 L Hct 29.6 L MCV 92.8 MCH 31.4 MCHC 33.9 RDW 14.7 Plt Count 81 L D MPV 10.0 Neutrophils % 70.2 Lymphocytes % 15.6 Monocytes % 13.7 H Eosinophils % 0.0 Basophils % 0.5 PT with INR 55.00 H INR 4.87 H* Anticoagulation Therapy Puncture Site ABG pH ABG pCO2 at Pt Temp ABG pO2 at Pt Temp ABG HCO3 ABG O2 Sat (Measured) ABG O2 Content ABG Base Excess Shashank Test O2 Delivery Device Oxygen Flow Rate Vent Mode Vent Rate Mechanical Rate PEEP Pressure Support Vent Sodium 138 Potassium 4.0 Chloride 99 Carbon Dioxide 33 H Anion Gap 6 L BUN 56 H Creatinine 3.2 H Creat Clearance w eGFR 13.77 POC Glucometer Random Glucose 123 H Lactic Acid Calcium 8.0 L Phosphorus 2.7 Magnesium 2.6 H Total Bilirubin 2.5 H D AST 21 ALT 23 Alkaline Phosphatase 42 L Creatine Kinase Troponin I 0.06 H B-Natriuretic Peptide Total Protein 7.1 Albumin 3.2 L Urine Color Urine Appearance Urine pH Ur Specific [place] Urine Protein Urine Glucose (UA) Urine Ketones Urine Blood Urine Nitrite Urine Bilirubin Urine Urobilinogen Ur Leukocyte Esterase Urine WBC (Auto) Urine RBC (Auto) Ur Epithelial Cells Hyaline Casts Ur Random Sodium Ur Random Potassium Ur Random Chloride 05/10/17 05/10/17 05/10/17 06:14 07:00 12:18 WBC RBC Hgb Hct MCV MCH MCHC RDW Plt Count MPV Neutrophils % Lymphocytes % Monocytes % Eosinophils % Basophils % PT with INR INR Anticoagulation Therapy Puncture Site ABG pH ABG pCO2 at Pt Temp ABG pO2 at Pt Temp ABG HCO3 ABG O2 Sat (Measured) ABG O2 Content ABG Base Excess Shashank Test O2 Delivery Device Oxygen Flow Rate Vent Mode Vent Rate Mechanical Rate PEEP Pressure Support Vent Sodium Potassium Chloride Carbon Dioxide Anion Gap BUN Creatinine Creat Clearance w eGFR POC Glucometer 135 132 Random Glucose Lactic Acid Calcium Phosphorus Magnesium Total Bilirubin AST ALT Alkaline Phosphatase Creatine Kinase Troponin I Cancelled B-Natriuretic Peptide Total Protein Albumin Urine Color Urine Appearance Urine pH Ur Specific [place] Urine Protein Urine Glucose (UA) Urine Ketones Urine Blood Urine Nitrite Urine Bilirubin Urine Urobilinogen Ur Leukocyte Esterase Urine WBC (Auto) Urine RBC (Auto) Ur Epithelial Cells Hyaline Casts Ur Random Sodium Ur Random Potassium Ur Random Chloride Active Medications Generic Name Dose Route Start Last Admin Trade Name Freq PRN Reason Stop Dose Admin Acetaminophen 650 mg 05/10/17 10:20 05/10/17 10:34 Tylenol - PO 650 mg Q6H PRN Administration PAIN Amiodarone HCl 200 mg 05/10/17 10:00 05/10/17 09:41 Cordarone - PO 200 mg DAILY [facility] Administration Amlodipine Besylate 5 mg 05/10/17 10:00 05/10/17 09:42 Norvasc - PO 5 mg DAILY [facility] Administration Atorvastatin Calcium 10 mg 05/10/17 22:00 Lipitor - PO HS [facility] Insulin Aspart 1 vial 05/10/17 07:00 05/10/17 12:24 Novolog Vial Sliding Scale - SQ Not Given ACHS [facility] Protocol Metoprolol Tartrate 25 mg 05/10/17 10:00 05/10/17 09:42 Lopressor - PO 25 mg BID [facility] Administration Sildenafil Citrate 10 mg 05/10/17 22:00 Revatio - PO TID [facility] Spironolactone 25 mg 05/10/17 13:15 05/10/17 13:46 Aldactone - PO 25 mg DAILY [facility] Administration Torsemide 60 mg 05/10/17 22:00 Demadex - PO BID [facility] CBC, BMP 05/10/17 05:05 05/10/17 05:05 ASSESSMENT/PLAN: 87 y/o lady with h/o Pulmonary HTN, Atrial Fibrillation, on coumadin HTN, DM diastolic heart failure , and other medical problems who presented with worsening SOB , and she was found to have acute CHF exacerbation # acute on chronic hypoxic respiratory failure likely due to DCHF * recent decrease in her Bdemadex will put her back on her dose 60 bid * continue aldactone and BB * F/U echo * cardiology consulted * o2 as needed to keep sat >90 % * I&O , daily weight * CXR with mild pleural effusion , enlaged cardiac sillhoute, mild pul vasc congestion # AFIB * on Coumadin , well helo to elevated INR * repeat INR in AM * monitor tech #HEMANT on CKD * likely due to pre renal from DCHF vs intrinsik kidney injury * BUN/Cr 56/3.2 , base line cr 1.3 * Fe urea * Renal US with 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 - New Patient This patient is new to me today: Yes Date on this admission: 05/10/17 - Critical Care Critical Care patient: No
[2017-05-10] MEDS: ATORVASTATIN CA 10 MG TABLET (FP) PO SCH (21:39)
[2017-05-10] MEDS: SILDENAFIL CITRATE 20 MG TAB PO SCH (21:39)
[2017-05-10] MEDS ORDERED: TORSEMIDE 20 MG TABLET (FP) PO ONE (22:08)
[2017-05-11] MEDS: ACETAMINOPHEN 325 MG TABLET (FP) PO PRN ×2 (02:11→22:09)
[2017-05-11] MEDS: INSULIN SLIDING SCALE (NOVOLOG) 1 VIAL SQ SCH ×4 (06:05→21:59)
[2017-05-11] MEDS: SILDENAFIL CITRATE 20 MG TAB PO SCH ×3 (06:05→21:59)
[2017-05-11 07:26] LABS: BASO % 0.7 % (0-2.0); EOS % 0.2 % (0-4.5); HEMATOCRIT 28.3 % (32.4-45.2); HEMOGLOBIN 9.5 GM/dL (10.7-15.3); LYMPH % 17.3 % (8-40); MCH 31.2 pg (25.7-33.7); MCHC 33.8 g/dl (32.0-36.0); MEAN CELL VOLUME 92.5 fl (80-96); MEAN PLT VOLUME 10.3 fl (7.5-11.1); MONO % 10.7 % (3.8-10.2); NEUT % 71.1 % (42.8-82.8); PLATELET COUNT 81 K/MM3 (134-434); RBC 3.06 M/mm3 (3.60-5.2); RDW 15.7 % (11.6-15.6); WHITE BLOOD COUNT 8.4 K/mm3 (4.0-10.0)
[2017-05-11 07:51] LABS: INR 3.58 (0.82-1.09); PROTHROMBIN TIME (PATIENT) 40.4 SEC (9.98-11.88)
[2017-05-11 07:55] LABS: ANION GAP 12 (8-16); BLOOD UREA NITROGEN 56 mg/dL (7-18); CALCIUM 8.3 mg/dL (8.5-10.1); CHLORIDE 101 mmol/L (98-107); CO2 29 mmol/L (21-32); CREATININE 2.9 mg/dL (0.55-1.02); GLUCOSE,RANDOM 115 mg/dL (74-106); POTASSIUM 3.6 mmol/L (3.5-5.1); SODIUM 142 mmol/L (136-145)
[2017-05-11] MEDS: amLODIPine BESYLATE 5 MG TABLET (FP) PO SCH (09:35)
[2017-05-11] MEDS: METOPROLOL TARTRATE 25 MG TABLET (FP) PO SCH ×2 (09:35→21:59)
[2017-05-11] MEDS: TORSEMIDE 20 MG TABLET (FP) PO SCH ×2 (09:35→21:59)
[2017-05-11] MEDS: AMIODARONE HCL 200 MG TABLET (FP) PO SCH (09:35)
[2017-05-11] MEDS: SPIRONOLACTONE 25 MG TABLET (FP) PO SCH (09:35)
[2017-05-11 09:38] LABS: URINE APPEARANCE CLEAR; URINE BILIRUBIN NEGATIVE (NEGATIVE); URINE BLOOD NEGATIVE (NEGATIVE); URINE COLOR LTYELLOW; URINE GLUCOSE (UA) NEGATIVE (NEGATIVE); URINE KETONE NEGATIVE (NEGATIVE); URINE LEUK ESTERASE TRACE (NEGATIVE); URINE NITRITE NEGATIVE (NEGATIVE); URINE PROTEIN NEGATIVE (NEGATIVE); URINE UROBILINOGEN 4.0 E.U/dl mg/dL (0.2-1.0)
[2017-05-11 09:42] LABS: EPI CELLS RARE /HPF (FEW); URINE BACTERIA RARE /hpf (NONE SEEN); URINE MUCUS RARE
[2017-05-11 09:53] LABS: URINE CREATININE 46.3 mg/dL (20-320)
--- NOTE | 2017-05-11 11:15 | PN ---
Progress Note, Physician Chief Complaint: Events noted Less shortness of breath Ambulates better History of Present Illness: Patient was seen and examined. Awake and alert. Chart was reviewed Receiving PT. Less shortness of breath. Denies cough or palpitations - Current Medication List Current Medications: Active Medications Acetaminophen (Tylenol -) 650 mg PO Q6H PRN PRN Reason: PAIN Last Admin: 05/11/17 02:11 Dose: 650 mg Amiodarone HCl (Cordarone -) 200 mg PO DAILY [facility] Last Admin: 05/11/17 09:35 Dose: 200 mg Amlodipine Besylate (Norvasc -) 5 mg PO DAILY [facility] Last Admin: 05/11/17 09:35 Dose: 5 mg Atorvastatin Calcium (Lipitor -) 10 mg PO HS [facility] Last Admin: 05/10/17 21:39 Dose: 10 mg Insulin Aspart (Novolog Vial Sliding Scale -) 1 vial SQ ACHS [facility] PRN Reason: Protocol Last Admin: 05/11/17 06:05 Dose: Not Given Metoprolol Tartrate (Lopressor -) 25 mg PO BID [facility] Last Admin: 05/11/17 09:35 Dose: 25 mg Sildenafil Citrate (Revatio -) 10 mg PO TID [facility] Last Admin: 05/11/17 06:05 Dose: 10 mg Spironolactone (Aldactone -) 25 mg PO DAILY [facility] Last Admin: 05/11/17 09:35 Dose: 25 mg Torsemide (Demadex -) 60 mg PO BID [facility] Last Admin: 05/11/17 09:35 Dose: 60 mg - Objective Vital Signs: Vital Signs Temperature 98.6 F 05/11/17 05:31 Pulse Rate 55 L 05/11/17 05:31 Respiratory Rate 20 05/11/17 05:31 Blood Pressure 111/52 05/11/17 05:31 O2 Sat by Pulse Oximetry (%) 95 05/10/17 21:00 Constitutional: Yes: Well Nourished Eyes: Yes: PERRL HENT: Yes: Atraumatic Neck: Yes: Supple Cardiovascular: Yes: Regular Rate and Rhythm, Murmur (Soft SM), S1, S2 Respiratory: Yes: Diminished Gastrointestinal: Yes: Normal Bowel Sounds, Soft. No: Tenderness Edema: No Additional Findings/Remarks: - Review of Systems Constitutional: denies: Chills, Fever Cardiovascular: denies: Chest Pain, Palpitations, Shortness of Breath Respiratory: denies: Cough, Hemoptysis, Orthopnea, PND, SOB, SOB on Exertion Gastrointestinal: denies: Abdominal Pain, Constipation, Diarrhea, Melena, Nausea , Rectal Bleeding, Vomiting Genitourinary: denies urologic symptoms Neurological: denies: Dizziness, Headache, Seizure, Syncope Labs: CBC, BMP 05/11/17 06:35 05/11/17 06:35 INR, PTT INR 3.58 (0.82-1.09) H 05/11/17 06:35 Problem List - Problems (1) Pulmonary hypertension Code(s): I27.20 - PULMONARY HYPERTENSION, UNSPECIFIED (2) Mitral valve regurgitation Code(s): I34.0 - NONRHEUMATIC MITRAL (VALVE) INSUFFICIENCY Qualifiers: Cardiac valve disease etiology: nonrheumatic Qualified Code(s): I34.0 - Nonrheumatic mitral (valve) insufficiency (3) Tricuspid valve regurgitation Code(s): I07.1 - RHEUMATIC TRICUSPID INSUFFICIENCY Qualifiers: Cardiac valve disease etiology: nonrheumatic Qualified Code(s): I36.1 - Nonrheumatic tricuspid (valve) insufficiency (4) Acute and chronic respiratory failure with hypoxia Code(s): J96.21 - ACUTE AND CHRONIC RESPIRATORY FAILURE WITH HYPOXIA (5) Acute on chronic renal failure Code(s): N17.9 - ACUTE KIDNEY FAILURE, UNSPECIFIED; N18.9 - CHRONIC KIDNEY DISEASE, UNSPECIFIED (6) Dyspnea on exertion Code(s): R06.09 - OTHER FORMS OF DYSPNEA (7) Subendocardial ischemia Code(s): I24.8 - OTHER FORMS OF ACUTE ISCHEMIC HEART DISEASE (8) Supratherapeutic INR Code(s): R79.1 - ABNORMAL COAGULATION PROFILE (9) Thrombocytopenia Code(s): D69.6 - THROMBOCYTOPENIA, UNSPECIFIED (10) Acute on chronic diastolic (congestive) heart failure Code(s): I50.33 - ACUTE ON CHRONIC DIASTOLIC (CONGESTIVE) HEART FAILURE (11) Sleep apnea, obstructive Code(s): G47.33 - OBSTRUCTIVE SLEEP APNEA (ADULT) (PEDIATRIC) (12) Zoster Code(s): B02.9 - ZOSTER WITHOUT COMPLICATIONS Qualifiers: Herpes zoster complications: without complications Qualified Code(s): B02.9 - Zoster without complications (13) Atrial fibrillation Code(s): I48.91 - UNSPECIFIED ATRIAL FIBRILLATION Qualifiers: Atrial fibrillation type: paroxysmal Qualified Code(s): I48.0 - Paroxysmal atrial fibrillation (14) CAD (coronary artery disease) Code(s): I25.10 - ATHSCL HEART DISEASE OF [place] CORONARY ARTERY W/O ANG PCTRS Qualifiers: Coronary Disease-Associated Artery/Lesion type: [place] artery [place] vs. transplanted heart: [place] heart Associated angina: without angina Qualified Code(s): I25.10 - Atherosclerotic heart disease of [place] coronary artery without angina pectoris (15) Diabetes Code(s): E11.9 - TYPE 2 DIABETES MELLITUS WITHOUT COMPLICATIONS Qualifiers: Diabetes mellitus type: type 2 Diabetes mellitus complication status: without complication Diabetes mellitus adjunct faculty for medical terminology insulin use: without usp use Qualified Code(s): E11.9 - Type 2 diabetes mellitus without complications (16) HTN (hypertension) Code(s): I10 - ESSENTIAL (PRIMARY) HYPERTENSION Qualifiers: Hypertension type: essential hypertension Qualified Code(s): I10 - Essential (primary) hypertension (17) Hyperlipidemia Code(s): E78.5 - HYPERLIPIDEMIA, UNSPECIFIED Qualifiers: Hyperlipidemia type: pure hypercholesterolemia Qualified Code(s): E78.00 - Pure hypercholesterolemia, unspecified Assessment/Plan 1. Acute on chronic hypoxic respiratory failure and diastolic heart failure 2. CAD non-obstructive disease, angina pectoris 3. Paroxysmal atrial fibrillation [id number] score of 7 on Coumadin therapy with supratherapeutic INR 4. Severe pulmonary HTN 5. HTN 6. NIDDM 7. Hypercholesterolemia 8. Acute on CKD 9. Demand ischemia 10. Thrombocytopenia 11. Mitral valve and tricuspid valve regurgitations PLAN: 1. Diuresis with monitor renal function and electrolytes 2. Diovan held. Continue Torsemide and Aldactone 3. Continue Lipitor 10 qhs, Lopressor 25 bid, Amiodarone 200 qd and Norvasc 5 qd 4. Hold A/C with Coumadin maintaining INR 2-3 5. Continue Sildenafil Citrate (Revatio) 10 tid for the above noted pulmonary HTN 6. Transthoracic echocardiography report noted 7. PT and home O2 Further plans are to follow Dimitri Palm MD
--- NOTE | 2017-05-11 11:16 | PN ---
Progress Note, Physician History of Present Illness: PULMONARY ALERT,OOB-CHAIR,LESS DYSPNEIC - Current Medication List Current Medications: Active Medications Acetaminophen (Tylenol -) 650 mg PO Q6H PRN PRN Reason: PAIN Last Admin: 05/11/17 02:11 Dose: 650 mg Amiodarone HCl (Cordarone -) 200 mg PO DAILY [facility] Last Admin: 05/11/17 09:35 Dose: 200 mg Amlodipine Besylate (Norvasc -) 5 mg PO DAILY [facility] Last Admin: 05/11/17 09:35 Dose: 5 mg Atorvastatin Calcium (Lipitor -) 10 mg PO HS [facility] Last Admin: 05/10/17 21:39 Dose: 10 mg Insulin Aspart (Novolog Vial Sliding Scale -) 1 vial SQ ACHS [facility] PRN Reason: Protocol Last Admin: 05/11/17 06:05 Dose: Not Given Metoprolol Tartrate (Lopressor -) 25 mg PO BID [facility] Last Admin: 05/11/17 09:35 Dose: 25 mg Sildenafil Citrate (Revatio -) 10 mg PO TID [facility] Last Admin: 05/11/17 06:05 Dose: 10 mg Spironolactone (Aldactone -) 25 mg PO DAILY [facility] Last Admin: 05/11/17 09:35 Dose: 25 mg Torsemide (Demadex -) 60 mg PO BID [facility] Last Admin: 05/11/17 09:35 Dose: 60 mg - Objective Vital Signs: Vital Signs Temperature 98.6 F 05/11/17 05:31 Pulse Rate 55 L 05/11/17 05:31 Respiratory Rate 20 05/11/17 05:31 Blood Pressure 111/52 05/11/17 05:31 O2 Sat by Pulse Oximetry (%) 95 05/10/17 21:00 Constitutional: Yes: Well Nourished, Calm Eyes: Yes: WNL HENT: Yes: WNL Neck: Yes: WNL Cardiovascular: Yes: Pulse Irregular, S1, S2 Respiratory: Yes: Diminished Gastrointestinal: Yes: Normal Bowel Sounds, Soft Extremities: Yes: WNL Edema: No Labs: CBC, BMP 05/11/17 06:35 05/11/17 06:35 INR, PTT INR 3.58 (0.82-1.09) H 05/11/17 06:35 Assessment/Plan Problem List - Problems (1) Acute and chronic respiratory failure with hypoxia Code(s): Irma96.21 - ACUTE AND CHRONIC RESPIRATORY FAILURE WITH HYPOXIA (2) Acute on chronic diastolic (congestive) heart failure Code(s): I50.33 - ACUTE ON CHRONIC DIASTOLIC (CONGESTIVE) HEART FAILURE (3) Atrial fibrillation Code(s): I48.91 - UNSPECIFIED ATRIAL FIBRILLATION Qualifiers: Atrial fibrillation type: paroxysmal Qualified Code(s): I48.0 - Paroxysmal atrial fibrillation (4) HTN (hypertension) Code(s): I10 - ESSENTIAL (PRIMARY) HYPERTENSION Qualifiers: Hypertension type: essential hypertension Qualified Code(s): I10 - Essential (primary) hypertension (5) Moderate to severe pulmonary hypertension Code(s): I27.2 - OTHER SECONDARY PULMONARY HYPERTENSION * DO NOT USE * (6) Acute on chronic renal failure Code(s): N17.9 - ACUTE KIDNEY FAILURE, UNSPECIFIED; N18.9 - CHRONIC KIDNEY DISEASE, UNSPECIFIED Assessment/Plan Acute on Chronic Hypoxic Respiratory Failure Acute on Chronic Diastolic Heart Failure Pulmonary HTN Atrial Fibrillation Supratherapeutic INR improving HTN DM - diuresis - monitor urine output, creatinine - daily weights, I/Os - monitor CXR - sildenafil - inhaled bronchodilators as needed - o2 to keep SpO2 >90% - anticoagulation with target INR 2-3 DR CARR
--- NOTE | 2017-05-11 12:36 | PN ---
Physical Exam: SUBJECTIVE: Patient seen and examined had a fever 100.6 over night improved with Tylenol. sat 96% on 3 L NC. denies any chest pain or sob. denies any fever, chills. has nose bleed this morning. OBJECTIVE: Vital Signs Period Temp Pulse Resp BP Sys/Morales Pulse Ox Last 24 Hr 98.4 F-100.6 F 55-67 18-24 100-132/52-62 95-96 GENERAL: AAOx3 in NAD HEAD: NC/AT EYES: EOMI, Conjunctiva clear, sclera anicteric ENT: moist mucous membrane NECK: Supple, +JVD LUNGS: minimal B/L base crackles, no wheezing no accessory muscle use. HEART: RRR, NSR, normal s1, s2, 2/6 systolic murmur LUSB, no/R/G ABDOMEN: Soft, ND, NT, +BS 4 Q, no CVA Tenderness LOWER EXTREMITIES: No edema, +2DP pulse, right knee surgical scar. NEUROLOGICAL: No focal deficit. Normal speech. gait not observed. PSYCHIATRIC: Cooperative. Good eye contact. Appropriate mood and affect. SKIN: Warm, dry, Laboratory Results - last 24 hr 05/10/17 05/10/17 05/10/17 12:18 17:33 21:22 WBC RBC Hgb Hct MCV MCH MCHC RDW Plt Count MPV Neutrophils % Lymphocytes % Monocytes % Eosinophils % Basophils % PT with INR INR Sodium Potassium Chloride Carbon Dioxide Anion Gap BUN Creatinine POC Glucometer 132 148 171 Random Glucose Calcium TSH Urine Color Urine Appearance Urine pH Ur Specific [place] Urine Protein Urine Glucose (UA) Urine Ketones Urine Blood Urine Nitrite Urine Bilirubin Urine Urobilinogen Ur Leukocyte Esterase Urine WBC (Auto) Urine RBC (Auto) Ur Epithelial Cells Urine Bacteria Urine Mucus U Random Total Protein Ur Random Sodium Ur Random Urea Nitrogn Urine Creatinine 05/11/17 05/11/17 05/11/17 06:00 06:00 06:01 WBC RBC Hgb Hct MCV MCH MCHC RDW Plt Count MPV Neutrophils % Lymphocytes % Monocytes % Eosinophils % Basophils % PT with INR INR Sodium Potassium Chloride Carbon Dioxide Anion Gap BUN Creatinine POC Glucometer 137 Random Glucose Calcium TSH Urine Color Ltyellow Urine Appearance Clear Urine pH 7.0 D Ur Specific [place] 1.008 Urine Protein Negative Urine Glucose (UA) Negative Urine Ketones Negative Urine Blood Negative Urine Nitrite Negative Urine Bilirubin Negative Urine Urobilinogen 4.0 e.u/dl H Ur Leukocyte Esterase Trace Urine WBC (Auto) 1 Urine RBC (Auto) 1 Ur Epithelial Cells Rare Urine Bacteria Rare Urine Mucus Rare U Random Total Protein 30 H Ur Random Sodium 61 Ur Random Urea Nitrogn 428 Urine Creatinine 46.3 05/11/17 05/11/17 05/11/17 06:35 06:35 06:35 WBC 8.4 RBC 3.06 L Hgb 9.5 L Hct 28.3 L MCV 92.5 MCH 31.2 MCHC 33.8 RDW 15.7 H Plt Count 81 L MPV 10.3 Neutrophils % 71.1 Lymphocytes % 17.3 Monocytes % 10.7 H Eosinophils % 0.2 D Basophils % 0.7 PT with INR 40.40 H INR 3.58 H Sodium 142 Potassium 3.6 Chloride 101 Carbon Dioxide 29 Anion Gap 12 BUN 56 H Creatinine 2.9 H POC Glucometer Random Glucose 115 H Calcium 8.3 L TSH 0.72 Urine Color Urine Appearance Urine pH Ur Specific [place] Urine Protein Urine Glucose (UA) Urine Ketones Urine Blood Urine Nitrite Urine Bilirubin Urine Urobilinogen Ur Leukocyte Esterase Urine WBC (Auto) Urine RBC (Auto) Ur Epithelial Cells Urine Bacteria Urine Mucus U Random Total Protein Ur Random Sodium Ur Random Urea Nitrogn Urine Creatinine 05/11/17 11:05 WBC RBC Hgb Hct MCV MCH MCHC RDW Plt Count MPV Neutrophils % Lymphocytes % Monocytes % Eosinophils % Basophils % PT with INR INR Sodium Potassium Chloride Carbon Dioxide Anion Gap BUN Creatinine POC Glucometer 121 Random Glucose Calcium TSH Urine Color Urine Appearance Urine pH Ur Specific [place] Urine Protein Urine Glucose (UA) Urine Ketones Urine Blood Urine Nitrite Urine Bilirubin Urine Urobilinogen Ur Leukocyte Esterase Urine WBC (Auto) Urine RBC (Auto) Ur Epithelial Cells Urine Bacteria Urine Mucus U Random Total Protein Ur Random Sodium Ur Random Urea Nitrogn Urine Creatinine Active Medications Generic Name Dose Route Start Last Admin Trade Name Freq PRN Reason Stop Dose Admin Acetaminophen 650 mg 05/10/17 10:20 05/11/17 02:11 Tylenol - PO 650 mg Q6H PRN Administration PAIN Amiodarone HCl 200 mg 05/10/17 10:00 05/11/17 09:35 Cordarone - PO 200 mg DAILY SAIDA Administration Amlodipine Besylate 5 mg 05/10/17 10:00 05/11/17 09:35 Norvasc - PO 5 mg DAILY SAIDA Administration Atorvastatin Calcium 10 mg 05/10/17 22:00 05/10/17 21:39 Lipitor - PO 10 mg HS SAIDA Administration Insulin Aspart 1 vial 05/10/17 07:00 05/11/17 11:24 Novolog Vial Sliding Scale - SQ Not Given ACHS SAIDA Protocol Metoprolol Tartrate 25 mg 05/10/17 10:00 05/11/17 09:35 Lopressor - PO 25 mg BID SAIDA Administration Sildenafil Citrate 10 mg 05/10/17 22:00 05/11/17 06:05 Revatio - PO 10 mg TID SAIDA Administration Spironolactone 25 mg 05/10/17 13:15 05/11/17 09:35 Aldactone - PO 25 mg DAILY SAIDA Administration Torsemide 60 mg 05/10/17 22:00 05/11/17 09:35 Demadex - PO 60 mg BID SAIDA Administration Warfarin Sodium 3 mg 05/11/17 18:00 Coumadin - PO 05/11/17 18:01 ONCE@1800 ONE CBC, BMP 05/11/17 06:35 05/11/17 06:35 ASSESSMENT/PLAN: 87 y/o lady with h/o Pulmonary HTN, Atrial Fibrillation, on coumadin HTN, DM diastolic heart failure , and other medical problems who presented with worsening SOB , and she was found to have acute CHF exacerbation # acute on chronic hypoxic respiratory failure likely due to DCHF * recent decrease in her Bdemadex will put her back on her dose 60 bid * continue aldactone and BB * echo with EF 67.7 %, LV normal size but dilated Left atrium. 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 - New Patient This patient is new to me today: No - Critical Care Critical Care patient: No
--- NOTE | 2017-05-11 15:19 | PN ---
Progress Note (short form) - Note Progress Note: Renal Follow up for HEMANT PT seen and examined at the bedside awake and alert no acute complaints SOB is improved Vital Signs Temperature 98.7 F 05/11/17 14:58 Pulse Rate 59 L 05/11/17 14:58 Respiratory Rate 18 05/11/17 14:58 Blood Pressure 116/49 05/11/17 14:58 O2 Sat by Pulse Oximetry (%) 96 05/11/17 09:00 Intake & Output 05/08/17 05/09/17 05/10/17 05/11/17 23:59 23:59 23:59 23:59 Intake Total 360 510 Output Total 400 Balance -40 510 Weight 73.482 kg 75.115 kg 74.933 kg NAD awake and alert NO LE edema CBC, BMP 05/11/17 06:35 05/11/17 06:35 Current Medications Acetaminophen (Tylenol -) 650 mg PO Q6H PRN PRN Reason: PAIN Last Admin: 05/11/17 02:11 Dose: 650 mg Amiodarone HCl (Cordarone -) 200 mg PO DAILY [facility] Last Admin: 05/11/17 09:35 Dose: 200 mg Amlodipine Besylate (Norvasc -) 5 mg PO DAILY [facility] Last Admin: 05/11/17 09:35 Dose: 5 mg Atorvastatin Calcium (Lipitor -) 10 mg PO HS [facility] Last Admin: 05/10/17 21:39 Dose: 10 mg Insulin Aspart (Novolog Vial Sliding Scale -) 1 vial SQ ACHS [facility] PRN Reason: Protocol Last Admin: 05/11/17 11:24 Dose: Not Given Metoprolol Tartrate (Lopressor -) 25 mg PO BID [facility] Last Admin: 05/11/17 09:35 Dose: 25 mg Sildenafil Citrate (Revatio -) 10 mg PO TID [facility] Last Admin: 05/11/17 13:16 Dose: 10 mg Spironolactone (Aldactone -) 25 mg PO DAILY [facility] Last Admin: 05/11/17 09:35 Dose: 25 mg Torsemide (Demadex -) 60 mg PO BID [facility] Last Admin: 05/11/17 09:35 Dose: 60 mg Warfarin Sodium (Coumadin -) 3 mg PO ONCE@1800 ONE Stop: 05/11/17 18:01 This is a 87 year old woman with PMhx of CAD, HTN, HLD, Diastolic CHF, Paroxysmal Atrial fibrillation, severe pulmonary HTN, SORAIDA, NIDDMII who presented with hypoxia from urgent care and found to have Cr of 3.5. #HEMANT on CKD secondary to CRS + Unilateral obstruction CT showed left hydronephrosis with some stones largest stone 9mm will need urology evalulation renal function stable, slightly improved continue Torsemide 60mg BID trend Renal function and electrolytes daily salt restriction Thank you will follow Aldair Miles DO
--- NOTE | 2017-05-11 15:46 | PN ---
Physical Exam: SUBJECTIVE: RENAL FOLLOW UP: Patient seen and examined by me at bedside. No overnight events noted. Patient reports her shortness of breath has improved. Otherwise, patient denies fever, chills, nausea, vomiting, abdominal pain, chest pain, palpitations, cough, dysuria, hematuria. OBJECTIVE: Vital Signs Period Temp Pulse Resp BP Sys/Morales Pulse Ox Last 24 Hr 98.6 F-100.6 F 55-67 18-24 111-132/49-62 95-96 GENERAL: The patient is awake, alert, and fully oriented, in no acute distress. ENT: moist mucous membranes. LUNGS: Decreased breath sounds throughout lung bases bilaterally HEART: Regular Rate and Rhythm with 1-2/6 systolic murmur ABDOMEN: Soft, nontender, nondistended, normoactive bowel sounds EXTREMITIES: no peripheral edema. NEUROLOGICAL: No facial droop. Speech intact. Laboratory Results - last 24 hr 05/10/17 05/10/17 05/11/17 17:33 21:22 06:00 WBC RBC Hgb Hct MCV MCH MCHC RDW Plt Count MPV Neutrophils % Lymphocytes % Monocytes % Eosinophils % Basophils % PT with INR INR Sodium Potassium Chloride Carbon Dioxide Anion Gap BUN Creatinine POC Glucometer 148 171 Random Glucose Calcium TSH Urine Color Ltyellow Urine Appearance Clear Urine pH 7.0 D Ur Specific [place] 1.008 Urine Protein Negative Urine Glucose (UA) Negative Urine Ketones Negative Urine Blood Negative Urine Nitrite Negative Urine Bilirubin Negative Urine Urobilinogen 4.0 e.u/dl H Ur Leukocyte Esterase Trace Urine WBC (Auto) 1 Urine RBC (Auto) 1 Ur Epithelial Cells Rare Urine Bacteria Rare Urine Mucus Rare U Random Total Protein Ur Random Sodium Ur Random Urea Nitrogn Urine Creatinine 05/11/17 05/11/17 05/11/17 06:00 06:01 06:35 WBC RBC Hgb Hct MCV MCH MCHC RDW Plt Count MPV Neutrophils % Lymphocytes % Monocytes % Eosinophils % Basophils % PT with INR 40.40 H INR 3.58 H Sodium Potassium Chloride Carbon Dioxide Anion Gap BUN Creatinine POC Glucometer 137 Random Glucose Calcium TSH Urine Color Urine Appearance Urine pH Ur Specific [place] Urine Protein Urine Glucose (UA) Urine Ketones Urine Blood Urine Nitrite Urine Bilirubin Urine Urobilinogen Ur Leukocyte Esterase Urine WBC (Auto) Urine RBC (Auto) Ur Epithelial Cells Urine Bacteria Urine Mucus U Random Total Protein 30 H Ur Random Sodium 61 Ur Random Urea Nitrogn 428 Urine Creatinine 46.3 05/11/17 05/11/17 05/11/17 06:35 06:35 11:05 WBC 8.4 RBC 3.06 L Hgb 9.5 L Hct 28.3 L MCV 92.5 MCH 31.2 MCHC 33.8 RDW 15.7 H Plt Count 81 L MPV 10.3 Neutrophils % 71.1 Lymphocytes % 17.3 Monocytes % 10.7 H Eosinophils % 0.2 D Basophils % 0.7 PT with INR INR Sodium 142 Potassium 3.6 Chloride 101 Carbon Dioxide 29 Anion Gap 12 BUN 56 H Creatinine 2.9 H POC Glucometer 121 Random Glucose 115 H Calcium 8.3 L TSH 0.72 Urine Color Urine Appearance Urine pH Ur Specific [place] Urine Protein Urine Glucose (UA) Urine Ketones Urine Blood Urine Nitrite Urine Bilirubin Urine Urobilinogen Ur Leukocyte Esterase Urine WBC (Auto) Urine RBC (Auto) Ur Epithelial Cells Urine Bacteria Urine Mucus U Random Total Protein Ur Random Sodium Ur Random Urea Nitrogn Urine Creatinine Active Medications Generic Name Dose Route Start Last Admin Trade Name Marilou PRN Reason Stop Dose Admin Acetaminophen 650 mg 05/10/17 10:20 05/11/17 02:11 Tylenol - PO 650 mg Q6H PRN Administration PAIN Amiodarone HCl 200 mg 05/10/17 10:00 05/11/17 09:35 Cordarone - PO 200 mg DAILY SAIDA Administration Amlodipine Besylate 5 mg 05/10/17 10:00 05/11/17 09:35 Norvasc - PO 5 mg DAILY SAIDA Administration Atorvastatin Calcium 10 mg 05/10/17 22:00 05/10/17 21:39 Lipitor - PO 10 mg HS SAIDA Administration Insulin Aspart 1 vial 05/10/17 07:00 05/11/17 11:24 Novolog Vial Sliding Scale - SQ Not Given ACHS [facility] Protocol Metoprolol Tartrate 25 mg 05/10/17 10:00 05/11/17 09:35 Lopressor - PO 25 mg BID SAIDA Administration Sildenafil Citrate 10 mg 05/10/17 22:00 05/11/17 13:16 Revatio - PO 10 mg TID SAIDA Administration Spironolactone 25 mg 05/10/17 13:15 05/11/17 09:35 Aldactone - PO 25 mg DAILY SAIDA Administration Torsemide 60 mg 05/10/17 22:00 05/11/17 09:35 Demadex - PO 60 mg BID SAIDA Administration Warfarin Sodium 3 mg 05/11/17 18:00 Coumadin - PO 05/11/17 18:01 ONCE@1800 ONE ASSESSMENT/PLAN: HEMANT on CKD -Secondary to Cardiorenal syndrome w/ Left Renal Calculi -Patient's creatinine is stable and improving -CT did reveal mild left hydronephrosis with largest stone 9mm. Will require urology follow up and monitoring -Continue to diurese with Torsemide 60mg BID -Will order SPEP and UPEP as patients U/A revealed 1+ blood with no RBC and negative for proteins. However, Urine protein and was elevated. Will need to rule out paraproteinemia. -Continue to hold Diovan and Aldactone -Continue to renally dose medications -Avoid all nephrotoxic medications -Strict I&O's -Continue to monitor BMP daily Acute Diastolic CHF -Continue Diuresis with Torsemide, as per Cardiology -Strict I&O's NIDDMII -ISS -BGM HTN -Continue Amlodipine 5mg daily and metoprolol 25mg BID -Avoid hypotension as it can worsen HEMANT -Continue to monitor BP Gina Heller [id number] Visit type - Emergency Visit Emergency Visit: Yes ED Registration Date: 05/09/17 Care time: The patient presented to the Emergency Department on the above date and was hospitalized for further evaluation of their emergent condition. - New Patient This patient is new to me today: No - Critical Care Critical Care patient: No
[2017-05-11] MEDS ORDERED: WARFARIN NA 3 MG TABLET PO ONE ×2 (18:00)
--- NOTE | 2017-05-11 18:22 | PN ---
Teaching Attending Note Name of Resident: Jordon Conde ATTENDING PHYSICIAN STATEMENT I saw and evaluated the patient. I reviewed the resident's note and discussed the case with the resident. I agree with the resident's findings and plan as documented. SUBJECTIVE:seen at 8:30 am no fever or chills . SOB improved OBJECTIVE: NAD CV: RRR, JVD Lungs: bibasilar crackles improved Legs : hyperpigmented skin, with trace pitting edema abd; soft, NT, ND , NL BS ASSESSMENT AND PLAN: 87 y/o lady with h/o Pulmonary HTN, Atrial Fibrillation, on coumadin HTN, DM d heart failure , and other medical problems who presented with worsening SOB , and she was found to have acute CHF exacerbation 1- Acute on chronic hypoxic resp failure 2/2 diastolic CHF: due to recent decrease in her out pt torsemide regimen ( from 60 BID to 60 in am and 40 in pm ) -cont torsemide 60 BID - cont aldactone - weight and I&O -cont BB - echo reviewed, severe MT, TR and ther valvular problems and dilated L atrium - cont increased O2 needs 2- P a fib: INR dropping quickly. expect it to be 2-3 tomorrow , will give 3 mg tonight . 3- HEMANT on CKD : due to prerenal etiology form heart failure . cont diuresis . SPEP sent unilateral hyro , with no CT evidence of obstruction . out pt uro f/u 4- demand ischemia , in setting of heart failure monitor 5- dispo : HLOC
[2017-05-11] MEDS ORDERED: INSULIN (NOVOLOG) ASPART 100 UNITS/ML 10ML VIAL ONE (21:27)
[2017-05-11] MEDS: ATORVASTATIN CA 10 MG TABLET (FP) PO SCH (21:59)
[2017-05-12] MEDS: SILDENAFIL CITRATE 20 MG TAB PO SCH ×2 (06:25→13:40)
[2017-05-12] MEDS: INSULIN SLIDING SCALE (NOVOLOG) 1 VIAL SQ SCH ×3 (06:27→17:33)
[2017-05-12 07:00] LABS: BASO % 0.4 % (0-2.0); HEMATOCRIT 28.8 % (32.4-45.2); HEMOGLOBIN 9.7 GM/dL (10.7-15.3); LYMPH % 20.7 % (8-40); MCH 31.4 pg (25.7-33.7); MCHC 33.8 g/dl (32.0-36.0); MEAN CELL VOLUME 92.9 fl (80-96); MEAN PLT VOLUME 10.1 fl (7.5-11.1); MONO % 10.5 % (3.8-10.2); NEUT % 67.4 % (42.8-82.8); PLATELET COUNT 100 K/MM3 (134-434); RDW 15.1 % (11.6-15.6); WHITE BLOOD COUNT 6.9 K/mm3 (4.0-10.0)
[2017-05-12 07:20] LABS: ALBUMIN 2.9 g/dl (3.4-5.0); ALK PHOS 50 U/L (45-117); BILIRUBIN,TOTAL 2.5 mg/dL (0.2-1.0); BLOOD UREA NITROGEN 51 mg/dL (7-18); CALCIUM 7.8 mg/dL (8.5-10.1); CO2 28 mmol/L (21-32); CREATININE 2.7 mg/dL (0.55-1.02); GLUCOSE,RANDOM 115 mg/dL (74-106); SGOT/AST 35 U/L (15-37); SGPT/ALT 29 U/L (12-78); TOT PROT 7.5 g/dl (6.4-8.2)
[2017-05-12] MEDS: amLODIPine BESYLATE 5 MG TABLET (FP) PO SCH (09:34)
[2017-05-12] MEDS: TORSEMIDE 20 MG TABLET (FP) PO SCH (09:34)
[2017-05-12] MEDS: AMIODARONE HCL 200 MG TABLET (FP) PO SCH (09:34)
[2017-05-12] MEDS: SPIRONOLACTONE 25 MG TABLET (FP) PO SCH (09:34)
[2017-05-12] MEDS: METOPROLOL TARTRATE 25 MG TABLET (FP) PO SCH (09:34)
[2017-05-12 09:43] LABS: ANION GAP 12 (8-16); CHLORIDE 104 mmol/L (98-107); POTASSIUM 3.9 mmol/L (3.5-5.1); SODIUM 144 mmol/L (136-145)
[2017-05-12 10:26] LABS: INR 2.78 (0.82-1.09); PROTHROMBIN TIME (PATIENT) 31.4 SEC (9.98-11.88)
--- NOTE | 2017-05-12 11:05 | PN ---
Progress Note, Physician History of Present Illness: Dyspnea improving. - Current Medication List Current Medications: Active Medications Acetaminophen (Tylenol -) 650 mg PO Q6H PRN PRN Reason: PAIN Last Admin: 05/11/17 22:09 Dose: 650 mg Amiodarone HCl (Cordarone -) 200 mg PO DAILY [facility] Last Admin: 05/12/17 09:34 Dose: 200 mg Amlodipine Besylate (Norvasc -) 5 mg PO DAILY [facility] Last Admin: 05/12/17 09:34 Dose: 5 mg Atorvastatin Calcium (Lipitor -) 10 mg PO HS [facility] Last Admin: 05/11/17 21:59 Dose: 10 mg Insulin Aspart (Novolog Vial Sliding Scale -) 1 vial SQ ACHS [facility] PRN Reason: Protocol Last Admin: 05/12/17 06:27 Dose: Not Given Metoprolol Tartrate (Lopressor -) 25 mg PO BID [facility] Last Admin: 05/12/17 09:34 Dose: 25 mg Sildenafil Citrate (Revatio -) 10 mg PO TID [facility] Last Admin: 05/12/17 06:25 Dose: 10 mg Spironolactone (Aldactone -) 25 mg PO DAILY [facility] Last Admin: 05/12/17 09:34 Dose: 25 mg Torsemide (Demadex -) 60 mg PO BID [facility] Last Admin: 05/12/17 09:34 Dose: 60 mg - Objective Vital Signs: Vital Signs Temperature 98.8 F 05/12/17 09:00 Pulse Rate 68 05/12/17 09:00 Respiratory Rate 18 05/12/17 09:00 Blood Pressure 138/74 05/12/17 09:00 O2 Sat by Pulse Oximetry (%) 96 05/12/17 09:00 Constitutional: Yes: No Distress, Calm Neck: Yes: Supple Cardiovascular: Yes: Regular Rate and Rhythm, Murmur (2/6 SM) Respiratory: Yes: Regular, Diminished Gastrointestinal: Yes: Normal Bowel Sounds Edema: No Labs: CBC, BMP 05/12/17 06:15 05/12/17 06:15 INR, PTT INR 2.78 (0.82-1.09) H 05/12/17 09:00 - ....Imaging EKG: Report Reviewed (Tele: [facility] [place]) Problem List - Problems (1) Subendocardial ischemia Code(s): I24.8 - OTHER FORMS OF ACUTE ISCHEMIC HEART DISEASE (2) Thrombocytopenia Code(s): D69.6 - THROMBOCYTOPENIA, UNSPECIFIED (3) Acute and chronic respiratory failure with hypoxia Code(s): J96.21 - ACUTE AND CHRONIC RESPIRATORY FAILURE WITH HYPOXIA (4) HEMANT (acute kidney injury) Code(s): N17.9 - ACUTE KIDNEY FAILURE, UNSPECIFIED (5) Acute on chronic diastolic (congestive) heart failure Code(s): I50.33 - ACUTE ON CHRONIC DIASTOLIC (CONGESTIVE) HEART FAILURE (6) Sleep apnea, obstructive Code(s): G47.33 - OBSTRUCTIVE SLEEP APNEA (ADULT) (PEDIATRIC) (7) Atrial fibrillation Code(s): I48.91 - UNSPECIFIED ATRIAL FIBRILLATION Qualifiers: Atrial fibrillation type: paroxysmal Qualified Code(s): I48.0 - Paroxysmal atrial fibrillation (8) HTN (hypertension) Code(s): I10 - ESSENTIAL (PRIMARY) HYPERTENSION Qualifiers: Hypertension type: essential hypertension Qualified Code(s): I10 - Essential (primary) hypertension (9) Hyperlipidemia Code(s): E78.5 - HYPERLIPIDEMIA, UNSPECIFIED Qualifiers: Hyperlipidemia type: pure hypercholesterolemia Qualified Code(s): E78.00 - Pure hypercholesterolemia, unspecified (10) Moderate to severe pulmonary hypertension Code(s): I27.2 - OTHER SECONDARY PULMONARY HYPERTENSION * DO NOT USE * Assessment/Plan 05/10/2017 Echo: Normal LV size and fxn, severe NOE, mod-severe MR, severe TR, severe pulm HTN, mod-severe HI, RV pressure and volume overload 1. Acute on chronic hypoxic respiratory failure and diastolic heart failure improving 2. CAD non-obstructive disease, angina pectoris 3. Paroxysmal atrial fibrillation [id number] score of 7 on Coumadin therapy with therapeutic INR 4. Severe pulmonary HTN 5. HTN 6. NIDDM 7. Hypercholesterolemia 8. Acute on CKD resolving 9. Demand ischemia 10. Thrombocytopenia 11. Mitral valve, pulmonic and tricuspid valve regurgitations PLAN: 1. Oral diuresis with monitor renal function and electrolytes 2. Diovan held. Continue Torsemide 60 bid and Aldactone 25 qd 3. Continue Lipitor 10 qhs, Lopressor 25 bid, Amiodarone 200 qd and Norvasc 5 qd 4. Resume Coumadin maintaining INR 2-3 5. Continue Sildenafil Citrate (Revatio) 10 tid for the above noted pulmonary HTN 6. PT and home O2 to keep SpO2 >90%, d/c planning
--- NOTE | 2017-05-12 11:06 | PN ---
Progress Note, Physician History of Present Illness: pulmonary alert,oob-chair,less dyspneic,+ cough,+ epistaxis - Current Medication List Current Medications: Active Medications Acetaminophen (Tylenol -) 650 mg PO Q6H PRN PRN Reason: PAIN Last Admin: 05/11/17 22:09 Dose: 650 mg Amiodarone HCl (Cordarone -) 200 mg PO DAILY [facility] Last Admin: 05/12/17 09:34 Dose: 200 mg Amlodipine Besylate (Norvasc -) 5 mg PO DAILY [facility] Last Admin: 05/12/17 09:34 Dose: 5 mg Atorvastatin Calcium (Lipitor -) 10 mg PO HS [facility] Last Admin: 05/11/17 21:59 Dose: 10 mg Insulin Aspart (Novolog Vial Sliding Scale -) 1 vial SQ ACHS [facility] PRN Reason: Protocol Last Admin: 05/12/17 06:27 Dose: Not Given Metoprolol Tartrate (Lopressor -) 25 mg PO BID [facility] Last Admin: 05/12/17 09:34 Dose: 25 mg Sildenafil Citrate (Revatio -) 10 mg PO TID [facility] Last Admin: 05/12/17 06:25 Dose: 10 mg Spironolactone (Aldactone -) 25 mg PO DAILY [facility] Last Admin: 05/12/17 09:34 Dose: 25 mg Torsemide (Demadex -) 60 mg PO BID [facility] Last Admin: 05/12/17 09:34 Dose: 60 mg - Objective Vital Signs: Vital Signs Temperature 98.8 F 05/12/17 09:00 Pulse Rate 68 05/12/17 09:00 Respiratory Rate 18 05/12/17 09:00 Blood Pressure 138/74 05/12/17 09:00 O2 Sat by Pulse Oximetry (%) 96 05/12/17 09:00 Constitutional: Yes: Well Nourished, Calm Eyes: Yes: WNL HENT: Yes: WNL Neck: Yes: WNL Cardiovascular: Yes: Pulse Irregular, S1, S2 Respiratory: Yes: Diminished Gastrointestinal: Yes: WNL Extremities: Yes: WNL Edema: No Labs: CBC, BMP 05/12/17 06:15 05/12/17 06:15 INR, PTT INR 2.78 (0.82-1.09) H 05/12/17 09:00 Assessment/Plan Problem List - Problems (1) Acute and chronic respiratory failure with hypoxia Code(s): J96.21 - ACUTE AND CHRONIC RESPIRATORY FAILURE WITH HYPOXIA (2) Acute on chronic diastolic (congestive) heart failure Code(s): I50.33 - ACUTE ON CHRONIC DIASTOLIC (CONGESTIVE) HEART FAILURE (3) Atrial fibrillation Code(s): I48.91 - UNSPECIFIED ATRIAL FIBRILLATION Qualifiers: Atrial fibrillation type: paroxysmal Qualified Code(s): I48.0 - Paroxysmal atrial fibrillation (4) HTN (hypertension) Code(s): I10 - ESSENTIAL (PRIMARY) HYPERTENSION Qualifiers: Hypertension type: essential hypertension Qualified Code(s): I10 - Essential (primary) hypertension (5) Moderate to severe pulmonary hypertension Code(s): I27.2 - OTHER SECONDARY PULMONARY HYPERTENSION * DO NOT USE * (6) Acute on chronic renal failure Code(s): N17.9 - ACUTE KIDNEY FAILURE, UNSPECIFIED; N18.9 - CHRONIC KIDNEY DISEASE, UNSPECIFIED Assessment/Plan Acute on Chronic Hypoxic Respiratory Failure Acute on Chronic Diastolic Heart Failure improving Pulmonary HTN Atrial Fibrillation Supratherapeutic INR corrected HTN DM Epistaxis - diuresis - monitor urine output, creatinine - daily weights, I/Os - monitor CXR - sildenafil - inhaled bronchodilators as needed - o2 to keep SpO2 >90% - anticoagulation with target INR 2-3 DR CARR
[2017-05-12] MEDS ORDERED: PT OWN MED DRAWER 7, Y5N ONE (13:27)
[2017-05-12 14:08] VITALS: BP 123/54; TEMP 98.4
[2017-05-12 15:21] VITALS: PULSE 62
--- NOTE | 2017-05-12 15:37 | PN ---
Teaching Attending Note Name of Resident: Jordon Conde ATTENDING PHYSICIAN STATEMENT I saw and evaluated the patient. I reviewed the resident's note and discussed the case with the resident. I agree with the resident's findings and plan as documented. SUBJECTIVE: no fever or chills. has no abd pain. no OSB . feels much better OBJECTIVE: NAD CV: RRR Lungs: CTAB Legs : hyperpigmented skin, with trace pitting edema abd; soft, NT, ND , NL BS ASSESSMENT AND PLAN: 87 y/o lady with h/o Pulmonary HTN, Atrial Fibrillation, on coumadin HTN, DM d heart failure , and other medical problems who presented with worsening SOB , and she was found to have acute CHF exacerbation 1- Acute on chronic hypoxic resp failure 2/2 diastolic CHF: due to recent decrease in her out pt torsemide regimen ( from 60 BID to 60 in am and 40 in pm ) -cont torsemide 60 BID - cont aldactone -cont BB - echo with severe MT, TR and ther valvular problems and dilated L atrium - cont increased O2 needs 3 L at rest and ambulation for now 2- P a fib: INR within goal her outpt dose of coumadin was recently increased from 5 mg to 7.5 mg HS , will dc o n 5 mg with close INR f/u mild nose bleed yesterday, and reported pink urine which resolved 3- HEMANT on CKD : due to prerenal etiology form heart failure . cont diuresis . SPEP sent results to be followed as out pt Unilateral hyro , with no CT evidence of obstruction . possible vesicoureteral reflux. will need uro f/u . and f/u with renal 4- Demand ischemia , in setting of heart failure Dispo : dc home today .passed PT . VNS arranged . d/w CM f/u card , renal , Uro , and PCP
--- NOTE | 2017-05-12 16:32 | PN ---
Progress Note (short form) - Note Progress Note: Renal Follow up for HEMANT PT seen and examined at the bedside no acute complaints no fever, chills, abd pain, N/V Vital Signs Temperature 98.4 F 05/12/17 14:07 Pulse Rate 62 05/12/17 14:40 Respiratory Rate 18 05/12/17 14:07 Blood Pressure 123/54 05/12/17 14:07 O2 Sat by Pulse Oximetry (%) 94 L 05/12/17 14:40 Intake & Output 05/09/17 05/10/17 05/11/17 05/12/17 23:59 23:59 23:59 23:59 Intake Total 360 870 Output Total 400 Balance -40 870 Weight 73.482 kg 75.115 kg 74.933 kg 74.026 kg NAD awake and alert NO LE edema CBC, BMP 05/12/17 06:15 05/12/17 06:15 Current Medications Acetaminophen (Tylenol -) 650 mg PO Q6H PRN PRN Reason: PAIN Last Admin: 05/11/17 22:09 Dose: 650 mg Amiodarone HCl (Cordarone -) 200 mg PO DAILY [facility] Last Admin: 05/12/17 09:34 Dose: 200 mg Amlodipine Besylate (Norvasc -) 5 mg PO DAILY [facility] Last Admin: 05/12/17 09:34 Dose: 5 mg Atorvastatin Calcium (Lipitor -) 10 mg PO HS [facility] Last Admin: 05/11/17 21:59 Dose: 10 mg Insulin Aspart (Novolog Vial Sliding Scale -) 1 vial SQ ACHS [facility] PRN Reason: Protocol Last Admin: 05/12/17 11:39 Dose: Not Given Metoprolol Tartrate (Lopressor -) 25 mg PO BID [facility] Last Admin: 05/12/17 09:34 Dose: 25 mg Sildenafil Citrate (Revatio -) 10 mg PO TID [facility] Last Admin: 05/12/17 13:40 Dose: 10 mg Spironolactone (Aldactone -) 25 mg PO DAILY [facility] Last Admin: 05/12/17 09:34 Dose: 25 mg Torsemide (Demadex -) 60 mg PO BID [facility] Last Admin: 05/12/17 09:34 Dose: 60 mg Warfarin Sodium (Coumadin -) 5 mg PO DAILY@1800 SAIDA This is a 87 year old woman with PMhx of CAD, HTN, HLD, Diastolic CHF, Paroxysmal Atrial fibrillation, severe pulmonary HTN, SORAIDA, NIDDMII who presented with hypoxia from urgent care and found to have Cr of 3.5. #HEMANT on CKD secondary to CRS + Unilateral obstruction Renal function improving but not yet at baseline no acute obstruction seen on US but dilated calayces could be indicative of a more distal obstruction however given improving renal function and no acute symptoms no urgency for intervention will need renal and urolgoy follow up on discharge our office contact information provided to the patient Thank you for allowing us to take part in the care of this patient Aldair Miles DO
[2017-05-12] MEDS ORDERED: WARFARIN NA 3 MG TABLET PO SCH (18:00)
[2017-05-12] MEDS ORDERED: WARFARIN NA 5 MG TABLET (UD) PO SCH (18:00)
--- NOTE | 2017-05-12 18:49 | DS ---
Physical Exam: SUBJECTIVE: Patient seen and examined breathing is better and satuarating 96% on 3 L of o2, inr is theraputic. epistaxis is minimal ad no new complains. OBJECTIVE: Vital Signs Period Temp Pulse Resp BP Sys/Morales Pulse Ox Last 24 Hr 97.8 F-99.7 F 59-76 18-18 108-138/53-74 94-96 PHYSICAL EXAM GENERAL: AAOx3 in NAD HEAD: NC/AT EYES: EOMI, Conjunctiva clear, sclera anicteric ENT: moist mucous membrane NECK: Supple, +JVD LUNGS: minimal B/L base crackles, no wheezing no accessory muscle use. HEART: RRR, NSR, normal s1, s2, 2/6 systolic murmur LUSB, no/R/G ABDOMEN: Soft, ND, NT, +BS 4 Q, no CVA Tenderness LOWER EXTREMITIES: No edema, +2DP pulse, right knee surgical scar. NEUROLOGICAL: No focal deficit. Normal speech. gait not observed. PSYCHIATRIC: Cooperative. Good eye contact. Appropriate mood and affect. SKIN: Warm, dry, LABS Laboratory Results - last 24 hr 05/11/17 05/12/17 05/12/17 21:34 06:15 06:15 WBC 6.9 RBC 3.10 L Hgb 9.7 L Hct 28.8 L MCV 92.9 MCH 31.4 MCHC 33.8 RDW 15.1 Plt Count 100 L D MPV 10.1 Neutrophils % 67.4 Lymphocytes % 20.7 Monocytes % 10.5 H Eosinophils % 1.0 D Basophils % 0.4 PT with INR INR Sodium 144 Potassium 3.9 Chloride 104 Carbon Dioxide 28 Anion Gap 12 BUN 51 H Creatinine 2.7 H Creat Clearance w eGFR 16.75 POC Glucometer 181 Random Glucose 115 H Calcium 7.8 L Total Bilirubin 2.5 H AST 35 ALT 29 Alkaline Phosphatase 50 Total Protein 7.5 Albumin 2.9 L 05/12/17 05/12/17 05/12/17 06:24 09:00 11:37 WBC RBC Hgb Hct MCV MCH MCHC RDW Plt Count MPV Neutrophils % Lymphocytes % Monocytes % Eosinophils % Basophils % PT with INR 31.40 H INR 2.78 H Sodium Potassium Chloride Carbon Dioxide Anion Gap BUN Creatinine Creat Clearance w eGFR POC Glucometer 122 156 Random Glucose Calcium Total Bilirubin AST ALT Alkaline Phosphatase Total Protein Albumin 05/12/17 17:32 WBC RBC Hgb Hct MCV MCH MCHC RDW Plt Count MPV Neutrophils % Lymphocytes % Monocytes % Eosinophils % Basophils % PT with INR INR Sodium Potassium Chloride Carbon Dioxide Anion Gap BUN Creatinine Creat Clearance w eGFR POC Glucometer 148 Random Glucose Calcium Total Bilirubin AST ALT Alkaline Phosphatase Total Protein Albumin CBC, BMP 05/12/17 06:15 05/12/17 06:15 HOSPITAL COURSE: Date of Admission:05/09/17 Date of Discharge: 05/12/17 is an 87 y/o lady with h/o Pulmonary HTN, Atrial Fibrillation, on coumadin HTN, DM d heart failure , and other medical problems who presented with worsening SOB , and she was found to have acute CHF exacerbation For Acute on chronic hypoxic resp failure due to diastolic CHF due to recent decrease in her out pt torsemide regimen ( from 60 BID to 60 in am and 40 in pm ) we resumed torsemide 60 BID aldactone cont BB. Her echo with severe MT, TR and ther valvular problems and dilated L atrium. for O2 needs 3 L at rest and ambulation for now pt has Paroxismal afib INR within goal ,her outpt dose of coumadin was recently increased from 5 mg to 7.5 mg HS , will dc on 5 mg with close INR f/u mild nose bleed yesterday, and reported pink urine tht has been resolved. pt had an HEMANT on CKD due to prerenal etiology form diastolic heart failure resume diuresis . SPEP sent results to be followed as out pt.was found to have Unilateral hyro , with no CT evidence of obstruction . possible vesicoureteral reflux. will need uro f/u . and f/u with renal pt had Demand ischemia , in setting of heart failure. pt will be dischaged home today.passed PT . VNS arranged by care management.she will f/u card , renal , Uro , and PCP as out patient. Minutes to complete discharge: 40 Discharge Summary Reason For Visit: ACUTE ON CHRONIC CONGESTIVE HEART FAILURE Current Active Problems HEMANT (acute kidney injury) (Acute) Acute and chronic respiratory failure with hypoxia (Acute) Acute on chronic renal failure (Acute) CHF exacerbation (Acute) Creatinine elevation (Acute) Dyspnea on exertion (Acute) Subendocardial ischemia (Acute) Supratherapeutic INR (Acute) Mitral valve regurgitation (Chronic) Tricuspid valve regurgitation (Chronic) Condition: Stable - Instructions Diet, Activity, Other Instructions: You were in the hospital due to worsening of your heart failure. We think this happened because you recently decreased your Torsemide dose. You will need to go back to the higher dose. In the hospital you were stabilized with water pill medication. You were evaluated by cardiology and had an echocardiogram done that revealed problems with your valves. Please follow closely with your sole rounder after discharge, weigh yourself daily and limit salt intake to 2 grams of Sodium per day. If you gain more than 3 pounds call your sole rounder for an appointment right away. You were noted to have elevated INR, we corrected it and restarted your Coumadin. Be careful about taking Coumadin as prescribed, monitoring for signs of overdose like bleeding gums, increased bruising and blood in urine and check blood work as directed by your primary physician. You were noted to have a kidney issue on blood work, probably caused by heart failure. Your kidney numbers are now better but are still not fully normal compared to your baseline. You were seen by a kidney doctor( Dr. Grimaldo) , please follow up with him to make sure the issue resolves. You had a kidney ultrasound that revealed a nonobstructiong left kidney stone and mild hydronephrosis ( dilated kidney ) . This is not an acute issue but needs to be followed up by Urologist outpatien to rule out obstruction or refulx of urine Blood work: Please to get your blood drawn 3 days after discharge. You were given a blood work prescription on discharge. Medications: Take the previous HIGHER dose of Torsemide 60 mg twice a day Please take coumadin 5 mg every evenign Take other medications as prescribed before admission *New prescriptions were sent to your pharmacy* Follow up: Primary care physician: within 3 days of discharge [employer]: within 1 week of discharge [employer] (kidney doctor) Dr Grimaldo : within 1 week of discharge Urologist Dr Melo : within 1 month Please return to ED if your symptoms worsen use 3 liters of oxygen with ambulation and at rest important to follow with dr Paul Grimaldo as there is a blood test ( SPEP ) results need to be followed to rule out blood cancer ( multiple myeloma ) Referrals: Julio Cesar Ma MD [Primary Care Provider] - 05/15/17 Bobby Ramirez MD [Staff Physician] - 1 Month Aldair Grimaldo MD [Staff Physician] - 1 Week Oswaldo Pederson MD [Staff Physician] - 1 Week Disposition: HOME - Home Medications Comprehensive Discharge Medication List: Ambulatory Orders Spironolactone [Aldactone -] 25 mg PO DAILY #30 tablet 09/16/14 Metoprolol Tartrate [Lopressor -] 25 mg PO BID 10/25/16 Sildenafil Citrate [Sildenafil] 10 mg PO TID 10/25/16 Acetaminophen [Tylenol .Regular Strength -] 650 mg PO Q6H PRN #0 tablet Amiodarone HCl 200 mg PO DAILY 05/09/17 Amlodipine Besylate [Norvasc -] 5 mg PO DAILY 05/09/17 Atorvastatin Ca [Lipitor] 10 mg PO HS 05/09/17 Metformin HCl 500 mg PO DAILY 05/09/17 Miscellaneous Drug Not In Syst [Outpatient Lab Test] 1 each ASDIR #1 misc 11/21 Torsemide [Demadex -] 60 mg PO BID #60 tablet 05/12/17 Warfarin Na [Coumadin -] 5 mg PO DAILY@1800 #30 tablet 05/12/17 This patient is new to me today: No Emergency Visit: Yes ED Registration Date: 05/09/17 Care time: The patient presented to the Emergency Department on the above date and was hospitalized for further evaluation of their emergent condition. Critical Care patient: No - Discharge Referral Referred to [facility] Med P.C.: No
--- NOTE | 2017-05-12 18:49 | PN ---
Physical Exam: SUBJECTIVE: Patient seen and examined OBJECTIVE: Vital Signs Period Temp Pulse Resp BP Sys/Morales Pulse Ox Last 24 Hr 97.8 F-99.7 F 59-76 18-18 108-138/53-74 94-96 GENERAL: The patient is awake, alert, and fully oriented, in no acute distress. HEAD: Normal with no signs of trauma. EYES: PERRL, extraocular movements intact, sclera anicteric, conjunctiva clear. No ptosis. ENT: Ears normal, nares patent, oropharynx clear without exudates, moist mucous membranes. NECK: Trachea midline, full range of motion, supple. LUNGS: Breath sounds equal, clear to auscultation bilaterally, no wheezes, no crackles, no accessory muscle use. HEART: Regular rate and rhythm, S1, S2 without murmur, rub or gallop. ABDOMEN: Soft, nontender, nondistended, normoactive bowel sounds, no guarding, no rebound, no hepatosplenomegaly, no masses. EXTREMITIES: 2+ pulses, warm, well-perfused, no edema. NEUROLOGICAL: Cranial nerves II through XII grossly intact. Normal speech, gait not observed. PSYCH: Normal mood, normal affect. SKIN: Warm, dry, normal turgor, no rashes or lesions noted Laboratory Results - last 24 hr 05/11/17 05/12/17 05/12/17 21:34 06:15 06:15 WBC 6.9 RBC 3.10 L Hgb 9.7 L Hct 28.8 L MCV 92.9 MCH 31.4 MCHC 33.8 RDW 15.1 Plt Count 100 L D MPV 10.1 Neutrophils % 67.4 Lymphocytes % 20.7 Monocytes % 10.5 H Eosinophils % 1.0 D Basophils % 0.4 PT with INR INR Sodium 144 Potassium 3.9 Chloride 104 Carbon Dioxide 28 Anion Gap 12 BUN 51 H Creatinine 2.7 H Creat Clearance w eGFR 16.75 POC Glucometer 181 Random Glucose 115 H Calcium 7.8 L Total Bilirubin 2.5 H AST 35 ALT 29 Alkaline Phosphatase 50 Total Protein 7.5 Albumin 2.9 L 05/12/17 05/12/17 05/12/17 06:24 09:00 11:37 WBC RBC Hgb Hct MCV MCH MCHC RDW Plt Count MPV Neutrophils % Lymphocytes % Monocytes % Eosinophils % Basophils % PT with INR 31.40 H INR 2.78 H Sodium Potassium Chloride Carbon Dioxide Anion Gap BUN Creatinine Creat Clearance w eGFR POC Glucometer 122 156 Random Glucose Calcium Total Bilirubin AST ALT Alkaline Phosphatase Total Protein Albumin 05/12/17 17:32 WBC RBC Hgb Hct MCV MCH MCHC RDW Plt Count MPV Neutrophils % Lymphocytes % Monocytes % Eosinophils % Basophils % PT with INR INR Sodium Potassium Chloride Carbon Dioxide Anion Gap BUN Creatinine Creat Clearance w eGFR POC Glucometer 148 Random Glucose Calcium Total Bilirubin AST ALT Alkaline Phosphatase Total Protein Albumin Active Medications Generic Name Dose Route Start Last Admin Trade Name Freq PRN Reason Stop Dose Admin Acetaminophen 650 mg 05/10/17 10:20 05/11/17 22:09 Tylenol - PO 650 mg Q6H PRN Administration PAIN Amiodarone HCl 200 mg 05/10/17 10:00 05/12/17 09:34 Cordarone - PO 200 mg DAILY SAIDA Administration Amlodipine Besylate 5 mg 05/10/17 10:00 05/12/17 09:34 Norvasc - PO 5 mg DAILY [facility] Administration Atorvastatin Calcium 10 mg 05/10/17 22:00 05/11/17 21:59 Lipitor - PO 10 mg HS SAIDA Administration Insulin Aspart 1 vial 05/10/17 07:00 05/12/17 17:33 Novolog Vial Sliding Scale - SQ Not Given ACHS [facility] Protocol Metoprolol Tartrate 25 mg 05/10/17 10:00 05/12/17 09:34 Lopressor - PO 25 mg BID SAIDA Administration Sildenafil Citrate 10 mg 05/10/17 22:00 05/12/17 13:40 Revatio - PO 10 mg TID SAIDA Administration Spironolactone 25 mg 05/10/17 13:15 05/12/17 09:34 Aldactone - PO 25 mg DAILY [facility] Administration Torsemide 60 mg 05/10/17 22:00 05/12/17 09:34 Demadex - PO 60 mg BID SAIDA Administration Warfarin Sodium 5 mg 05/12/17 18:00 05/12/17 17:33 Coumadin - PO 5 mg DAILY@1800 SAIDA Administration CBC, BMP 05/12/17 06:15 05/12/17 06:15 ASSESSMENT/PLAN:
== END 2017-05-12 20:53 | disposition home or self-care (01) | DRG 291 ==
LOC: JER 16:33 → JERBED 20:41 → J4W 05-10 02:33
PROVIDERS: ADMIT Internal Medicine; ATTEND Internal Medicine
DX: I13.0 Hypertensive heart and chronic kidney disease with heart failure and stage 1 through stage 4 chronic kidney disease, or unspecified chronic kidney disease (principal); I50.33 Acute on chronic diastolic (congestive) heart failure; J96.21 Acute and chronic respiratory failure with hypoxia; N17.9 Acute kidney failure, unspecified; I24.8 Other forms of acute ischemic heart disease; N13.2 Hydronephrosis with renal and ureteral calculous obstruction; D68.8 Other specified coagulation defects; T45.515A Adverse effect of anticoagulants, initial encounter; I48.0 Paroxysmal atrial fibrillation; D64.9 Anemia, unspecified; I34.0 Nonrheumatic mitral (valve) insufficiency; I36.1 Nonrheumatic tricuspid (valve) insufficiency; N18.9 Chronic kidney disease, unspecified; R55 Syncope and collapse; Z79.01 Long term (current) use of anticoagulants; Z90.710 Acquired absence of both cervix and uterus; K21.9 Gastro-esophageal reflux disease without esophagitis; E78.5 Hyperlipidemia, unspecified; E11.22 Type 2 diabetes mellitus with diabetic chronic kidney disease; I25.2 Old myocardial infarction; Z96.653 Presence of artificial knee joint, bilateral; I25.119 Atherosclerotic heart disease of native coronary artery with unspecified angina pectoris; D69.6 Thrombocytopenia, unspecified; G47.33 Obstructive sleep apnea (adult) (pediatric); Z90.12 Acquired absence of left breast and nipple; R04.0 Epistaxis; Z79.84 Long term (current) use of oral hypoglycemic drugs
CPT/HCPCS: 36415; 36600; 71045-TC-FY; 74176; 76775-TC; 80048; 80053; 81003; 81015; 82436; 82550; 82570; 82803; 82962; 83605; 83735; 83880; 84100; 84133; 84155; 84156; 84157; 84165; 84300; 84443; 84484; 84540; 85025; 85610; 87040; 93005; 93010; 93306-TC; 94761; 97116-GP; 97161-GP; 99284-25

== ENCOUNTER 2017-08-11 23:45 | Observation (INO) | payer OTHER ==
--- NOTE | 2017-08-12 00:22 | PDOC ---
History of Present Illness - General History Source: Patient, Old Records Exam Limitations: No Limitations - History of Present Illness Initial Comments: 08/12/17 00:51 The patient is an 87 year old female with significant history of hypertension, DM, CHF, CAD s/p SC, pulmonary hypertensinon, atrial fibrillation, who presents to the ED complaining of 4 days of chest pain. The patient describes her chest pain as constant, pressure like pain that originated in the right lateral chest and has now migrated to the left. Pain is made worse with heavy lifting, exertion, and coughing. The patient also reports intermittent nausea and lightheadedness. She states she has chronic SOB with no acute changes. The patient denies fever. She denies vomiting or diarrhea. She denies headache or blurred vision. 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 PCP: Dr. Ma Netezza Architect: Dr. Mishra in [place] <Kristine Xie - Last Filed: 08/12/17 04:20> <Kamila Sheikh - Last Filed: 08/12/17 05:52> - General Stated Complaint: CHEST PAIN Time Seen by Provider: 08/12/17 00:22 Past History <Kristine Xie - Last Filed: 08/12/17 04:20> - Past Medical History Anemia: No Asthma: No Cancer: Yes (breast lt) Cardiac Disorders: Yes (mi,pulm.htn) COPD: No CHF: Yes Diabetes: Yes (niddm) HTN: Yes Hypercholesterolemia: Yes - Surgical History Cholecystectomy: Yes Orthopedic Surgery: Yes (Total Rt knee Replacement 7 yrs ago) - Immunization History Immunization Up to Date: Yes - Suicide/Smoking/Psychosocial Hx Smoking Status: No Smoking History: Never smoked Have you smoked in the past 12 months: No Number of Cigarettes Smoked Daily: 0 Hx Alcohol Use: No Drug/Substance Use Hx: No Substance Use Type: None Hx Substance Use Treatment: No <Kamila Sheikh - Last Filed: 08/12/17 05:52> - Past Medical History Allergies/Adverse Reactions: Allergies Allergy/AdvReac Type Severity Reaction Status Date / Time cranberry Allergy Unknown Verified 08/12/17 00:42 grape Allergy Unknown Verified 08/12/17 00:42 raspberry Allergy Unknown Verified 08/12/17 00:42 strawberry Allergy Unknown Verified 08/12/17 00:42 furosemide [From Lasix] AdvReac Verified 08/12/17 00:42 corn Allergy Unknown Uncoded 08/12/17 00:42 NUTS Allergy Unknown Uncoded 08/12/17 00:42 POLLEN Allergy Unknown Uncoded 08/12/17 00:42 SHELLFISH Allergy Unknown Uncoded 08/12/17 00:42 TUNA Allergy Unknown Uncoded 08/12/17 00:42 Home Medications: Ambulatory Orders Spironolactone [Aldactone -] 25 mg PO DAILY #30 tablet 09/16/14 Metoprolol Tartrate [Lopressor -] 25 mg PO BID 10/25/16 Sildenafil Citrate [Sildenafil] 10 mg PO TID 10/25/16 Acetaminophen [Tylenol .Regular Strength -] 650 mg PO Q6H PRN #0 tablet Amiodarone HCl 200 mg PO DAILY 05/09/17 Amlodipine Besylate [Norvasc -] 5 mg PO DAILY 05/09/17 Atorvastatin Ca [Lipitor] 10 mg PO HS 05/09/17 metFORMIN HCL [Metformin HCl] 500 mg PO DAILY 05/09/17 Miscellaneous Drug Not In Syst [[facility]patient Lab Test] [facility] Torsemide [Demadex -] 60 mg PO BID #60 tablet 05/12/17 Warfarin Na [Coumadin -] 5 mg PO DAILY@1800 #30 tablet 05/12/17 Miscellaneous Medical Supply [Outpatient Order] 1 each ASDIR #[address] [facility] [place] Review of Systems - Review of Systems Able to Perform ROS?: Yes Comments:: 08/12/17 01:02 GENERAL/CONSTITUTIONAL: No fever. No weakness. HEAD, EYES, EARS, NOSE AND THROAT: No change in vision. No ear pain or discharge. No sore throat. CARDIOVASCULAR: +Chest pain, lightheadedness. Chronic SOB. RESPIRATORY: No cough, wheezing, or hemoptysis. GASTROINTESTINAL: +Nausea. No vomiting, diarrhea or constipation. GENITOURINARY: No dysuria, frequency, or change in urination. MUSCULOSKELETAL: No joint or muscle swelling or pain. No neck or back pain. SKIN: No rash NEUROLOGIC: No headache, vertigo, loss of consciousness, or change in strength/ sensation. ENDOCRINE: No increased thirst. No abnormal weight change. HEMATOLOGIC/LYMPHATIC: No anemia, easy bleeding, or history of blood clots. ALLERGIC/IMMUNOLOGIC: No hives or skin allergy. <Kristine Xie - Last Filed: 08/12/17 04:20> *Physical Exam - Vital Signs Last Vital Signs Temp Pulse Resp BP Pulse Ox 98.2 F 88 18 144/99 98 08/12/17 00:31 08/12/17 00:31 08/12/17 00:31 08/12/17 00:31 08/12/17 00:31 - Physical Exam Comments: 08/12/17 01:03 GENERAL: Awake, alert, and fully oriented, in no acute distress HEAD: No signs of trauma EYES: PERRLA, EOMI, sclera anicteric, conjunctiva clear ENT: Auricles normal inspection, nares patent. Moist mucosa NECK: Normal ROM, supple, no JVD, or masses LUNGS: Breath sounds equal, clear to auscultation bilaterally. No wheezes, and no crackles HEART: Regular rate and rhythm, normal S1 and S2, no murmurs, rubs or gallops ABDOMEN: Soft, nontender, normoactive bowel sounds. No guarding, no rebound. No masses EXTREMITIES: Normal range of motion, no edema. No clubbing or cyanosis. No cords, erythema, or tenderness NEUROLOGICAL: Alert and oriented x 3. Moves all extremities. Face is symmetric. SKIN: Warm, Dry, normal turgor, no rashes or lesions noted. <Kristine Xie - Last Filed: 08/12/17 04:20> ED Treatment Course - LABORATORY CBC & Chemistry Diagram: 08/12/17 01:49 08/12/17 01:49 <Kristine Xie - Last Filed: 08/12/17 04:20> - LABORATORY CBC & Chemistry Diagram: 08/12/17 01:49 08/12/17 01:49 <Kamila Sheikh - Last Filed: 08/12/17 05:52> *DC/Admit/Observation/Transfer - Attestations Scribe Attestion: 08/12/17 01:03 Documentation prepared by Kristine Xie, acting as medical staff credentialing coordinator for Kamila Sheikh MD. <Kristine Xie Last Filed: 08/12/17 04:20> - Discharge Dispostion Decision to Admit order: Yes <Kmaila Sheikh - Last Filed: 08/12/17 05:52> Diagnosis at time of Disposition: Shortness of breath - Discharge Dispostion Disposition: HOME Condition at time of disposition: Stable - Referrals Referrals: ON STAFF,NOT [Non Staff, Medical] -
[2017-08-12] MEDS ORDERED: ACETAMINOPHEN 1000 MG/100 ML VIAL (NON FORMULARY) IVPB ONE (00:33)
[2017-08-12] MEDS ORDERED: ACETAMINOPHEN INJECTION 100 ML IVPB ONE (01:19)
[2017-08-12 02:11] LABS: EOS % 0.7 % (0-4.5); HEMATOCRIT 31.5 % (32.4-45.2); HEMOGLOBIN 10.4 GM/dL (10.7-15.3); LYMPH % 29.9 % (8-40); MCH 30.5 pg (25.7-33.7); MEAN CELL VOLUME 92.5 fl (80-96); MEAN PLT VOLUME 9.5 fl (7.5-11.1); MONO % 11.9 % (3.8-10.2); NEUT % 56.5 % (42.8-82.8); PLATELET COUNT 70 K/MM3 (134-434); RBC 3.41 M/mm3 (3.60-5.2); RDW 14.1 % (11.6-15.6); WHITE BLOOD COUNT 7.5 K/mm3 (4.0-10.0)
[2017-08-12 02:35] LABS: ALBUMIN 3.5 g/dl (3.4-5.0); ANION GAP 9 (8-16); BILIRUBIN,TOTAL 0.4 mg/dL (0.2-1.0); BLOOD UREA NITROGEN 43 mg/dL (7-18); CALCIUM 8.8 mg/dL (8.5-10.1); CHLORIDE 100 mmol/L (98-107); CO2 31 mmol/L (21-32); CREATININE 2.1 mg/dL (0.55-1.02); GLUCOSE,RANDOM 131 mg/dL (74-106); POTASSIUM 3.9 mmol/L (3.5-5.1); SGOT/AST 14 U/L (15-37); SGPT/ALT 16 U/L (12-78); SODIUM 140 mmol/L (136-145); TOT PROT 8.3 g/dl (6.4-8.2)
[2017-08-12 02:37] LABS: ALK PHOS 48 U/L (45-117); N-TERMINAL BNP 1424.35 pg/ml (5-450)
--- NOTE | 2017-08-12 04:58 | PN ---
Teaching Attending Note Name of Resident: Emilio Lacy ATTENDING PHYSICIAN STATEMENT I saw and evaluated the patient. I reviewed the resident's note and discussed the case with the resident. I agree with the resident's findings and plan as documented. SUBJECTIVE: Patient is an 87 year old woman with significant history of hypertension, DM, CHF, CAD s/p [place], pulmonary hypertension, left breast cancer (radio and chemotherapy in 1995), home oxygen therapy at 3L/min (no history of COPD), atrial fibrillation on coumadin, CKD stage 3, who presents to the ED complaining of 4 days of chest pain. The patient describes her chest pain as constant, pressure like pain that originated in the right lateral chest and has now migrated to the left and down her left arm. Pain is made worse with heavy lifting, exertion, and coughing. The patient also reports intermittent nausea and lightheadedness and had some fever and chills yesterday. She states she has chronic SOB with no acute changes. She denies vomiting or diarrhea. She denies headache or blurred vision. Patient states she has been recently evaluated by her social service coordinator with stress tests but is unsure of the results. OBJECTIVE: Alert and in no acute distress. Comfortable on room air. Vital Signs Period Temp Pulse Resp BP Sys/Morales Pulse Ox Last 24 Hr 98.2 F 73-88 15-18 117-144/58-99 94-98 HEENT: No Jaundice, eye redness or discharge, PERRLA, EOMI. Normocephalic, atraumatic. External ears are normal and hearing is grossly intact. No nasal discharge. Neck: Supple, nontender. No palpable adenopathy or thyromegaly. No JVD Chest: Good effort. Tender over her left sternal area and left lateral chest wall. Clear to auscultation. Heart: Regular. No S3, rub or murmur Abdomen: Not distended, soft, nontender and no HSM. No rebound or guarding. Normoactive bowel sounds. Ext: Peripheral pulses intact. No leg edema. Skin: Warm and dry. No petechiae, rash or ecchymosis. Neuro: Alert. Oriented x3. CN 2-12 grossly intact. Sensation grossly intact in all four extremities and DTR are symmetric. Current Medications Generic Name Dose Route Start Last Admin Trade Name Freq PRN Reason Stop Dose Admin Chlorhexidine Gluconate 1 applic 08/12/17 22:00 Hibiclens For Decolonization - TP HS [facility] Mupirocin 1 applic 08/12/17 10:00 Bactroban Ointment (For Decolonization) - NS 08/17/17 09:59 BID [facility] Home Medications Medication Instructions Recorded Spironolactone [Aldactone -] 25 mg PO DAILY #30 tablet 09/16/14 Metoprolol Tartrate [Lopressor -] 25 mg PO BID 10/25/16 Sildenafil Citrate [Sildenafil] 10 mg PO TID 10/25/16 Acetaminophen [Tylenol .Regular 650 mg PO Q6H PRN #0 tablet 11/22/16 Strength -] Amiodarone HCl 200 mg PO DAILY 05/09/17 Amlodipine Besylate [Norvasc -] 5 mg PO DAILY 05/09/17 Atorvastatin Ca [Lipitor] 10 mg PO HS 05/09/17 metFORMIN HCL [Metformin HCl] 500 mg PO DAILY 05/09/17 Miscellaneous Drug Not In Syst 1 each ASDIR #1 misc 05/12/17 [Outpatient Lab Test] Torsemide [Demadex -] 60 mg PO BID #60 tablet 05/12/17 Warfarin Na [Coumadin -] 5 mg PO DAILY@1800 #30 tablet 05/12/17 Miscellaneous Medical Supply 1 each ASDIR #1 misc 05/15/17 [Outpatient Order] Abnormal Lab Results 08/12/17 08/12/17 01:49 01:49 RBC 3.41 L Hgb 10.4 L Hct 31.5 L Plt Count 70 L D Monocytes % 11.9 H BUN 43 H Creatinine 2.1 H Random Glucose 131 H AST 14 L B-Natriuretic Peptide 1424.35 H Total Protein 8.3 H ASSESSMENT AND PLAN: 1. Atypical chest pain - She has no EKG changes to suggest ACS and her troponin is not elevated but she has point tenderness. However in view of history of CAD , will monitor her on telemetry, get ECHO, repeat EKG and troponin. Findings consistent with costochondritis. CXR result not available yet. Will check ESR, use tylenol for pain control and avoid NSAIDS in view of CKD. She used to be on Asprin, but PCP stopped it and she does not remember why. Because of history of cancer, will get chest CT to rule out pathological rib fracture. 2. CKD - Etiology is unclear. Consult nephrology for further work and avoid nephrotoxic drugs. Get kidney sonogram. 3. Anemia and severe thrombocytopenia - Etiology unclear, though anemia may be partly due to CKD. If she has myelodysplasia, that may explain bone pain. Consult hematology, check stool guaiac, iron studies and avoid heparin therapy. 4. Pulmonary hypertension - Unclear why she is on Oxygen therapy. Consult pulmonary. 5. Afib - Rate controlled. Will check INR since she is on coumadin. 6. DVT prophylaxis - SCD 7. Advance directives - Full code
[2017-08-12] MEDS ORDERED: ACETAMINOPHEN 325 MG TABLET (FP) PO PRN (05:46)
--- NOTE | 2017-08-12 06:01 | HP ---
CHIEF COMPLAINT: chest pain HISTORY OF PRESENT ILLNESS: The patient is an 87 year old female with significant history of hypertension, DM, CHF, CAD s/p [place], pulmonary hypertensinon, atrial fibrillation, who presents to the ED complaining of 4 days of chest pain. Patient states that she has flu like symptoms yesterday and noticed some chills. The patient describes her chest pain as constant, pressure like pain that originated in the right lateral chest and has now migrated to the left. Pain is made worse with heavy lifting, exertion, and coughing. Patient pain is reproducible on touch. The patient also reports intermittent nausea and lightheadedness. She states she has chronic SOB with no acute changes. Patient states she has been recently evaluated by her antique clock repairer with stress tests, unsure of results. ER course was notable for: (1)cbc, cmp, trop i (2)ekg (3) Recent Travel: no PAST MEDICAL HISTORY: Breast CA in 1995, lumpectomy with RT [place] Pulmonary HTN CHF DM HLD Afib HTN PAST SURGICAL HISTORY: Cholecystectomy TKR rt knee Hysterectomy Social History: Smoking: never Alcohol: never Drugs: never Family History: Allergies cranberry Allergy (Unknown, Verified 08/12/17 00:42) grape Allergy (Unknown, Verified 08/12/17 00:42) raspberry Allergy (Unknown, Verified 08/12/17 00:42) strawberry Allergy (Unknown, Verified 08/12/17 00:42) furosemide [From Lasix] Adverse Reaction (Verified 08/12/17 00:42) dizziness corn Allergy (Unknown, Uncoded 08/12/17 00:42) NUTS Allergy (Unknown, Uncoded 08/12/17 00:42) POLLEN Allergy (Unknown, Uncoded 08/12/17 00:42) SHELLFISH Allergy (Unknown, Uncoded 08/12/17 00:42) TUNA Allergy (Unknown, Uncoded 08/12/17 00:42) HOME MEDICATIONS: Home Medications Medication Instructions Recorded Spironolactone [Aldactone -] 25 mg PO DAILY #30 tablet 09/16/14 Metoprolol Tartrate [Lopressor -] 25 mg PO BID 10/25/16 Sildenafil Citrate [Sildenafil] 10 mg PO TID 10/25/16 Acetaminophen [Tylenol .Regular 650 mg PO Q6H PRN #0 tablet 11/22/16 Strength -] Amiodarone HCl 200 mg PO DAILY 05/09/17 Amlodipine Besylate [Norvasc -] 5 mg PO DAILY 05/09/17 Atorvastatin Ca [Lipitor] 10 mg PO HS 05/09/17 metFORMIN HCL [Metformin HCl] 500 mg PO DAILY 05/09/17 Miscellaneous Drug Not In Syst 1 each ASDIR #1 mis 05/12/17 [Outpatient Lab Test] Torsemide [Demadex -] 60 mg PO BID #60 tablet 05/12/17 Warfarin Na [Coumadin -] 5 mg PO DAILY@1800 #30 tablet 05/12/17 Miscellaneous Medical Supply 1 each ASDIR #1 [facility] [place] 05/15/17 [Outpatient Order] REVIEW OF SYSTEMS CONSTITUTIONAL: Absent: fever, chills, diaphoresis, generalized weakness, malaise, loss of appetite, weight change HEENT: Absent: rhinorrhea, nasal congestion, throat pain, throat swelling, difficulty swallowing, mouth swelling, ear pain, eye pain, visual changes CARDIOVASCULAR: Absent: chest pain, syncope, palpitations, irregular heart rate, lightheadedness , peripheral edema RESPIRATORY: Absent: cough, shortness of breath, dyspnea with exertion, orthopnea, wheezing, stridor, hemoptysis GASTROINTESTINAL: Absent: abdominal pain, abdominal distension, nausea, vomiting, diarrhea, constipation, melena, hematochezia GENITOURINARY: Absent: dysuria, frequency, urgency, hesitancy, hematuria, flank pain, genital pain MUSCULOSKELETAL: Absent: myalgia, arthralgia, joint swelling, back pain, neck pain SKIN: Absent: rash, itching, pallor HEMATOLOGIC/IMMUNOLOGIC: Absent: easy bleeding, easy bruising, lymphadenopathy, frequent infections ENDOCRINE: Absent: unexplained weight gain, unexplained weight loss, heat intolerance, cold intolerance NEUROLOGIC: Absent: headache, focal weakness or paresthesias, dizziness, unsteady gait, seizure, mental status changes, bladder or bowel incontinence PSYCHIATRIC: Absent: anxiety, depression, suicidal or homicidal ideation, hallucinations. PHYSICAL EXAMINATION Vital Signs - 24 hr 08/12/17 08/12/17 00:31 02:46 Temperature 98.2 F Pulse Rate 88 Pulse Rate [ 73 Apical] Respiratory 18 15 Rate Blood Pressure 144/99 Blood Pressure 117/58 [Right Arm] O2 Sat by Pulse 98 94 L Oximetry (%) GENERAL: Awake, alert, and fully oriented, in no acute distress. EARS, NOSE, THROAT: dry mucous membranes. NECK: no jvp LUNGS: Breath sounds equal, clear to auscultation bilaterally. No wheezes, and no crackles. No accessory muscle use. Tenderness to palpation HEART: s1s2 normal, rergularly irregular ABDOMEN: Soft, nontender, not distended, normoactive bowel sounds, no guarding, no rebound, no masses. MUSCULOSKELETAL: Normal range of motion at all joints. No bony deformities or tenderness. UPPER EXTREMITIES: 2+ pulses, warm, well-perfused. No cyanosis. No clubbing. No peripheral edema. LOWER EXTREMITIES: warm, well-perfused. No calf tenderness. No peripheral edema. SKIN: Warm, dry, 08/12/17 08/12/17 01:49 01:49 WBC 7.5 RBC 3.41 L Hgb 10.4 L Hct 31.5 L MCV 92.5 MCH 30.5 MCHC 33.0 RDW 14.1 Plt Count 70 L D MPV 9.5 Absolute Neuts (auto) 4.3 Neutrophils % 56.5 Lymphocytes % 29.9 D Monocytes % 11.9 H Eosinophils % 0.7 Basophils % 1.0 Nucleated RBC % 0 Sodium 140 Potassium 3.9 Chloride 100 Carbon Dioxide 31 Anion Gap 9 BUN 43 H Creatinine 2.1 H Creat Clearance w eGFR 22.38 Random Glucose 131 H Calcium 8.8 Total Bilirubin 0.4 D AST 14 L ALT 16 Alkaline Phosphatase 48 Creatine Kinase 146 Troponin I < 0.02 B-Natriuretic Peptide 1424.35 H Total Protein 8.3 H Albumin 3.5 ASSESSMENT/PLAN:The patient is an 87 yo f w/ PMH Pulm onary HTN, HTN, Afib, DM who is being admitted for hypoxemia Chest pain; likely costochondritis but r/o acs reproducible pain after flu like symptoms. continue standing tylenol, avoid nsaid because of ckd. Danii felt better after tylenol initial trop i negative, follow second ekg normal echo done in may 2017 reviewed get result of her stress test from her antique clock repairer #CKD - base line 2.1 cr monitor avoid nephrotoxic drugs #DM -BGM ACHS - continue home meds #Pulmonary HTN continue sildenafil # Afib on coumadin and rate control follow inr continue home med # H/o CAD s/p [place] # H/o CHF continue home meds daily weight low salt diet intake and output monitoring stable spo2 97 on room air #FEN -no fluids indicated -monitor lytes -diabetic diet #Prophy -on coumadin #Dispo - tele Visit type - Emergency Visit Emergency Visit: Yes Care time: The patient presented to the Emergency Department on the above date and was hospitalized for further evaluation of their emergent condition. - New Patient This patient is new to me today: Yes Date on this admission: 08/12/17 - Critical Care Critical Care patient: No
[2017-08-12] MEDS: SILDENAFIL CITRATE 20 MG TAB PO SCH ×3 (06:04→21:33)
[2017-08-12] MEDS ORDERED: ACETAMINOPHEN 325 MG TABLET (FP) PO SCH (06:30)
[2017-08-12] MEDS: TORSEMIDE 20 MG TABLET (FP) PO SCH ×2 (06:50→14:55)
[2017-08-12] MEDS ORDERED: metFORMIN HCL 500 MG TABLET (FP) PO SCH (07:00)
[2017-08-12] MEDS ORDERED: morphine CARPU-JECT 2 MG/1 ML DISP.SYRIN IVPUSH PRN (08:58)
[2017-08-12] MEDS ORDERED: morphine CARPU-JECT 2 MG/1 ML DISP.SYRIN ONE (09:18)
[2017-08-12] MEDS ORDERED: AMIODARONE HCL 200 MG TABLET (FP) ONE (09:18)
[2017-08-12] MEDS ORDERED: METOPROLOL TARTRATE 25 MG TABLET (FP) ONE (09:18)
[2017-08-12] MEDS ORDERED: SPIRONOLACTONE 25 MG TABLET (FP) ONE (09:18)
[2017-08-12 09:25] LABS: BASO % 0.5 % (0-2.0); EOS % 0.8 % (0-4.5); HEMATOCRIT 32.7 % (32.4-45.2); HEMOGLOBIN 10.9 GM/dL (10.7-15.3); LYMPH % 28.5 % (8-40); MCH 30.7 pg (25.7-33.7); MCHC 33.2 g/dl (32.0-36.0); MEAN CELL VOLUME 92.3 fl (80-96); MEAN PLT VOLUME 9.2 fl (7.5-11.1); NEUT % 56.2 % (42.8-82.8); PLATELET COUNT 121 K/MM3 (134-434); RBC 3.54 M/mm3 (3.60-5.2); WHITE BLOOD COUNT 7.8 K/mm3 (4.0-10.0)
[2017-08-12] MEDS: AMIODARONE HCL 200 MG TABLET (FP) PO SCH (09:36)
[2017-08-12] MEDS: METOPROLOL TARTRATE 25 MG TABLET (FP) PO SCH ×2 (09:36→21:31)
[2017-08-12] MEDS: MUPIROCIN 2% TOPICAL OINTMENT FOR DECOLONIZATION NS SCH ×2 (09:36→21:30)
[2017-08-12] MEDS: amLODIPine BESYLATE 5 MG TABLET (FP) PO SCH (09:36)
[2017-08-12] MEDS: SPIRONOLACTONE 25 MG TABLET (FP) PO SCH (09:36)
[2017-08-12 09:45] LABS: INR 2.83 (0.82-1.09)
[2017-08-12] MEDS ORDERED: FAMOTIDINE 20 MG/50 ML IVPB 20 MG/50 ML MG IVPB ONE ×2 (10:42→10:46)
[2017-08-12 11:04] LABS: ALBUMIN 3.5 g/dl (3.4-5.0); ANION GAP 10 (8-16); BILIRUBIN,TOTAL 0.5 mg/dL (0.2-1.0); BLOOD UREA NITROGEN 45 mg/dL (7-18); CALCIUM 8.8 mg/dL (8.5-10.1); CHLORIDE 101 mmol/L (98-107); CHOLESTEROL 186 mg/dL (50-200); CO2 30 mmol/L (21-32); CREATININE 2.1 mg/dL (0.55-1.02); GLUCOSE,RANDOM 101 mg/dL (74-106); HDL CHOLESTEROL 78 mg/dL (40-60); MAGNESIUM 2.4 mg/dL (1.8-2.4); PHOSPHOROUS 3.6 mg/dL (2.5-4.9); POTASSIUM 3.7 mmol/L (3.5-5.1); SGOT/AST 17 U/L (15-37); SGPT/ALT 14 U/L (12-78); SODIUM 141 mmol/L (136-145); TRIGLYCERIDES 44 mg/dL (35-160)
[2017-08-12 11:05] LABS: ALK PHOS 49 U/L (45-117)
[2017-08-12] MEDS: ACETAMINOPHEN 325 MG TABLET (FP) PO SCH ×2 (12:10→18:53)
--- NOTE | 2017-08-12 13:40 | CON.PULM ---
Consult Consult Specialty:: PULM/CCM Referred by:: SHANAE Reason for Consultation:: SOB / CP - History of Present Illness Chief Complaint: SOB / CP History of Present Illness: 87 F, hypertension, DM, CHF, CAD s/p [place], pulmonary hypertension, left breast cancer (radio and chemotherapy in 1995), OSAS, home oxygen therapy at 3L/min, atrial fibrillation on coumadin, and CKD stage 3. At baseline she does have some GONZALEZ. Admitted via the ER due to 4 to 5 days of bilateral chest pressure. Started on the right and has progressed bilaterally. No travel history or sick contacts. No fever or chills. No night sweats or hemoptysis. She does report some lightheadedness. No RIVERA or syncope. CT: cardiomegaly / chronic appearing changes / no gross infiltrates / no effusions - History Source History Provided By: Patient Limitations to Obtaining History: No Limitations - Past Medical History GROUP DIRECTOR: Yes: Syncope. No: Alzheimer's Cardio/Vascular: Yes: AFIB, CAD (non-obstructive CAD), CHF, HTN, Hyperlipdemia, Pulmonary Hypertension. No: Deep Vein Thrombosis, [place] Pulmonary: Yes: COPD, O2 Dependent. No: Pulmonary Embolus Endocrine: Yes: Diabetes Mellitus. No: Luis Manuel's Disease Additional Medical History: Hyperlipidemia, recent onset afib - Past Surgical History Past Surgical History: Yes: Cholecystectomy, Hysterectomy, Joint Replacement ( right knee), Mastectomy (left lumpectomy), Tubal Ligation - Alcohol/Substance Use Hx Alcohol Use: No History of Substance Use: reports: None - Smoking History Smoking history: Never smoked Have you smoked in the past 12 months: No Aproximately how many cigarettes per day: 0 - Social History Usual Living Arrangement: With Child ADL: Independent History of Recent Travel: No Home Medications - Allergies Allergies/Adverse Reactions: Allergies Allergy/AdvReac Type Severity Reaction Status Date / Time cranberry Allergy Unknown Verified 08/12/17 00:42 grape Allergy Unknown Verified 08/12/17 00:42 raspberry Allergy Unknown Verified 08/12/17 00:42 strawberry Allergy Unknown Verified 08/12/17 00:42 furosemide [From Lasix] AdvReac Verified 08/12/17 00:42 corn Allergy Unknown Uncoded 08/12/17 00:42 NUTS Allergy Unknown Uncoded 08/12/17 00:42 POLLEN Allergy Unknown Uncoded 08/12/17 00:42 SHELLFISH Allergy Unknown Uncoded 08/12/17 00:42 TUNA Allergy Unknown Uncoded 08/12/17 00:42 - Home Medications Home Medications: Ambulatory Orders Spironolactone [Aldactone -] 25 mg PO DAILY #30 tablet 09/16/14 Sildenafil Citrate [Sildenafil] 10 mg PO TID 10/25/16 Acetaminophen [Tylenol .Regular Strength -] 650 mg PO Q6H PRN #0 tablet Amiodarone HCl 200 mg PO DAILY 05/09/17 Amlodipine Besylate [Norvasc -] 5 mg PO DAILY 05/09/17 Atorvastatin Ca [Lipitor] 10 mg PO HS 05/09/17 metFORMIN HCL [Metformin HCl] 500 mg PO DAILY 05/09/17 Torsemide [Demadex -] 60 mg PO BID #60 tablet 05/12/17 Warfarin Na [Coumadin -] 5 mg PO DAILY@1800 #30 tablet 05/12/17 Metoprolol Succinate [Toprol Xl] 100 mg PO BID 08/12/17 Family Disease History - Family Disease History Family Disease History: Other: Daughter (HTN) Review of Systems - Review of Systems Constitutional: reports: Malaise, Weakness. denies: Chills, Fever, Night Sweats Eyes: reports: No Symptoms HENT: reports: No Symptoms Neck: reports: No Symptoms Cardiovascular: reports: Chest Pain, Shortness of Breath. denies: Edema, Palpitations Respiratory: reports: Cough, SOB, SOB on Exertion. denies: Hemoptysis, Wheezing Gastrointestinal: reports: No Symptoms Genitourinary: reports: No Symptoms Breasts: reports: No Symptoms Reported Musculoskeletal: reports: Muscle Pain Integumentary: reports: No Symptoms Neurological: reports: No Symptoms Endocrine: reports: No Symptoms Hematology/Lymphatic: reports: No Symptoms Psychiatric: reports: No Symptoms Physical Exam Vital Sings: Vital Signs Temperature 98.1 F 08/12/17 07:50 Pulse Rate 73 08/12/17 09:37 Respiratory Rate 16 08/12/17 09:37 Blood Pressure 138/82 08/12/17 09:37 O2 Sat by Pulse Oximetry (%) 98 08/12/17 09:37 Constitutional: Yes: No Distress, Obese Eyes: Yes: Conjunctiva Clear, EOM Intact HENT: Yes: Atraumatic, Normocephalic Neck: Yes: Supple, Trachea Midline Cardiovascular: Yes: Pulse Irregular Respiratory: Yes: Cough, Dullness, On Nasal O2. No: Accessory Muscle Use, Rales , Rhonchi, Stridor, Tachypnea, Wheezes ...Inspection: Yes: WNL ...Clubbing: No Gastrointestinal: Yes: Normal Bowel Sounds, Soft, Abdomen, Obese Renal/: Yes: WNL Musculoskeletal: Yes: WNL Extremities: Yes: WNL Edema: No Peripheral Pulses WNL: Yes Integumentary: Yes: WNL Neurological: Yes: WNL, Alert, Oriented ...Motor Strength: WNL Psychiatric: Yes: WNL, Alert, Oriented Labs: CBC, BMP 08/12/17 09:00 08/12/17 09:00 Imaging - Results Chest X-ray: Report Reviewed, Image Reviewed Cat Scan: Image Reviewed Problem List - Problems (1) Dyspnea on exertion Code(s): R06.09 - OTHER FORMS OF DYSPNEA (2) Pulmonary hypertension Code(s): I27.20 - PULMONARY HYPERTENSION, UNSPECIFIED (3) Sleep apnea, obstructive Code(s): G47.33 - OBSTRUCTIVE SLEEP APNEA (ADULT) (PEDIATRIC) (4) Atrial fibrillation Code(s): I48.91 - UNSPECIFIED ATRIAL FIBRILLATION Qualifiers: Atrial fibrillation type: paroxysmal Qualified Code(s): I48.0 - Paroxysmal atrial fibrillation (5) CAD (coronary artery disease) Code(s): I25.10 - ATHSCL HEART DISEASE OF [place] CORONARY ARTERY W/O ANG PCTRS Qualifiers: Coronary Disease-Associated Artery/Lesion type: [place] artery [place] vs. transplanted heart: [place] heart Associated angina: without angina Qualified Code(s): I25.10 - Atherosclerotic heart disease of [place] coronary artery without angina pectoris (6) CHF (congestive heart failure) Code(s): I50.9 - HEART FAILURE, UNSPECIFIED (7) Diabetes Code(s): E11.9 - TYPE 2 DIABETES MELLITUS WITHOUT COMPLICATIONS Qualifiers: Diabetes mellitus type: type 2 Diabetes mellitus roasterman insulin use: without care home use Diabetes mellitus complication status: without complication Qualified Code(s): E11.9 - Type 2 diabetes mellitus without complications (8) Diabetic neuropathy Code(s): E11.40 - TYPE 2 DIABETES MELLITUS WITH DIABETIC NEUROPATHY, UNSP Qualifiers: Diabetes mellitus type: due to underlying condition Diabetes mellitus complication detail: diabetic mononeuropathy Qualified Code(s): E08.41 - Diabetes mellitus due to underlying condition with diabetic mononeuropathy (9) HTN (hypertension) Code(s): I10 - ESSENTIAL (PRIMARY) HYPERTENSION Qualifiers: Hypertension type: essential hypertension Qualified Code(s): I10 - Essential (primary) hypertension (10) Hyperlipidemia Code(s): E78.5 - HYPERLIPIDEMIA, UNSPECIFIED Qualifiers: Hyperlipidemia type: pure hypercholesterolemia Qualified Code(s): E78.00 - Pure hypercholesterolemia, unspecified (11) Mitral valve regurgitation Code(s): I34.0 - NONRHEUMATIC MITRAL (VALVE) INSUFFICIENCY Qualifiers: Cardiac valve disease etiology: nonrheumatic Qualified Code(s): I34.0 - Nonrheumatic mitral (valve) insufficiency (12) Moderate to severe pulmonary hypertension Code(s): I27.2 - OTHER SECONDARY PULMONARY HYPERTENSION * DO NOT USE * (13) Tricuspid valve regurgitation Code(s): I07.1 - RHEUMATIC TRICUSPID INSUFFICIENCY Qualifiers: Cardiac valve disease etiology: nonrheumatic Qualified Code(s): I36.1 - Nonrheumatic tricuspid (valve) insufficiency Assessment/Plan Continue Demadex and Spironolactone O2 as needed Monitor off ABX: do not suspect infection BD TX PRN Pain control: suspect Musculoskeletal origin Revatio Coumadin Check official read of CT Will follow Thank you. Dr Schulte
--- NOTE | 2017-08-12 14:36 | EKG ---
Test Reason : Blood Pressure : / mmHG Vent. Rate : 066 BPM Atrial Rate : 066 BPM P-R Int : 198 ms QRS Dur : 096 ms QT Int : 448 ms P-R-T Axes : 055 036 054 degrees QTc Int : 469 ms SINUS RHYTHM WITH PREMATURE SUPRAVENTRICULAR COMPLEXES MINIMAL VOLTAGE CRITERIA FOR LVH, MAY BE NORMAL VARIANT BORDERLINE ECG WHEN COMPARED WITH ECG OF 12-AUG-2017 00:25, PREMATURE SUPRAVENTRICULAR COMPLEXES ARE NOW PRESENT Confirmed by MD Jerrod, ([id number]) on 08/12/2017 2:35:53 PM Referred By: Pilar TREVINO Confirmed By:Daniel Elder MD
[2017-08-12] MEDS ORDERED: WARFARIN NA 5 MG TABLET (UD) PO SCH (18:00)
[2017-08-12 18:41] VITALS: BMI 30.8
--- NOTE | 2017-08-12 19:31 | PN ---
Physical Exam: SUBJECTIVE: Patient seen and examined Very nice lady, c/o having left sided chest pain mainly on palpation OBJECTIVE: Vital Signs Temperature 99.2 F 08/12/17 18:35 Pulse Rate 68 08/12/17 18:35 Respiratory Rate 19 08/12/17 18:35 Blood Pressure 152/78 08/12/17 18:35 O2 Sat by Pulse Oximetry (%) 95 08/12/17 18:59 GENERAL: The patient is awake, alert, and fully oriented, in no acute distress. HEAD: Normal with no signs of trauma. EYES: PERRL, extraocular movements intact, sclera anicteric, conjunctiva clear. ENT: Ears normal, oropharynx clear without exudates, moist mucous membranes. NECK: Trachea midline, full range of motion, supple. Chest: left sided pain on palpation due to RTx and positive for scar from lumpectomy LUNGS: Breath sounds equal, clear to auscultation bilaterally, no wheezes, no crackles, no accessory muscle use. HEART: Regular rate and rhythm, S1, S2 positve, without murmur, rub or gallop. ABDOMEN: Soft, nontender, nondistended, normoactive bowel sounds, no guarding, no rebound, no hepatosplenomegaly, no masses. EXTREMITIES: 2+ pulses, warm, well-perfused, no edema. NEUROLOGICAL: Cranial nerves II through XII grossly intact. Normal speech, gait not observed. PSYCH: Normal mood, normal affect. SKIN: Warm, dry, normal turgor, no rashes or lesions noted Laboratory Results - last 24 hr 08/12/17 08/12/17 08/12/17 01:49 01:49 09:00 WBC 7.5 7.8 RBC 3.41 L 3.54 L Hgb 10.4 L 10.9 Hct 31.5 L 32.7 MCV 92.5 92.3 MCH 30.5 30.7 MCHC 33.0 33.2 RDW 14.1 14.0 Plt Count 70 L D 121 L D MPV 9.5 9.2 Absolute Neuts (auto) 4.3 4.4 Neutrophils % 56.5 56.2 Lymphocytes % 29.9 D 28.5 Monocytes % 11.9 H 14.0 H Eosinophils % 0.7 0.8 Basophils % 1.0 0.5 Nucleated RBC % 0 0 PT with INR INR Sodium 140 Potassium 3.9 Chloride 100 Carbon Dioxide 31 Anion Gap 9 BUN 43 H Creatinine 2.1 H Creat Clearance w eGFR 22.38 Random Glucose 131 H Calcium 8.8 Phosphorus Magnesium Total Bilirubin 0.4 D AST 14 L ALT 16 Alkaline Phosphatase 48 Creatine Kinase 146 Troponin I < 0.02 B-Natriuretic Peptide 1424.35 H Total Protein 8.3 H Albumin 3.5 Triglycerides Cholesterol Total LDL Cholesterol HDL Cholesterol TSH Free T4 08/12/17 08/12/17 08/12/17 09:00 09:00 09:00 WBC RBC Hgb Hct MCV MCH MCHC RDW Plt Count MPV Absolute Neuts (auto) Neutrophils % Lymphocytes % Monocytes % Eosinophils % Basophils % Nucleated RBC % PT with INR 32.00 H INR 2.83 H Sodium 141 Potassium 3.7 Chloride 101 Carbon Dioxide 30 Anion Gap 10 BUN 45 H Creatinine 2.1 H Creat Clearance w eGFR 22.38 Random Glucose 101 Calcium 8.8 Phosphorus 3.6 Magnesium 2.4 Total Bilirubin 0.5 D AST 17 ALT 14 Alkaline Phosphatase 49 Creatine Kinase Troponin I < 0.02 B-Natriuretic Peptide Total Protein 8.0 Albumin 3.5 Triglycerides 44 Cholesterol 186 Total LDL Cholesterol 106 H HDL Cholesterol 78 H TSH 0.69 Free T4 1.10 Active Medications Generic Name Dose Route Start Last Admin Trade Name Freq PRN Reason Stop Dose Admin Acetaminophen 650 mg 08/12/17 06:55 08/12/17 18:53 Tylenol - PO 650 mg Q6HPO SAIDA Administration Amiodarone HCl 200 mg 08/12/17 10:00 08/12/17 09:36 Cordarone - PO 200 mg DAILY [facility] Administration Amlodipine Besylate 5 mg 08/12/17 10:00 08/12/17 09:36 Norvasc - PO 5 mg DAILY SAIDA Administration Atorvastatin Calcium 10 mg 08/12/17 22:00 Lipitor - PO [facility] Chlorhexidine Gluconate 1 applic 08/12/17 22:00 Hibiclens For Decolonization - TP [facility] Metoprolol Tartrate 25 mg 08/12/17 10:00 08/12/17 09:36 Lopressor - PO 25 mg BID SAIDA Administration Morphine Sulfate 1 mg 08/12/17 08:58 08/12/17 09:35 Morphine Injection - IVPUSH 1 mg Q4H PRN Administration PAIN LEVEL 6-10 Mupirocin 1 applic 08/12/17 10:00 08/12/17 09:36 Bactroban Ointment (For Decolonization) - NS 08/17/17 09:59 Not Given BID [facility] Pantoprazole Sodium 40 mg 08/13/17 10:00 Protonix - PO DAILY SAIDA Sildenafil Citrate 10 mg 08/12/17 14:00 08/12/17 16:02 Revatio - PO 10 mg TID SAIDA Administration Spironolactone 25 mg 08/12/17 10:00 08/12/17 09:36 Aldactone - PO 25 mg DAILY [facility] Administration Torsemide 60 mg 08/12/17 06:15 08/12/17 14:55 Demadex - PO 60 mg BIDLASIX SAIDA Administration Warfarin Sodium 5 mg 08/12/17 18:00 08/12/17 18:51 Coumadin - PO 5 mg DAILY@1800 SAIDA Administration ASSESSMENT/PLAN: The patient is an 87 yo f w/ PMH Pulmonary HTN, HTN, Afib, DM who is being admitted for hypoxemia # Acute Chest pain; most likely costrochondritis due to RTx #CKD base line 2.1 cr #DM BGM ACHS continue home meds #Pulmonary HTN around 50 the pressure continue sildenafil # Afib on coumadin and rate control ;follow INR # H/o CAD s/p CO # H/o CHF continue home meds Rx: on coumadin Visit type - Emergency Visit Emergency Visit: Yes ED Registration Date: 08/12/17 Care time: The patient presented to the Emergency Department on the above date and was hospitalized for further evaluation of their emergent condition. - New Patient This patient is new to me today: Yes Date on this admission: 08/12/17 - Critical Care Critical Care patient: No - Discharge Referral Referred to [facility] Med P.C.: No
--- NOTE | 2017-08-12 19:46 | CON.CARD ---
Consult Consult Specialty:: Cardiology Referred by:: Hospitalist Medicine Reason for Consultation:: Chest pain, dyspnea - History of Present Illness Chief Complaint: chest pain, dyspnea History of Present Illness: 87 year old F with PMH of HTN, CHF, paroxysmal afib on warfarin, CKD 3,D M pulmonary htn followed by pulmonary htn specialist in [facility],on sildenafil, untreated osas, chronic O2 rx, presents for atypical chest pain starting on right side to left, reproducible tenderness worse with cough, deep breathing and movement about torso, at baseline dyspnea. CT: cardiomegaly / chronic appearing changes / no gross infiltrates / no effusions - History Source History Provided By: Patient Limitations to Obtaining History: No Limitations - Past Medical History CHECK WEIGHER: Yes: Syncope. No: Alzheimer's Cardio/Vascular: Yes: AFIB, CAD (non-obstructive CAD), CHF, HTN, Hyperlipdemia, Pulmonary Hypertension. No: Deep Vein Thrombosis, VT Pulmonary: Yes: COPD, O2 Dependent. No: Pulmonary Embolus ...: No Endocrine: Yes: Diabetes Mellitus. No: Luis Manuel's Disease Additional Medical History: Hyperlipidemia, recent onset afib - Past Surgical History Past Surgical History: Yes: Cholecystectomy, Hysterectomy, Joint Replacement ( right knee), Mastectomy (left lumpectomy), Tubal Ligation - Alcohol/Substance Use Hx Alcohol Use: No History of Substance Use: reports: None - Smoking History Smoking history: Never smoked Have you smoked in the past 12 months: No Aproximately how many cigarettes per day: 0 - Social History Usual Living Arrangement: With Child ADL: Independent History of Recent Travel: No Home Medications - Allergies Allergies/Adverse Reactions: Allergies Allergy/AdvReac Type Severity Reaction Status Date / Time cranberry Allergy Unknown Verified 08/12/17 00:42 grape Allergy Unknown Verified 08/12/17 00:42 raspberry Allergy Unknown Verified 08/12/17 00:42 strawberry Allergy Unknown Verified 08/12/17 00:42 furosemide [From Lasix] AdvReac Verified 08/12/17 00:42 corn Allergy Unknown Uncoded 08/12/17 00:42 NUTS Allergy Unknown Uncoded 08/12/17 00:42 POLLEN Allergy Unknown Uncoded 08/12/17 00:42 SHELLFISH Allergy Unknown Uncoded 08/12/17 00:42 TUNA Allergy Unknown Uncoded 08/12/17 00:42 - Home Medications Home Medications: Ambulatory Orders Spironolactone [Aldactone -] 25 mg PO DAILY #30 tablet 09/16/14 Sildenafil Citrate [Sildenafil] 10 mg PO TID 10/25/16 Acetaminophen [Tylenol .Regular Strength -] 650 mg PO Q6H PRN #0 tablet Amiodarone HCl 200 mg PO DAILY 05/09/17 Amlodipine Besylate [Norvasc -] 5 mg PO DAILY 05/09/17 Atorvastatin Ca [Lipitor] 10 mg PO HS 05/09/17 metFORMIN HCL [Metformin HCl] 500 mg PO DAILY 05/09/17 Torsemide [Demadex -] 60 mg PO BID #60 tablet 05/12/17 Warfarin Na [Coumadin -] 5 mg PO DAILY@1800 #30 tablet 05/12/17 Metoprolol Succinate [Toprol Xl] 100 mg PO BID 08/12/17 Family Disease History - Family Disease History Family Disease History: Other: Daughter (HTN) Review of Systems - Review of Systems Cardiovascular: reports: Chest Pain Vital Signs: Vital Signs Temperature 99.2 F 08/12/17 18:35 Pulse Rate 68 08/12/17 18:35 Respiratory Rate 19 08/12/17 18:35 Blood Pressure 152/78 08/12/17 18:35 O2 Sat by Pulse Oximetry (%) 95 08/12/17 18:59 Constitutional: Yes: No Distress, Calm Neck: Yes: Supple Respiratory: Yes: Regular, Diminished, On Nasal O2 Gastrointestinal: Yes: Normal Bowel Sounds, Soft Cardiovascular: Yes: Regular Rate and Rhythm JVD: No Carotid Bruit: No Heart Sounds: Yes: S1, S2 Murmur: Yes: Systolic Murmur, Grade 2 Edema: No - Other Data Labs, Other Data: CBC, BMP 08/12/17 09:00 08/12/17 09:00 INR, PTT INR 2.83 (0.82-1.09) H 08/12/17 09:00 Troponin, BNP 08/12/17 08/12/17 01:49 09:00 Troponin I < 0.02 < 0.02 B-Natriuretic Peptide 1424.35 H Troponin, BNP 08/12/17 08/12/17 01:49 09:00 Troponin I < 0.02 < 0.02 B-Natriuretic Peptide 1424.35 H NSR @ 66 LVH, PAC Imaging - Results Chest X-ray: Report Reviewed (NAD) Cat Scan: Report Reviewed (No PNA, pulm edema or congestion, increased left hydronephrosis with stable left nephrolithiasis) Problem List - Problems (1) Atypical chest pain Code(s): R07.89 - OTHER CHEST PAIN (2) Pulmonary hypertension Code(s): I27.20 - PULMONARY HYPERTENSION, UNSPECIFIED (3) Sleep apnea, obstructive Code(s): G47.33 - OBSTRUCTIVE SLEEP APNEA (ADULT) (PEDIATRIC) (4) Atrial fibrillation Code(s): I48.91 - UNSPECIFIED ATRIAL FIBRILLATION Qualifiers: Atrial fibrillation type: paroxysmal Qualified Code(s): I48.0 - Paroxysmal atrial fibrillation (5) HTN (hypertension) Code(s): I10 - ESSENTIAL (PRIMARY) HYPERTENSION Qualifiers: Hypertension type: essential hypertension Qualified Code(s): I10 - Essential (primary) hypertension (6) Hyperlipidemia Code(s): E78.5 - HYPERLIPIDEMIA, UNSPECIFIED Qualifiers: Hyperlipidemia type: pure hypercholesterolemia Qualified Code(s): E78.00 - Pure hypercholesterolemia, unspecified (7) Chronic kidney disease (CKD) Code(s): N18.9 - CHRONIC KIDNEY DISEASE, UNSPECIFIED Qualifiers: Chronic kidney disease stage: stage 3 (moderate) Qualified Code(s): N18.3 - Chronic kidney disease, stage 3 (moderate) (8) Left nephrolithiasis Code(s): N20.0 - CALCULUS OF KIDNEY Assessment/Plan 05/10/2017 Echo: Normal LV size and fxn, severe NOE, mod-severe MR, severe TR, severe pulm HTN, mod-severe NM, RV pressure and volume overload 1. Atypical chest pain with reproducibility c/w chest wall discomfort 2. Chronic hypoxic respiratory failure and diastolic heart failure 3. CAD non-obstructive disease, angina pectoris 4. Paroxysmal atrial fibrillation [id number] score of 7 on Coumadin therapy with therapeutic INR 5. Severe pulmonary HTN 6. HTN 7. NIDDM 8. Hypercholesterolemia 9. CKD 10. Increased left hydronephrosis with unchanged left nephrolithiasis 11. Thrombocytopenia 12. Mitral valve, pulmonic and tricuspid valve regurgitations PLAN: 1. Ruled out for VT, review outpatient records, analgesia as needed 2. Demadex 60 bid and Aldactone 25 qd with monitor renal function and electrolytes 3. Resume Diovan once renal fxn stabilizes at baseline 4. Continue Lipitor 10 qhs, Toprol 100 bid, Amiodarone 200 qd and Norvasc 5 qd 5. Continue Coumadin maintaining INR 2-3 5. Continue Sildenafil Citrate (Revatio) 10 tid for the above noted pulmonary HTN 6. Home O2 to keep SpO2 >90%, may d/c from CV-standpoint 7. input as outpatient, f/u renal ultrasound ordered 8. Thank you for consultative opportunity
[2017-08-12] MEDS: METHYL SALICYLATE/MENTHOL OINT 30 GM TUBE TP SCH ×2 (21:30→22:00)
[2017-08-12] MEDS ORDERED: CHLORHEXIDINE GLUCONATE 4% CLEANSER FOR DECOLONIZATION TP SCH (22:00)
[2017-08-12] MEDS ORDERED: ATORVASTATIN CA 10 MG TABLET (FP) PO SCH (22:00)
[2017-08-13] MEDS ORDERED: PT OWN MED DRAWER 7, Y5N ONE (05:47)
[2017-08-13] MEDS: TORSEMIDE 20 MG TABLET (FP) PO SCH ×2 (05:54→13:14)
[2017-08-13] MEDS: SILDENAFIL CITRATE 20 MG TAB PO SCH ×2 (06:06→13:15)
[2017-08-13] MEDS: ACETAMINOPHEN 325 MG TABLET (FP) PO SCH ×3 (06:32→13:14)
[2017-08-13 06:48] LABS: INR 3.38 (0.82-1.09); PROTHROMBIN TIME (PATIENT) 38.2 SEC (9.7-13.0)
[2017-08-13 08:28] VITALS: TEMP 98
[2017-08-13] MEDS: METOPROLOL TARTRATE 25 MG TABLET (FP) PO SCH (09:21)
[2017-08-13] MEDS: AMIODARONE HCL 200 MG TABLET (FP) PO SCH (09:21)
[2017-08-13] MEDS: amLODIPine BESYLATE 5 MG TABLET (FP) PO SCH (09:21)
[2017-08-13] MEDS: SPIRONOLACTONE 25 MG TABLET (FP) PO SCH (09:21)
[2017-08-13] MEDS: MUPIROCIN 2% TOPICAL OINTMENT FOR DECOLONIZATION NS SCH (09:24)
[2017-08-13] MEDS: METHYL SALICYLATE/MENTHOL OINT 30 GM TUBE TP SCH (09:24)
[2017-08-13] MEDS ORDERED: PANTOPRAZOLE 40 MG TABLET (FP) PO SCH (10:00)
--- NOTE | 2017-08-13 10:26 | PN ---
Progress Note (short form) - Note Progress Note: OOB to chair. Feels a little better. Still with reproducible chest discomfort. Intake & Output 08/10/17 08/11/17 08/12/17 08/13/17 23:59 23:59 23:59 23:59 Intake Total 170 100 Output Total 50 Balance 120 100 Weight 163 lb 4.8 oz 162 lb 11.218 oz Last Vital Signs Temp Pulse Resp BP Pulse Ox 98 F 58 L 18 116/68 97 08/13/17 08:00 08/13/17 08:00 08/13/17 08:00 08/13/17 08:00 08/12/17 20:57 Active Medications Acetaminophen (Tylenol -) 650 mg PO Q6HPO [facility] Last Admin: 08/13/17 06:32 Dose: Not Given Amiodarone HCl (Cordarone -) 200 mg PO DAILY [facility] Last Admin: 08/13/17 09:21 Dose: 200 mg Amlodipine Besylate (Norvasc -) 5 mg PO DAILY [facility] Last Admin: 08/13/17 09:21 Dose: 5 mg Atorvastatin Calcium (Lipitor -) 10 mg PO HS [facility] Last Admin: 08/12/17 21:31 Dose: 10 mg Chlorhexidine Gluconate (Hibiclens For Decolonization -) 1 applic TP HS [facility] Last Admin: 08/12/17 21:30 Dose: 1 applic Methyl Salicylate (Klaus-Yañez -) 1 applic TP BID [facility] Last Admin: 08/13/17 09:24 Dose: Not Given Metoprolol Tartrate (Lopressor -) 25 mg PO BID [facility] Last Admin: 08/13/17 09:21 Dose: 25 mg Morphine Sulfate (Morphine Injection -) 1 mg IVPUSH Q4H PRN PRN Reason: PAIN LEVEL 6-10 Last Admin: 08/12/17 09:35 Dose: 1 mg Mupirocin (Bactroban Ointment (For Decolonization) -) 1 applic NS BID [facility] Stop: 08/17/17 09:59 Last Admin: 08/13/17 09:24 Dose: 1 applic Pantoprazole Sodium (Protonix -) 40 mg PO DAILY [facility] Last Admin: 08/13/17 09:21 Dose: 40 mg Sildenafil Citrate (Revatio -) 10 mg PO TID [facility] Last Admin: 08/13/17 06:06 Dose: 10 mg Spironolactone (Aldactone -) 25 mg PO DAILY [facility] Last Admin: 08/13/17 09:21 Dose: 25 mg Torsemide (Demadex -) 60 mg PO BIDLASIX [facility] Last Admin: 08/13/17 05:54 Dose: 60 mg Warfarin Sodium (Coumadin -) 5 mg PO DAILY@1800 [facility] Last Admin: 08/12/17 18:51 Dose: 5 mg Constitutional: Yes: No Distress, Obese Eyes: Yes: Conjunctiva Clear, EOM Intact HENT: Yes: Atraumatic, Normocephalic Neck: Yes: Supple, Trachea Midline Cardiovascular: Yes: Pulse Irregular Respiratory: Yes: Cough, Dullness, On Nasal O2. No: Accessory Muscle Use, Rales , Rhonchi, Stridor, Tachypnea, Wheezes ...Inspection: Yes: WNL ...Clubbing: No Gastrointestinal: Yes: Normal Bowel Sounds, Soft, Abdomen, Obese Renal/: Yes: WNL Musculoskeletal: Yes: WNL Extremities: Yes: WNL Edema: No Peripheral Pulses WNL: Yes Integumentary: Yes: WNL Neurological: Yes: WNL, Alert, Oriented ...Motor Strength: WNL Psychiatric: Yes: WNL, Alert, Oriented Labs: Laboratory Results - last 24 hr 08/12/17 08/12/17 08/12/17 09:00 09:00 09:00 PT with INR INR Sodium 141 Potassium 3.7 Chloride 101 Carbon Dioxide 30 Anion Gap 10 BUN 45 H Creatinine 2.1 H Creat Clearance w eGFR 22.38 Random Glucose 101 Calcium 8.8 Phosphorus 3.6 Magnesium 2.4 Total Bilirubin 0.5 D AST 17 ALT 14 Alkaline Phosphatase 49 Troponin I < 0.02 Total Protein 8.0 Albumin 3.5 Triglycerides 44 Cholesterol 186 Total LDL Cholesterol 106 H HDL Cholesterol 78 H TSH 0.69 Free T4 1.10 Free T3 2.3 08/13/17 05:30 PT with INR 38.20 H INR 3.38 H Sodium Potassium Chloride Carbon Dioxide Anion Gap BUN Creatinine Creat Clearance w eGFR Random Glucose Calcium Phosphorus Magnesium Total Bilirubin AST ALT Alkaline Phosphatase Troponin I Total Protein Albumin Triglycerides Cholesterol Total LDL Cholesterol HDL Cholesterol TSH Free T4 Free T3 Problem List - Problems (1) Dyspnea on exertion Code(s): R06.09 - OTHER FORMS OF DYSPNEA (2) Pulmonary hypertension Code(s): I27.20 - PULMONARY HYPERTENSION, UNSPECIFIED (3) Sleep apnea, obstructive Code(s): G47.33 - OBSTRUCTIVE SLEEP APNEA (ADULT) (PEDIATRIC) (4) Atrial fibrillation Code(s): I48.91 - UNSPECIFIED ATRIAL FIBRILLATION Qualifiers: Atrial fibrillation type: paroxysmal Qualified Code(s): I48.0 - Paroxysmal atrial fibrillation (5) CAD (coronary artery disease) Code(s): I25.10 - ATHSCL HEART DISEASE OF [place] CORONARY ARTERY W/O ANG PCTRS Qualifiers: Coronary Disease-Associated Artery/Lesion type: [place] artery [place] vs. transplanted heart: [place] heart Associated angina: without angina Qualified Code(s): I25.10 - Atherosclerotic heart disease of [place] coronary artery without angina pectoris (6) CHF (congestive heart failure) Code(s): I50.9 - HEART FAILURE, UNSPECIFIED (7) Diabetes Code(s): E11.9 - TYPE 2 DIABETES MELLITUS WITHOUT COMPLICATIONS Qualifiers: Diabetes mellitus type: type 2 Diabetes mellitus intermediate project manager insulin use: without intermediate project manager use Diabetes mellitus complication status: without complication Qualified Code(s): E11.9 - Type 2 diabetes mellitus without complications (8) Diabetic neuropathy Code(s): E11.40 - TYPE 2 DIABETES MELLITUS WITH DIABETIC NEUROPATHY, UNSP Qualifiers: Diabetes mellitus type: due to underlying condition Diabetes mellitus complication detail: diabetic mononeuropathy Qualified Code(s): E08.41 - Diabetes mellitus due to underlying condition with diabetic mononeuropathy (9) HTN (hypertension) Code(s): I10 - ESSENTIAL (PRIMARY) HYPERTENSION Qualifiers: Hypertension type: essential hypertension Qualified Code(s): I10 - Essential (primary) hypertension (10) Hyperlipidemia Code(s): E78.5 - HYPERLIPIDEMIA, UNSPECIFIED Qualifiers: Hyperlipidemia type: pure hypercholesterolemia Qualified Code(s): E78.00 - Pure hypercholesterolemia, unspecified (11) Mitral valve regurgitation Code(s): I34.0 - NONRHEUMATIC MITRAL (VALVE) INSUFFICIENCY Qualifiers: Cardiac valve disease etiology: nonrheumatic Qualified Code(s): I34.0 - Nonrheumatic mitral (valve) insufficiency (12) Moderate to severe pulmonary hypertension Code(s): I27.2 - OTHER SECONDARY PULMONARY HYPERTENSION * DO NOT USE * (13) Tricuspid valve regurgitation Code(s): I07.1 - RHEUMATIC TRICUSPID INSUFFICIENCY Qualifiers: Cardiac valve disease etiology: nonrheumatic Qualified Code(s): I36.1 - Nonrheumatic tricuspid (valve) insufficiency Assessment/Plan 8mm LLL pleural based nodule: No change since 11/2016 Continue Demadex and Spironolactone O2 as needed Monitor off ABX: do not suspect infection BD TX PRN Pain control: suspect Musculoskeletal origin / costochondritis Revatio Coumadin Chest CT follow up after D/C for LLL pleural based nodule Dr Schulte Problem List - Problems (1) Dyspnea on exertion Code(s): R06.09 - OTHER FORMS OF DYSPNEA (2) Pulmonary hypertension Code(s): I27.20 - PULMONARY HYPERTENSION, UNSPECIFIED (3) Sleep apnea, obstructive Code(s): G47.33 - OBSTRUCTIVE SLEEP APNEA (ADULT) (PEDIATRIC) (4) Atrial fibrillation Code(s): I48.91 - UNSPECIFIED ATRIAL FIBRILLATION Qualifiers: Qualified Code(s): I48.0 - Paroxysmal atrial fibrillation (5) CAD (coronary artery disease) Code(s): I25.10 - ATHSCL HEART DISEASE OF [place] CORONARY ARTERY W/O ANG PCTRS Qualifiers: Qualified Code(s): I25.10 - Atherosclerotic heart disease of [place] coronary artery without angina pectoris (6) CHF (congestive heart failure) Code(s): I50.9 - HEART FAILURE, UNSPECIFIED (7) Diabetes Code(s): E11.9 - TYPE 2 DIABETES MELLITUS WITHOUT COMPLICATIONS Qualifiers: Qualified Code(s): E11.9 - Type 2 diabetes mellitus without complications (8) Diabetic neuropathy Code(s): E11.40 - TYPE 2 DIABETES MELLITUS WITH DIABETIC NEUROPATHY, UNSP Qualifiers: Qualified Code(s): E08.41 - Diabetes mellitus due to underlying condition with diabetic mononeuropathy (9) HTN (hypertension) Code(s): I10 - ESSENTIAL (PRIMARY) HYPERTENSION Qualifiers: Qualified Code(s): I10 - Essential (primary) hypertension (10) Hyperlipidemia Code(s): E78.5 - HYPERLIPIDEMIA, UNSPECIFIED Qualifiers: Qualified Code(s): E78.00 - Pure hypercholesterolemia, unspecified; E78.0 - Pure hypercholesterolemia (11) Mitral valve regurgitation Code(s): I34.0 - NONRHEUMATIC MITRAL (VALVE) INSUFFICIENCY Qualifiers: Qualified Code(s): I34.0 - Nonrheumatic mitral (valve) insufficiency (12) Moderate to severe pulmonary hypertension Code(s): I27.2 - OTHER SECONDARY PULMONARY HYPERTENSION * DO NOT USE * (13) Tricuspid valve regurgitation Code(s): I07.1 - RHEUMATIC TRICUSPID INSUFFICIENCY Qualifiers: Qualified Code(s): I36.1 - Nonrheumatic tricuspid (valve) insufficiency
--- NOTE | 2017-08-13 10:33 | PN ---
Physical Exam: SUBJECTIVE: Patient seen and examined at bedside. Pt still has chest pain but is improving. No other complaints at this time. No acute events overnight. Pt's O2 saturation on RA was 100% during interview. Pt uses 2L O2 at home at baseline. OBJECTIVE: Vital Signs Period Temp Pulse Resp BP Sys/Morales Pulse Ox Last 24 Hr 98 F-99.2 F 55-74 18-20 102-152/58-78 95-97 GENERAL: The patient is awake, alert, and fully oriented, in no acute distress. HEAD: Normal with no signs of trauma. EYES: extraocular movements intact, sclera anicteric ENT: Ears normal, nares patent NECK: Trachea midline, full range of motion, supple. LUNGS: Breath sounds equal, clear to auscultation bilaterally HEART: Regular rate and rhythm, S1, S2 without murmur, rub or gallop. L chest wall tender to palpation. ABDOMEN: Soft, nontender, nondistended, normoactive bowel sounds EXTREMITIES: warm, well-perfused, no edema. NEUROLOGICAL: Cranial nerves II through XII grossly intact. Normal speech, gait not observed. PSYCH: Normal mood, normal affect. SKIN: Warm, dry Laboratory Results - last 24 hr 08/12/17 08/12/17 08/12/17 09:00 09:00 09:00 PT with INR INR Sodium 141 Potassium 3.7 Chloride 101 Carbon Dioxide 30 Anion Gap 10 BUN 45 H Creatinine 2.1 H Creat Clearance w eGFR 22.38 Random Glucose 101 Calcium 8.8 Phosphorus 3.6 Magnesium 2.4 Total Bilirubin 0.5 D AST 17 ALT 14 Alkaline Phosphatase 49 Troponin I < 0.02 Total Protein 8.0 Albumin 3.5 Triglycerides 44 Cholesterol 186 Total LDL Cholesterol 106 H HDL Cholesterol 78 H TSH 0.69 Free T4 1.10 Free T3 2.3 08/13/17 05:30 PT with INR 38.20 H INR 3.38 H Sodium Potassium Chloride Carbon Dioxide Anion Gap BUN Creatinine Creat Clearance w eGFR Random Glucose Calcium Phosphorus Magnesium Total Bilirubin AST ALT Alkaline Phosphatase Troponin I Total Protein Albumin Triglycerides Cholesterol Total LDL Cholesterol HDL Cholesterol TSH Free T4 Free T3 Active Medications Generic Name Dose Route Start Last Admin Trade Name Freq PRN Reason Stop Dose Admin Acetaminophen 650 mg 08/12/17 06:55 08/13/17 06:32 Tylenol - PO Not Given Q6HPO SAIDA Amiodarone HCl 200 mg 08/12/17 10:00 08/13/17 09:21 Cordarone - PO 200 mg DAILY SAIDA Administration Amlodipine Besylate 5 mg 08/12/17 10:00 08/13/17 09:21 Norvasc - PO 5 mg DAILY SAIDA Administration Atorvastatin Calcium 10 mg 08/12/17 22:00 08/12/17 21:31 Lipitor - PO 10 mg HS SAIDA Administration Chlorhexidine Gluconate 1 applic 08/12/17 22:00 08/12/17 21:30 Hibiclens For Decolonization - TP 1 applic HS SAIDA Administration Methyl Salicylate 1 applic 08/12/17 22:00 08/13/17 09:24 Klaus-Yañez - TP Not Given BID [facility] Metoprolol Tartrate 25 mg 08/12/17 10:00 08/13/17 09:21 Lopressor - PO 25 mg BID SAIDA Administration Morphine Sulfate 1 mg 08/12/17 08:58 08/12/17 09:35 Morphine Injection - IVPUSH 1 mg Q4H PRN Administration PAIN LEVEL 6-10 Mupirocin 1 applic 08/12/17 10:00 08/13/17 09:24 Bactroban Ointment (For Decolonization) - NS 08/17/17 09:59 1 applic BID SAIDA Administration Pantoprazole Sodium 40 mg 08/13/17 10:00 08/13/17 09:21 Protonix - PO 40 mg DAILY SAIDA Administration Sildenafil Citrate 10 mg 08/12/17 14:00 08/13/17 06:06 Revatio - PO 10 mg TID SAIDA Administration Spironolactone 25 mg 08/12/17 10:00 08/13/17 09:21 Aldactone - PO 25 mg DAILY SAIDA Administration Torsemide 60 mg 08/12/17 06:15 08/13/17 05:54 Demadex - PO 60 mg BIDLASIX SAIDA Administration Warfarin Sodium 5 mg 08/12/17 18:00 08/12/17 18:51 Coumadin - PO 5 mg DAILY@1800 SAIDA Administration ASSESSMENT/PLAN: 87 y/o F w/PMH of pulmonary HTN, HTN, afib, DM admitted for hypoxemia. -Atypical chest pain -trops negx2, tender to palpation L chest wall -likely costochondritis -morphine 1mg q4h PRN for pain 6-10 -pain is improving as per pt -O2 saturation 100% on RA during interview. -Supratherapeutic INR -will decrease warfarin to 4 mg -monitor INR -Afib -INR supratherapeutic, will decrease to 4 mg, c/w amio, c/w lopressor -f/u amio levels -CKD -Cr 2.1 yesterday, at baseline -Pulm HTN -c/w sildenafil -H/o CHF -c/w lopressor, torsemide 60mg po bid, spironolactone 25 mg po qd -HTN -c/w lopressor, norvasc -CAD -c/w lipitor -DVT ppx -on warfarin -FEN -no fluids at this time -monitor electrolytes -sodium controlled diet -Dispo: monitor on tele
--- NOTE | 2017-08-13 12:29 | DS ---
Physical Exam: SUBJECTIVE: Patient seen and examined at bedside. Pt still has chest pain but is improving. No other complaints at this time. No acute events overnight. Pt's O2 saturation on RA was 100% during interview. Pt uses 2L O2 at home at baseline. OBJECTIVE: Vital Signs Period Temp Pulse Resp BP Sys/Morales Pulse Ox Last 24 Hr 98 F-99.2 F 55-74 18-20 102-152/58-78 95-97 PHYSICAL EXAM GENERAL: The patient is awake, alert, and fully oriented, in no acute distress. HEAD: Normal with no signs of trauma. EYES: extraocular movements intact, sclera anicteric ENT: Ears normal, nares patent NECK: Trachea midline, full range of motion, supple. LUNGS: Breath sounds equal, clear to auscultation bilaterally HEART: Regular rate and rhythm, S1, S2 without murmur, rub or gallop. L chest wall tender to palpation. ABDOMEN: Soft, nontender, nondistended, normoactive bowel sounds EXTREMITIES: warm, well-perfused, no edema. NEUROLOGICAL: Cranial nerves II through XII grossly intact. Normal speech, gait not observed. PSYCH: Normal mood, normal affect. SKIN: Warm, dry LABS Laboratory Results - last 24 hr 08/12/17 08/13/17 09:00 05:30 PT with INR 38.20 H INR 3.38 H Free T3 2.3 HOSPITAL COURSE: Date of Admission:08/12/17 Date of Discharge: 08/13/17 87 y/o F w/PMH of DM, CHF, CAD s/p MA, pulm HTN, HTN, Afib, breast ca s/p chemo and radiotherapy presented to the ER with c/o CP x4 days which radiated to her L arm prompted her to come to the ER. Pain was reproducible. ACS was r/o'd with EKG which did not show ST segment changes and trops were neg x2. CXR revealed no acute pathology. Chest CT showed 8 mm nodule in posterior L lung unchanged from previous CT on 11/2016; 2x1.1 cm irregular soft tissue in upper inner quadrant of L breast; L hydronephrosis with distention in the renal pelvis which has increased since 05/2017 CT abdomen. Pt has a hx of radiotherapy for L sided breast ca which she was told she would likely get pain from in the future. Her pain at this time was consistent with pain secondary to radiotherapy. During hospitalization pt's chest pain subsided to bearable level. Pt's INR became supratherapeutic to 3.38 and pt instructed to halfher dose of warfarin today from 5 mg to 2.5 mg and to continue with her regular dose of 5 mg starting tomorrow. She will have her INR checked in 2 days. Pt to f/u with oncologist, pcp, production maintenance technician. Minutes to complete discharge: 35 <Jesús Redmond - Last Filed: 08/13/17 12:34> Physical Exam: Patient has a chest pain on palpation due to her Rtx therapy . positive for scarring on the left side. Vital Signs Temperature 98 F 08/13/17 08:00 Pulse Rate 58 L 08/13/17 08:00 Respiratory Rate 18 08/13/17 08:00 Blood Pressure 116/68 08/13/17 08:00 O2 Sat by Pulse Oximetry (%) 96 08/13/17 09:00 CBCD WBC 7.8 K/mm3 (4.0-10.0) 08/12/17 09:00 RBC 3.54 M/mm3 (3.60-5.2) L 08/12/17 09:00 Hgb 10.9 GM/dL (10.7-15.3) 08/12/17 09:00 Hct 32.7 % (32.4-45.2) 08/12/17 09:00 MCV 92.3 fl (80-96) 08/12/17 09:00 MCHC 33.2 g/dl (32.0-36.0) 08/12/17 09:00 RDW 14.0 % (11.6-15.6) 08/12/17 09:00 Plt Count 121 K/MM3 (134-434) L D 08/12/17 09:00 MPV 9.2 fl (7.5-11.1) 08/12/17 09:00 CMP Sodium 141 mmol/L (136-145) 08/12/17 09:00 Potassium 3.7 mmol/L (3.5-5.1) 08/12/17 09:00 Chloride 101 mmol/L (98-107) 08/12/17 09:00 Carbon Dioxide 30 mmol/L (21-32) 06/09/18 09:00 Anion Gap 10 (8-16) 08/12/17 09:00 BUN 45 mg/dL (7-18) H 08/12/17 09:00 Creatinine 2.1 mg/dL (0.55-1.02) H 08/12/17 09:00 Creat Clearance w eGFR 22.38 (>60) 08/12/17 09:00 Random Glucose 101 mg/dL (74-106) 08/12/17 09:00 Calcium 8.8 mg/dL (8.5-10.1) 08/12/17 09:00 Total Bilirubin 0.5 mg/dL (0.2-1.0) D 08/12/17 09:00 AST 17 U/L (15-37) 08/12/17 09:00 ALT 14 U/L (12-78) 08/12/17 09:00 Alkaline Phosphatase 49 U/L (45-117) 08/12/17 09:00 Total Protein 8.0 g/dl (6.4-8.2) 08/12/17 09:00 Albumin 3.5 g/dl (3.4-5.0) 08/12/17 09:00 CARDIAC ENZYMES Creatine Kinase 146 IU/L (26-192) 08/12/17 01:49 Troponin I < 0.02 ng/ml (0.00-0.05) 08/12/17 09:00 Current Medications Generic Name Dose Route Start Last Admin Trade Name Freq PRN Reason Stop Dose Admin Acetaminophen 650 mg 08/12/17 06:55 08/13/17 13:14 Tylenol - PO 650 mg Q6HPO SAIDA Administration Amiodarone HCl 200 mg 08/12/17 10:00 08/13/17 09:21 Cordarone - PO 200 mg DAILY SAIDA Administration Amlodipine Besylate 5 mg 08/12/17 10:00 08/13/17 09:21 Norvasc - PO 5 mg DAILY SAIDA Administration Atorvastatin Calcium 10 mg 08/12/17 22:00 08/12/17 21:31 Lipitor - PO 10 mg HS SAIDA Administration Chlorhexidine Gluconate 1 applic 08/12/17 22:00 08/12/17 21:30 Hibiclens For Decolonization - TP 1 applic HS SAIDA Administration Methyl Salicylate 1 applic 08/12/17 22:00 08/13/17 09:24 Klaus-Yañez - TP Not Given BID [facility] Metoprolol Tartrate 25 mg 08/12/17 10:00 08/13/17 09:21 Lopressor - PO 25 mg BID SAIDA Administration Morphine Sulfate 1 mg 08/12/17 08:58 08/12/17 09:35 Morphine Injection - IVPUSH 1 mg Q4H PRN Administration PAIN LEVEL 6-10 Mupirocin 1 applic 08/12/17 10:00 08/13/17 09:24 Bactroban Ointment (For Decolonization) - NS 08/17/17 09:59 1 applic BID SAIDA Administration Pantoprazole Sodium 40 mg 08/13/17 10:00 08/13/17 09:21 Protonix - PO 40 mg DAILY SAIDA Administration Sildenafil Citrate 10 mg 08/12/17 14:00 08/13/17 13:15 Revatio - PO 10 mg TID SAIDA Administration Spironolactone 25 mg 08/12/17 10:00 08/13/17 09:21 Aldactone - PO 25 mg DAILY SAIDA Administration Torsemide 60 mg 08/12/17 06:15 08/13/17 13:14 Demadex - PO 60 mg BIDLASIX SAIDA Administration Warfarin Sodium 5 mg 08/12/17 18:00 08/12/17 18:51 Coumadin - PO 5 mg DAILY@1800 [facility] Administration Home Medications Medication Instructions Recorded Spironolactone [Aldactone -] 25 mg PO DAILY #30 tablet 09/16/14 Sildenafil Citrate [Sildenafil] 10 mg PO TID 10/25/16 Acetaminophen [Tylenol .Regular 650 mg PO Q6H PRN #0 tablet 11/22/16 Strength -] Amiodarone HCl 200 mg PO DAILY 05/09/17 Amlodipine Besylate [Norvasc -] 5 mg PO DAILY 05/09/17 Atorvastatin Ca [Lipitor] 10 mg PO HS 05/09/17 metFORMIN HCL [Metformin HCl] 500 mg PO DAILY 05/09/17 Torsemide [Demadex -] 60 mg PO BID #60 tablet 05/12/17 Warfarin Na [Coumadin -] 5 mg PO DAILY@1800 #30 tablet 05/12/17 Metoprolol Succinate [Toprol Xl] 100 mg PO BID 08/12/17 CT of the chest was reported Kidney stones with hydro on the left side , increased in size from before, will give 's phone # for follow up as an outpatient. Patient has no back pain or any dysuria or any symptoms. <Robert Flannery - Last Filed: 08/13/17 13:33> Discharge Summary Reason For Visit: SHORTNESS OF BREATH Current Active Problems Atypical chest pain (Acute) Chronic kidney disease (CKD) (Chronic) Left nephrolithiasis (Chronic) - Home Medications Comprehensive Discharge Medication List: Ambulatory Orders Spironolactone [Aldactone -] 25 mg PO DAILY #30 tablet 09/16/14 Sildenafil Citrate [Sildenafil] 10 mg PO TID 10/25/16 Acetaminophen [Tylenol .Regular Strength -] 650 mg PO Q6H PRN #0 tablet Amiodarone HCl 200 mg PO DAILY 05/09/17 Amlodipine Besylate [Norvasc -] 5 mg PO DAILY 05/09/17 Atorvastatin Ca [Lipitor] 10 mg PO HS 05/09/17 metFORMIN HCL [Metformin HCl] 500 mg PO DAILY 05/09/17 Torsemide [Demadex -] 60 mg PO BID #60 tablet 05/12/17 Warfarin Na [Coumadin -] 5 mg PO DAILY@1800 #30 tablet 05/12/17 Metoprolol Succinate [Toprol Xl] 100 mg PO BID 08/12/17 <Jesús Redmond - Last Filed: 08/13/17 12:34> Current Active Problems Atypical chest pain (Acute) Chronic kidney disease (CKD) (Chronic) Left nephrolithiasis (Chronic) - Home Medications Comprehensive Discharge Medication List: Ambulatory Orders Spironolactone [Aldactone -] 25 mg PO DAILY #30 tablet 09/16/14 Sildenafil Citrate [Sildenafil] 10 mg PO TID 10/25/16 Acetaminophen [Tylenol .Regular Strength -] 650 mg PO Q6H PRN #0 tablet Amiodarone HCl 200 mg PO DAILY 05/09/17 Amlodipine Besylate [Norvasc -] 5 mg PO DAILY 05/09/17 Atorvastatin Ca [Lipitor] 10 mg PO HS 05/09/17 metFORMIN HCL [Metformin HCl] 500 mg PO DAILY 05/09/17 Torsemide [Demadex -] 60 mg PO BID #60 tablet 05/12/17 Warfarin Na [Coumadin -] 5 mg PO DAILY@1800 #30 tablet 05/12/17 Metoprolol Succinate [Toprol Xl] 100 mg PO BID 08/12/17 <PrudencioGarettdon - Last Filed: 08/13/17 13:33> Condition: Stable - Instructions Diet, Activity, Other Instructions: Your chest pain is likely due to your radiation therapy in the past. If you feel pain, use tylenol and use ice in the area of the pain. Tonight when you take your warfarin only take half of your 5 mg pill. So today you will take 2.5 mg and then continue with your regular dose of 5 mg starting tomorrow. You will also need to continue to follow with your oncologist. Please follow with your production maintenance technician and primary care doctor after being discharged. You will also need to have a CT scan of your chest for follow up of nodules in your chest. Please speak about this with your oncologist. Please follow with Urologist since you have left kidney stone with fluid in your left kidney; the doctor is If you develop chest pain again that is severe with radiation to the arms or jaws or associated with nausea/vomiting or sweating come back to the ER. Referrals: ON STAFF,NOT [Non Staff, Medical] - George Fischer MD [Staff Physician] - 2 Weeks Disposition: HOME This patient is new to me today: Yes Date on this admission: 08/13/17 Emergency Visit: Yes ED Registration Date: 08/12/17 Care time: The patient presented to the Emergency Department on the above date and was hospitalized for further evaluation of their emergent condition. Critical Care patient: No - Discharge Referral Referred to [facility] No <Jesús Redmond - Last Filed: 08/13/17 12:34>
[2017-08-13 14:37] VITALS: BP 124/70; PULSE 64
--- NOTE | 2017-08-22 15:17 | EKG ---
Test Reason : Blood Pressure : / mmHG Vent. Rate : 078 BPM Atrial Rate : 078 BPM P-R Int : 196 ms QRS Dur : 084 ms QT Int : 396 ms P-R-T Axes : 073 044 058 degrees QTc Int : 451 ms NORMAL SINUS RHYTHM NORMAL ECG WHEN COMPARED WITH ECG OF 10-MAY-2017 06:40, NO SIGNIFICANT CHANGE WAS FOUND Confirmed by MD Rivera Edward ([id number]) on 08/22/2017 3:17:27 PM Referred By: Confirmed By:Chapito Rivera MD
== END 2017-08-13 14:37 | disposition home or self-care (01) ==
LOC: SUPCPDRO 23:45 → JER 23:45 → JERBED 08-12 05:52 → UNDOADMOB 08-12 05:58 → JERBED 08-12 05:58 → J2W 08-12 20:20
PROVIDERS: ADMIT Internal Medicine; ATTEND Internal Medicine
PROC: 3E033NZ Introduction of Analgesics, Hypnotics, Sedatives into Peripheral Vein, Percutaneous Approach (ICD-10-PCS; principal; 2017-08-12)
PROC: 3E033GC Introduction of Other Therapeutic Substance into Peripheral Vein, Percutaneous Approach (ICD-10-PCS; 2017-08-12)
DX: R07.89 Other chest pain (principal); R06.02 Shortness of breath; E11.40 Type 2 diabetes mellitus with diabetic neuropathy, unspecified; E11.22 Type 2 diabetes mellitus with diabetic chronic kidney disease; E78.5 Hyperlipidemia, unspecified; I12.9 Hypertensive chronic kidney disease with stage 1 through stage 4 chronic kidney disease, or unspecified chronic kidney disease; I50.9 Heart failure, unspecified; I25.10 Atherosclerotic heart disease of native coronary artery without angina pectoris; I25.2 Old myocardial infarction; I27.20 Pulmonary hypertension, unspecified; I48.0 Paroxysmal atrial fibrillation; I34.0 Nonrheumatic mitral (valve) insufficiency; I07.1 Rheumatic tricuspid insufficiency; N18.3 Chronic kidney disease, stage 3 (moderate); N20.0 Calculus of kidney; D64.9 Anemia, unspecified; D69.6 Thrombocytopenia, unspecified; J44.9 Chronic obstructive pulmonary disease, unspecified; G47.33 Obstructive sleep apnea (adult) (pediatric); Z79.84 Long term (current) use of oral hypoglycemic drugs; Z90.49 Acquired absence of other specified parts of digestive tract; Z90.710 Acquired absence of both cervix and uterus; Z79.01 Long term (current) use of anticoagulants; Z91.018 Allergy to other foods; Z91.013 Allergy to seafood; Z85.3 Personal history of malignant neoplasm of breast; Z96.641 Presence of right artificial hip joint; Z90.12 Acquired absence of left breast and nipple
CPT/HCPCS: 36415; 71045-TC-FY; 71250-TC; 80053; 80061; 80299; 82550; 83721; 83735; 83880; 84100; 84439; 84443; 84481; 84484; 85025; 85610; 93005; 93010; 96365; 96375; 99285-25; G0378; J0131

== ENCOUNTER 2019-01-19 09:28 | Emergency (ER) | payer OTHER ==
[2019-01-19 09:44] VITALS: BMI 29.5
--- NOTE | 2019-01-19 10:51 | PDOC ---
History of Present Illness - General Chief Complaint: Chronic pain Stated Complaint: PAIN Time Seen by Provider: 01/19/19 10:17 History Source: Patient Exam Limitations: No Limitations Past History - Travel Traveled outside of the country in the last 30 days: No Close contact w/someone who was outside of country & ill: No - Past Medical History Allergies/Adverse Reactions: Allergies Allergy/AdvReac Type Severity Reaction Status Date / Time cranberry Allergy Unknown Verified 01/19/19 09:44 grape Allergy Unknown Verified 01/19/19 09:44 raspberry Allergy Unknown Verified 01/19/19 09:44 strawberry Allergy Unknown Verified 01/19/19 09:44 furosemide [From Lasix] AdvReac Verified 01/19/19 09:44 corn Allergy Unknown Uncoded 01/19/19 09:44 NUTS Allergy Unknown Uncoded 01/19/19 09:44 POLLEN Allergy Unknown Uncoded 01/19/19 09:44 SHELLFISH Allergy Unknown Uncoded 01/19/19 09:44 TUNA Allergy Unknown Uncoded 01/19/19 09:44 Home Medications: Ambulatory Orders Spironolactone [Aldactone -] 25 mg PO DAILY #30 tablet 09/16/14 Sildenafil Citrate 10 mg PO TID 10/25/16 Acetaminophen [Tylenol .Regular Strength -] 650 mg PO Q6H PRN #0 tablet Amiodarone HCl 200 mg PO DAILY 05/09/17 Amlodipine Besylate [Norvasc -] 5 mg PO DAILY 05/09/17 Atorvastatin Ca [Lipitor] 10 mg PO HS 05/09/17 Torsemide [Demadex -] 60 mg PO BID #60 tablet 05/12/17 Warfarin Na [Coumadin -] 5 mg PO DAILY@1800 #30 tablet 05/12/17 Metoprolol Succinate [Toprol Xl] 100 mg PO BID 08/12/17 Anemia: No Asthma: No Cancer: Yes (breast lt) Cardiac Disorders: Yes (mi,pulm.htn) CVA: No COPD: No CHF: Yes Diabetes: Yes (niddm) Disorders: Yes (hx kidney stones) HTN: Yes Hypercholesterolemia: Yes Seizures: No - Surgical History Cholecystectomy: Yes Orthopedic Surgery: Yes (Total Rt knee Replacement 7 yrs ago) - Immunization History Immunization Up to Date: Yes - Psycho Social/Smoking Cessation Hx Smoking Status: No Smoking History: Never smoked Have you smoked in the past 12 months: No Number of Cigarettes Smoked Daily: 0 Hx Alcohol Use: No Drug/Substance Use Hx: No Substance Use Type: None Hx Substance Use Treatment: No Review of Systems - Review of Systems Able to Perform ROS?: Yes Comments:: 01/19/19 10:45 CONSTITUTIONAL: Absent: fever, chills, diaphoresis, generalized weakness, malaise, loss of appetite HEENT: Present: L jaw pain, L ear pain Absent: rhinorrhea, nasal congestion, throat pain, throat swelling, difficulty swallowing, mouth swelling, ear pain, eye pain , visual Changes CARDIOVASCULAR: Absent: chest pain, loss of consciousness, palpitations, irregular heart rate, peripheral edema RESPIRATORY: Absent: cough, shortness of breath, dyspnea with exertion, orthopnea, wheezing, stridor, hemoptysis GASTROINTESTINAL: Absent: abdominal pain, abdominal distension, nausea, vomiting, diarrhea, constipation, melena, hematochezia GENITOURINARY: Absent: dysuria, frequency, urgency, hesitancy, hematuria, flank pain, genital pain MUSCULOSKELETAL: Absent: myalgia, arthralgia, joint swelling SKIN: Absent: rash, itching, pallor HEMATOLOGIC/IMMUNOLOGIC: Absent: easy bleeding, easy bruising, lymphadenopathy, frequent infections ENDOCRINE: Absent: unexplained weight gain, unexplained weight loss, heat intolerance, cold intolerance NEUROLOGIC: Absent: headache, focal weakness or paresthesias, dizziness, unsteady gait, seizure, mental status changes, bladder or bowel incontinence PSYCHIATRIC: Absent: anxiety, depression, suicidal or homicidal ideation, hallucinations. Is the patient limited Romanian proficient: No *Physical Exam - Vital Signs Last Vital Signs Temp Pulse Resp BP Pulse Ox 97.8 F 77 16 158/58 L 100 01/19/19 09:41 01/19/19 09:41 01/19/19 09:41 01/19/19 09:41 01/19/19 09:41 - Physical Exam Comments: 01/19/19 10:46 GENERAL: Well developed, well nourished. Awake and alert. No acute distress. HEENT: Normocephalic, atraumatic. PERRLA, EOMI. No conjunctival pallor. Sclera are non- icteric. Moist mucous membranes. Oropharynx is clear. Tenderness to palpation of the L tragus, posterior ear, left TMJ. NECK: Supple. Full ROM. No JVD. Carotid pulses 2+ and symmetric, without bruits. No thyromegaly. No lymphadenopathy. CARDIOVASCULAR: Regular rate and rhythm. No murmurs, rubs, or gallops. Distal pulses are 2+ and symmetric. PULMONARY: No evidence of respiratory distress. Lungs clear to auscultation bilaterally. No wheezing, rales or rhonchi. ABDOMINAL: Soft. Non-tender. Non-distended. No rebound or guarding. No organomegaly. Normoactive bowel sounds. MUSCULOSKELETAL Normal range of motion at all joints. No bony deformities or tenderness. No CVA tenderness. EXTREMITIES: No cyanosis. No clubbing. No edema. No calf tenderness. SKIN: Warm and dry. Normal capillary refill. No rashes. No jaundice. NEUROLOGICAL: Alert, awake, appropriate. Cranial nerves 2-12 intact. No deficits to light touch and temperature in face, upper extremities and lower extremities. No motor deficits in the in face, upper extremities and lower extremities. Normoreflexic in the upper and lower extremities. Normal speech. Toes are down- going bilaterally. Gait is normal without ataxia. PSYCHIATRIC: Cooperative. Good eye contact. Appropriate mood and affect. Medical Decision Making - Medical Decision Making 01/19/19 10:51 The patient is an 88-year-old female with past medical history of hypertension, hyperlipidemia, A. fib (on warfarin), kidney stones, [id number] diabetes (recently taken off her medication), sleep apnea, presents to the ER today for left-sided jaw pain. She states the pain is been going on for a couple of years however it is gotten worse over the last 3 months. She also notes she has associated left-sided ear pain and difficulty hearing. Denies fevers, chills, chest pain, arm pain, nausea, vomiting and dizziness. A/P: Left-sided ear pain/jaw pain On exam patient unable to open her jaw completely due to pain. Patient also with tenderness to palpation of the left tragus and the area just behind the left ear. Unable to rule out a chronic mastoiditis at this time. Patient states she was taking pain pills given to her by her primary care doctor however they did not help. We will transfer the patient to the main ER for further work-up to rule out a chronic mastoiditis versus a TMJ Signout given to KAREEM Smith and Charge nurse Clarence made aware. Discharge - Discharge Information Problems reviewed: Yes Clinical Impression/Diagnosis: Jaw pain - Follow up/Referral Referrals: Julio Cesar Ma MD [Primary Care Provider] - - Patient Discharge Instructions - Post Discharge Activity
[2019-01-19] MEDS ORDERED: ACETAMINOPHEN 1000 MG/100 ML VIAL (NON FORMULARY) IVPB ONE (10:53)
[2019-01-19] MEDS ORDERED: ACETAMINOPHEN INJECTION 100 ML IVPB ONE (11:20)
[2019-01-19 11:52] LABS: BASO % 0.2 % (0-2.0); EOS % 0.7 % (0-4.5); HEMATOCRIT 37.8 % (32.4-45.2); HEMOGLOBIN 12.5 GM/dL (10.7-15.3); LYMPH % 40.1 % (8-40); MCH 31.1 pg (25.7-33.7); MCHC 33.2 g/dl (32.0-36.0); MEAN CELL VOLUME 93.8 fl (80-96); MONO % 11.3 % (3.8-10.2); NEUT % 47.7 % (42.8-82.8); PLATELET COUNT 115 K/MM3 (134-434); RBC 4.03 M/mm3 (3.60-5.2); WHITE BLOOD COUNT 5.9 K/mm3 (4.0-10.0)
[2019-01-19 12:17] LABS: BILIRUBIN,TOTAL 0.6 mg/dL (0.2-1); BLOOD UREA NITROGEN 50.4 mg/dL (7-18); CALCIUM 9.2 mg/dL (8.5-10.1); CREATININE 2.9 mg/dL (0.55-1.3); POTASSIUM 3.6 mmol/L (3.5-5.1); TOT PROT 8.9 g/dl (6.4-8.2)
--- NOTE | 2019-01-19 15:56 | PDOC ---
*Physical Exam - Vital Signs Last Vital Signs Temp Pulse Resp BP Pulse Ox 97.8 F 62 16 146/71 96 01/19/19 12:05 01/19/19 12:05 01/19/19 09:41 01/19/19 12:05 01/19/19 12:05 - Physical Exam Comments: 01/19/19 15:49 88 yo F w/ chronic L sided TMJ pain, worse for the past 3 weeks. Now also w/ mastoid/temporal bony tenderness on exam. Unable to open her mouth on exam due to pain. CT facial bones and neck soft tissues pending. Done without contrast due to kidney functions test result. Cr 2.9 (was 2.1 in August 2017 but pt denies h/o known kidney disease). R/O mastoiditis Vs tracking infection Vs mass. End of shift, care of patient signed over to MANA[facility] Yobani who will assume care of the patient at this time. HEENT: positive: Other (L TMJ tenderness, L mastoid and temporal bone tenderness. Pt unable to open mouth, unable to visualize throat.) Neck: positive: Lymphadenopathy (L) (anterior cervical) ED Treatment Course - LABORATORY CBC & Chemistry Diagram: 01/19/19 11:30 01/19/19 11:30 - ADDITIONAL ORDERS Additional order review: Laboratory Results 01/19/19 11:30 Sodium 136 Potassium 3.6 Chloride 98 Carbon Dioxide 34 H Anion Gap 5 L BUN 50.4 H Creatinine 2.9 H Est GFR (CKD-EPI)AfAm 16.31 Est GFR (CKD-EPI)NonAf 14.07 Random Glucose 80 Calcium 9.2 Total Bilirubin 0.6 AST 39 H ALT 41 Alkaline Phosphatase 73 Total Protein 8.9 H Albumin 4.0 01/19/19 11:30 RBC 4.03 MCV 93.8 MCHC 33.2 RDW 15.0 MPV 9.0 Neutrophils % 47.7 Lymphocytes % 40.1 H D Monocytes % 11.3 H Eosinophils % 0.7 Basophils % 0.2 - RADIOLOGY Radiology Studies Ordered: Category Date Time Status FACIAL BONES CT W/O CONTRAST [CT] Stat CT Scan 01/19/19 13:13 Com[address]FT TISSUE NECK CT W/O CONTR [CT] Stat CT Scan 01/19/19 13:13 Completed - Medications Given in the ED: ED Medications Discontinued Medications Generic Name Dose Route Start Last Admin Trade Name Freq PRN Reason Stop Dose Admin Acetaminophen 1,000 mg 01/19/19 10:53 01/19/19 11:30 Ofirmev Injection - IVPB 01/19/19 10:54 1,000 mg ONCE ONE Administration Discharge - Discharge Information Problems reviewed: Yes Clinical Impression/Diagnosis: Jaw pain - Follow up/Referral Referrals: Julio Cesar Ma MD [Primary Care Provider] - - Patient Discharge Instructions - Post Discharge Activity
--- NOTE | 2019-01-19 16:49 | PDOC ---
*Physical Exam - Vital Signs Last Vital Signs Temp Pulse Resp BP Pulse Ox 97.8 F 62 16 146/71 96 01/19/19 12:05 01/19/19 12:05 01/19/19 09:41 01/19/19 12:05 01/19/19 12:05 - Physical Exam General Appearance: Yes: Appropriately Dressed. No: Apparent Distress HEENT: positive: TMs Normal, Pharynx Normal, Other (Tenderness present over the left TMJ extending to the left mastoid. No tenderness upon palpation of the left tragus or with traction of the left pinna.) Neck: positive: Trachea midline Respiratory/Chest: positive: Lungs Clear, Normal Breath Sounds. negative: Respiratory Distress, Accessory Muscle Use Cardiovascular: positive: Regular Rhythm, Regular Rate Gastrointestinal/Abdominal: positive: Normal Bowel Sounds, Soft. negative: Tender Musculoskeletal: positive: Normal Inspection. negative: CVA Tenderness ED Treatment Course - LABORATORY CBC & Chemistry Diagram: 01/19/19 11:30 01/19/19 11:30 - ADDITIONAL ORDERS Additional order review: Laboratory Results 01/19/19 11:30 Sodium 136 Potassium 3.6 Chloride 98 Carbon Dioxide 34 H Anion Gap 5 L BUN 50.4 H Creatinine 2.9 H Est GFR (CKD-EPI)AfAm 16.31 Est GFR (CKD-EPI)NonAf 14.07 Random Glucose 80 Calcium 9.2 Total Bilirubin 0.6 AST 39 H ALT 41 Alkaline Phosphatase 73 Total Protein 8.9 H Albumin 4.0 01/19/19 11:30 RBC 4.03 MCV 93.8 MCHC 33.2 RDW 15.0 MPV 9.0 Neutrophils % 47.7 Lymphocytes % 40.1 H D Monocytes % 11.3 H Eosinophils % 0.7 Basophils % 0.2 - Medications Given in the ED: ED Medications Discontinued Medications Generic Name Dose Route Start Last Admin Trade Name Freq PRN Reason Stop Dose Admin Acetaminophen 1,000 mg 01/19/19 10:53 01/19/19 11:30 Ofirmev Injection - IVPB 01/19/19 10:54 1,000 mg ONCE ONE Administration ED Progress Note - Progress Note Progress Note: 01/19/19 16:48 Briefly this is an 88-year-old woman with past medical history of kidney stones , chronic renal failure, CHF who presents to the emergency department for evaluation of left-sided jaw pain that worsens with movement. Patient reports the pain is been present for approximately 3 years but is gotten acutely worse over the past 3 weeks. CBC shows a thrombocytopenia with platelet count of 115. Chemistries notable for BUN of 50.4 and creatinine-2.9. GFR 16.31. LFTs are unremarkable. Patient is pending CT scan of the facial bones and soft tissues of the neck for disposition. Medical Decision Making - Medical Decision Making 01/19/19 16:46 CT scan is read by Dr. Andrews: There is possible mild soft tissue prominence along the left posterior hypopharynx adjacent to the glottis. ENT evaluation is suggested. Several mildly dilated ducts are noted within the submandibular glands bilaterally. There is no definite dilatation of the submandibular ducts. No discrete calculus is visualized. Several small calcifications are visualized within the palatine tonsils bilaterally consistent with postinflammatory change. No obvious lymphadenopathy is noted on the base of size criteria. Left mandibular condyle demonstrates a mildly truncated appearance which may be on the basis of a chronic degenerative change. No CT evidence of acute osseous pathology. Prominent multilevel cervical's spinal degenerative disc and facet joint changes are noted. There is no mastoid fluid accumulation or gross bone erosion. Several small bilateral maxillary sinus mucous retention cyst/polyps are noted. Patient is currently in no acute distress and is able to tolerate p.o.'s. Case has been discussed with Dr. Babcock regards potential transfer or discharge home with close ENT follow-up on Monday or Monday of next week. 01/19/19 17:40 I discussed the physical exam findings, ancillary test results and final diagnoses with the patient. I answered all of the patient's questions. The patient was satisfied with the care received and felt comfortable with the discharge plan and treatment plan. The patient will call their primary care physician within 24 hours to arrange follow-up and will return to the Emergency Department with any new, persistent or worsening symptoms. Discharge - Discharge Information Problems reviewed: Yes Clinical Impression/Diagnosis: Jaw pain Condition: Fair Disposition: HOME - Admission No - Follow up/Referral Referrals: Julio Cesar Ma MD [Primary Care Provider] - Aldair Miles MD [Staff Physician] - Griffin Francis MD [Staff Physician] - George Barrera MD [Staff Physician] - - Patient Discharge Instructions Additional Instructions: Take Tylenol as directed by biblical languages professor's instructions for any pain. Avoid medications such as ibuprofen, Advil, Motrin, Naprosyn or Aleve as these may hurt your kidneys even further. It is very important that you follow-up with the gear hobber. I have given me the numbers for Dr. Barrera and Dr. Francis were both ENT specialist. Please call to schedule appointment Monday or Monday for reevaluation. Bring the results of your CAT scan with you for the examination. I have also given you the name of a kidney specialist Dr. Miles. Follow-up with either your kidney specialist at [place] or you may call Dr. Miles for continued evaluation. This person will help manage your kidney function. It is important that you follow-up with your heart failure doctor for reevaluation of your water pills. If it anytime you develop shortness of breath, difficulty breathing, inability to eat or drink, change in your voice, you need to return to the emergency department immediately. Return to the emergency department for any new or worsening symptoms. Thank you very much for choosing us to provide your emergent health care needs. - Post Discharge Activity
[2019-01-19 17:43] VITALS: BP 177/71; PULSE 76; TEMP 97.5
--- NOTE | 2019-01-19 17:43 | PDOC ---
*Physical Exam - Vital Signs Last Vital Signs Temp Pulse Resp BP Pulse Ox 97.5 F L 76 20 177/71 H 99 01/19/19 17:41 01/19/19 17:41 01/19/19 17:41 01/19/19 17:41 01/19/19 17:41 ED Treatment Course - LABORATORY CBC & Chemistry Diagram: 01/19/19 11:30 01/19/19 11:30 - ADDITIONAL ORDERS Additional order review: Laboratory Results 01/19/19 11:30 Sodium 136 Potassium 3.6 Chloride 98 Carbon Dioxide 34 H Anion Gap 5 L BUN 50.4 H Creatinine 2.9 H Est GFR (CKD-EPI)AfAm 16.31 Est GFR (CKD-EPI)NonAf 14.07 Random Glucose 80 Calcium 9.2 Total Bilirubin 0.6 AST 39 H ALT 41 Alkaline Phosphatase 73 Total Protein 8.9 H Albumin 4.0 01/19/19 11:30 RBC 4.03 MCV 93.8 MCHC 33.2 RDW 15.0 MPV 9.0 Neutrophils % 47.7 Lymphocytes % 40.1 H D Monocytes % 11.3 H Eosinophils % 0.7 Basophils % 0.2 - Medications Given in the ED: ED Medications Discontinued Medications Generic Name Dose Route Start Last Admin Trade Name Freq PRN Reason Stop Dose Admin Acetaminophen 1,000 mg 01/19/19 10:53 01/19/19 11:30 Ofirmev Injection - IVPB 01/19/19 10:54 1,000 mg ONCE ONE Administration Discharge - Discharge Information Clinical Impression/Diagnosis: Jaw pain Condition: Fair Disposition: HOME - Follow up/Referral Referrals: Julio Cesar Ma MD [Primary Care Provider] - Aldair Miles MD [Staff Physician] - Griffin Francis MD [Staff Physician] - George Barrera MD [Staff Physician] - - Patient Discharge Instructions Additional Instructions: Take Tylenol as directed by government affairs manager's instructions for any pain. Avoid medications such as ibuprofen, Advil, Motrin, Naprosyn or Aleve as these may hurt your kidneys even further. It is very important that you follow-up with the bearing ring assembler. I have given me the numbers for Dr. Barrera and Dr. Francis were both ENT specialist. Please call to schedule appointment Monday or Monday for reevaluation. Bring the results of your CAT scan with you for the examination. I have also given you the name of a kidney specialist Dr. Miles. Follow-up with either your kidney specialist at [place] or you may call Dr. Miles for continued evaluation. This person will help manage your kidney function. It is important that you follow-up with your heart failure doctor for reevaluation of your water pills. If it anytime you develop shortness of breath, difficulty breathing, inability to eat or drink, change in your voice, you need to return to the emergency department immediately. Return to the emergency department for any new or worsening symptoms. Thank you very much for choosing us to provide your emergent health care needs. - Post Discharge Activity
--- NOTE | 2019-01-20 20:04 | EKG ---
Test Reason : Blood Pressure : / mmHG Vent. Rate : 072 BPM Atrial Rate : 072 BPM P-R Int : 220 ms QRS Dur : 098 ms QT Int : 430 ms P-R-T Axes : 067 044 058 degrees QTc Int : 470 ms POOR DATA QUALITY, INTERPRETATION MAY BE ADVERSELY AFFECTED SINUS RHYTHM WITH 1ST DEGREE A-V BLOCK VOLTAGE CRITERIA FOR LEFT VENTRICULAR HYPERTROPHY ABNORMAL ECG WHEN COMPARED WITH ECG OF 12-AUG-2017 10:20, PREMATURE SUPRAVENTRICULAR COMPLEXES ARE NO LONGER PRESENT Confirmed by IDALIA CARTER MD ([id number]) on 01/20/2019 8:04:03 PM Referred By: Confirmed By:IDALIA CARTER MD
== END 2019-01-19 17:55 | disposition home or self-care (01) ==
LOC: JERFT 09:28 → JER 09:28
PROC: 3E033NZ Introduction of Analgesics, Hypnotics, Sedatives into Peripheral Vein, Percutaneous Approach (ICD-10-PCS; principal; 2019-01-19)
DX: M26.622 Arthralgia of left temporomandibular joint (principal); R59.0 Localized enlarged lymph nodes; I25.10 Atherosclerotic heart disease of native coronary artery without angina pectoris; I13.0 Hypertensive heart and chronic kidney disease with heart failure and stage 1 through stage 4 chronic kidney disease, or unspecified chronic kidney disease; N18.9 Chronic kidney disease, unspecified; I50.89 Other heart failure; I27.20 Pulmonary hypertension, unspecified; E11.9 Type 2 diabetes mellitus without complications; E78.00 Pure hypercholesterolemia, unspecified; Z87.442 Personal history of urinary calculi; Z79.01 Long term (current) use of anticoagulants; Z88.8 Allergy status to other drugs, medicaments and biological substances; Z91.013 Allergy to seafood; Z91.018 Allergy to other foods
CPT/HCPCS: 36415; 70486-TC; 70490-TC; 80053; 85025; 93005; 93010; 96374; 99284-25; J0131

== ENCOUNTER 2020-08-17 00:42 | Inpatient (IN) | payer OTHER ==
[2020-08-17 00:48] VITALS: BMI 33.4
[2020-08-17 01:47] LABS: BASO % 1.1 % (0-2.0); EOS % 1.4 % (0-4.5); HEMATOCRIT 31.1 % (32.4-45.2); HEMOGLOBIN 10.3 GM/dL (10.7-15.3); MCHC 33.2 g/dl (32.0-36.0); MEAN CELL VOLUME 93.4 fl (80-96); MEAN PLT VOLUME 8.7 fl (7.5-11.1); MONO % 12.6 % (3.8-10.2); NEUT % 62.9 % (42.8-82.8); PLATELET COUNT 133 K/MM3 (134-434); RBC 3.33 M/mm3 (3.60-5.2); RDW 15.9 % (11.6-15.6); WHITE BLOOD COUNT 6.8 K/mm3 (4.0-10.0)
[2020-08-17 02:00] LABS: INR 3.27 (0.83-1.09); PROTHROMBIN TIME (PATIENT) 38.8 SEC (9.7-13.0)
[2020-08-17 02:07] LABS: CHLORIDE 96 mmol/L (98-107); SODIUM 139 mmol/L (136-145)
[2020-08-17 02:10] LABS: ALBUMIN 3.6 g/dl (3.4-5.0); CALCIUM 9.2 mg/dL (8.5-10.1)
[2020-08-17 02:11] LABS: ANION GAP 9 MMOL/L (8-16); BLOOD UREA NITROGEN 37.2 mg/dL (7-18); CO2 34 mmol/L (21-32); GLUCOSE,RANDOM 112 mg/dL (74-106); LIPASE 94 U/L (73-393); MAGNESIUM 2.4 mg/dL (1.8-2.4)
[2020-08-17 02:13] LABS: SGPT/ALT 12 U/L (13-61)
[2020-08-17 02:14] LABS: PHOSPHOROUS 3.2 mg/dL (2.5-4.9); SGOT/AST 36 U/L (15-37)
[2020-08-17 02:15] LABS: BILIRUBIN,TOTAL 0.8 mg/dL (0.2-1); TOT PROT 7.9 g/dl (6.4-8.2)
[2020-08-17 02:16] LABS: ALK PHOS 62 U/L (45-117)
[2020-08-17 02:17] LABS: N-TERMINAL BNP 10528.1 pg/ml (5-450)
[2020-08-17 07:02] LABS: EPI CELLS 3 /uL (0-25.1); HYALINE CASTS 1 /uL (0-3.1); PH,URINE 7.5 (5.0-8.0); URINE APPEARANCE CLEAR; URINE BACTERIA 45 /uL (0-1359); URINE BILIRUBIN NEGATIVE (NEGATIVE); URINE COLOR YELLOW; URINE GLUCOSE (UA) NEGATIVE (NEGATIVE); URINE KETONE NEGATIVE (NEGATIVE); URINE LEUK ESTERASE TRACE (NEGATIVE); URINE NITRITE NEGATIVE (NEGATIVE); URINE PROTEIN NEGATIVE (NEGATIVE); URINE RBC 3 /uL (0-23.9); URINE UROBILINOGEN 0.2 mg/dL (0.2-1.0); URINE WBC 5 /uL (0-25.8)
[2020-08-17] MEDS ORDERED: ACETAMINOPHEN 325 MG TABLET (FP) PO PRN (18:54)
[2020-08-17] MEDS: MIRTAZAPINE 15 MG TABLET (FP) PO SCH (22:14)
[2020-08-17] MEDS: INSULIN SLIDING SCALE (NOVOLOG) 1 VIAL SQ SCH (22:14)
[2020-08-17] MEDS: ATORVASTATIN CA 10 MG TABLET (FP) PO SCH (22:14)
[2020-08-18] MEDS: INSULIN SLIDING SCALE (NOVOLOG) 1 VIAL SQ SCH (06:15)
[2020-08-18] MEDS: TORSEMIDE 20 MG TABLET (FP) PO SCH ×2 (06:32→13:36)
[2020-08-18 07:27] LABS: BASO % 0.5 % (0-2.0); EOS % 2.8 % (0-4.5); HEMATOCRIT 30.1 % (32.4-45.2); HEMOGLOBIN 9.9 GM/dL (10.7-15.3); MCH 30.9 pg (25.7-33.7); MCHC 32.7 g/dl (32.0-36.0); MEAN CELL VOLUME 94.6 fl (80-96); MEAN PLT VOLUME 8.7 fl (7.5-11.1); MONO % 14.5 % (3.8-10.2); NEUT % 55.2 % (42.8-82.8); PLATELET COUNT 119 10^3/uL (134-434); RBC 3.19 M/mm3 (3.60-5.2); RDW 15.9 % (11.6-15.6); WHITE BLOOD COUNT 4.8 K/mm3 (4.0-10.0)
[2020-08-18 07:36] LABS: INR 3.08 (0.83-1.09); PROTHROMBIN TIME (PATIENT) 36.1 SEC (9.7-13.0)
[2020-08-18 07:42] LABS: CHLORIDE 101 mmol/L (98-107); SODIUM 141 mmol/L (136-145)
[2020-08-18 07:45] LABS: BLOOD UREA NITROGEN 40.1 mg/dL (7-18); CALCIUM 9.1 mg/dL (8.5-10.1)
[2020-08-18 07:46] LABS: ALBUMIN 3.2 g/dl (3.4-5.0); ANION GAP 5 MMOL/L (8-16); CO2 35 mmol/L (21-32); GLUCOSE,RANDOM 109 mg/dL (74-106)
[2020-08-18 07:47] LABS: CREATININE 2.4 mg/dL (0.55-1.3)
[2020-08-18 07:49] LABS: SGPT/ALT 33 U/L (13-61)
[2020-08-18 07:50] LABS: ALK PHOS 56 U/L (45-117)
[2020-08-18 07:51] LABS: SGOT/AST 38 U/L (15-37)
[2020-08-18] MEDS ORDERED: POTASSIUM CHLORIDE TABS 20 MEQ TABLET.ER (FP) PO ONE (08:36)
[2020-08-18] MEDS: AMIODARONE HCL 200 MG TABLET PO SCH (10:54)
[2020-08-18] MEDS: SILDENAFIL CITRATE 20 MG TAB PO SCH ×3 (10:54→21:52)
[2020-08-18] MEDS: SPIRONOLACTONE 25 MG TABLET PO SCH (10:55)
[2020-08-18 11:15] LABS: IRON SERUM 44 ug/dL (50-175)
[2020-08-18 11:16] LABS: TOTAL IRON BINDING CAPACITY 323 ug/dL (250-450)
[2020-08-18] MEDS ORDERED: PT OWN MED DRAWER 7, Y5N ONE ×2 (13:38→21:47)
[2020-08-18] MEDS ORDERED: FERRIC CARBOXYMALTOSE 750 MG in SODIUM CHLORIDE 250 ML IVPB ONE (14:00)
[2020-08-18] MEDS ORDERED: WARFARIN NA 5 MG TABLET PO SCH (18:00)
[2020-08-18] MEDS: MIRTAZAPINE 15 MG TABLET (FP) PO SCH (21:52)
[2020-08-18] MEDS: ATORVASTATIN CA 10 MG TABLET (FP) PO SCH (21:52)
[2020-08-19] MEDS: TORSEMIDE 20 MG TABLET (FP) PO SCH ×2 (06:51→15:21)
[2020-08-19] MEDS: SILDENAFIL CITRATE 20 MG TAB PO SCH ×2 (06:52→15:22)
[2020-08-19 07:28] LABS: BASO % 0.4 % (0-2.0); EOS % 2.1 % (0-4.5); HEMATOCRIT 29.7 % (32.4-45.2); HEMOGLOBIN 9.7 GM/dL (10.7-15.3); LYMPH % 28.7 % (8-40); MCH 30.8 pg (25.7-33.7); MCHC 32.7 g/dl (32.0-36.0); MEAN CELL VOLUME 94.2 fl (80-96); MEAN PLT VOLUME 8.6 fl (7.5-11.1); MONO % 13.9 % (3.8-10.2); NEUT % 54.9 % (42.8-82.8); PLATELET COUNT 125 10^3/uL (134-434); RBC 3.15 M/mm3 (3.60-5.2); RDW 15.4 % (11.6-15.6); WHITE BLOOD COUNT 5.3 K/mm3 (4.0-10.0)
[2020-08-19 07:33] LABS: INR 2.47 (0.83-1.09); PROTHROMBIN TIME (PATIENT) 29.6 SEC (9.7-13.0)
[2020-08-19 07:54] LABS: CALCIUM 8.8 mg/dL (8.5-10.1)
[2020-08-19 07:55] LABS: BLOOD UREA NITROGEN 37.5 mg/dL (7-18)
[2020-08-19 07:58] LABS: CREATININE 2.4 mg/dL (0.55-1.3)
[2020-08-19] MEDS ORDERED: PT OWN MED DRAWER 7, Y5N ONE (08:54)
[2020-08-19] MEDS: AMIODARONE HCL 200 MG TABLET PO SCH (09:04)
[2020-08-19] MEDS: SPIRONOLACTONE 25 MG TABLET PO SCH (09:04)
[2020-08-19] MEDS ORDERED: IRON POLYSACCHARIDES 150 MG CAPSULE PO SCH (10:00)
[2020-08-19 13:47] VITALS: BP 124/50; PULSE 86; TEMP 98
== END 2020-08-19 16:50 | disposition home health service (06) | DRG 291 ==
LOC: JER 00:42 → JERBED 03:09 → J4S 20:48
PROVIDERS: ADMIT Hospitalist; ATTEND Family Medicine
DX: I13.0 Hypertensive heart and chronic kidney disease with heart failure and stage 1 through stage 4 chronic kidney disease, or unspecified chronic kidney disease (principal); J96.21 Acute and chronic respiratory failure with hypoxia; I50.33 Acute on chronic diastolic (congestive) heart failure; N17.9 Acute kidney failure, unspecified; I27.20 Pulmonary hypertension, unspecified; E78.5 Hyperlipidemia, unspecified; I48.0 Paroxysmal atrial fibrillation; E11.22 Type 2 diabetes mellitus with diabetic chronic kidney disease; N18.9 Chronic kidney disease, unspecified; G47.33 Obstructive sleep apnea (adult) (pediatric); D64.9 Anemia, unspecified; E66.9 Obesity, unspecified; I25.10 Atherosclerotic heart disease of native coronary artery without angina pectoris; E11.40 Type 2 diabetes mellitus with diabetic neuropathy, unspecified; E87.6 Hypokalemia; R42 Dizziness and giddiness; Z68.32 Body mass index [BMI] 32.0-32.9, adult; Z79.84 Long term (current) use of oral hypoglycemic drugs
CPT/HCPCS: 36415; 71045-TC-FY; 76775-TC; 80048; 80053; 81003; 82550; 82570; 82607; 82728; 82962; 83036; 83540; 83550; 83690; 83735; 83880; 84100; 84156; 84439; 84443; 84484; 85025; 85610; 85730; 87086; 93005; 93010; 93970-TC; 94761; 97116-GP; 97161-GP; 99285-25; C9803; J1439; U0003; U0005

== ENCOUNTER 2020-10-05 11:15 | Emergency (ER) | payer OTHER ==
[2020-10-05 11:45] VITALS: BP 156/77; PULSE 70; TEMP 98.5; BMI 32.1
[2020-10-05] MEDS ORDERED: ACETAMINOPHEN 500 MG TABLET (FP) PO ONE (14:30)
[2020-10-05] MEDS ORDERED: ACETAMINOPHEN 325 MG TABLET (FP) ONE (14:45)
[2020-10-05 15:39] LABS: BASO % 0.5 % (0-2.0); EOS % 0.9 % (0-4.5); HEMATOCRIT 29.5 % (32.4-45.2); HEMOGLOBIN 9.8 GM/dL (10.7-15.3); LYMPH % 25.3 % (8-40); MCH 31.4 pg (25.7-33.7); MCHC 33.4 g/dl (32.0-36.0); MEAN PLT VOLUME 8.5 fl (7.5-11.1); MONO % 9.5 % (3.8-10.2); NEUT % 63.8 % (42.8-82.8); PLATELET COUNT 155 10^3/uL (134-434); RBC 3.13 M/mm3 (3.60-5.2); RDW 16.3 % (11.6-15.6); WHITE BLOOD COUNT 6.6 K/mm3 (4.0-10.0)
[2020-10-05 15:43] LABS: INR 2.73 (0.83-1.09); PROTHROMBIN TIME (PATIENT) 32.1 SEC (9.7-13.0)
[2020-10-05 15:45] LABS: ACTIVATED PTT 41.4 SECONDS (25.2-36.5)
[2020-10-05 16:02] LABS: ALBUMIN 3.2 g/dl (3.4-5.0); CALCIUM 8.5 mg/dL (8.5-10.1)
[2020-10-05 16:03] LABS: BLOOD UREA NITROGEN 38.9 mg/dL (7-18)
[2020-10-05 16:06] LABS: CREATININE 2.6 mg/dL (0.55-1.3)
[2020-10-05 16:07] LABS: BILIRUBIN,TOTAL 0.6 mg/dL (0.2-1); TOT PROT 7.9 g/dl (6.4-8.2)
== END 2020-10-05 16:50 | disposition home or self-care (01) ==
LOC: JER 11:15
DX: M25.531 Pain in right wrist (principal); S00.90XA Unspecified superficial injury of unspecified part of head, initial encounter; W10.8XXA Fall (on) (from) other stairs and steps, initial encounter; Y93.01 Activity, walking, marching and hiking
CPT/HCPCS: 36415; 70450-TC; 72125-TC; 73030-TC-RT-FY; 73070-TC-RT-FY; 73110-TC-RT-FY; 73130-TC-RT-FY; 80053; 85025; 85610; 85730; 93005; 93010; 93971; 99285-25

== ENCOUNTER 2020-10-27 11:53 | Inpatient (IN) | payer OTHER ==
[2020-10-27] MEDS ORDERED: ACETAMINOPHEN 500 MG TABLET (FP) PO ONE (13:41)
[2020-10-27 13:45] LABS: BASO % 0.7 % (0-2.0); HEMATOCRIT 26.6 % (32.4-45.2); HEMOGLOBIN 8.9 GM/dL (10.7-15.3); LYMPH % 16.6 % (8-40); MCH 31.6 pg (25.7-33.7); MCHC 33.5 g/dl (32.0-36.0); MEAN CELL VOLUME 94.4 fl (80-96); MEAN PLT VOLUME 7.7 fl (7.5-11.1); MONO % 10.9 % (3.8-10.2); NEUT % 70.8 % (42.8-82.8); PLATELET COUNT 123 10^3/uL (134-434); RBC 2.82 M/mm3 (3.60-5.2); RDW 16.7 % (11.6-15.6); WHITE BLOOD COUNT 5.3 K/mm3 (4.0-10.0)
[2020-10-27 13:49] LABS: INR 3.6 (0.83-1.09)
[2020-10-27 13:52] LABS: ACTIVATED PTT 42.7 SECONDS (25.2-36.5)
[2020-10-27] MEDS ORDERED: ACETAMINOPHEN 325 MG TABLET (FP) ONE (14:00)
[2020-10-27 14:09] LABS: CHLORIDE 104 mmol/L (98-107); SODIUM 141 mmol/L (136-145)
[2020-10-27 14:11] LABS: CALCIUM 8.5 mg/dL (8.5-10.1); GLUCOSE,RANDOM 156 mg/dL (74-106)
[2020-10-27 14:12] LABS: ALBUMIN 3.2 g/dl (3.4-5.0); ANION GAP 7 MMOL/L (8-16); BLOOD UREA NITROGEN 42.4 mg/dL (7-18); CO2 31 mmol/L (21-32)
[2020-10-27 14:15] LABS: CREATININE 2.7 mg/dL (0.55-1.3); SGOT/AST 31 U/L (15-37); SGPT/ALT 31 U/L (13-61)
[2020-10-27 14:16] LABS: BILIRUBIN,TOTAL 1.1 mg/dL (0.2-1); TOT PROT 7.9 g/dl (6.4-8.2)
[2020-10-27 14:17] LABS: ALK PHOS 68 U/L (45-117)
[2020-10-27 14:20] LABS: N-TERMINAL BNP 6883.4 pg/ml (5-450)
[2020-10-27] MEDS ORDERED: TORSEMIDE 20 MG TABLET (FP) PO ONE (15:11)
[2020-10-27] MEDS ORDERED: PT OWN MED DRAWER 7, Y5N ONE (15:44)
[2020-10-27 23:26] VITALS: BMI 31.9
[2020-10-28 04:05] LABS: EPI CELLS 4 /uL (0-25.1); HYALINE CASTS 1 /uL (0-3.1); PH,URINE 6.5 (5.0-8.0); URINE APPEARANCE CLEAR; URINE BACTERIA 66 /uL (0-1359); URINE BILIRUBIN NEGATIVE (NEGATIVE); URINE COLOR YELLOW; URINE GLUCOSE (UA) NEGATIVE (NEGATIVE); URINE KETONE NEGATIVE (NEGATIVE); URINE LEUK ESTERASE 1+ (NEGATIVE); URINE NITRITE NEGATIVE (NEGATIVE); URINE PROTEIN NEGATIVE (NEGATIVE); URINE RBC 11 /uL (0-23.9); URINE WBC 13 /uL (0-25.8)
[2020-10-28] MEDS ORDERED: ACETAMINOPHEN 325 MG TABLET (FP) PO PRN (06:16)
[2020-10-28 09:15] LABS: HEMATOCRIT 24.4 % (32.4-45.2); HEMOGLOBIN 8.2 GM/dL (10.7-15.3); MCH 31.5 pg (25.7-33.7); MCHC 33.4 g/dl (32.0-36.0); MEAN CELL VOLUME 94.3 fl (80-96); MEAN PLT VOLUME 8.8 fl (7.5-11.1); PLATELET COUNT 121 10^3/uL (134-434); RBC 2.59 M/mm3 (3.60-5.2); RDW 16.1 % (11.6-15.6); WHITE BLOOD COUNT 4.3 K/mm3 (4.0-10.0)
[2020-10-28 09:19] LABS: INR 3.52 (0.83-1.09); PROTHROMBIN TIME (PATIENT) 41.7 SEC (9.7-13.0)
[2020-10-28 10:00] LABS: ALBUMIN 2.8 g/dl (3.4-5.0); BLOOD UREA NITROGEN 41.8 mg/dL (7-18); CALCIUM 8.3 mg/dL (8.5-10.1)
[2020-10-28 10:03] LABS: CREATININE 2.4 mg/dL (0.55-1.3)
[2020-10-28] MEDS: AMIODARONE HCL 200 MG TABLET PO SCH (10:07)
[2020-10-28] MEDS: TORSEMIDE 100 MG TABLET PO SCH ×2 (10:08→15:19)
[2020-10-28] MEDS: WARFARIN NA 5 MG TABLET PO SCH (17:46)
[2020-10-28] MEDS: ATORVASTATIN CA 10 MG TABLET (FP) PO SCH (21:36)
[2020-10-29] MEDS: METOLAZONE 2.5 MG TABLET (FP) PO SCH (04:39)
[2020-10-29] MEDS: TORSEMIDE 100 MG TABLET PO SCH ×2 (06:15→13:15)
[2020-10-29] MEDS: AMIODARONE HCL 200 MG TABLET PO SCH (08:59)
[2020-10-29 09:05] LABS: CALCIUM 8.6 mg/dL (8.5-10.1)
[2020-10-29 09:06] LABS: BLOOD UREA NITROGEN 40.6 mg/dL (7-18)
[2020-10-29 09:09] LABS: CREATININE 2.4 mg/dL (0.55-1.3)
[2020-10-29 09:11] LABS: TOT PROT 7.5 g/dl (6.4-8.2)
[2020-10-29 10:51] LABS: INR 2.55 (0.83-1.09)
[2020-10-29 11:13] LABS: EOS % 1.5 % (0-4.5); HEMATOCRIT 26.5 % (32.4-45.2); HEMOGLOBIN 8.7 GM/dL (10.7-15.3); LYMPH % 25.6 % (8-40); MCH 31.3 pg (25.7-33.7); MCHC 32.9 g/dl (32.0-36.0); MEAN CELL VOLUME 95.2 fl (80-96); MEAN PLT VOLUME 8.9 fl (7.5-11.1); MONO % 11.3 % (3.8-10.2); NEUT % 60.6 % (42.8-82.8); PLATELET COUNT 132 10^3/uL (134-434); RBC 2.78 M/mm3 (3.60-5.2); RDW 16.3 % (11.6-15.6); WHITE BLOOD COUNT 5.3 K/mm3 (4.0-10.0)
[2020-10-29] MEDS ORDERED: POTASSIUM CHLORIDE TABS 20 MEQ TABLET.ER (FP) PO ONE (12:00)
[2020-10-29] MEDS: WARFARIN NA 5 MG TABLET PO SCH (17:00)
[2020-10-29] MEDS: ATORVASTATIN CA 10 MG TABLET (FP) PO SCH (21:39)
[2020-10-30] MEDS: METOLAZONE 2.5 MG TABLET (FP) PO SCH (05:37)
[2020-10-30] MEDS: TORSEMIDE 100 MG TABLET PO SCH (06:17)
[2020-10-30 08:01] LABS: INR 2.02 (0.83-1.09); PROTHROMBIN TIME (PATIENT) 24.4 SEC (9.7-13.0)
[2020-10-30 08:11] LABS: HEMATOCRIT 27.5 % (32.4-45.2); HEMOGLOBIN 9.2 GM/dL (10.7-15.3); MCH 31.8 pg (25.7-33.7); MCHC 33.6 g/dl (32.0-36.0); MEAN CELL VOLUME 94.8 fl (80-96); MEAN PLT VOLUME 8.6 fl (7.5-11.1); PLATELET COUNT 138 10^3/uL (134-434); RDW 16.2 % (11.6-15.6); WHITE BLOOD COUNT 6.2 K/mm3 (4.0-10.0)
[2020-10-30 08:25] LABS: BLOOD UREA NITROGEN 45.2 mg/dL (7-18)
[2020-10-30 08:26] LABS: ALBUMIN 3.3 g/dl (3.4-5.0); MAGNESIUM 2.5 mg/dL (1.8-2.4)
[2020-10-30 08:28] LABS: CREATININE 2.6 mg/dL (0.55-1.3)
[2020-10-30 08:55] VITALS: BP 123/63; PULSE 64; TEMP 98.2
[2020-10-30] MEDS: AMIODARONE HCL 200 MG TABLET PO SCH (09:01)
[2020-10-30 09:34] LABS: TOT PROT 7.7 g/dl (6.4-8.2)
[2020-10-30] MEDS ORDERED: POTASSIUM CHLORIDE TABS 20 MEQ TABLET.ER (FP) PO ONE (11:09)
[2020-10-31] MEDS ORDERED: POTASSIUM CHLORIDE TABS 20 MEQ TABLET.ER (FP) PO SCH (10:00)
== END 2020-10-30 14:46 | disposition home health service (06) | DRG 291 ==
LOC: JER 11:53 → JERBED 14:55 → J7W 20:57
PROVIDERS: ADMIT Family Medicine; ATTEND Family Medicine
DX: I13.0 Hypertensive heart and chronic kidney disease with heart failure and stage 1 through stage 4 chronic kidney disease, or unspecified chronic kidney disease (principal); I50.33 Acute on chronic diastolic (congestive) heart failure; J96.21 Acute and chronic respiratory failure with hypoxia; N17.9 Acute kidney failure, unspecified; E11.22 Type 2 diabetes mellitus with diabetic chronic kidney disease; N18.30 Chronic kidney disease, stage 3 unspecified; E78.00 Pure hypercholesterolemia, unspecified; I25.10 Atherosclerotic heart disease of native coronary artery without angina pectoris; D64.9 Anemia, unspecified; I27.20 Pulmonary hypertension, unspecified; J44.9 Chronic obstructive pulmonary disease, unspecified; I48.0 Paroxysmal atrial fibrillation; G47.33 Obstructive sleep apnea (adult) (pediatric); W18.30XA Fall on same level, unspecified, initial encounter; N20.0 Calculus of kidney; E87.6 Hypokalemia; Z99.81 Dependence on supplemental oxygen; E66.9 Obesity, unspecified; Z68.30 Body mass index [BMI] 30.0-30.9, adult; Z85.3 Personal history of malignant neoplasm of breast; Y92.89 Other specified places as the place of occurrence of the external cause; Z96.651 Presence of right artificial knee joint
CPT/HCPCS: 36415; 71045-TC-FY; 73562-TC-LT-FY; 73562-TC-RT-FY; 80053; 80061; 81003; 82550; 82570; 83036; 83735; 83880; 84300; 84443; 84484; 85025; 85027; 85610; 85730; 87086; 93005; 93010; 93971-TC; 97116-GP; 97161-GP; 99285-25; C9803; U0003; U0005

== ENCOUNTER 2020-12-04 18:30 | Inpatient (IN) | payer OTHER ==
[2020-12-04 20:06] LABS: BASO % 0.6 % (0-2.0); EOS % 1.1 % (0-4.5); HEMATOCRIT 30.6 % (32.4-45.2); MCH 31.4 pg (25.7-33.7); MCHC 32.9 g/dl (32.0-36.0); MEAN CELL VOLUME 95.5 fl (80-96); MEAN PLT VOLUME 8.6 fl (7.5-11.1); MONO % 11.3 % (3.8-10.2); PLATELET COUNT 114 10^3/uL (134-434); RDW 16.8 % (11.6-15.6); WHITE BLOOD COUNT 6.2 K/mm3 (4.0-10.0)
[2020-12-04 20:13] LABS: INR 1.58 (0.83-1.09); PROTHROMBIN TIME (PATIENT) 19.5 SEC (9.7-13.0)
[2020-12-04 20:16] LABS: ACTIVATED PTT 33.4 SECONDS (25.2-36.5)
[2020-12-04 20:19] LABS: CHLORIDE 100 mmol/L (98-107); SODIUM 140 mmol/L (136-145)
[2020-12-04 20:21] LABS: ALBUMIN 3.9 g/dl (3.4-5.0); CALCIUM 9.3 mg/dL (8.5-10.1)
[2020-12-04 20:22] LABS: ANION GAP 9 MMOL/L (8-16); BLOOD UREA NITROGEN 40.7 mg/dL (7-18); CO2 32 mmol/L (21-32); GLUCOSE,RANDOM 130 mg/dL (74-106); MAGNESIUM 2.2 mg/dL (1.8-2.4)
[2020-12-04 20:24] LABS: PHOSPHOROUS 3.4 mg/dL (2.5-4.9); SGPT/ALT 40 U/L (13-61)
[2020-12-04 20:25] LABS: CREATININE 2.8 mg/dL (0.55-1.3); SGOT/AST 30 U/L (15-37)
[2020-12-04 20:26] LABS: TOT PROT 9.2 g/dl (6.4-8.2)
[2020-12-04 20:27] LABS: ALK PHOS 64 U/L (45-117)
[2020-12-04 20:30] LABS: N-TERMINAL BNP 9418.6 pg/ml (5-450)
[2020-12-04] MEDS ORDERED: FUROSEMIDE 40 MG/4 ML INJECTABLE VIAL IVPUSH ONE (20:33)
[2020-12-04 20:34] LABS: BILIRUBIN,TOTAL 0.8 mg/dL (0.2-1)
[2020-12-04] MEDS ORDERED: FUROSEMIDE 40 MG/4 ML INJECTABLE VIAL ONE (21:18)
[2020-12-05] MEDS: INSULIN SLIDING SCALE (NOVOLOG) 1 VIAL SQ SCH ×5 (01:52→21:32)
[2020-12-05] MEDS ORDERED: ACETAMINOPHEN 325 MG TABLET (FP) PO PRN (06:09)
[2020-12-05 07:05] LABS: BASO % 0.6 % (0-2.0); EOS % 1.4 % (0-4.5); HEMATOCRIT 28.4 % (32.4-45.2); HEMOGLOBIN 9.5 GM/dL (10.7-15.3); LYMPH % 30.6 % (8-40); MCHC 33.3 g/dl (32.0-36.0); MEAN CELL VOLUME 95.9 fl (80-96); MEAN PLT VOLUME 9.2 fl (7.5-11.1); MONO % 13.6 % (3.8-10.2); NEUT % 53.8 % (42.8-82.8); PLATELET COUNT 107 10^3/uL (134-434); RBC 2.96 M/mm3 (3.60-5.2); RDW 16.6 % (11.6-15.6)
[2020-12-05 07:23] LABS: CREATININE 2.8 mg/dL (0.55-1.3)
[2020-12-05] MEDS ORDERED: ALBUTEROL SO4 2.5/IPRATROPIUM 0.5 INH SOL 3 ML VIAL.NEB. NEB PRN (07:59)
[2020-12-05] MEDS ORDERED: AMIODARONE HCL 200 MG TABLET ONE (09:10)
[2020-12-05] MEDS: TORSEMIDE 100 MG TABLET PO SCH ×2 (09:23→15:05)
[2020-12-05] MEDS ORDERED: POTASSIUM CHLORIDE TABS 20 MEQ TABLET.ER (FP) PO SCH ×2 (10:00→22:00)
[2020-12-05] MEDS ORDERED: VITAMIN B COMPLEX W/C COMBO TABLET (FP) PO SCH (10:00)
[2020-12-05] MEDS ORDERED: PATIENT'S OWN MEDICATION (NON-FORMULARY) (Sildenafil Citrate [Sildenafil Citrate] 20 MG Ta PO SCH (10:00)
[2020-12-05] MEDS ORDERED: AMIODARONE HCL 200 MG TABLET PO SCH (10:00)
[2020-12-05 19:52] LABS: CREATININE, URINE RANDOM 17.6 mg/dL (30-150)
[2020-12-05 20:39] VITALS: BMI 31.8
[2020-12-05] MEDS ORDERED: ATORVASTATIN CA 10 MG TABLET (FP) PO SCH (22:00)
[2020-12-05] MEDS ORDERED: WARFARIN NA 5 MG TABLET PO SCH (22:00)
[2020-12-06] MEDS ORDERED: METOLAZONE 2.5 MG TABLET (FP) PO SCH (05:30)
[2020-12-06] MEDS ORDERED: FLU VACC QS2021-22(6MOS UP)/PF 60 MCG/0.5 ML SYRINGE IM ONE (06:00)
[2020-12-06] MEDS ORDERED: PT OWN MED DRAWER 7, Y5N ONE ×3 (06:02→09:52)
[2020-12-06] MEDS: TORSEMIDE 100 MG TABLET PO SCH ×2 (06:08→14:44)
[2020-12-06] MEDS: INSULIN SLIDING SCALE (NOVOLOG) 1 VIAL SQ SCH ×5 (06:08→21:34)
[2020-12-06] MEDS ORDERED: INSULIN (NOVOLOG) ASPART 100 UNITS/ML 10ML VIAL ONE (06:38)
[2020-12-06] MEDS ORDERED: ALBUTEROL SO4 2.5/IPRATROPIUM 0.5 INH SOL 3 ML VIAL.NEB. NEB PRN (06:59)
[2020-12-06] MEDS ORDERED: ACETAMINOPHEN 325 MG TABLET (FP) PO PRN (06:59)
[2020-12-06 09:40] LABS: INR 1.56 (0.83-1.09); PROTHROMBIN TIME (PATIENT) 19.3 SEC (9.7-13.0)
[2020-12-06] MEDS: AMIODARONE HCL 200 MG TABLET PO SCH (09:56)
[2020-12-06] MEDS: POTASSIUM CHLORIDE TABS 20 MEQ TABLET.ER (FP) PO SCH ×2 (09:56→21:34)
[2020-12-06] MEDS: VITAMIN B COMPLEX W/C COMBO TABLET (FP) PO SCH (09:57)
[2020-12-06 10:21] LABS: HEMATOCRIT 31.2 % (32.4-45.2); HEMOGLOBIN 10.3 GM/dL (10.7-15.3); LYMPH % 28.5 % (8-40); MCH 31.6 pg (25.7-33.7); MCHC 33.1 g/dl (32.0-36.0); MEAN CELL VOLUME 95.5 fl (80-96); MEAN PLT VOLUME 8.9 fl (7.5-11.1); MONO % 11.6 % (3.8-10.2); NEUT % 57.6 % (42.8-82.8); PLATELET COUNT 129 10^3/uL (134-434); RBC 3.27 M/mm3 (3.60-5.2); RDW 16.2 % (11.6-15.6); WHITE BLOOD COUNT 5.6 K/mm3 (4.0-10.0)
[2020-12-06 10:22] LABS: BASO % 0.6 % (0-2.0); EOS % 1.7 % (0-4.5)
[2020-12-06 12:01] LABS: CHLORIDE 95 mmol/L (98-107); CREATININE 2.9 mg/dL (0.55-1.3); SODIUM 139 mmol/L (136-145)
[2020-12-06 12:02] LABS: BILIRUBIN,TOTAL 0.9 mg/dL (0.2-1); SGOT/AST 25 U/L (15-37); SGPT/ALT 34 U/L (13-61); TOT PROT 8.1 g/dl (6.4-8.2)
[2020-12-06 12:03] LABS: ALBUMIN 3.3 g/dl (3.4-5.0); ALK PHOS 60 U/L (45-117); BLOOD UREA NITROGEN 46.3 mg/dL (7-18); CO2 35 mmol/L (21-32); GLUCOSE,RANDOM 147 mg/dL (74-106); MAGNESIUM 2.2 mg/dL (1.8-2.4)
[2020-12-06] MEDS ORDERED: POTASSIUM CHLORIDE TABS 20 MEQ TABLET.ER (FP) PO ONE (13:03)
[2020-12-06] MEDS ORDERED: METOLAZONE 2.5 MG TABLET (FP) PO ONE (13:30)
[2020-12-06 16:40] LABS: PHOSPHOROUS 3.7 mg/dL (2.5-4.9)
[2020-12-06] MEDS: WARFARIN NA 5 MG TABLET PO SCH (17:31)
[2020-12-06] MEDS: ATORVASTATIN CA 10 MG TABLET (FP) PO SCH (21:34)
[2020-12-06] MEDS: SILDENAFIL CITRATE 20 MG TAB PO SCH (21:34)
[2020-12-07] MEDS ORDERED: METOLAZONE 2.5 MG TABLET (FP) PO SCH (05:30)
[2020-12-07] MEDS ORDERED: PT OWN MED DRAWER 7, Y5N ONE ×2 (05:36→09:47)
[2020-12-07] MEDS: TORSEMIDE 100 MG TABLET PO SCH ×2 (05:38→14:42)
[2020-12-07] MEDS: SILDENAFIL CITRATE 20 MG TAB PO SCH ×3 (05:39→21:19)
[2020-12-07] MEDS: INSULIN SLIDING SCALE (NOVOLOG) 1 VIAL SQ SCH ×4 (06:14→21:24)
[2020-12-07 08:22] LABS: BASO % 0.8 % (0-2.0); EOS % 1.7 % (0-4.5); HEMATOCRIT 32.5 % (32.4-45.2); HEMOGLOBIN 10.8 GM/dL (10.7-15.3); LYMPH % 32.1 % (8-40); MCH 31.5 pg (25.7-33.7); MCHC 33.2 g/dl (32.0-36.0); MEAN CELL VOLUME 95.1 fl (80-96); MEAN PLT VOLUME 8.6 fl (7.5-11.1); MONO % 12.4 % (3.8-10.2); PLATELET COUNT 123 10^3/uL (134-434); RBC 3.41 M/mm3 (3.60-5.2); RDW 15.9 % (11.6-15.6); WHITE BLOOD COUNT 5.1 K/mm3 (4.0-10.0)
[2020-12-07 08:50] LABS: CALCIUM 9.2 mg/dL (8.5-10.1)
[2020-12-07 08:51] LABS: ALBUMIN 3.2 g/dl (3.4-5.0); BLOOD UREA NITROGEN 59.7 mg/dL (7-18); MAGNESIUM 2.4 mg/dL (1.8-2.4)
[2020-12-07 08:54] LABS: CREATININE 3.3 mg/dL (0.55-1.3)
[2020-12-07 08:55] LABS: BILIRUBIN,TOTAL 0.7 mg/dL (0.2-1)
[2020-12-07 08:56] LABS: TOT PROT 7.9 g/dl (6.4-8.2)
[2020-12-07] MEDS: POTASSIUM CHLORIDE TABS 20 MEQ TABLET.ER (FP) PO SCH ×2 (09:53→21:18)
[2020-12-07] MEDS: VITAMIN B COMPLEX W/C COMBO TABLET (FP) PO SCH (09:53)
[2020-12-07] MEDS: AMIODARONE HCL 200 MG TABLET PO SCH (09:53)
[2020-12-07] MEDS ORDERED: POLYETHYLENE GLYCOL 3350 119 GM BTL PO SCH (10:30)
[2020-12-07 14:07] LABS: INR 1.59 (0.83-1.09); PROTHROMBIN TIME (PATIENT) 19.7 SEC (9.7-13.0)
[2020-12-07] MEDS: WARFARIN NA 5 MG TABLET PO SCH (17:49)
[2020-12-07] MEDS ORDERED: INSULIN (NOVOLOG) ASPART 100 UNITS/ML 10ML VIAL ONE (21:14)
[2020-12-07] MEDS: POLYETHYLENE GLYCOL (HEALTHYLAX) 3350 17 GM PACKET PO SCH (21:17)
[2020-12-07] MEDS: ATORVASTATIN CA 10 MG TABLET (FP) PO SCH (21:18)
[2020-12-08] MEDS ORDERED: PT OWN MED DRAWER 7, Y5N ONE ×3 (05:47→13:42)
[2020-12-08] MEDS: SILDENAFIL CITRATE 20 MG TAB PO SCH ×3 (05:57→21:03)
[2020-12-08] MEDS: TORSEMIDE 100 MG TABLET PO SCH ×2 (05:58→14:00)
[2020-12-08] MEDS: INSULIN SLIDING SCALE (NOVOLOG) 1 VIAL SQ SCH ×5 (06:02→21:08)
[2020-12-08 09:53] LABS: INR 1.64 (0.83-1.09); PROTHROMBIN TIME (PATIENT) 20.3 SEC (9.7-13.0)
[2020-12-08] MEDS: POTASSIUM CHLORIDE TABS 20 MEQ TABLET.ER (FP) PO SCH ×2 (09:57→21:02)
[2020-12-08 09:58] LABS: BASO % 0.3 % (0-2.0); EOS % 1.9 % (0-4.5); HEMATOCRIT 33.1 % (32.4-45.2); LYMPH % 35.7 % (8-40); MCH 31.7 pg (25.7-33.7); MCHC 33.2 g/dl (32.0-36.0); MEAN CELL VOLUME 95.5 fl (80-96); MEAN PLT VOLUME 9.1 fl (7.5-11.1); MONO % 12.7 % (3.8-10.2); NEUT % 49.4 % (42.8-82.8); PLATELET COUNT 137 10^3/uL (134-434); RBC 3.47 M/mm3 (3.60-5.2); RDW 16.4 % (11.6-15.6); WHITE BLOOD COUNT 6.8 K/mm3 (4.0-10.0)
[2020-12-08] MEDS: POLYETHYLENE GLYCOL (HEALTHYLAX) 3350 17 GM PACKET PO SCH ×2 (09:58→21:04)
[2020-12-08] MEDS: AMIODARONE HCL 200 MG TABLET PO SCH (09:59)
[2020-12-08] MEDS: VITAMIN B COMPLEX W/C COMBO TABLET (FP) PO SCH (10:00)
[2020-12-08 10:44] LABS: BILIRUBIN,TOTAL 0.7 mg/dL (0.2-1)
[2020-12-08 10:45] LABS: TOT PROT 8.4 g/dl (6.4-8.2)
[2020-12-08 10:48] LABS: BLOOD UREA NITROGEN 66.3 mg/dL (7-18); CALCIUM 9.3 mg/dL (8.5-10.1)
[2020-12-08 10:49] LABS: ALBUMIN 3.6 g/dl (3.4-5.0)
[2020-12-08 10:50] LABS: CREATININE 3.2 mg/dL (0.55-1.3)
[2020-12-08] MEDS ORDERED: POTASSIUM CHLORIDE ORAL LIQUID 20 MEQ/15 ML PO ONE (14:45)
[2020-12-08] MEDS: WARFARIN NA 5 MG TABLET PO SCH (17:27)
[2020-12-08] MEDS: ATORVASTATIN CA 10 MG TABLET (FP) PO SCH (21:01)
[2020-12-08] MEDS ORDERED: INSULIN (NOVOLOG) ASPART 100 UNITS/ML 10ML VIAL ONE (21:06)
[2020-12-09] MEDS ORDERED: PT OWN MED DRAWER 7, Y5N ONE (05:42)
[2020-12-09] MEDS: TORSEMIDE 100 MG TABLET PO SCH ×2 (05:47→14:43)
[2020-12-09] MEDS: SILDENAFIL CITRATE 20 MG TAB PO SCH ×2 (05:48→14:43)
[2020-12-09] MEDS: INSULIN SLIDING SCALE (NOVOLOG) 1 VIAL SQ SCH ×2 (06:12→11:37)
[2020-12-09 08:20] LABS: ALBUMIN 3.3 g/dl (3.4-5.0); BLOOD UREA NITROGEN 74.3 mg/dL (7-18); CALCIUM 8.8 mg/dL (8.5-10.1)
[2020-12-09 08:22] LABS: BILIRUBIN,TOTAL 0.9 mg/dL (0.2-1); TOT PROT 7.9 g/dl (6.4-8.2)
[2020-12-09 08:23] LABS: CREATININE 3.2 mg/dL (0.55-1.3)
[2020-12-09] MEDS: POTASSIUM CHLORIDE TABS 20 MEQ TABLET.ER (FP) PO SCH ×3 (11:00→14:46)
[2020-12-09] MEDS: AMIODARONE HCL 200 MG TABLET PO SCH (11:01)
[2020-12-09] MEDS: POLYETHYLENE GLYCOL (HEALTHYLAX) 3350 17 GM PACKET PO SCH (11:01)
[2020-12-09] MEDS: VITAMIN B COMPLEX W/C COMBO TABLET (FP) PO SCH (11:02)
[2020-12-09] MEDS ORDERED: POTASSIUM CHLORIDE ORAL LIQUID 20 MEQ/15 ML PO ONE (11:59)
[2020-12-09 14:15] VITALS: PULSE 80
[2020-12-09 14:40] VITALS: BP 111/75; TEMP 97.5
[2020-12-09] MEDS ORDERED: WARFARIN NA 5 MG TABLET PO SCH (18:00)
== END 2020-12-09 18:10 | disposition home health service (06) | DRG 291 ==
LOC: JER 18:30 → JERBED 20:34 → J6S 12-05 19:47 → OBSVTOIN 12-07 12:48
PROVIDERS: ADMIT Internal Medicine; ATTEND Family Medicine
DX: I13.0 Hypertensive heart and chronic kidney disease with heart failure and stage 1 through stage 4 chronic kidney disease, or unspecified chronic kidney disease (principal); I50.33 Acute on chronic diastolic (congestive) heart failure; N17.9 Acute kidney failure, unspecified; N18.4 Chronic kidney disease, stage 4 (severe); J96.11 Chronic respiratory failure with hypoxia; E78.00 Pure hypercholesterolemia, unspecified; E11.22 Type 2 diabetes mellitus with diabetic chronic kidney disease; J44.9 Chronic obstructive pulmonary disease, unspecified; I27.20 Pulmonary hypertension, unspecified; C50.919 Malignant neoplasm of unspecified site of unspecified female breast; E78.5 Hyperlipidemia, unspecified; I25.10 Atherosclerotic heart disease of native coronary artery without angina pectoris; Z79.4 Long term (current) use of insulin; E11.41 Type 2 diabetes mellitus with diabetic mononeuropathy; I48.0 Paroxysmal atrial fibrillation; I25.119 Atherosclerotic heart disease of native coronary artery with unspecified angina pectoris; G47.33 Obstructive sleep apnea (adult) (pediatric)
CPT/HCPCS: 36415; 71045-TC-FY; 80048; 80053; 82550; 82570; 82962; 83690; 83735; 83880; 84100; 84156; 84484; 84540; 84550; 85025; 85610; 85730; 90686; 93005; 93010; 93225; 93226; 97116-GP; 97162-GP; 99285-25; C9803; G0008; G0378; U0003; U0005

== ENCOUNTER 2021-03-15 11:39 | Inpatient (IN) | payer OTHER ==
[2021-03-15 13:27] LABS: EPI CELLS 8 /uL (0-25.1); HYALINE CASTS 1 /uL (0-3.1); PH,URINE 6.5 (5.0-8.0); URINE APPEARANCE CLEAR; URINE BACTERIA 41 /uL (0-1359); URINE BILIRUBIN NEGATIVE (NEGATIVE); URINE COLOR YELLOW; URINE GLUCOSE (UA) NEGATIVE (NEGATIVE); URINE KETONE NEGATIVE (NEGATIVE); URINE LEUK ESTERASE TRACE (NEGATIVE); URINE NITRITE NEGATIVE (NEGATIVE); URINE PROTEIN TRACE (NEGATIVE); URINE RBC 209 /uL (0-23.9); URINE UROBILINOGEN 0.2 mg/dL (0.2-1.0); URINE WBC 10 /uL (0-25.8)
[2021-03-15] MEDS ORDERED: FUROSEMIDE 40 MG TABLET (FP) PO ONE (13:42)
[2021-03-15 13:47] LABS: CHLORIDE 104 mmol/L (98-107); SODIUM 141 mmol/L (136-145)
[2021-03-15 13:49] LABS: CALCIUM 9.1 mg/dL (8.5-10.1)
[2021-03-15 13:50] LABS: ALBUMIN 3.8 g/dl (3.4-5.0); ANION GAP 9 MMOL/L (8-16); BLOOD UREA NITROGEN 48.3 mg/dL (7-18); CO2 29 mmol/L (21-32); GLUCOSE,RANDOM 138 mg/dL (74-106); MAGNESIUM 2.4 mg/dL (1.8-2.4)
[2021-03-15 13:53] LABS: SGOT/AST 65 U/L (15-37); SGPT/ALT 31 U/L (13-61)
[2021-03-15 13:55] LABS: TOT PROT 8.4 g/dl (6.4-8.2)
[2021-03-15 13:56] LABS: ALK PHOS 62 U/L (45-117)
[2021-03-15 13:58] LABS: N-TERMINAL BNP 9247.9 pg/ml (5-450)
[2021-03-15 14:07] LABS: BILIRUBIN,TOTAL 0.8 mg/dL (0.2-1)
[2021-03-15] MEDS ORDERED: FUROSEMIDE 100 MG/10 ML INJECTABLE VIAL IVPB ONE (14:37)
[2021-03-15] MEDS ORDERED: FUROSEMIDE 40 MG/4 ML INJECTABLE VIAL ONE (14:56)
[2021-03-15 17:07] LABS: HEMATOCRIT 28.6 % (32.4-45.2); HEMOGLOBIN 9.2 GM/dL (10.7-15.3); MCHC 32.1 g/dl (32.0-36.0); MEAN CELL VOLUME 96.7 fl (80-96); MEAN PLT VOLUME 9.6 fl (7.5-11.1); NEUT % 63.4 % (42.8-82.8); PLATELET COUNT 88 10^3/uL (134-434); RBC 2.95 M/mm3 (3.60-5.2); RDW 15.5 % (11.6-15.6); WHITE BLOOD COUNT 5.5 K/mm3 (4.0-10.0)
[2021-03-15 17:08] LABS: BASO % 0.5 % (0-2.0); EOS % 1.8 % (0-4.5); LYMPH % 21.7 % (8-40); MONO % 12.6 % (3.8-10.2)
[2021-03-15] MEDS ORDERED: POLYETHYLENE GLYCOL (HEALTHYLAX) 3350 17 GM PACKET PO PRN (21:49)
[2021-03-15] MEDS ORDERED: ACETAMINOPHEN 325 MG TABLET (FP) PO PRN (21:49)
[2021-03-15] MEDS ORDERED: AMIODARONE HCL 200 MG TABLET ONE (23:43)
[2021-03-15] MEDS: INSULIN SLIDING SCALE (NOVOLOG) 1 VIAL SQ SCH (23:50)
[2021-03-15] MEDS: AMIODARONE HCL 200 MG TABLET PO SCH (23:50)
[2021-03-16] MEDS ORDERED: TORSEMIDE 100 MG TABLET PO SCH (06:00)
[2021-03-16] MEDS ORDERED: CARBIDOPA/LEVODOPA 25/100 TABLET (FP) ONE ×3 (06:35→22:21)
[2021-03-16] MEDS: CARBIDOPA/LEVODOPA 25/100 TABLET (FP) PO SCH ×3 (06:46→22:34)
[2021-03-16 07:41] LABS: BASO % 0.4 % (0-2.0); HEMOGLOBIN 8.9 GM/dL (10.7-15.3); LYMPH % 24.4 % (8-40); MCH 31.5 pg (25.7-33.7); MCHC 32.9 g/dl (32.0-36.0); MEAN CELL VOLUME 95.7 fl (80-96); MEAN PLT VOLUME 9.5 fl (7.5-11.1); MONO % 15.2 % (3.8-10.2); PLATELET COUNT 83 10^3/uL (134-434); RBC 2.82 M/mm3 (3.60-5.2); RDW 15.5 % (11.6-15.6); WHITE BLOOD COUNT 5.1 K/mm3 (4.0-10.0)
[2021-03-16 08:14] LABS: INR 1.16 (0.83-1.09); PROTHROMBIN TIME (PATIENT) 13.4 SEC (9.7-13.0)
[2021-03-16 08:15] LABS: ACTIVATED PTT 27.5 SECONDS (25.2-36.5)
[2021-03-16] MEDS: INSULIN SLIDING SCALE (NOVOLOG) 1 VIAL SQ SCH ×4 (08:38→22:41)
[2021-03-16] MEDS ORDERED: PT OWN MED DRAWER 7, Y5N ONE (08:39)
[2021-03-16] MEDS ORDERED: AMIODARONE HCL 200 MG TABLET ONE (09:31)
[2021-03-16] MEDS: AMIODARONE HCL 200 MG TABLET PO SCH (09:38)
[2021-03-16] MEDS: VITAMIN B COMPLEX W/C COMBO TABLET (FP) PO SCH (09:38)
[2021-03-16] MEDS: SILDENAFIL CITRATE 20 MG TAB PO SCH ×3 (12:20→22:34)
[2021-03-16] MEDS ORDERED: SILDENAFIL CITRATE 20 MG TAB ONE ×3 (12:22→22:07)
[2021-03-16] MEDS ORDERED: FUROSEMIDE 40 MG/4 ML INJECTABLE VIAL ONE (14:40)
[2021-03-16] MEDS: FUROSEMIDE 100 MG/10 ML INJECTABLE VIAL IVPB SCH (14:53)
[2021-03-16] MEDS ORDERED: WARFARIN NA 5 MG TABLET PO SCH (18:00)
[2021-03-16] MEDS ORDERED: ATORVASTATIN CA 10 MG TABLET (FP) ONE (22:07)
[2021-03-16] MEDS ORDERED: MIRTAZAPINE 15 MG TABLET (FP) ONE (22:08)
[2021-03-16] MEDS: MIRTAZAPINE 15 MG TABLET (FP) PO SCH (22:34)
[2021-03-16] MEDS: ATORVASTATIN CA 10 MG TABLET (FP) PO SCH (22:34)
[2021-03-16] MEDS: LATANOPROST 0.005% OPHTH SOLN 2.5ML BOTTLE OU SCH (23:36)
[2021-03-17 01:04] VITALS: BMI 35.9
[2021-03-17 02:55] LABS: PH,URINE 7.5 (5.0-8.0); URINE APPEARANCE CLEAR; URINE BILIRUBIN NEGATIVE (NEGATIVE); URINE COLOR YELLOW; URINE GLUCOSE (UA) NEGATIVE (NEGATIVE); URINE KETONE NEGATIVE (NEGATIVE); URINE LEUK ESTERASE NEGATIVE (NEGATIVE); URINE NITRITE NEGATIVE (NEGATIVE); URINE PROTEIN NEGATIVE (NEGATIVE)
[2021-03-17] MEDS: FUROSEMIDE 100 MG/10 ML INJECTABLE VIAL IVPB SCH ×2 (06:51→14:56)
[2021-03-17] MEDS: SILDENAFIL CITRATE 20 MG TAB PO SCH ×3 (06:51→22:03)
[2021-03-17] MEDS: INSULIN SLIDING SCALE (NOVOLOG) 1 VIAL SQ SCH ×4 (06:52→22:11)
[2021-03-17 08:11] LABS: BASO % 0.4 % (0-2.0); EOS % 3.4 % (0-4.5); HEMATOCRIT 28.4 % (32.4-45.2); HEMOGLOBIN 9.1 GM/dL (10.7-15.3); LYMPH % 25.9 % (8-40); MCH 30.7 pg (25.7-33.7); MEAN CELL VOLUME 95.8 fl (80-96); MEAN PLT VOLUME 10.1 fl (7.5-11.1); MONO % 14.7 % (3.8-10.2); NEUT % 55.6 % (42.8-82.8); PLATELET COUNT 96 10^3/uL (134-434); RBC 2.96 M/mm3 (3.60-5.2); RDW 15.1 % (11.6-15.6); WHITE BLOOD COUNT 5.2 K/mm3 (4.0-10.0)
[2021-03-17 08:52] LABS: CALCIUM 8.7 mg/dL (8.5-10.1); CREATININE 2.5 mg/dL (0.55-1.3)
[2021-03-17 08:54] LABS: MAGNESIUM 2.5 mg/dL (1.8-2.4)
[2021-03-17 08:55] LABS: PHOSPHOROUS 3.6 mg/dL (2.5-4.9)
[2021-03-17] MEDS: AMIODARONE HCL 200 MG TABLET PO SCH (09:21)
[2021-03-17] MEDS: CARBIDOPA/LEVODOPA 25/100 TABLET (FP) PO SCH ×3 (09:22→21:58)
[2021-03-17] MEDS: VITAMIN B COMPLEX W/C COMBO TABLET (FP) PO SCH (09:23)
[2021-03-17] MEDS: POTASSIUM CHLORIDE TABS 20 MEQ TABLET.ER (FP) PO SCH (14:56)
[2021-03-17] MEDS: ATORVASTATIN CA 10 MG TABLET (FP) PO SCH (21:58)
[2021-03-17] MEDS: MIRTAZAPINE 15 MG TABLET (FP) PO SCH (21:58)
[2021-03-17] MEDS: LATANOPROST 0.005% OPHTH SOLN 2.5ML BOTTLE OU SCH (22:04)
[2021-03-18] MEDS: SILDENAFIL CITRATE 20 MG TAB PO SCH ×3 (06:12→23:03)
[2021-03-18] MEDS: CARBIDOPA/LEVODOPA 25/100 TABLET (FP) PO SCH ×3 (06:13→23:03)
[2021-03-18] MEDS: FUROSEMIDE 100 MG/10 ML INJECTABLE VIAL IVPB SCH ×2 (06:13→13:49)
[2021-03-18] MEDS: INSULIN SLIDING SCALE (NOVOLOG) 1 VIAL SQ SCH ×4 (06:33→23:01)
[2021-03-18 07:21] LABS: BASO % 0.6 % (0-2.0); EOS % 2.9 % (0-4.5); HEMATOCRIT 27.2 % (32.4-45.2); HEMOGLOBIN 8.9 GM/dL (10.7-15.3); LYMPH % 24.5 % (8-40); MCH 31.2 pg (25.7-33.7); MCHC 32.7 g/dl (32.0-36.0); MEAN CELL VOLUME 95.4 fl (80-96); MEAN PLT VOLUME 9.1 fl (7.5-11.1); PLATELET COUNT 86 10^3/uL (134-434); RBC 2.86 M/mm3 (3.60-5.2); RDW 15.5 % (11.6-15.6); WHITE BLOOD COUNT 5.3 K/mm3 (4.0-10.0)
[2021-03-18 07:42] LABS: BLOOD UREA NITROGEN 44.6 mg/dL (7-18); CALCIUM 8.6 mg/dL (8.5-10.1)
[2021-03-18 07:43] LABS: MAGNESIUM 2.3 mg/dL (1.8-2.4)
[2021-03-18 07:46] LABS: CREATININE 2.6 mg/dL (0.55-1.3)
[2021-03-18] MEDS: POTASSIUM CHLORIDE TABS 20 MEQ TABLET.ER (FP) PO SCH (10:17)
[2021-03-18] MEDS: AMIODARONE HCL 200 MG TABLET PO SCH (10:18)
[2021-03-18] MEDS: VITAMIN B COMPLEX W/C COMBO TABLET (FP) PO SCH (10:18)
[2021-03-18] MEDS: MIRTAZAPINE 15 MG TABLET (FP) PO SCH (23:03)
[2021-03-18] MEDS: ATORVASTATIN CA 10 MG TABLET (FP) PO SCH (23:03)
[2021-03-18] MEDS: LATANOPROST 0.005% OPHTH SOLN 2.5ML BOTTLE OU SCH (23:05)
[2021-03-19] MEDS: FUROSEMIDE 100 MG/10 ML INJECTABLE VIAL IVPB SCH ×2 (07:00→15:08)
[2021-03-19] MEDS: CARBIDOPA/LEVODOPA 25/100 TABLET (FP) PO SCH ×3 (07:01→22:38)
[2021-03-19] MEDS: SILDENAFIL CITRATE 20 MG TAB PO SCH ×3 (07:01→22:15)
[2021-03-19] MEDS: INSULIN SLIDING SCALE (NOVOLOG) 1 VIAL SQ SCH ×4 (07:02→23:49)
[2021-03-19 07:05] LABS: BASO % 0.4 % (0-2.0); EOS % 2.5 % (0-4.5); HEMATOCRIT 28.2 % (32.4-45.2); HEMOGLOBIN 9.2 GM/dL (10.7-15.3); LYMPH % 31.4 % (8-40); MCH 31.2 pg (25.7-33.7); MCHC 32.8 g/dl (32.0-36.0); MEAN CELL VOLUME 95.2 fl (80-96); MEAN PLT VOLUME 9.5 fl (7.5-11.1); MONO % 12.9 % (3.8-10.2); NEUT % 52.8 % (42.8-82.8); PLATELET COUNT 93 10^3/uL (134-434); RBC 2.96 M/mm3 (3.60-5.2); RDW 15.3 % (11.6-15.6); WHITE BLOOD COUNT 5.3 K/mm3 (4.0-10.0)
[2021-03-19 07:20] LABS: CALCIUM 9.1 mg/dL (8.5-10.1)
[2021-03-19 07:21] LABS: ALBUMIN 3.4 g/dl (3.4-5.0); BLOOD UREA NITROGEN 46.9 mg/dL (7-18)
[2021-03-19 07:24] LABS: CREATININE 2.7 mg/dL (0.55-1.3)
[2021-03-19 07:26] LABS: BILIRUBIN,TOTAL 0.7 mg/dL (0.2-1); TOT PROT 7.2 g/dl (6.4-8.2)
[2021-03-19] MEDS: AMIODARONE HCL 200 MG TABLET PO SCH (09:39)
[2021-03-19] MEDS: POTASSIUM CHLORIDE TABS 20 MEQ TABLET.ER (FP) PO SCH (09:39)
[2021-03-19] MEDS: VITAMIN B COMPLEX W/C COMBO TABLET (FP) PO SCH (09:40)
[2021-03-19] MEDS ORDERED: METOLAZONE 2.5 MG TABLET (FP) PO ONE (13:30)
[2021-03-19] MEDS ORDERED: INSULIN (NOVOLOG) ASPART 100 UNITS/ML 10ML VIAL ONE (17:17)
[2021-03-19] MEDS: ATORVASTATIN CA 10 MG TABLET (FP) PO SCH ×2 (22:00→22:09)
[2021-03-19] MEDS: MIRTAZAPINE 15 MG TABLET (FP) PO SCH (22:09)
[2021-03-19] MEDS: LATANOPROST 0.005% OPHTH SOLN 2.5ML BOTTLE OU SCH (23:59)
[2021-03-20] MEDS: FUROSEMIDE 100 MG/10 ML INJECTABLE VIAL IVPB SCH ×2 (06:04→15:12)
[2021-03-20] MEDS: SILDENAFIL CITRATE 20 MG TAB PO SCH ×3 (07:22→21:37)
[2021-03-20] MEDS: CARBIDOPA/LEVODOPA 25/100 TABLET (FP) PO SCH ×3 (07:24→21:40)
[2021-03-20] MEDS: INSULIN SLIDING SCALE (NOVOLOG) 1 VIAL SQ SCH ×3 (07:24→17:46)
[2021-03-20 08:08] LABS: MAGNESIUM 2.4 mg/dL (1.8-2.4)
[2021-03-20 08:09] LABS: BLOOD UREA NITROGEN 53.2 mg/dL (7-18)
[2021-03-20 08:12] LABS: CREATININE 2.8 mg/dL (0.55-1.3)
[2021-03-20] MEDS: AMIODARONE HCL 200 MG TABLET PO SCH (09:45)
[2021-03-20] MEDS: POTASSIUM CHLORIDE TABS 20 MEQ TABLET.ER (FP) PO SCH (09:46)
[2021-03-20] MEDS: VITAMIN B COMPLEX W/C COMBO TABLET (FP) PO SCH (09:46)
[2021-03-20] MEDS ORDERED: DEXTROSE 5%-WATER - 50 ML IVPB ONE (10:54)
[2021-03-20] MEDS ORDERED: cefTRIAXone SODIUM 1 GM VIAL ONE (10:54)
[2021-03-20] MEDS: CEFTRIAXONE 1 GM in DEXTROSE 5%-WATER - 50 ML IVPB SCH (11:04)
[2021-03-20] MEDS ORDERED: POTASSIUM CHLORIDE TABS 20 MEQ TABLET.ER (FP) PO ONE (12:36)
[2021-03-20] MEDS: MIRTAZAPINE 15 MG TABLET (FP) PO SCH (21:36)
[2021-03-20] MEDS: LATANOPROST 0.005% OPHTH SOLN 2.5ML BOTTLE OU SCH (21:41)
[2021-03-21] MEDS: FUROSEMIDE 100 MG/10 ML INJECTABLE VIAL IVPB SCH ×2 (06:01→13:52)
[2021-03-21] MEDS: INSULIN SLIDING SCALE (NOVOLOG) 1 VIAL SQ SCH ×5 (06:02→23:05)
[2021-03-21] MEDS: SILDENAFIL CITRATE 20 MG TAB PO SCH ×3 (06:05→22:56)
[2021-03-21] MEDS: CARBIDOPA/LEVODOPA 25/100 TABLET (FP) PO SCH ×3 (06:06→22:54)
[2021-03-21] MEDS ORDERED: cefTRIAXone SODIUM 1 GM VIAL ONE (09:25)
[2021-03-21] MEDS ORDERED: DEXTROSE 5%-WATER - 50 ML IVPB ONE (09:26)
[2021-03-21] MEDS: VITAMIN B COMPLEX W/C COMBO TABLET (FP) PO SCH (09:34)
[2021-03-21] MEDS: AMIODARONE HCL 200 MG TABLET PO SCH (09:34)
[2021-03-21] MEDS: CEFTRIAXONE 1 GM in DEXTROSE 5%-WATER - 50 ML IVPB SCH (09:34)
[2021-03-21] MEDS ORDERED: ZOLPIDEM TARTRATE 5 MG TABLET PO PRN (09:50)
[2021-03-21] MEDS ORDERED: POTASSIUM CHLORIDE TABS 20 MEQ TABLET.ER (FP) PO SCH (10:00)
[2021-03-21 12:23] LABS: BLOOD UREA NITROGEN 56.4 mg/dL (7-18); CALCIUM 9.3 mg/dL (8.5-10.1); MAGNESIUM 2.6 mg/dL (1.8-2.4)
[2021-03-21 12:27] LABS: CREATININE 2.7 mg/dL (0.55-1.3)
[2021-03-21] MEDS: POTASSIUM CHLORIDE TABS 20 MEQ TABLET.ER (FP) PO SCH ×2 (13:52→22:26)
[2021-03-21] MEDS: ATORVASTATIN CA 10 MG TABLET (FP) PO SCH (22:26)
[2021-03-21] MEDS: MIRTAZAPINE 15 MG TABLET (FP) PO SCH (22:26)
[2021-03-21] MEDS: LATANOPROST 0.005% OPHTH SOLN 2.5ML BOTTLE OU SCH (22:28)
[2021-03-22] MEDS: INSULIN SLIDING SCALE (NOVOLOG) 1 VIAL SQ SCH ×4 (06:46→22:26)
[2021-03-22] MEDS: CARBIDOPA/LEVODOPA 25/100 TABLET (FP) PO SCH ×3 (06:46→22:27)
[2021-03-22] MEDS: POTASSIUM CHLORIDE TABS 20 MEQ TABLET.ER (FP) PO SCH ×3 (06:47→22:26)
[2021-03-22] MEDS: SILDENAFIL CITRATE 20 MG TAB PO SCH ×3 (06:47→22:25)
[2021-03-22] MEDS: FUROSEMIDE 100 MG/10 ML INJECTABLE VIAL IVPB SCH ×2 (06:47→13:52)
[2021-03-22 07:44] LABS: CALCIUM 8.8 mg/dL (8.5-10.1)
[2021-03-22 07:45] LABS: BLOOD UREA NITROGEN 63.6 mg/dL (7-18)
[2021-03-22] MEDS ORDERED: cefTRIAXone SODIUM 1 GM VIAL ONE (09:12)
[2021-03-22] MEDS ORDERED: DEXTROSE 5%-WATER - 50 ML IVPB ONE (09:13)
[2021-03-22] MEDS: CEFTRIAXONE 1 GM in DEXTROSE 5%-WATER - 50 ML IVPB SCH (10:13)
[2021-03-22] MEDS: AMIODARONE HCL 200 MG TABLET PO SCH (10:13)
[2021-03-22] MEDS: VITAMIN B COMPLEX W/C COMBO TABLET (FP) PO SCH (10:14)
[2021-03-22] MEDS: MIRTAZAPINE 15 MG TABLET (FP) PO SCH (22:26)
[2021-03-22] MEDS: ATORVASTATIN CA 10 MG TABLET (FP) PO SCH (22:26)
[2021-03-22] MEDS: LATANOPROST 0.005% OPHTH SOLN 2.5ML BOTTLE OU SCH (22:27)
[2021-03-23] MEDS: SILDENAFIL CITRATE 20 MG TAB PO SCH ×3 (06:04→21:45)
[2021-03-23] MEDS: TORSEMIDE 100 MG TABLET PO SCH ×2 (06:04→13:34)
[2021-03-23] MEDS: CARBIDOPA/LEVODOPA 25/100 TABLET (FP) PO SCH ×3 (06:04→21:43)
[2021-03-23] MEDS: POTASSIUM CHLORIDE TABS 20 MEQ TABLET.ER (FP) PO SCH ×3 (06:04→21:45)
[2021-03-23] MEDS: INSULIN SLIDING SCALE (NOVOLOG) 1 VIAL SQ SCH ×4 (07:18→21:45)
[2021-03-23 09:14] LABS: BASO % 0.8 % (0-2.0); EOS % 1.6 % (0-4.5); HEMATOCRIT 31.4 % (32.4-45.2); LYMPH % 20.2 % (8-40); MCH 30.6 pg (25.7-33.7); MEAN CELL VOLUME 95.6 fl (80-96); MEAN PLT VOLUME 9.6 fl (7.5-11.1); MONO % 10.2 % (3.8-10.2); NEUT % 67.2 % (42.8-82.8); PLATELET COUNT 127 10^3/uL (134-434); RBC 3.29 M/mm3 (3.60-5.2); RDW 15.4 % (11.6-15.6); WHITE BLOOD COUNT 5.8 K/mm3 (4.0-10.0)
[2021-03-23 09:36] LABS: CALCIUM 9.2 mg/dL (8.5-10.1)
[2021-03-23] MEDS: AMIODARONE HCL 200 MG TABLET PO SCH (09:36)
[2021-03-23] MEDS: CEFUROXIME AXETIL 250 MG TABLET PO SCH ×2 (09:36→21:44)
[2021-03-23] MEDS: VITAMIN B COMPLEX W/C COMBO TABLET (FP) PO SCH (09:36)
[2021-03-23 09:37] LABS: ALBUMIN 3.7 g/dl (3.4-5.0); BLOOD UREA NITROGEN 67.4 mg/dL (7-18); MAGNESIUM 2.7 mg/dL (1.8-2.4)
[2021-03-23 09:40] LABS: CREATININE 2.8 mg/dL (0.55-1.3)
[2021-03-23 09:41] LABS: BILIRUBIN,TOTAL 1.2 mg/dL (0.2-1)
[2021-03-23] MEDS: ATORVASTATIN CA 10 MG TABLET (FP) PO SCH (21:44)
[2021-03-23] MEDS: MIRTAZAPINE 15 MG TABLET (FP) PO SCH (21:45)
[2021-03-23] MEDS: LATANOPROST 0.005% OPHTH SOLN 2.5ML BOTTLE OU SCH (21:46)
[2021-03-24] MEDS: POTASSIUM CHLORIDE TABS 20 MEQ TABLET.ER (FP) PO SCH (06:25)
[2021-03-24] MEDS: TORSEMIDE 100 MG TABLET PO SCH ×2 (06:25→13:58)
[2021-03-24] MEDS: SILDENAFIL CITRATE 20 MG TAB PO SCH ×2 (06:26→13:57)
[2021-03-24] MEDS: CARBIDOPA/LEVODOPA 25/100 TABLET (FP) PO SCH ×2 (06:27→13:57)
[2021-03-24] MEDS: INSULIN SLIDING SCALE (NOVOLOG) 1 VIAL SQ SCH ×2 (06:45→11:43)
[2021-03-24 08:30] LABS: BASO % 0.5 % (0-2.0); EOS % 2.1 % (0-4.5); HEMATOCRIT 28.7 % (32.4-45.2); HEMOGLOBIN 9.2 GM/dL (10.7-15.3); LYMPH % 27.6 % (8-40); MCH 30.7 pg (25.7-33.7); MCHC 32.1 g/dl (32.0-36.0); MEAN CELL VOLUME 95.9 fl (80-96); MEAN PLT VOLUME 9.6 fl (7.5-11.1); MONO % 13.5 % (3.8-10.2); NEUT % 56.3 % (42.8-82.8); PLATELET COUNT 111 10^3/uL (134-434); RBC 2.99 M/mm3 (3.60-5.2); WHITE BLOOD COUNT 4.6 K/mm3 (4.0-10.0)
[2021-03-24] MEDS ORDERED: POTASSIUM CHLORIDE TABS 20 MEQ TABLET.ER (FP) PO ONE (09:03)
[2021-03-24 09:05] LABS: ALBUMIN 3.3 g/dl (3.4-5.0); BLOOD UREA NITROGEN 62.7 mg/dL (7-18); CALCIUM 8.8 mg/dL (8.5-10.1); MAGNESIUM 2.6 mg/dL (1.8-2.4)
[2021-03-24 09:08] LABS: CREATININE 2.7 mg/dL (0.55-1.3)
[2021-03-24 09:09] LABS: BILIRUBIN,TOTAL 0.7 mg/dL (0.2-1); TOT PROT 7.2 g/dl (6.4-8.2)
[2021-03-24] MEDS: VITAMIN B COMPLEX W/C COMBO TABLET (FP) PO SCH (09:32)
[2021-03-24] MEDS: CEFUROXIME AXETIL 250 MG TABLET PO SCH (09:32)
[2021-03-24] MEDS: AMIODARONE HCL 200 MG TABLET PO SCH (09:32)
[2021-03-24] MEDS ORDERED: POTASSIUM CHLORIDE TABS 20 MEQ TABLET.ER (FP) PO SCH (12:00)
[2021-03-24 14:23] VITALS: BP 149/76; PULSE 59; TEMP 98.4
== END 2021-03-24 16:42 | disposition home or self-care (01) | DRG 291 ==
LOC: JER 11:39 → JERBED 15:44 → J4W 03-16 23:38
PROVIDERS: ADMIT Internal Medicine; ATTEND Family Medicine
DX: I13.0 Hypertensive heart and chronic kidney disease with heart failure and stage 1 through stage 4 chronic kidney disease, or unspecified chronic kidney disease (principal); I50.33 Acute on chronic diastolic (congestive) heart failure; N18.4 Chronic kidney disease, stage 4 (severe); N17.9 Acute kidney failure, unspecified; I27.20 Pulmonary hypertension, unspecified; E11.9 Type 2 diabetes mellitus without complications; E78.5 Hyperlipidemia, unspecified; Z85.3 Personal history of malignant neoplasm of breast; I48.0 Paroxysmal atrial fibrillation; R31.9 Hematuria, unspecified; I25.119 Atherosclerotic heart disease of native coronary artery with unspecified angina pectoris; D63.1 Anemia in chronic kidney disease; G20 Parkinson's disease
CPT/HCPCS: 36415; 71045-TC-FY; 80048; 80053; 81003; 82550; 82728; 82962; 83540; 83550; 83735; 83880; 84100; 84484; 85025; 85027; 85610; 85730; 87086; 87186; 93005; 93010; 93970-TC; 97116-GP; 97161-GP; 99285-25; C9803; U0003; U0005

== ENCOUNTER 2022-02-07 19:31 | Inpatient (IN) | payer OTHER ==
[2022-02-07 21:40] LABS: VENOUS BASE EXCESS 4.5 mmol/L (-2-2); VENOUS O2 SATURATION 95.6 % (70-80); VENOUS PH 7.462 (7.310-7.410)
[2022-02-07 21:44] LABS: BASO % 0.6 % (0-2.0); EOS % 0.5 % (0-4.5); HEMATOCRIT 30.2 % (32.4-45.2); HEMOGLOBIN 10.2 GM/dL (10.7-15.3); LYMPH % 16.9 % (8-40); MCH 31.9 pg (25.7-33.7); MCHC 33.7 g/dl (32.0-36.0); MEAN CELL VOLUME 94.7 fl (80-96); MEAN PLT VOLUME 9.9 fl (7.5-11.1); MONO % 9.8 % (3.8-10.2); NEUT % 72.2 % (42.8-82.8); PLATELET COUNT 237 10^3/uL (134-434); RBC 3.19 M/mm3 (3.60-5.2); RDW 14.1 % (11.6-15.6); WHITE BLOOD COUNT 8.1 K/mm3 (4.0-10.0)
[2022-02-07 21:58] LABS: CHLORIDE 97 mmol/L (98-107); SODIUM 131 mmol/L (136-145)
[2022-02-07 22:00] LABS: CALCIUM 8.8 mg/dL (8.5-10.1)
[2022-02-07 22:01] LABS: ALBUMIN 2.6 g/dl (3.4-5.0); CO2 29 mmol/L (21-32); GLUCOSE,RANDOM 147 mg/dL (74-106)
[2022-02-07 22:04] LABS: CREATININE 4.4 mg/dL (0.55-1.3)
[2022-02-07 22:06] LABS: TOT PROT 9.8 g/dl (6.4-8.2)
[2022-02-07 22:07] LABS: ALK PHOS 46 U/L (45-117)
[2022-02-07 22:09] LABS: N-TERMINAL BNP 2416.5 pg/ml (5-450)
[2022-02-07 23:08] LABS: ANION GAP 4 MMOL/L (8-16)
[2022-02-08] MEDS ORDERED: ACETAMINOPHEN 325 MG TABLET (FP) PO ONE (02:02)
[2022-02-08] MEDS ORDERED: APIXABAN 2.5 MG TABLET ONE (08:35)
[2022-02-08] MEDS: APIXABAN 2.5 MG TABLET PO SCH ×2 (09:12→21:40)
[2022-02-08 10:28] LABS: BASO % 0.4 % (0-2.0); EOS % 1.6 % (0-4.5); HEMATOCRIT 29.3 % (32.4-45.2); HEMOGLOBIN 9.7 GM/dL (10.7-15.3); LYMPH % 21.8 % (8-40); MCH 32.1 pg (25.7-33.7); MCHC 33.3 g/dl (32.0-36.0); MEAN CELL VOLUME 96.3 fl (80-96); MEAN PLT VOLUME 8.8 fl (7.5-11.1); MONO % 13.2 % (3.8-10.2); PLATELET COUNT 156 10^3/uL (134-434); RBC 3.04 M/mm3 (3.60-5.2); RDW 13.3 % (11.6-15.6); WHITE BLOOD COUNT 7.2 K/mm3 (4.0-10.0)
[2022-02-08 10:46] LABS: CALCIUM 9.6 mg/dL (8.5-10.1)
[2022-02-08 10:47] LABS: MAGNESIUM 2.3 mg/dL (1.8-2.4)
[2022-02-08 10:50] LABS: CREATININE 3.9 mg/dL (0.55-1.3)
[2022-02-08 17:53] VITALS: BMI 35.7
[2022-02-08] MEDS: ATORVASTATIN CA 10 MG TABLET (FP) PO SCH (21:40)
[2022-02-09 07:58] LABS: HEMATOCRIT 28.3 % (32.4-45.2); HEMOGLOBIN 9.4 GM/dL (10.7-15.3); MCH 31.9 pg (25.7-33.7); MCHC 33.3 g/dl (32.0-36.0); MEAN CELL VOLUME 95.8 fl (80-96); PLATELET COUNT 165 10^3/uL (134-434); RBC 2.95 M/mm3 (3.60-5.2); RDW 13.3 % (11.6-15.6); WHITE BLOOD COUNT 7.2 K/mm3 (4.0-10.0)
[2022-02-09 08:33] LABS: CALCIUM 9.5 mg/dL (8.5-10.1)
[2022-02-09 08:34] LABS: ALBUMIN 2.8 g/dl (3.4-5.0); BLOOD UREA NITROGEN 80.2 mg/dL (7-18)
[2022-02-09 08:37] LABS: CREATININE 3.4 mg/dL (0.55-1.3)
[2022-02-09 08:40] LABS: BILIRUBIN,TOTAL 0.6 mg/dL (0.2-1)
[2022-02-09 08:43] LABS: TOT PROT 7.3 g/dl (6.4-8.2)
[2022-02-09] MEDS: AMIODARONE HCL 200 MG TABLET PO SCH (10:32)
[2022-02-09] MEDS: APIXABAN 2.5 MG TABLET PO SCH ×2 (10:32→21:06)
[2022-02-09] MEDS: FUROSEMIDE 40 MG/4 ML INJECTABLE VIAL IVPUSH SCH (10:36)
[2022-02-09] MEDS: ATORVASTATIN CA 10 MG TABLET (FP) PO SCH (21:06)
[2022-02-10] MEDS: AMIODARONE HCL 200 MG TABLET PO SCH (09:26)
[2022-02-10] MEDS: FUROSEMIDE 40 MG/4 ML INJECTABLE VIAL IVPUSH SCH (09:28)
[2022-02-10] MEDS: APIXABAN 2.5 MG TABLET PO SCH ×2 (09:28→22:24)
[2022-02-10] MEDS: ACETAMINOPHEN 500 MG TABLET (FP) PO PRN ×2 (11:31→22:24)
[2022-02-10] MEDS: TORSEMIDE 100 MG TABLET PO SCH (11:33)
[2022-02-10 13:02] LABS: BASO % 0.5 % (0-2.0); EOS % 0.8 % (0-4.5); HEMATOCRIT 30.9 % (32.4-45.2); HEMOGLOBIN 9.9 GM/dL (10.7-15.3); MCH 31.1 pg (25.7-33.7); MEAN PLT VOLUME 9.3 fl (7.5-11.1); MONO % 14.7 % (3.8-10.2); PLATELET COUNT 182 10^3/uL (134-434); RBC 3.18 M/mm3 (3.60-5.2); WHITE BLOOD COUNT 8.3 K/mm3 (4.0-10.0)
[2022-02-10 13:27] LABS: ALBUMIN 2.7 g/dl (3.4-5.0); CALCIUM 9.4 mg/dL (8.5-10.1)
[2022-02-10 13:31] LABS: BILIRUBIN,TOTAL 0.5 mg/dL (0.2-1); TOT PROT 7.8 g/dl (6.4-8.2)
[2022-02-10] MEDS: ATORVASTATIN CA 10 MG TABLET (FP) PO SCH (22:25)
[2022-02-11 08:10] LABS: ALBUMIN 2.7 g/dl (3.4-5.0)
[2022-02-11 08:13] LABS: CREATININE 3.2 mg/dL (0.55-1.3)
[2022-02-11 08:14] LABS: BASO % 0.5 % (0-2.0); BILIRUBIN,TOTAL 0.5 mg/dL (0.2-1); EOS % 1.1 % (0-4.5); HEMATOCRIT 28.2 % (32.4-45.2); HEMOGLOBIN 9.4 GM/dL (10.7-15.3); LYMPH % 23.4 % (8-40); MCH 32.3 pg (25.7-33.7); MCHC 33.4 g/dl (32.0-36.0); MEAN CELL VOLUME 96.5 fl (80-96); MEAN PLT VOLUME 8.7 fl (7.5-11.1); MONO % 14.4 % (3.8-10.2); NEUT % 60.6 % (42.8-82.8); PLATELET COUNT 160 10^3/uL (134-434); RBC 2.92 M/mm3 (3.60-5.2); RDW 13.1 % (11.6-15.6); TOT PROT 7.6 g/dl (6.4-8.2); WHITE BLOOD COUNT 8.2 K/mm3 (4.0-10.0)
[2022-02-11] MEDS ORDERED: METOLAZONE 2.5 MG TABLET (FP) PO SCH (09:30)
[2022-02-11] MEDS: ACETAMINOPHEN 500 MG TABLET (FP) PO PRN ×2 (10:04→22:05)
[2022-02-11] MEDS: TORSEMIDE 100 MG TABLET PO SCH (10:06)
[2022-02-11] MEDS: APIXABAN 2.5 MG TABLET PO SCH ×2 (10:06→22:07)
[2022-02-11] MEDS: AMIODARONE HCL 200 MG TABLET PO SCH (10:07)
[2022-02-11] MEDS: ATORVASTATIN CA 10 MG TABLET (FP) PO SCH (22:08)
[2022-02-12] MEDS: TORSEMIDE 100 MG TABLET PO SCH (09:38)
[2022-02-12] MEDS: APIXABAN 2.5 MG TABLET PO SCH ×2 (09:38→22:21)
[2022-02-12] MEDS: AMIODARONE HCL 200 MG TABLET PO SCH (09:38)
[2022-02-12 11:22] VITALS: RESP 18
[2022-02-12 16:11] VITALS: BP 120/56; PULSE 79; TEMP 98.9
[2022-02-12] MEDS: ATORVASTATIN CA 10 MG TABLET (FP) PO SCH (22:22)
== END 2022-02-12 23:13 | DRG 291 ==
LOC: JER 19:31 → JERBED 23:36 → J4W 02-08 16:35
PROVIDERS: ADMIT Internal Medicine; ATTEND Family Medicine
DX: I13.0 Hypertensive heart and chronic kidney disease with heart failure and stage 1 through stage 4 chronic kidney disease, or unspecified chronic kidney disease (principal); I50.33 Acute on chronic diastolic (congestive) heart failure; N17.9 Acute kidney failure, unspecified; E11.9 Type 2 diabetes mellitus without complications; I48.0 Paroxysmal atrial fibrillation; I25.10 Atherosclerotic heart disease of native coronary artery without angina pectoris; N18.30 Chronic kidney disease, stage 3 unspecified; Z85.3 Personal history of malignant neoplasm of breast; I34.0 Nonrheumatic mitral (valve) insufficiency; I07.1 Rheumatic tricuspid insufficiency; E78.5 Hyperlipidemia, unspecified
CPT/HCPCS: 0241U-QW; 36415; 71045-TC-FY; 80048; 80053; 82728; 82803; 83540; 83550; 83735; 83880; 84132; 84484; 85025; 85027; 93005; 93010; 93970-TC; 97116-GP; 97161-GP; 99285-25; C9803-CS; U0003; U0005